=== PATIENT | female | born 1945 | race Caucasian/White ===

== ENCOUNTER 2018-03-15 07:34 | Inpatient (IN) | payer MEDICARE, MEDICAID ==
--- NOTE | 2018-03-15 08:16 | C.PDOC ---
History Of Present Illness HX LTD DUE TO CLIN CONDITION 72-YEAR-OLD FEMALE, PRESENTS TO THE EMERGENCY DEPARTMENT WITH COMPLAINTS OF NEW ONSET INTMT CP, SOB, NON-BLOODY DIARRHEA x4 DAYS. PATIENT HAS HAD MULTIPLE BM, DEC APPETITE, AND INC GEN WEAKNESS. NORMALLY PT ABLE TO WALK AROUND, FEED AND DRESS SELF. PT WITH HX OF CHRONIC PAIN DUE TO RA. PTS CP AND SOB ARE NEW. NO KNOWN CARDIAC HX. PER FAMILY, SHE HAD NORMAL ECHO AND STRESS TEST 1 YEAR AGO. PT ALSO WITH NEW ONSET L GREATER THAN RIGHT LEG SWELL, SINCE TUESDAY. FAMILY NOTIFIED OF NEW BLISTERS AND LESIONS ON L FOOT. BASELINE SUGARS ARE WELL CONTROLLED AVG AT 140, BUT FOR PAST 4 DAYS SUGAR AVERAGES AT 300 EXAM APPEARS WEAK, NON-TOX LUNGS POOR EFFORT, NORMAL EXTREMITY L GREATER THAN RIGHT NON PITTING EDEMA. NO DEFORM. SKIN EXAM, SHE HAS MULT CLR BLISTER LESIONS OVER AREAS W SOME BLISTER DEHISCENCE CLR FLUID SCATTERED NON BLANCHING FOCAL LESIONS ON TOP OF FOOT AND LOW BACK PRESSURE ULCER ON BUTTOCK AREA NEURO NO FOCAL DEF AOX2, ACTING APPROPRIATELY DISPOS[employer] Past Medical History Reviewed: Historical Data, Nursing Documentation, Vital Signs Vital Signs: Last Vital Signs Temp 98.6 F 03/15/18 11:00 Pulse 134 H 03/15/18 11:00 Resp 21 03/15/18 11:00 BP 125/63 03/15/18 11:00 Pulse Ox 100 03/15/18 11:00 - Medical History PMH: Arthritis ( PER DAUGHTER SINGH BARROSO), HTN, Rheumatoid Arthritis Family History: States: No Known Family Hx - Social History Hx Alcohol Use: No Hx Substance Use: No - Immunization History Hx Tetanus Toxoid Vaccination: No ( PER DAUGHTER SINGH BARROSO) Hx Influenza Vaccination: No ( PER DAUGHTER SINGH BARROSO) Hx Pneumococcal Vaccination: No ( PER DAUGHTER SINGH BARROSO) Review Of Systems Constitutional: Positive for: Weakness, Other (DECREASED APPETITE) Cardiovascular: Positive for: Chest Pain Respiratory: Positive for: Shortness of Breath Gastrointestinal: Positive for: Diarrhea Musculoskeletal: Positive for: Foot Pain (LESIONS), Other (LEG SWELLING.) Physical Exam - Physical Exam Appears: Non-toxic, No Acute Distress, Other (appears weak) Skin: Normal Color, Warm, Dry, No Rash, Other (MULT CLR BLISTER LESIONS OVER FOOT W SOME BLISTER DEHISCENCE, CLR FLUID SCATTERED NON BLANCHING FOCAL LESIONS ON TOP OF FOOT AND LOW BACK. +PRESSURE ULCER ON BUTTOCK AREA) Head: Normacephalic Eye(s): bilateral: PERRL Nose: Normal Oral Mucosa: Moist Lips: Normal Appearing Neck: Normal ROM Chest: Symmetrical Cardiovascular: Rhythm Regular Respiratory: No Accessory Muscle Use (poor effort) Extremity: No Deformity, Other ( L>R NON PITTING EDEMA. NO DEFORMITY) Neurological/Psych: Other (NO FOCAL DEFICIT. ACTING APPROPRIATELY) ED Course And Treatment - Laboratory Results Result Diagrams: 03/15/18 08:28 03/15/18 08:28 ECG: Interpreted By Me ECG Rhythm: Sinus Tachycardia, L BBB, PVC Rate From EC O2 Sat by Pulse Oximetry: 100 (RA) Pulse Ox Interpretation: Normal Progress - Re-Evaluation Re-evaluation Note: 03/15/18 08:[address] CLAYTON 03/15/18 08:43 CODE SEPSIS ACTIVATED WILL DEFER IVF SEPSIS BOLUS PROTOCOL DUE TO UNK CARDIAC EF. BNP PENDING 03/15/18 08:47 D/W DR CLAYTON STATES WILL CALLBACK W ADDL INFO 03/15/18 09:24 d/w dr CLAYTON: PT LAST EVAL 2015 echo 50; +lbbb. RECOMMENDS ESMOLOL. WILL CONSULT 03/15/18 10:31 D/W DR TAY C/F ICU, WILL EVAL 03/15/18 10:42 REPEAT EKG SINUS TACH @ 102 LBBB 03/15/18 11:05 D/W DR EPPERSON CF PMD WILL ADMIT 03/15/18 11:16 ACCEPTED FOR ICU - Data Reviewed Data Reviewed: Lab, Diagnostic imaging, EKG, Old records - Critical Care Citical Care: Excluding Proc Time Critical Care Time: 90 minutes - Continuity of Care Discussed patient case with:: Patient, Family-HIPPA compliant, Covering for PMD Discussed pt. case with web consultant/specialty: Cardiology, Pulmonary/Crit. Care Disposition Counseled Patient/Family Regarding: Studies Performed, Diagnosis - Disposition Disposition: HOSPITALIZED Disposition Time: 11:16 Condition: SERIOUS Forms: [facility] (Kinyarwanda) - POA Present On Arrival: None - Clinical Impression Clinical Impression: CHF, acute, Rapid atrial fibrillation, Sepsis syndrome - Scribe Statement The provider has reviewed the documentation as recorded by the Scribe (Karlos Torres) All medical record entries made by the Scribe were at my direction and personally dictated by me. I have reviewed the chart and agree that the record accurately reflects my personal performance of the history, physical exam, medical decision making, and the department course for this patient. I have also personally directed, reviewed, and agree with the discharge instructions and disposition. Decision To Admit - Pt Status Changed To: Hospital Disposition Of: Inpatient - Admit Certification Admit to Inpatient:: After my assessment, the patient will require hospitalization for at least two midnights. This is because of the severity of symptoms shown, intensity of services needed, and/or the medical risk in this patient being treated as an outpatient. - InPatient: Physician Admission Certification: I certify that this patient requires 2 or more midnights of care for the following reason:: SEE NOTE - . Bed Request Type: ICU Admitting Physician: Patrica Epperson Patient Diagnosis: CHF, acute, Rapid atrial fibrillation, Sepsis syndrome
[2018-03-15 08:32] LABS: HEMOGLOBIN 15.8 g/dL (11.0-16.0); LYMPH # 0.9 K/uL (1.0-4.3); MEAN CELL VOLUME 92.8 fL (81.0-99.0); MEAN CORPUSCULAR HEMOGLOBIN 30.6 pg (27.0-31.0); MEAN PLATELET VOLUME 8.5 fL (7.2-11.7); MONO # 1.3 K/uL (0.0-0.8); MONO % 8.6 % (0.0-10.0); NEUT # 12.7 K/uL (1.8-7.0); NEUT % 85.4 % (50.0-75.0); NRBC % 0.1 % (0.0-2.0); PLATELET COUNT 206 K/uL (130-400); RBC 5.16 Mil/uL (3.80-5.20); RED CELL DISTRIBUTION WIDTH 15.1 % (11.5-14.5); WHITE BLOOD COUNT 14.8 K/uL (4.8-10.8)
[2018-03-15 08:39] LABS: INR 2.3; PROTHROMBIN TIME 26.6 SECONDS (9.7-12.2)
[2018-03-15 08:41] LABS: VENOUS BLOOD GAS BASE EXCESS 3.7 mmol/L (0.0-2.0); VENOUS BLOOD GAS PCO2 43 mmHg (40-60); VENOUS BLOOD GAS PO2 17 mm/Hg (30-55); VENOUS BLOOD PH 7.43 (7.32-7.43)
[2018-03-15] MEDS ORDERED: Vancomycin 1 gm/NS 200 ml 1 GM/200 ML BAG IVPB STA (08:45)
[2018-03-15] MEDS ORDERED: Aztreonam 2 GM in Sodium Chloride 0.9% 100 ML IVPB STA (08:45)
[2018-03-15 08:57] LABS: ALB/GLOB RATIO 1.2 (1.0-2.1); ALBUMIN 3.9 g/dL (3.5-5.0); ALT/SGPT 184 U/L (9-52); AST/SGOT 286 U/L (14-36); BLOOD UREA NITROGEN 36 mg/dL (7-17); CALCIUM 9.1 mg/dl (8.6-10.4); GFR AFRICAN-AMERICAN > 60; GFR NON-AFRICAN AMERICAN > 60
[2018-03-15 09:08] LABS: B-TYPE NATRIURETIC PEPTIDE 11600 pg/mL (0-900)
[2018-03-15] MEDS ORDERED: Digoxin 500 mcg/2ml (0.5 mg/2ml) Inj IV STA (09:15)
[2018-03-15 09:17] LABS: ANISOCYTOSIS SLIGHT; LYMPHOCYTE 6 % (20-40); MONOCYTE 6 % (0-10); NEUTROPHIL 88 % (50-75); PLATELET ESTIMATE NORMAL (NORMAL); TOTAL CELLS COUNTED 100
[2018-03-15 09:22] LABS: SQUAMOUS EPITHIAL 8 /hpf (0-5); URINE BILIRUBIN NEGATIVE (NEGATIVE); URINE BLOOD NEGATIVE (NEGATIVE); URINE CLARITY Hazy (Clear); URINE COLOR Amber (YELLOW); URINE GLUCOSE (UA) NORMAL (Normal); URINE LEUKOCYTE ESTERASE NEG Leu/uL (Negative); URINE PROTEIN 2+ mg/dL (NEGATIVE)
--- NOTE | 2018-03-15 09:23 | RAD ---
PROCEDURE: CHEST RADIOGRAPH, 1 VIEW HISTORY: SOB COMPARISON: 12/22/2012 FINDINGS: LUNGS: Clear. PLEURA: No pneumothorax or pleural fluid seen. CARDIOVASCULAR: Normal. OSSEOUS STRUCTURES: No significant abnormalities. VISUALIZED UPPER ABDOMEN: Normal. OTHER FINDINGS: None. IMPRESSION: No active disease.
[2018-03-15] MEDS ORDERED: Esmolol 100 mg/10ml Inj IV ONE (09:27)
[2018-03-15] MEDS ORDERED: Esmolol 2,500 MG in Dextrose 5% In Water 240 ML IV SCH (09:30)
[2018-03-15] MEDS ORDERED: Iodixanol 320 MG/ML 100 ML BOTTLE IV ONE (09:57)
[2018-03-15] MEDS ORDERED: Esmolol 2,500 MG in Sodium Chloride 0.9% 240 ML IV SCH (10:00)
[2018-03-15] MEDS ORDERED: Esmolol Hcl 2500mg/250ml NAC 250 ML IV SCH (10:30)
--- NOTE | 2018-03-15 10:44 | CT ---
PROCEDURE: CT Chest with contrast (Pulmonary Angiogram) HISTORY: SOB COMPARISON: None available. TECHNIQUE: Axial computed tomography images were obtained of the chest in the pulmonary arterial phase of enhancement. Coronal and sagittal reformatted images were created and reviewed. Intravenous contrast dose: 100 mL Visipaque 320 Radiation dose: Total exam DLP = 556.25 mGy-cm. This CT exam was performed using one or more of the following dose reduction techniques: Automated exposure control, adjustment of the mA and/or kV according to patient size, and/or use of iterative reconstruction technique. FINDINGS: PULMONARY ARTERIES: No filling defect. No evidence of pulmonary arterial embolism. AORTA: No acute findings. No thoracic aortic aneurysm. LUNGS: Linear subsegmental atelectasis in the right middle lobe, lateral segment and in lingular segment left upper lobe. Minimal compressive atelectasis right lower lobe secondary to right pleural effusion. Minimal linear scar/atelectasis left lower lobe. No acute infiltrate. No pulmonary mass. PLEURAL SPACES: Small right pleural effusion and trace left pleural effusion. No pneumothorax. HEART: Cardiomegaly. No pericardial effusion. No aneurysmal dilatation of the ascending thoracic aorta. There is dilatation of the main pulmonary artery to a diameter of 3.5 cm. Please correlate with any history of pulmonary arterial hypertension. LYMPH NODES: No lymphadenopathy. BONES, CHEST WALL: Unremarkable. No fracture or destructive lesion OTHER FINDINGS: 4.7 cm upper pole cortical cyst left kidney incidentally noted. IMPRESSION: No evidence of pulmonary embolism. Small right pleural effusion and trace left pleural effusion. Multifocal linear subsegmental atelectasis. No acute infiltrate. Cardiomegaly. Dilated main pulmonary artery.
--- NOTE | 2018-03-15 10:56 | CT ---
PROCEDURE: CT Abdomen and Pelvis with contrast HISTORY: ABN LFT, abdominal pain COMPARISON: 07/05/2012. TECHNIQUE: CT scan of the abdomen and pelvis was performed after administration of intravenous contrast. Oral contrast was not administered. Coronal and sagittal reformatted images were obtained. Contrast dose: 100 mL Visipaque 320 Radiation dose: Total exam DLP = 1135.20 mGy-cm. This CT exam was performed using one or more of the following dose reduction techniques: Automated exposure control, adjustment of the mA and/or kV according to patient size, and/or use of iterative reconstruction technique. FINDINGS: LOWER THORAX: Moderate right and small left pleural effusions. LIVER: The liver is normal in size and there is diffuse fatty infiltration. No gross lesion or ductal dilatation. GALLBLADDER AND BILE DUCTS: There are gallstones, mild gallbladder wall enhancement and small amount of pericholecystic fluid. There is mild diffuse dilatation of the common bile duct which measures 8 mm in the region of the head of the pancreas. PANCREAS: Mild diffuse atrophy. No gross lesion or ductal dilatation. SPLEEN: Normal in size and appearance. ADRENALS: No discrete nodule. KIDNEYS AND URETERS: Normal in size with homogeneous enhancement. No hydronephrosis. No solid mass. There is a 11 mm simple cyst in the upper pole of the right kidney. There is a 5.2 x 4.5 cm simple cyst in the upper pole of the left kidney. VASCULATURE: There are advanced atherosclerotic aortoiliac calcifications. No aortic aneurysm. BOWEL: Evaluation of the bowel is limited in the absence of oral contrast. The small bowel loops are normal in caliber. There is extensive colonic diverticulosis. There is apparent mild mural thickening of the transverse colon, left hemicolon and sigmoid colon. No bowel dilatation or obstruction. APPENDIX: Normal appendix. PERITONEUM: No free fluid. No free air. LYMPH NODES: No enlarged lymph nodes. BLADDER: Indwelling Diop catheter with subsequent decompression. REPRODUCTIVE: The uterus is normal in size for the patient's age. There is apparent thickening of the central endometrial echo complex. BONES: No acute fracture. Advanced multilevel degenerative disc disease in the lumbar spine worse at L3-4. OTHER FINDINGS: None. IMPRESSION: 1. Evaluation of the bowel is limited in the absence of oral contrast. Allowing for this, apparent mild mural thickening in the transverse colon, left hemicolon and sigmoid colon is nonspecific and could be related to underdistention however early nonspecific infectious/inflammatory colitis cannot be entirely excluded. Clinical correlation and follow-up is advised. 2. Colonic diverticulosis without CT evidence for acute diverticulitis. 3. Fatty liver. 4. Cholelithiasis and mild pericholecystic fluid. If clinically indicated, correlation with right upper quadrant ultrasound may be performed for definitive evaluation of the gallbladder. 5. Apparent thickening of the central endometrial echo complex, concerning for postmenopausal status. A dedicated pelvic ultrasound is recommended for further evaluation.
--- NOTE | 2018-03-15 11:54 | VASCLAB ---
PROCEDURE: Lower Extremity Venous Duplex Exam. HISTORY: swelling PRIORS: None. TECHNIQUE: Bilateral common femoral, femoral, popliteal and posterior tibial, peroneal and great saphenous veins were evaluated. Flow was assessed with color Doppler, compressibility, assessment of phasic flow and augmentation response. Report prepared by MELITA Chung, RVT FINDINGS: RIGHT: 1. Common Femoral Vein: 1.1. Compressibility - Fully compressible: Thrombus - None : Flow - Phasic: Augmentation -Normal: Reflux - None. 2. Femoral Vein: 2.1. Compressibility - Fully compressible: Thrombus - None : Flow - Phasic: Augmentation -Normal: Reflux - None. 3. Popliteal Vein: 3.1. Compressibility - Fully compressible: Thrombus - None : Flow - Phasic: Augmentation -Normal: Reflux - None. 4. Posterior Tibial Vein: 4.1. Compressibility - Fully compressible: Thrombus - None: Flow - Phasic: Augmentation -Normal: Reflux - None. 5. Peroneal Vein: 5.1. Compressibility - Fully compressible: Thrombus - None: Flow - Phasic: Augmentation -Normal: Reflux - None. 6. Great Saphenous Vein: 6.1. Compressibility - Fully compressible: Thrombus - None: Flow - Phasic: Augmentation - Normal: Reflux - None. LEFT: 1. Common Femoral Vein: 1.1. Compressibility - Fully compressible: Thrombus - None: Flow - Phasic: Augmentation -Normal: Reflux - None. 2. Femoral Vein: 2.1. Compressibility - Fully compressible: Thrombus - None: Flow - Phasic: Augmentation -Normal: Reflux - None. 3. Popliteal Vein: 3.1. Compressibility - Fully compressible: Thrombus - None : Flow - Phasic: Augmentation -Normal: Reflux - None. 4. Posterior Tibial Vein: 4.1. Compressibility - Fully compressible: Thrombus - None: Flow - Phasic: Augmentation -Normal: Reflux - None. 5. Peroneal Vein: 5.1. Compressibility - Fully compressible: Thrombus - None: Flow - Phasic: Augmentation -Normal: Reflux - None. 6. Great Saphenous Vein: 6.1. Compressibility - Fully compressible: Thrombus - None: Flow - Phasic: Augmentation - Normal: Reflux - None. OTHER FINDINGS: Pulsatile flow noted in both lower extremity veins. IMPRESSION: Right: No evidence of deep or superficial vein thrombosis of the right lower extremity. Normal valve function noted of the right side. Left: No evidence of deep or superficial vein thrombosis of the left lower extremity. Normal valve function noted of the left side.
[2018-03-15 11:57] LABS: VENOUS BLOOD GAS BASE EXCESS -0.8 mmol/L (0.0-2.0); VENOUS BLOOD GAS PCO2 41 mmHg (40-60); VENOUS BLOOD GAS PO2 25 mm/Hg (30-55); VENOUS BLOOD PH 7.38 (7.32-7.43)
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
--- NOTE | 2018-03-15 12:53 | CP.PCM.CON ---
History of Present Illness - History of Present Illness History of Present Illness: The pt is a 72 year old woman, diabetic with HTN and a chronic LBBB. pt stopped coming to the office in 2016. In 2016, she had an outpatient echo showing Low normal LV EF, and a non ischemic nuclear stress test. She has been home bound for many years, not walking, going to the bed to the chair with family 's help. Pt has had poor appetite, increased leg swelling and dyspnea, fatigue. The pt was brought to the ER, and cxr revealed mild CHF and increased bnp ( radiology says clear, I disagree). CT was negative for PE. Pt while in the ER had atrial flutter with 2;1 block. IV esmolol was administered and pt converted to NSR. Also noted were mildly low magnesium and potassium. Pt has not taken meds for some time. She was on several outpatient anti-hypertensives. BP is nor normal in the ER, and LBBB is again seen. There is mild TNI elevation. Review of Systems - Review of Systems All systems: reviewed and no additional remarkable complaints except (as above, blisters on legs) Past Patient History - Past Social History Smoking Status: Former Smoker - CARDIAC Hx Hypertension: Yes - ENDOCRINE/METABOLIC Hx Diabetes Mellitus Type 2: Yes - MUSCULOSKELETAL/RHEUMATOLOGICAL Hx Arthritis: Yes ( PER DAUGHTER SINGH BARROSO) Hx Rheumatoid Arthritis: Yes - PSYCHIATRIC Hx Substance Use: No - SURGICAL HISTORY Hx Surgeries: No ( PER DAUGHTER SINGH BARROSO) - ANESTHESIA Hx Anesthesia: No Meds Allergies/Adverse Reactions: Allergies Allergy/AdvReac Type Severity Reaction Status Date / Time No Known Allergies Allergy Verified 03/15/18 07:43 - Medications Medications: Current Medications Esmolol HCl (Brevibloc) 250 mls @ 20.412 mls/hr IV .[id number] FRANCOIS; 50 MCG/KG/MIN PRN Reason: Protocol Last Admin: 03/15/18 11:17 Dose: 20.412 mls/hr Insulin Human Regular (Novolin R) 0 unit SC ACHS FRANCOIS PRN Reason: Protocol Physical Exam - Constitutional Appears: Cachectic, Chronically Ill - Head Exam Head Exam: ATRAUMATIC - Eye Exam Eye Exam: EOMI Pupil Exam: NORMAL ACCOMODATION - ENT Exam ENT Exam: Mucous Membranes Dry - Neck Exam Neck exam: Positive for: Full Rom - Respiratory Exam Respiratory Exam: Rales - Cardiovascular Exam Cardiovascular Exam: REGULAR RHYTHM - GI/Abdominal Exam GI & Abdominal Exam: Normal Bowel Sounds - Exam External exam: Swelling (bandaged blisters left leg, bilateral edema. ) - Extremities Exam Extremities exam: Positive for: pedal edema - Back Exam Back exam: CVA tenderness (L), CVA tenderness (R), FULL ROM, muscle spasm, paraspinal tenderness, rash noted, tenderness, vertebral tenderness Additional comments: buttock ulcer - Neurological Exam Neurological exam: Alert, Oriented x3 - Psychiatric Exam Psychiatric exam: Flat Affect Results - Vital Signs Recent Vital Signs: Last Vital Signs Temp 99.0 F 03/15/18 12:16 Pulse 88 03/15/18 12:16 Resp 17 03/15/18 12:16 BP 126/66 03/15/18 12:16 Pulse Ox 98 03/15/18 12:16 - Labs Result Diagrams: 03/15/18 08:28 03/15/18 08:28 Labs: Laboratory Results - last 24 hr 03/15/18 03/15/18 03/15/18 07:40 08:28 08:28 WBC 14.8 H RBC 5.16 Hgb 15.8 Hct 47.8 H MCV 92.8 MCH 30.6 MCHC 33.0 RDW 15.1 H Plt Count 206 MPV 8.5 Neut % (Auto) 85.4 H Lymph % (Auto) 6.0 L [place] % (Auto) 8.6 Eos % (Auto) 0.0 Baso % (Auto) 0.0 Neut # (Auto) 12.7 H Lymph # (Auto) 0.9 L [place] # (Auto) 1.3 H Eos # (Auto) 0.0 Baso # (Auto) 0.0 Neutrophils % (Manual) 88 H Lymphocytes % (Manual) 6 L Monocytes % (Manual) 6 Platelet Estimate Normal Anisocytosis (manual) Slight PT INR APTT pO2 VBG pH VBG pCO2 VBG HCO3 VBG Total CO2 VBG O2 Sat (Calc) VBG Base Excess VBG Potassium Glucose Lactate Crit Value Called To Crit Value Called By Crit Value Read Back Blood Gas Notified Time Sodium 132 Potassium 3.4 L Chloride 90 L Carbon Dioxide 24 Anion Gap 21 H BUN 36 H Creatinine 0.8 Est GFR ( Amer) > 60 Est GFR (Non-Af Amer) > 60 POC Glucose (mg/dL) 98 Random Glucose 99 Calcium 9.1 Phosphorus 3.5 Magnesium 1.6 Total Bilirubin 2.0 H AST 286 H ALT 184 H Alkaline Phosphatase 162 H Troponin I 0.3780 H* NT-Pro-B Natriuret Pep 91789 H Total Protein 7.2 Albumin 3.9 Globulin 3.2 Albumin/Globulin Ratio 1.2 Venous Blood Potassium Urine Color Urine Clarity Urine pH Ur Specific [place] Urine Protein Urine Glucose (UA) Urine Ketones Urine Blood Urine Nitrate Urine Bilirubin Urine Urobilinogen Ur Leukocyte Esterase Urine WBC (Auto) Urine RBC (Auto) Ur Squamous Epith Cells 03/15/18 03/15/18 03/15/18 08:28 08:32 09:13 WBC RBC Hgb Hct MCV MCH MCHC RDW Plt Count MPV Neut % (Auto) Lymph % (Auto) [place] % (Auto) Eos % (Auto) Baso % (Auto) Neut # (Auto) Lymph # (Auto) [place] # (Auto) Eos # (Auto) Baso # (Auto) Neutrophils % (Manual) Lymphocytes % (Manual) Monocytes % (Manual) Platelet Estimate Anisocytosis (manual) PT 26.6 H INR 2.3 APTT 30 pO2 17 L VBG pH 7.43 VBG pCO2 43 VBG HCO3 25.9 VBG Total CO2 29.8 H VBG O2 Sat (Calc) 16.9 L VBG Base Excess 3.7 H VBG Potassium 3.5 L Glucose 108 H Lactate 2.6 H Crit Value Called To Dr austin Crit Value Called By Mynor jung [facility] Crit Value Read Back Y Blood Gas Notified Time 840 Sodium 130.0 L Potassium Chloride 92.0 L Carbon Dioxide Anion Gap BUN Creatinine Est GFR ( Amer) Est GFR (Non-Af Amer) POC Glucose (mg/dL) Random Glucose Calcium Phosphorus Magnesium Total Bilirubin AST ALT Alkaline Phosphatase Troponin I NT-Pro-B Natriuret Pep Total Protein Albumin Globulin Albumin/Globulin Ratio Venous Blood Potassium 3.5 L Urine Color [place] Urine Clarity Hazy Urine pH 5.0 Ur Specific [place] 1.030 Urine Protein 2+ H Urine Glucose (UA) Normal Urine Ketones Trace Urine Blood Negative Urine Nitrate Negative Urine Bilirubin Negative Urine Urobilinogen 4.0 H Ur Leukocyte Esterase Neg Urine WBC (Auto) 1 Urine RBC (Auto) 1 Ur Squamous Epith Cells 8 H 03/15/18 03/15/18 11:50 11:53 WBC RBC Hgb Hct MCV MCH MCHC RDW Plt Count MPV Neut % (Auto) Lymph % (Auto) [place] % (Auto) Eos % (Auto) Baso % (Auto) Neut # (Auto) Lymph # (Auto) [place] # (Auto) Eos # (Auto) Baso # (Auto) Neutrophils % (Manual) Lymphocytes % (Manual) Monocytes % (Manual) Platelet Estimate Anisocytosis (manual) PT INR APTT pO2 25 L VBG pH 7.38 VBG pCO2 41 VBG HCO3 22.8 VBG Total CO2 25.6 VBG O2 Sat (Calc) 31.9 L VBG Base Excess -0.8 L VBG Potassium 3.1 L Glucose 94 Lactate 3.5 H Crit Value Called To Crit Value Called By Crit Value Read Back Blood Gas Notified Time Sodium 133.0 Potassium Chloride 93.0 L Carbon Dioxide Anion Gap BUN Creatinine Est GFR ( Amer) Est GFR (Non-Af Amer) POC Glucose (mg/dL) 111 H Random Glucose Calcium Phosphorus Magnesium Total Bilirubin AST ALT Alkaline Phosphatase Troponin I NT-Pro-B Natriuret Pep Total Protein Albumin Globulin Albumin/Globulin Ratio Venous Blood Potassium 3.1 L Urine Color Urine Clarity Urine pH Ur Specific [place] Urine Protein Urine Glucose (UA) Urine Ketones Urine Blood Urine Nitrate Urine Bilirubin Urine Urobilinogen Ur Leukocyte Esterase Urine WBC (Auto) Urine RBC (Auto) Ur Squamous Epith Cells Assessment & Plan - Assessment and Plan (Free Text) Assessment: 1. Pt has deteriorated greatly in two years, essentially bed bound. There is unexplained liver dysfunction with elevated PT/PTT. CT not specific for the cause of this. GI eval recommended. Pt has atrial flutter, resulting in chf. there is mild troponin elevation, which is likely reflective of demand ischemia, not plaque rupture. Pt is a diabetic, and likely has microvascular disease, at least. Nuclear stress was negative for ischemia in 2016. No anticoagulation as inr elevated. Asa po. Echo to asses LV EF. Gradually transition from IV esmolol to po metoprolol. Esmolol has a very short half life, minutes, and lopressor shoudl be given and allow to absorb po for 30 min or more before stopping or tapering esmolol. replace MAg and k. Continue IV lasx for now. ,
[2018-03-15] MEDS ORDERED: Magnesium Sulfate 1 gm in D5W 1 GM/100 ML BAG IVPB SCH (13:00)
[2018-03-15] MEDS ORDERED: Potassium Chloride 20 mEq/15 ml LIQ UD PO ONE (13:00)
[2018-03-15] MEDS ORDERED: Vancomycin 1 GM in Sodium Chloride 0.9% 200 ML IVPB SCH ×2 (13:30→20:21)
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
[2018-03-15] MEDS: Pantoprazole 40 mg EC Tab PO SCH (14:54)
[2018-03-15] MEDS: Piperacill/Tazo 3.375gm in Dex 3.375 GM/50 ML BAG IVPB SCH ×2 (15:59→21:09)
[2018-03-15] MEDS: (Novolin R) Insulin Human Regular 100 units/ml vial SC SCH ×2 (16:32→21:09)
[2018-03-15] MEDS ORDERED: Sodium Chloride 0.9% 1,000 ML IV ONE (16:47)
--- NOTE | 2018-03-15 17:28 | CP.PCM.CON ---
History of Present Illness - History of Present Illness History of Present Illness: dictated Past Patient History - Past Social History Smoking Status: Former Smoker - CARDIAC Hx Hypertension: Yes - ENDOCRINE/METABOLIC Hx Diabetes Mellitus Type 2: Yes - MUSCULOSKELETAL/RHEUMATOLOGICAL Hx Arthritis: Yes ( PER DAUGHTER SINGH BARROSO) Hx Rheumatoid Arthritis: Yes - PSYCHIATRIC Hx Substance Use: No - SURGICAL HISTORY Hx Surgeries: No ( PER DAUGHTER SINGH BARROSO) - ANESTHESIA Hx Anesthesia: No Meds Allergies/Adverse Reactions: Allergies Allergy/AdvReac Type Severity Reaction Status Date / Time No Known Allergies Allergy Verified 03/15/18 14:02 - Medications Medications: Current Medications Aspirin (Aspirin Chewable) 81 mg PO DAILY [facility] Esmolol HCl (Brevibloc) 250 mls @ 20.412 mls/hr IV .[id number] FRANCOIS; 50 MCG/KG/MIN PRN Reason: Protocol Last Admin: 03/15/18 11:17 Dose: 20.412 mls/hr Piperacillin Sod/Tazobactam Sod (Zosyn 3.375 Gm Iv Premix) 3.375 gm in 50 mls @ 100 mls/hr IVPB Q6H FRANCOIS PRN Reason: Protocol Last Admin: 03/15/18 15:59 Dose: 100 mls/hr Vancomycin HCl 1 gm/ Sodium (Chloride) 200 mls @ 166.7 mls/hr IVPB Q12H FRANCOIS PRN Reason: Protocol Insulin Human Regular (Novolin R) 0 unit SC ACHS [facility] PRN Reason: Protocol Last Admin: 03/15/18 16:32 Dose: Not Given Ketorolac Tromethamine (Toradol) 15 mg IVP Q6 PRN PRN Reason: Pain, moderate (4-7) Last Admin: 03/15/18 15:23 Dose: 15 mg Metoprolol Tartrate (Lopressor) 25 mg PO BID [facility] Ondansetron HCl (Zofran Inj) 4 mg IVP Q6H PRN PRN Reason: Nausea/Vomiting Last Admin: 03/15/18 15:57 Dose: 4 mg Pantoprazole Sodium (Protonix Ec Tab) 40 mg PO DAILY [facility] Last Admin: 03/15/18 14:54 Dose: 40 mg Pneumococcal Polyvalent Vaccine (Pneumovax 23 Vaccine) 0.5 ml IM .ONCE ONE Stop: 03/17/18 10:01 Results - Vital Signs Recent Vital Signs: Last Vital Signs Temp 99.0 F 03/15/18 12:16 Pulse 131 H 03/15/18 16:30 Resp 15 03/15/18 16:30 BP 95/66 L 03/15/18 16:21 Pulse Ox 98 03/15/18 16:30 - Labs Result Diagrams: 03/15/18 08:28 03/15/18 08:28 Labs: Laboratory Results - last 24 hr 03/15/18 03/15/18 03/15/18 07:40 08:28 08:28 WBC 14.8 H RBC 5.16 Hgb 15.8 Hct 47.8 H MCV 92.8 MCH 30.6 MCHC 33.0 RDW 15.1 H Plt Count 206 MPV 8.5 Neut % (Auto) 85.4 H Lymph % (Auto) 6.0 L [place] % (Auto) 8.6 Eos % (Auto) 0.0 Baso % (Auto) 0.0 Neut # (Auto) 12.7 H Lymph # (Auto) 0.9 L [place] # (Auto) 1.3 H Eos # (Auto) 0.0 Baso # (Auto) 0.0 Neutrophils % (Manual) 88 H Lymphocytes % (Manual) 6 L Monocytes % (Manual) 6 Platelet Estimate Normal Anisocytosis (manual) Slight PT INR APTT pO2 VBG pH VBG pCO2 VBG HCO3 VBG Total CO2 VBG O2 Sat (Calc) VBG Base Excess VBG Potassium Glucose Lactate Crit Value Called To Crit Value Called By Crit Value Read Back Blood Gas Notified Time Sodium 132 Potassium 3.4 L Chloride 90 L Carbon Dioxide 24 Anion Gap 21 H BUN 36 H Creatinine 0.8 Est GFR ( Amer) > 60 Est GFR (Non-Af Amer) > 60 POC Glucose (mg/dL) 98 Random Glucose 99 Calcium 9.1 Phosphorus 3.5 Magnesium 1.6 Total Bilirubin 2.0 H AST 286 H ALT 184 H Alkaline Phosphatase 162 H Troponin I 0.3780 H* NT-Pro-B Natriuret Pep 60265 H Total Protein 7.2 Albumin 3.9 Globulin 3.2 Albumin/Globulin Ratio 1.2 Venous Blood Potassium Urine Color Urine Clarity Urine pH Ur Specific [place] Urine Protein Urine Glucose (UA) Urine Ketones Urine Blood Urine Nitrate Urine Bilirubin Urine Urobilinogen Ur Leukocyte Esterase Urine WBC (Auto) Urine RBC (Auto) Ur Squamous Epith Cells 03/15/18 03/15/18 03/15/18 08:28 08:32 09:13 WBC RBC Hgb Hct MCV MCH MCHC RDW Plt Count MPV Neut % (Auto) Lymph % (Auto) [place] % (Auto) Eos % (Auto) Baso % (Auto) Neut # (Auto) Lymph # (Auto) [place] # (Auto) Eos # (Auto) Baso # (Auto) Neutrophils % (Manual) Lymphocytes % (Manual) Monocytes % (Manual) Platelet Estimate Anisocytosis (manual) PT 26.6 H INR 2.3 APTT 30 pO2 17 L VBG pH 7.43 VBG pCO2 43 VBG HCO3 25.9 VBG Total CO2 29.8 H VBG O2 Sat (Calc) 16.9 L VBG Base Excess 3.7 H VBG Potassium 3.5 L Glucose 108 H Lactate 2.6 H Crit Value Called To Dr austin Crit Value Called By Mynor jung [facility] Crit Value Read Back Y Blood Gas Notified Time 840 Sodium 130.0 L Potassium Chloride 92.0 L Carbon Dioxide Anion Gap BUN Creatinine Est GFR ( Amer) Est GFR (Non-Af Amer) POC Glucose (mg/dL) Random Glucose Calcium Phosphorus Magnesium Total Bilirubin AST ALT Alkaline Phosphatase Troponin I NT-Pro-B Natriuret Pep Total Protein Albumin Globulin Albumin/Globulin Ratio Venous Blood Potassium 3.5 L Urine Color [place] Urine Clarity Hazy Urine pH 5.0 Ur Specific [place] 1.030 Urine Protein 2+ H Urine Glucose (UA) Normal Urine Ketones Trace Urine Blood Negative Urine Nitrate Negative Urine Bilirubin Negative Urine Urobilinogen 4.0 H Ur Leukocyte Esterase Neg Urine WBC (Auto) 1 Urine RBC (Auto) 1 Ur Squamous Epith Cells 8 H 03/15/18 03/15/18 03/15/18 11:50 11:53 16:14 WBC RBC Hgb Hct MCV MCH MCHC RDW Plt Count MPV Neut % (Auto) Lymph % (Auto) [place] % (Auto) Eos % (Auto) Baso % (Auto) Neut # (Auto) Lymph # (Auto) [place] # (Auto) Eos # (Auto) Baso # (Auto) Neutrophils % (Manual) Lymphocytes % (Manual) Monocytes % (Manual) Platelet Estimate Anisocytosis (manual) PT INR APTT pO2 25 L VBG pH 7.38 VBG pCO2 41 VBG HCO3 22.8 VBG Total CO2 25.6 VBG O2 Sat (Calc) 31.9 L VBG Base Excess -0.8 L VBG Potassium 3.1 L Glucose 94 Lactate 3.5 H Crit Value Called To Crit Value Called By Crit Value Read Back Blood Gas Notified Time Sodium 133.0 Potassium Chloride 93.0 L Carbon Dioxide Anion Gap BUN Creatinine Est GFR ( Amer) Est GFR (Non-Af Amer) POC Glucose (mg/dL) 111 H 139 H Random Glucose Calcium Phosphorus Magnesium Total Bilirubin AST ALT Alkaline Phosphatase Troponin I NT-Pro-B Natriuret Pep Total Protein Albumin Globulin Albumin/Globulin Ratio Venous Blood Potassium 3.1 L Urine Color Urine Clarity Urine pH Ur Specific [place] Urine Protein Urine Glucose (UA) Urine Ketones Urine Blood Urine Nitrate Urine Bilirubin Urine Urobilinogen Ur Leukocyte Esterase Urine WBC (Auto) Urine RBC (Auto) Ur Squamous Epith Cells
--- NOTE | 2018-03-15 18:51 | PCM.PROC ---
Procedures Attestation:: I certify that I have explained the specified Operation(s) or Procedure(s), risks, benefits and reasonable alternatives to the Patient and/or other person responsible. The opportunity was given to ask questions and all questions answered - Central Line Placement Right Internal Jugular Triple Lumen Catheter Aseptic technique was employed throughout the procedure: Hand Hygiene done prior to procedure, Full sterile barriers (mask, hair cover, sterile gown, sterile gloves), Chloraprep Antiseptic: 30 second prep for IJ or SC sites Central Line Prep: Chlorhexidine-Alcohol Combination Local Anesthesia Used: Lidocaine 2% Ultrasound Used for Placement: Yes Central Line Lumen Inserted: triple Post Procedure: Sutured in Place, Good Blood Return, All Ports Aspirated, Flushed, Capped, Sterile Dressing Applied Secured by: Suture Post procedure dressing: Chlorhexidine disc (Biopatch) Post Procedure X-Ray: Yes Patient Tolerated Procedure: Well Immediate Complications: None
[2018-03-15] MEDS: Vancomycin 1 GM in Sodium Chloride 0.9% 200 ML IVPB SCH (19:51)
[2018-03-15 20:18] LABS: ARTERIAL BLOOD GAS HEMOGLOBIN 14.2 g/dL (11.7-17.4); ARTERIAL BLOOD GAS O2 SAT 99.7 % (95-98); ARTERIAL BLOOD GAS PCO2 26 mm/Hg (35-45); ARTERIAL BLOOD GAS PH 7.46 (7.35-7.45); ARTERIAL BLOOD GAS PO2 178 mm/Hg (80-100); ARTERIAL BLOOD GAS TCO2 19.3 mmol/L (22-28)
--- NOTE | 2018-03-15 22:59 | US ---
EXAM: US Abdomen Limited, Right Upper Quadrant CLINICAL HISTORY: 72 years old, female; Condition or disease; Other: Sepsis R/O cholecystitis; Additional info: Sepsis, R/O cholecystitis TECHNIQUE: Real-time ultrasound of the right upper quadrant with image documentation. COMPARISON: No relevant prior studies available. FINDINGS: Liver: Fatty infiltration. No mass. No intrahepatic ductal dilatation. Gallbladder: Gallstones. 0.33 cm wall thickness. No pericholecystic fluid. No sonographic Gonzalez's sign. Common bile duct: Up to 0.83 cm in diameter. No stones. Pancreas: Unremarkable as visualized. Right kidney: Normal echogenicity. 1.1 x 1.2 x 1.3 cm cyst. No hydronephrosis. Mild stranding/fluid about RIGHT kidney. Pleural space: Right pleural effusion. IMPRESSION: 1. Cholelithiasis with borderline gallbladder wall thickening. Clinical correlation is needed. 2. Mild biliary ductal dilatation. Correlate with laboratory values. Consider MRCP. 3. Right pleural effusion. 4. Right perinephric stranding/fluid, nonspecific. 5. Incidental/non-acute findings are described above.
--- NOTE | 2018-03-15 23:29 | CARD ---
APPROVED REPORT EXAM: Two-dimensional and M-mode echocardiogram with Doppler and color Doppler. Other Information Quality : [employer] : INDICATION Atrial Fibrillation Congestive Heart Failure 2D DIMENSIONS IVSd1.1 (0.7-1.1cm)LVDd4.4 (3.9-5.9cm) PWd1.3 (0.7-1.1cm)LVDs4.2 (2.5-4.0cm) FS (%) 4.2 %LVEF (%)15.0 (>50%) M-Mode DIMENSIONS Left Atrium (MM)4.20 (2.5-4.0cm)Aortic Root3.18 (2.2-3.7cm) Aortic Cusp Exc.1.66 (1.5-2.0cm) Aortic Valve AI P 1/2 [id number] Mitral Valve MV E [id number]/sE/A ratio0.0 TDI E/Lateral E'0.0E/Medial E'0.0 Tricuspid Valve TR Peak [id number]/sTR Peak Gr.46mmHg LEFT VENTRICLE There is borderline to mild asymmetric left ventricular hypertrophy. Left ventricle systolic function is severely impaired. The Ejection Fraction is 15-20%. There is moderate to severe dyskinesis in the mid-anteroseptal wall consistent with CAD. The left ventricular diastolic function is normal. No left ventricle thrombus noted on this study. RIGHT VENTRICLE The right ventricle is normal size. The right ventricular systolic function is normal. ATRIA The left atrium is mildly dilated. The right atrium is moderately dilated. AORTIC VALVE The aortic valve is moderately sclerotic. The aortic valve is trileaflet. There is mild to moderate aortic regurgitation. There is no aortic valvular stenosis. There is no aortic valvular vegetation. MITRAL VALVE Mitral annular calcification is mild to moderate. There is no evidence of mitral valve prolapse. There is no mitral valve stenosis. Mitral regurgitation is mild to moderate. TRICUSPID VALVE The tricuspid valve is normal in structure. There is moderate to severe tricuspid regurgitation. There is no tricuspid valve prolapse or vegetation. There is no tricuspid valve stenosis. PULMONIC VALVE The pulmonic valve is not well visualized. There is trace to mild pulmonic valvular regurgitation. GREAT VESSELS The aortic root is normal in size. The IVC is normal in size and collapses >50% with inspiration. PERICARDIAL EFFUSION There is no pericardial effusion. There is no pleural effusion. <Conclusion> There is borderline to mild asymmetric left ventricular hypertrophy. Left ventricle systolic function is severely impaired. The Ejection Fraction is 15-20%. There is moderate to severe dyskinesis in the mid-anteroseptal wall consistent with CAD. The left ventricular diastolic function is normal. The right atrium is moderately dilated. The left atrium is mildly dilated. The right ventricle is normal size. The right ventricular systolic function is normal. There is mild to moderate aortic regurgitation. Mitral regurgitation is mild to moderate. There is trace to mild pulmonic valvular regurgitation.
[2018-03-16] MEDS: Piperacill/Tazo 3.375gm in Dex 3.375 GM/50 ML BAG IVPB SCH ×4 (03:15→21:26)
[2018-03-16 06:36] LABS: BASO % 0.2 % (0.0-2.0); HEMOGLOBIN 13.8 g/dL (11.0-16.0); LYMPH # 0.6 K/uL (1.0-4.3); MEAN CELL VOLUME 92.5 fL (81.0-99.0); MEAN CORPUSCULAR HEMOGLOBIN 31.4 pg (27.0-31.0); MEAN PLATELET VOLUME 8.7 fL (7.2-11.7); MONO # 1.1 K/uL (0.0-0.8); MONO % 9.4 % (0.0-10.0); NEUT # 10.5 K/uL (1.8-7.0); NEUT % 85.4 % (50.0-75.0); NRBC % 0.2 % (0.0-2.0); PLATELET COUNT 162 K/uL (130-400); WHITE BLOOD COUNT 12.2 K/uL (4.8-10.8)
[2018-03-16 06:55] LABS: ALB/GLOB RATIO 1.1 (1.0-2.1); ALBUMIN 2.8 g/dL (3.5-5.0); CALCIUM 8.1 mg/dl (8.6-10.4)
[2018-03-16] MEDS: Vancomycin 1 GM in Sodium Chloride 0.9% 200 ML IVPB SCH ×2 (07:08→19:49)
--- NOTE | 2018-03-16 08:21 | RAD ---
HISTORY: central line placed COMPARISON: CTA chest from 03/15/2018. FINDINGS: LUNGS: There is a left retrocardiac opacity. The right lung is clear. . PLEURA: Small pleural effusions, larger on the left. No pneumothorax apparent. CARDIOVASCULAR: The heart is enlarged and there is dilatation of the right pulmonary artery. OSSEOUS STRUCTURES: No significant abnormalities. VISUALIZED UPPER ABDOMEN: Normal. OTHER FINDINGS: None. IMPRESSION: Left retrocardiac opacity may represent atelectasis or pneumonia. Small pleural effusions, larger on the left. Persistent cardiomegaly and dilated right pulmonary artery.
[2018-03-16] MEDS: (Novolin R) Insulin Human Regular 100 units/ml vial SC SCH ×4 (08:30→21:25)
[2018-03-16 08:33] LABS: ANISOCYTOSIS SLIGHT; BANDS 2 % (0-2); BURR CELLS MODERATE; LYMPHOCYTE 6 % (20-40); MONOCYTE 7 % (0-10); NEUTROPHIL 85 % (50-75); PLATELET ESTIMATE NORMAL (NORMAL); TOTAL CELLS COUNTED 100
[2018-03-16] MEDS: Pantoprazole 40 mg EC Tab PO SCH (09:30)
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
--- NOTE | 2018-03-16 11:08 | CP.CCUPN ---
<Lenard Aguirre - Last Filed: 03/16/18 11:05> CCU Subjective - Physician Review Subjective (Free Text): 03/16/18 11:05 Patient seen and examined. Patient reports some epigastric pain but states that she is otherwise fine. CCU Objective - Vital Signs / Intake & Output Vital Signs (Last 4 hours): Vital Signs Pulse 03/16/18 08:07 72 Intake and Output (Last 8hrs): Intake & Output 03/15/18 03/16/18 03/16/18 22:59 06:59 14:59 Intake Total 401.0 150 Output Total 185 200 Balance 216.0 -50 Weight 137 lb Intake: Intake, IV Amount 401.0 100 Left Wrist 150 Right Antecubital 51.0 Right Proximal Port 200 100 Internal Jugular Oral 0 50 Output: Urine 185 200 Urethral (Diop) 185 200 Other: # Bowel Movements 0 - Physical Exam Head: Positive for: Atraumatic, Normocephalic Pupils: Positive for: PERRL Extroacular Muscles: Positive for: EOMI Conjunctiva: Positive for: Normal Mouth: Positive for: Dry Neck: Positive for: Other (right IJ TLC) Respiratory/Chest: Positive for: Clear to Auscultation. Negative for: Wheezes, Rales, Rhonchi Abdomen: Positive for: Normal Bowel Sounds. Negative for: Tenderness, Distention Upper Extremity: Negative for: Edema Lower Extremity: Positive for: Edema, Other (rash on left leg) Skin: Positive for: Warm, Dry Psychiatric: Positive for: Alert - Medications Active Medications: Active Medications Generic Name Dose Route Start Last Admin Trade Name Freq PRN Reason Stop Dose Admin Aspirin 81 mg 03/16/18 10:00 03/16/18 09:30 Aspirin Chewable PO 81 mg DAILY FRANCOIS Administration Piperacillin Sod/Tazobactam Sod 3.375 gm in 50 mls @ 100 mls/hr 03/15/18 16: 00 03/16/18 09:31 Zosyn 3.375 Gm Iv Premix IVPB 100 mls/hr Q6H FRANCOIS Administration Protocol Vancomycin HCl 1 gm/ Sodium 200 mls @ 166.7 mls/hr 03/15/18 20:00 03/16/18 07 :08 Chloride IVPB 166.7 mls/hr Q12H FRANCOIS Administration Protocol Insulin Human Regular 0 unit 03/15/18 16:30 03/16/18 08:30 Novolin R SC 2 unit ACHS FRANCOIS Administration Protocol Metoprolol Tartrate 12.5 mg 03/16/18 10:45 Lopressor PO Q12H FRANCOIS Ondansetron HCl 4 mg 03/15/18 15:44 03/15/18 15:57 Zofran Inj IVP 4 mg Q6H PRN Administration Nausea/Vomiting Pantoprazole Sodium 40 mg 03/15/18 14:15 03/16/18 09:30 Protonix Ec Tab PO 40 mg DAILY FRANCOIS Administration Pneumococcal Polyvalent Vaccine 0.5 ml 03/17/18 10:00 Pneumovax 23 Vaccine IM 03/17/18 10:01 .ONCE ONE - Patient Studies Lab Studies: Microbiology Studies 03/15/18 08:18 Urine Culture - Final Urine,Diop No Growth (<1,000 CFU/ML) Lab Studies 03/16/18 03/16/18 03/16/18 Range/Units 07:56 06:30 06:28 WBC (4.8-10.8) K/uL RBC (3.80-5.20) Mil/uL Hgb (11.0-16.0) g/dL Hct (34.0-47.0) % MCV (81.0-99.0) fL MCH (27.0-31.0) pg MCHC (33.0-37.0) g/dL RDW (11.5-14.5) % Plt Count (130-400) K/uL MPV (7.2-11.7) fL Neut % (Auto) (50.0-75.0) % Lymph % (Auto) (20.0-40.0) % [place] % (Auto) (0.0-10.0) % Eos % (Auto) (0.0-4.0) % Baso % (Auto) (0.0-2.0) % Neut # (Auto) (1.8-7.0) K/uL Lymph # (Auto) (1.0-4.3) K/uL [place] # (Auto) (0.0-0.8) K/uL Eos # (Auto) (0.0-0.7) K/uL Baso # (Auto) (0.0-0.2) K/uL Neutrophils % (Manual) (50-75) % Band Neutrophils % (0-2) % Lymphocytes % (Manual) (20-40) % Monocytes % (Manual) (0-10) % Platelet Estimate (NORMAL) Anisocytosis (manual) Britt Cells ESR (0-20) mm/hr Puncture Site pCO2 (35-45) mm/Hg pO2 (30-55) mm/Hg HCO3 (21-28) mmol/L ABG pH (7.35-7.45) ABG Total CO2 (22-28) mmol/L ABG O2 Saturation (95-98) % ABG Base Excess (-2.0-3.0) mmol/L ABG Hemoglobin (11.7-17.4) g/dL ABG Carboxyhemoglobin (0.5-1.5) % POC ABG HHb (Measured) (0.0-5.0) % ABG Methemoglobin (0.0-3.0) % Miguel Angel Test VBG pH (7.32-7.43) VBG pCO2 (40-60) mmHg VBG HCO3 mmol/L VBG Total CO2 (22-28) mmol/L VBG O2 Sat (Calc) (40-65) % VBG Base Excess (0.0-2.0) mmol/L VBG Potassium (3.6-5.2) mmol/L A-a O2 Difference mm/Hg Respiratory Index Hgb O2 Saturation (95.0-98.0) % Sodium 133 (132-148) mmol/l Chloride 95 L (98-107) mmol/L Glucose (65-105) mg/dl Lactate (0.7-2.1) mmol/L Vent Mode FiO2 % Inspiratory BiPAP Expiratory BiPAP Potassium 3.6 (3.6-5.2) mmol/L Carbon Dioxide 24 (22-30) mmol/L Anion Gap 18 (10-20) BUN 46 H (7-17) mg/dL Creatinine 1.1 (0.7-1.2) mg/dL Est GFR ( Amer) 59 Est GFR (Non-Af Amer) 49 POC Glucose (mg/dL) 167 H (65-110) mg/dL Random Glucose 145 H (65-105) mg/dL Hemoglobin A1c 7.0 H (4.2-6.5) % Lactic Acid (0.7-2.1) mmol/L Calcium 8.1 L (8.6-10.4) mg/dl Phosphorus 4.3 (2.5-4.5) mg/dL Magnesium 1.8 (1.6-2.3) mg/dL Total Bilirubin 1.6 H (0.2-1.3) mg/dL AST 185 H D (14-36) U/L ALT 160 H (9-52) U/L Alkaline Phosphatase 159 H (38-126) U/L Troponin I (0.00-0.120) ng/mL Total Protein 5.4 L (6.3-8.3) g/dL Albumin 2.8 L D (3.5-5.0) g/dL Globulin 2.6 (2.2-3.9) gm/dL Albumin/Globulin Ratio 1.1 (1.0-2.1) Free T4 (0.78-2.19) ng/dL TSH 3rd Generation (0.46-4.68) mIU/L Venous Blood Potassium (3.6-5.2) mmol/L C. difficile Ag & Toxin (NEGATIVE) 03/16/18 03/15/18 03/15/18 Range/Units 06:28 22:38 22:38 WBC 12.2 H (4.8-10.8) K/uL RBC 4.40 (3.80-5.20) Mil/uL Hgb 13.8 D (11.0-16.0) g/dL Hct 40.7 (34.0-47.0) % MCV 92.5 (81.0-99.0) fL MCH 31.4 H (27.0-31.0) pg MCHC 34.0 (33.0-37.0) g/dL RDW 15.0 H (11.5-14.5) % Plt Count 162 (130-400) K/uL MPV 8.7 (7.2-11.7) fL Neut % (Auto) 85.4 H (50.0-75.0) % Lymph % (Auto) 5.0 L (20.0-40.0) % [place] % (Auto) 9.4 (0.0-10.0) % Eos % (Auto) 0.0 (0.0-4.0) % Baso % (Auto) 0.2 (0.0-2.0) % Neut # (Auto) 10.5 H (1.8-7.0) K/uL Lymph # (Auto) 0.6 L (1.0-4.3) K/uL [place] # (Auto) 1.1 H (0.0-0.8) K/uL Eos # (Auto) 0.0 (0.0-0.7) K/uL Baso # (Auto) 0.0 (0.0-0.2) K/uL Neutrophils % (Manual) 85 H (50-75) % Band Neutrophils % 2 (0-2) % Lymphocytes % (Manual) 6 L (20-40) % Monocytes % (Manual) 7 (0-10) % Platelet Estimate Normal (NORMAL) Anisocytosis (manual) Slight Britt Cells Moderate ESR 1 (0-20) mm/hr Puncture Site pCO2 (35-45) mm/Hg pO2 (30-55) mm/Hg HCO3 (21-28) mmol/L ABG pH (7.35-7.45) ABG Total CO2 (22-28) mmol/L ABG O2 Saturation (95-98) % ABG Base Excess (-2.0-3.0) mmol/L ABG Hemoglobin (11.7-17.4) g/dL ABG Carboxyhemoglobin (0.5-1.5) % POC ABG HHb (Measured) (0.0-5.0) % ABG Methemoglobin (0.0-3.0) % Miguel Angel Test VBG pH (7.32-7.43) VBG pCO2 (40-60) mmHg VBG HCO3 mmol/L VBG Total CO2 (22-28) mmol/L VBG O2 Sat (Calc) (40-65) % VBG Base Excess (0.0-2.0) mmol/L VBG Potassium (3.6-5.2) mmol/L A-a O2 Difference mm/Hg Respiratory Index Hgb O2 Saturation (95.0-98.0) % Sodium (132-148) mmol/l Chloride (98-107) mmol/L Glucose (65-105) mg/dl Lactate (0.7-2.1) mmol/L Vent Mode FiO2 % Inspiratory BiPAP Expiratory BiPAP Potassium (3.6-5.2) mmol/L Carbon Dioxide (22-30) mmol/L Anion Gap (10-20) BUN (7-17) mg/dL Creatinine (0.7-1.2) mg/dL Est GFR ( Amer) Est GFR (Non-Af Amer) POC Glucose (mg/dL) (65-110) mg/dL Random Glucose (65-105) mg/dL Hemoglobin A1c (4.2-6.5) % Lactic Acid 2.0 (0.7-2.1) mmol/L Calcium (8.6-10.4) mg/dl Phosphorus (2.5-4.5) mg/dL Magnesium (1.6-2.3) mg/dL Total Bilirubin (0.2-1.3) mg/dL AST (14-36) U/L ALT (9-52) U/L Alkaline Phosphatase (38-126) U/L Troponin I 0.3450 H* (0.00-0.120) ng/mL Total Protein (6.3-8.3) g/dL Albumin (3.5-5.0) g/dL Globulin (2.2-3.9) gm/dL Albumin/Globulin Ratio (1.0-2.1) Free T4 (0.78-2.19) ng/dL TSH 3rd Generation (0.46-4.68) mIU/L Venous Blood Potassium (3.6-5.2) mmol/L C. difficile Ag & Toxin (NEGATIVE) 03/15/18 03/15/18 03/15/18 Range/Units 21:06 20:14 17:13 WBC (4.8-10.8) K/uL RBC (3.80-5.20) Mil/uL Hgb (11.0-16.0) g/dL Hct (34.0-47.0) % MCV (81.0-99.0) fL MCH (27.0-31.0) pg MCHC (33.0-37.0) g/dL RDW (11.5-14.5) % Plt Count (130-400) K/uL MPV (7.2-11.7) fL Neut % (Auto) (50.0-75.0) % Lymph % (Auto) (20.0-40.0) % [place] % (Auto) (0.0-10.0) % Eos % (Auto) (0.0-4.0) % Baso % (Auto) (0.0-2.0) % Neut # (Auto) (1.8-7.0) K/uL Lymph # (Auto) (1.0-4.3) K/uL [place] # (Auto) (0.0-0.8) K/uL Eos # (Auto) (0.0-0.7) K/uL Baso # (Auto) (0.0-0.2) K/uL Neutrophils % (Manual) (50-75) % Band Neutrophils % (0-2) % Lymphocytes % (Manual) (20-40) % Monocytes % (Manual) (0-10) % Platelet Estimate (NORMAL) Anisocytosis (manual) Britt Cells ESR (0-20) mm/hr Puncture Site Rra pCO2 26 L (35-45) mm/Hg pO2 178 H (30-55) mm/Hg HCO3 22.0 (21-28) mmol/L ABG pH 7.46 H (7.35-7.45) ABG Total CO2 19.3 L (22-28) mmol/L ABG O2 Saturation 99.7 H (95-98) % ABG Base Excess -3.7 L (-2.0-3.0) mmol/L ABG Hemoglobin 14.2 (11.7-17.4) g/dL ABG Carboxyhemoglobin 1.4 (0.5-1.5) % POC ABG HHb (Measured) 0.3 (0.0-5.0) % ABG Methemoglobin 0.9 (0.0-3.0) % Miguel Angel Test Na VBG pH (7.32-7.43) VBG pCO2 (40-60) mmHg VBG HCO3 mmol/L VBG Total CO2 (22-28) mmol/L VBG O2 Sat (Calc) (40-65) % VBG Base Excess (0.0-2.0) mmol/L VBG Potassium (3.6-5.2) mmol/L A-a O2 Difference 146.0 mm/Hg Respiratory Index 0.8 Hgb O2 Saturation 97.4 (95.0-98.0) % Sodium (132-148) mmol/l Chloride (98-107) mmol/L Glucose (65-105) mg/dl Lactate (0.7-2.1) mmol/L Vent Mode Bipap FiO2 50.0 % Inspiratory BiPAP 10 Expiratory BiPAP 5 Potassium (3.6-5.2) mmol/L Carbon Dioxide (22-30) mmol/L Anion Gap (10-20) BUN (7-17) mg/dL Creatinine (0.7-1.2) mg/dL Est GFR ( Amer) Est GFR (Non-Af Amer) POC Glucose (mg/dL) 114 H (65-110) mg/dL Random Glucose (65-105) mg/dL Hemoglobin A1c (4.2-6.5) % Lactic Acid (0.7-2.1) mmol/L Calcium (8.6-10.4) mg/dl Phosphorus (2.5-4.5) mg/dL Magnesium (1.6-2.3) mg/dL Total Bilirubin (0.2-1.3) mg/dL AST (14-36) U/L ALT (9-52) U/L Alkaline Phosphatase (38-126) U/L Troponin I (0.00-0.120) ng/mL Total Protein (6.3-8.3) g/dL Albumin (3.5-5.0) g/dL Globulin (2.2-3.9) gm/dL Albumin/Globulin Ratio (1.0-2.1) Free T4 2.36 H (0.78-2.19) ng/dL TSH 3rd Generation (0.46-4.68) mIU/L Venous Blood Potassium (3.6-5.2) mmol/L C. difficile Ag & Toxin (NEGATIVE) 03/15/18 03/15/18 03/15/18 Range/Units 17:13 17:13 17:13 WBC (4.8-10.8) K/uL RBC (3.80-5.20) Mil/uL Hgb (11.0-16.0) g/dL Hct (34.0-47.0) % MCV (81.0-99.0) fL MCH (27.0-31.0) pg MCHC (33.0-37.0) g/dL RDW (11.5-14.5) % Plt Count (130-400) K/uL MPV (7.2-11.7) fL Neut % (Auto) (50.0-75.0) % Lymph % (Auto) (20.0-40.0) % [place] % (Auto) (0.0-10.0) % Eos % (Auto) (0.0-4.0) % Baso % (Auto) (0.0-2.0) % Neut # (Auto) (1.8-7.0) K/uL Lymph # (Auto) (1.0-4.3) K/uL [place] # (Auto) (0.0-0.8) K/uL Eos # (Auto) (0.0-0.7) K/uL Baso # (Auto) (0.0-0.2) K/uL Neutrophils % (Manual) (50-75) % Band Neutrophils % (0-2) % Lymphocytes % (Manual) (20-40) % Monocytes % (Manual) (0-10) % Platelet Estimate (NORMAL) Anisocytosis (manual) Fela Cells ESR (0-20) mm/hr Puncture Site pCO2 (35-45) mm/Hg pO2 (30-55) mm/Hg HCO3 (21-28) mmol/L ABG pH (7.35-7.45) ABG Total CO2 (22-28) mmol/L ABG O2 Saturation (95-98) % ABG Base Excess (-2.0-3.0) mmol/L ABG Hemoglobin (11.7-17.4) g/dL ABG Carboxyhemoglobin (0.5-1.5) % POC ABG HHb (Measured) (0.0-5.0) % ABG Methemoglobin (0.0-3.0) % Miguel Angel Test VBG pH (7.32-7.43) VBG pCO2 (40-60) mmHg VBG HCO3 mmol/L VBG Total CO2 (22-28) mmol/L VBG O2 Sat (Calc) (40-65) % VBG Base Excess (0.0-2.0) mmol/L VBG Potassium (3.6-5.2) mmol/L A-a O2 Difference mm/Hg Respiratory Index Hgb O2 Saturation (95.0-98.0) % Sodium (132-148) mmol/l Chloride (98-107) mmol/L Glucose (65-105) mg/dl Lactate (0.7-2.1) mmol/L Vent Mode FiO2 % Inspiratory BiPAP Expiratory BiPAP Potassium (3.6-5.2) mmol/L Carbon Dioxide (22-30) mmol/L Anion Gap (10-20) BUN (7-17) mg/dL Creatinine (0.7-1.2) mg/dL Est GFR ( Amer) Est GFR (Non-Af Amer) POC Glucose (mg/dL) (65-110) mg/dL Random Glucose (65-105) mg/dL Hemoglobin A1c (4.2-6.5) % Lactic Acid 6.1 H* (0.7-2.1) mmol/L Calcium (8.6-10.4) mg/dl Phosphorus (2.5-4.5) mg/dL Magnesium (1.6-2.3) mg/dL Total Bilirubin (0.2-1.3) mg/dL AST (14-36) U/L ALT (9-52) U/L Alkaline Phosphatase (38-126) U/L Troponin I 0.3540 H* (0.00-0.120) ng/mL Total Protein (6.3-8.3) g/dL Albumin (3.5-5.0) g/dL Globulin (2.2-3.9) gm/dL Albumin/Globulin Ratio (1.0-2.1) Free T4 (0.78-2.19) ng/dL TSH 3rd Generation 3.05 (0.46-4.68) mIU/L Venous Blood Potassium (3.6-5.2) mmol/L C. difficile Ag & Toxin (NEGATIVE) 03/15/18 03/15/18 03/15/18 Range/Units 16:14 15:30 11:53 WBC (4.8-10.8) K/uL RBC (3.80-5.20) Mil/uL Hgb (11.0-16.0) g/dL Hct (34.0-47.0) % MCV (81.0-99.0) fL MCH (27.0-31.0) pg MCHC (33.0-37.0) g/dL RDW (11.5-14.5) % Plt Count (130-400) K/uL MPV (7.2-11.7) fL Neut % (Auto) (50.0-75.0) % Lymph % (Auto) (20.0-40.0) % [place] % (Auto) (0.0-10.0) % Eos % (Auto) (0.0-4.0) % Baso % (Auto) (0.0-2.0) % Neut # (Auto) (1.8-7.0) K/uL Lymph # (Auto) (1.0-4.3) K/uL [place] # (Auto) (0.0-0.8) K/uL Eos # (Auto) (0.0-0.7) K/uL Baso # (Auto) (0.0-0.2) K/uL Neutrophils % (Manual) (50-75) % Band Neutrophils % (0-2) % Lymphocytes % (Manual) (20-40) % Monocytes % (Manual) (0-10) % Platelet Estimate (NORMAL) Anisocytosis (manual) Britt Cells ESR (0-20) mm/hr Puncture Site pCO2 (35-45) mm/Hg pO2 (30-55) mm/Hg HCO3 (21-28) mmol/L ABG pH (7.35-7.45) ABG Total CO2 (22-28) mmol/L ABG O2 Saturation (95-98) % ABG Base Excess (-2.0-3.0) mmol/L ABG Hemoglobin (11.7-17.4) g/dL ABG Carboxyhemoglobin (0.5-1.5) % POC ABG HHb (Measured) (0.0-5.0) % ABG Methemoglobin (0.0-3.0) % Miguel Angel Test VBG pH (7.32-7.43) VBG pCO2 (40-60) mmHg VBG HCO3 mmol/L VBG Total CO2 (22-28) mmol/L VBG O2 Sat (Calc) (40-65) % VBG Base Excess (0.0-2.0) mmol/L VBG Potassium (3.6-5.2) mmol/L A-a O2 Difference mm/Hg Respiratory Index Hgb O2 Saturation (95.0-98.0) % Sodium (132-148) mmol/l Chloride (98-107) mmol/L Glucose (65-105) mg/dl Lactate (0.7-2.1) mmol/L Vent Mode FiO2 % Inspiratory BiPAP Expiratory BiPAP Potassium (3.6-5.2) mmol/L Carbon Dioxide (22-30) mmol/L Anion Gap (10-20) BUN (7-17) mg/dL Creatinine (0.7-1.2) mg/dL Est GFR ( Amer) Est GFR (Non-Af Amer) POC Glucose (mg/dL) 139 H 111 H (65-110) mg/dL Random Glucose (65-105) mg/dL Hemoglobin A1c (4.2-6.5) % Lactic Acid (0.7-2.1) mmol/L Calcium (8.6-10.4) mg/dl Phosphorus (2.5-4.5) mg/dL Magnesium (1.6-2.3) mg/dL Total Bilirubin (0.2-1.3) mg/dL AST (14-36) U/L ALT (9-52) U/L Alkaline Phosphatase (38-126) U/L Troponin I (0.00-0.120) ng/mL Total Protein (6.3-8.3) g/dL Albumin (3.5-5.0) g/dL Globulin (2.2-3.9) gm/dL Albumin/Globulin Ratio (1.0-2.1) Free T4 (0.78-2.19) ng/dL TSH 3rd Generation (0.46-4.68) mIU/L Venous Blood Potassium (3.6-5.2) mmol/L C. difficile Ag & Toxin Negative (NEGATIVE) 03/15/18 Range/Units 11:50 WBC (4.8-10.8) K/uL RBC (3.80-5.20) Mil/uL Hgb (11.0-16.0) g/dL Hct (34.0-47.0) % MCV (81.0-99.0) fL MCH (27.0-31.0) pg MCHC (33.0-37.0) g/dL RDW (11.5-14.5) % Plt Count (130-400) K/uL MPV (7.2-11.7) fL Neut % (Auto) (50.0-75.0) % Lymph % (Auto) (20.0-40.0) % [place] % (Auto) (0.0-10.0) % Eos % (Auto) (0.0-4.0) % Baso % (Auto) (0.0-2.0) % Neut # (Auto) (1.8-7.0) K/uL Lymph # (Auto) (1.0-4.3) K/uL [place] # (Auto) (0.0-0.8) K/uL Eos # (Auto) (0.0-0.7) K/uL Baso # (Auto) (0.0-0.2) K/uL Neutrophils % (Manual) (50-75) % Band Neutrophils % (0-2) % Lymphocytes % (Manual) (20-40) % Monocytes % (Manual) (0-10) % Platelet Estimate (NORMAL) Anisocytosis (manual) Britt Cells ESR (0-20) mm/hr Puncture Site pCO2 (35-45) mm/Hg pO2 25 L (30-55) mm/Hg HCO3 (21-28) mmol/L ABG pH (7.35-7.45) ABG Total CO2 (22-28) mmol/L ABG O2 Saturation (95-98) % ABG Base Excess (-2.0-3.0) mmol/L ABG Hemoglobin (11.7-17.4) g/dL ABG Carboxyhemoglobin (0.5-1.5) % POC ABG HHb (Measured) (0.0-5.0) % ABG Methemoglobin (0.0-3.0) % Miguel Angel Test VBG pH 7.38 (7.32-7.43) VBG pCO2 41 (40-60) mmHg VBG HCO3 22.8 mmol/L VBG Total CO2 25.6 (22-28) mmol/L VBG O2 Sat (Calc) 31.9 L (40-65) % VBG Base Excess -0.8 L (0.0-2.0) mmol/L VBG Potassium 3.1 L (3.6-5.2) mmol/L A-a O2 Difference mm/Hg Respiratory Index Hgb O2 Saturation (95.0-98.0) % Sodium 133.0 (132-148) mmol/l Chloride 93.0 L (98-107) mmol/L Glucose 94 (65-105) mg/dl Lactate 3.5 H (0.7-2.1) mmol/L Vent Mode FiO2 % Inspiratory BiPAP Expiratory BiPAP Potassium (3.6-5.2) mmol/L Carbon Dioxide (22-30) mmol/L Anion Gap (10-20) BUN (7-17) mg/dL Creatinine (0.7-1.2) mg/dL Est GFR ( Amer) Est GFR (Non-Af Amer) POC Glucose (mg/dL) (65-110) mg/dL Random Glucose (65-105) mg/dL Hemoglobin A1c (4.2-6.5) % Lactic Acid (0.7-2.1) mmol/L Calcium (8.6-10.4) mg/dl Phosphorus (2.5-4.5) mg/dL Magnesium (1.6-2.3) mg/dL Total Bilirubin (0.2-1.3) mg/dL AST (14-36) U/L ALT (9-52) U/L Alkaline Phosphatase (38-126) U/L Troponin I (0.00-0.120) ng/mL Total Protein (6.3-8.3) g/dL Albumin (3.5-5.0) g/dL Globulin (2.2-3.9) gm/dL Albumin/Globulin Ratio (1.0-2.1) Free T4 (0.78-2.19) ng/dL TSH 3rd Generation (0.46-4.68) mIU/L Venous Blood Potassium 3.1 L (3.6-5.2) mmol/L C. difficile Ag & Toxin (NEGATIVE) Laboratory Results - last 24 hr 03/15/18 03/15/18 03/15/18 11:50 11:53 15:30 WBC RBC Hgb Hct MCV MCH MCHC RDW Plt Count MPV Neut % (Auto) Lymph % (Auto) [place] % (Auto) Eos % (Auto) Baso % (Auto) Neut # (Auto) Lymph # (Auto) [place] # (Auto) Eos # (Auto) Baso # (Auto) Neutrophils % (Manual) Band Neutrophils % Lymphocytes % (Manual) Monocytes % (Manual) Platelet Estimate Anisocytosis (manual) Fela Cells ESR Puncture Site pCO2 pO2 25 L HCO3 ABG pH ABG Total CO2 ABG O2 Saturation ABG Base Excess ABG Hemoglobin ABG Carboxyhemoglobin POC ABG HHb (Measured) ABG Methemoglobin Miguel Angel Test VBG pH 7.38 VBG pCO2 41 VBG HCO3 22.8 VBG Total CO2 25.6 VBG O2 Sat (Calc) 31.9 L VBG Base Excess -0.8 L VBG Potassium 3.1 L A-a O2 Difference Respiratory Index Hgb O2 Saturation Sodium 133.0 Chloride 93.0 L Glucose 94 Lactate 3.5 H Vent Mode FiO2 Inspiratory BiPAP Expiratory BiPAP Potassium Carbon Dioxide Anion Gap BUN Creatinine Est GFR ( Amer) Est GFR (Non-Af Amer) POC Glucose (mg/dL) 111 H Random Glucose Hemoglobin A1c Lactic Acid Calcium Phosphorus Magnesium Total Bilirubin AST ALT Alkaline Phosphatase Troponin I Total Protein Albumin Globulin Albumin/Globulin Ratio Free T4 TSH 3rd Generation Venous Blood Potassium 3.1 L C. difficile Ag & Toxin Negative 03/15/18 03/15/18 03/15/18 16:14 17:13 17:13 WBC RBC Hgb Hct MCV MCH MCHC RDW Plt Count MPV Neut % (Auto) Lymph % (Auto) [place] % (Auto) Eos % (Auto) Baso % (Auto) Neut # (Auto) Lymph # (Auto) [place] # (Auto) Eos # (Auto) Baso # (Auto) Neutrophils % (Manual) Band Neutrophils % Lymphocytes % (Manual) Monocytes % (Manual) Platelet Estimate Anisocytosis (manual) Fela Cells ESR Puncture Site pCO2 pO2 HCO3 ABG pH ABG Total CO2 ABG O2 Saturation ABG Base Excess ABG Hemoglobin ABG Carboxyhemoglobin POC ABG HHb (Measured) ABG Methemoglobin Miguel Angel Test VBG pH VBG pCO2 VBG HCO3 VBG Total CO2 VBG O2 Sat (Calc) VBG Base Excess VBG Potassium A-a O2 Difference Respiratory Index Hgb O2 Saturation Sodium Chloride Glucose Lactate Vent Mode FiO2 Inspiratory BiPAP Expiratory BiPAP Potassium Carbon Dioxide Anion Gap BUN Creatinine Est GFR ( Amer) Est GFR (Non-Af Amer) POC Glucose (mg/dL) 139 H Random Glucose Hemoglobin A1c Lactic Acid 6.1 H* Calcium Phosphorus Magnesium Total Bilirubin AST ALT Alkaline Phosphatase Troponin I 0.3540 H* Total Protein Albumin Globulin Albumin/Globulin Ratio Free T4 TSH 3rd Generation Venous Blood Potassium C. difficile Ag & Toxin 03/15/18 03/15/18 03/15/18 17:13 17:13 20:14 WBC RBC Hgb Hct MCV MCH MCHC RDW Plt Count MPV Neut % (Auto) Lymph % (Auto) [place] % (Auto) Eos % (Auto) Baso % (Auto) Neut # (Auto) Lymph # (Auto) [place] # (Auto) Eos # (Auto) Baso # (Auto) Neutrophils % (Manual) Band Neutrophils % Lymphocytes % (Manual) Monocytes % (Manual) Platelet Estimate Anisocytosis (manual) Fela Cells ESR Puncture Site Rra pCO2 26 L pO2 178 H HCO3 22.0 ABG pH 7.46 H ABG Total CO2 19.3 L ABG O2 Saturation 99.7 H ABG Base Excess -3.7 L ABG Hemoglobin 14.2 ABG Carboxyhemoglobin 1.4 POC ABG HHb (Measured) 0.3 ABG Methemoglobin 0.9 Miguel Angel Test Na VBG pH VBG pCO2 VBG HCO3 VBG Total CO2 VBG O2 Sat (Calc) VBG Base Excess VBG Potassium A-a O2 Difference 146.0 Respiratory Index 0.8 Hgb O2 Saturation 97.4 Sodium Chloride Glucose Lactate Vent Mode Bipap FiO2 50.0 Inspiratory BiPAP 10 Expiratory BiPAP 5 Potassium Carbon Dioxide Anion Gap BUN Creatinine Est GFR ( Amer) Est GFR (Non-Af Amer) POC Glucose (mg/dL) Random Glucose Hemoglobin A1c Lactic Acid Calcium Phosphorus Magnesium Total Bilirubin AST ALT Alkaline Phosphatase Troponin I Total Protein Albumin Globulin Albumin/Globulin Ratio Free T4 2.36 H TSH 3rd Generation 3.05 Venous Blood Potassium C. difficile Ag & Toxin 03/15/18 03/15/18 03/15/18 21:06 22:38 22:38 WBC RBC Hgb Hct MCV MCH MCHC RDW Plt Count MPV Neut % (Auto) Lymph % (Auto) [place] % (Auto) Eos % (Auto) Baso % (Auto) Neut # (Auto) Lymph # (Auto) [place] # (Auto) Eos # (Auto) Baso # (Auto) Neutrophils % (Manual) Band Neutrophils % Lymphocytes % (Manual) Monocytes % (Manual) Platelet Estimate Anisocytosis (manual) Fela Cells ESR Puncture Site pCO2 pO2 HCO3 ABG pH ABG Total CO2 ABG O2 Saturation ABG Base Excess ABG Hemoglobin ABG Carboxyhemoglobin POC ABG HHb (Measured) ABG Methemoglobin Miguel Angel Test VBG pH VBG pCO2 VBG HCO3 VBG Total CO2 VBG O2 Sat (Calc) VBG Base Excess VBG Potassium A-a O2 Difference Respiratory Index Hgb O2 Saturation Sodium Chloride Glucose Lactate Vent Mode FiO2 Inspiratory BiPAP Expiratory BiPAP Potassium Carbon Dioxide Anion Gap BUN Creatinine Est GFR ( Amer) Est GFR (Non-Af Amer) POC Glucose (mg/dL) 114 H Random Glucose Hemoglobin A1c Lactic Acid 2.0 Calcium Phosphorus Magnesium Total Bilirubin AST ALT Alkaline Phosphatase Troponin I 0.3450 H* Total Protein Albumin Globulin Albumin/Globulin Ratio Free T4 TSH 3rd Generation Venous Blood Potassium C. difficile Ag & Toxin 03/16/18 03/16/18 03/16/18 06:28 06:28 06:30 WBC 12.2 H RBC 4.40 Hgb 13.8 D Hct 40.7 MCV 92.5 MCH 31.4 H MCHC 34.0 RDW 15.0 H Plt Count 162 MPV 8.7 Neut % (Auto) 85.4 H Lymph % (Auto) 5.0 L [place] % (Auto) 9.4 Eos % (Auto) 0.0 Baso % (Auto) 0.2 Neut # (Auto) 10.5 H Lymph # (Auto) 0.6 L [place] # (Auto) 1.1 H Eos # (Auto) 0.0 Baso # (Auto) 0.0 Neutrophils % (Manual) 85 H Band Neutrophils % 2 Lymphocytes % (Manual) 6 L Monocytes % (Manual) 7 Platelet Estimate Normal Anisocytosis (manual) Slight Fela Cells Moderate ESR 1 Puncture Site pCO2 pO2 HCO3 ABG pH ABG Total CO2 ABG O2 Saturation ABG Base Excess ABG Hemoglobin ABG Carboxyhemoglobin POC ABG HHb (Measured) ABG Methemoglobin Miguel Angel Test VBG pH VBG pCO2 VBG HCO3 VBG Total CO2 VBG O2 Sat (Calc) VBG Base Excess VBG Potassium A-a O2 Difference Respiratory Index Hgb O2 Saturation Sodium 133 Chloride 95 L Glucose Lactate Vent Mode FiO2 Inspiratory BiPAP Expiratory BiPAP Potassium 3.6 Carbon Dioxide 24 Anion Gap 18 BUN 46 H Creatinine 1.1 Est GFR ( Amer) 59 Est GFR (Non-Af Amer) 49 POC Glucose (mg/dL) Random Glucose 145 H Hemoglobin A1c 7.0 H Lactic Acid Calcium 8.1 L Phosphorus 4.3 Magnesium 1.8 Total Bilirubin 1.6 H AST 185 H D ALT 160 H Alkaline Phosphatase 159 H Troponin I Total Protein 5.4 L Albumin 2.8 L D Globulin 2.6 Albumin/Globulin Ratio 1.1 Free T4 TSH 3rd Generation Venous Blood Potassium C. difficile Ag & Toxin 03/16/18 07:56 WBC RBC Hgb Hct MCV MCH MCHC RDW Plt Count MPV Neut % (Auto) Lymph % (Auto) [place] % (Auto) Eos % (Auto) Baso % (Auto) Neut # (Auto) Lymph # (Auto) [place] # (Auto) Eos # (Auto) Baso # (Auto) Neutrophils % (Manual) Band Neutrophils % Lymphocytes % (Manual) Monocytes % (Manual) Platelet Estimate Anisocytosis (manual) Britt Cells ESR Puncture Site pCO2 pO2 HCO3 ABG pH ABG Total CO2 ABG O2 Saturation ABG Base Excess ABG Hemoglobin ABG Carboxyhemoglobin POC ABG HHb (Measured) ABG Methemoglobin Miguel Angel Test VBG pH VBG pCO2 VBG HCO3 VBG Total CO2 VBG O2 Sat (Calc) VBG Base Excess VBG Potassium A-a O2 Difference Respiratory Index Hgb O2 Saturation Sodium Chloride Glucose Lactate Vent Mode FiO2 Inspiratory BiPAP Expiratory BiPAP Potassium Carbon Dioxide Anion Gap BUN Creatinine Est GFR ( Amer) Est GFR (Non-Af Amer) POC Glucose (mg/dL) 167 H Random Glucose Hemoglobin A1c Lactic Acid Calcium Phosphorus Magnesium Total Bilirubin AST ALT Alkaline Phosphatase Troponin I Total Protein Albumin Globulin Albumin/Globulin Ratio Free T4 TSH 3rd Generation Venous Blood Potassium C. difficile Ag & Toxin EKG/Cardiology Studies: Cardiology / EKG Studies 03/15/18 10:35 ELECTROCARDIOGRAM Stat Comment: Mode Of Transportation: BED Reason For Exam: REPEAT 03/15/18 17:16 EKG [ELECTROCARDIOGRAM] Stat Comment: Mode Of Transportation: Reason For Exam: sinus dre Isolation: Contact 03/16/18 09:00 ELECTROCARDIOGRAM Routine Comment: Mode Of Transportation: BED Reason For Exam: a flutter Fingerstick Blood Sugar Results: 139 Critical Care Progress Note - Nutrition Nutrition: Nutrition Category Date Time Status Heart Healthy Diet [DIET] Diets 03/15/18 Lunch Active Assessment/Plan - Assessment and Plan (Free Text) Assessment: This is a 72 year old female with PMHx HTN, DM, RA who presented complaining of chest pain, general malaise, and diarrhea. 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 Troponins elevated but downtrending. Per cardiology, likely demand ischemia as opposed to NSTEMI. Esmolol drip with bridge to Lopressor was discontinued on date of admission because the patient went into bradycardia. Right IJ TLC placed on 03/15/18. Neuro Awake, alert Cardio Assessment: Rapid a-fib, CHF, demand ischemia Cardiology on consult Troponin downtrending Lopressor 12.5 mg PO Q12H Aspirin 81 mg PO daily Pulm Saturating well GI Assessment: Cholelithiasis, elevated LFTs GI consulted NPO Protonix 40 mg PO daily Endocrine Assessment: DM 2 Regular ISS Infectious Disease Assessment: Sepsis, unknown source; possibly gastroenteritis vs soft tissue infection on the leg Vancomycin 1 gm IV Q12H Zosyn 3.375 gm IV Q6H f/u cultures ID on consult Prophylaxis Will reassess coagulation numbers before starting DVT ppx Protonix 40 mg PO daily Discussed with Dr. Nathalie Appiah <Miquel Appiah - Last Filed: 03/17/18 12:24> CCU Objective - Vital Signs / Intake & Output Vital Signs (Last 4 hours): Vital Signs Pulse Resp BP Pulse Ox 03/17/18 11:00 88 13 100 03/17/18 10:53 87 19 122/65 100 03/17/18 10:34 125/69 03/17/18 10:17 67 14 125/69 03/17/18 10:15 90 12 03/17/18 09:30 84 16 118/56 L 100 03/17/18 09:10 76 20 117/58 L 100 03/17/18 08:50 78 18 122/72 100 Intake and Output (Last 8hrs): Intake & Output 03/16/18 03/17/18 03/17/18 22:59 06:59 14:59 Intake Total 200 300 350 Output Total 280 390 150 Balance -80 -90 200 Weight 136 lb 8 oz Intake: Intake, IV Amount 200 300 50 Left Wrist 50 Right Antecubital 200 100 0 Right Proximal Port 200 Internal Jugular Oral 0 300 Output: Urine 280 390 150 Urethral (Diop) 280 390 150 Other: # Bowel Movements 1 0 - Medications Active Medications: Active Medications Generic Name Dose Route Start Last Admin Trade Name Freq PRN Reason Stop Dose Admin Aspirin 81 mg 03/16/18 10:00 03/17/18 10:33 Aspirin Chewable PO 81 mg DAILY [facility] Administration Carvedilol 6.25 mg 03/17/18 10:00 03/17/18 10:34 Coreg PO 6.25 mg BID [facility] Administration Piperacillin Sod/Tazobactam Sod 3.375 gm in 50 mls @ 100 mls/hr 03/15/18 16: 00 03/17/18 10:38 Zosyn 3.375 Gm Iv Premix IVPB 100 mls/hr Q6H [facility] Administration Protocol Insulin Aspart 0 unit 03/17/18 16:30 Novolog SC ACHS [facility] Protocol Lisinopril 2.5 mg 03/17/18 10:00 03/17/18 10:34 Zestril PO 2.5 mg BID [facility] Administration Ondansetron HCl 4 mg 03/15/18 15:44 03/15/18 15:57 Zofran Inj IVP 4 mg Q6H PRN Administration Nausea/Vomiting Pantoprazole Sodium 40 mg 03/15/18 14:15 03/17/18 10:33 Protonix Ec Tab PO 40 mg DAILY [facility] Administration Spironolactone 25 mg 03/17/18 10:00 03/17/18 10:34 Aldactone PO 25 mg DAILY [facility] Administration - Patient Studies Lab Studies: Microbiology Studies 03/15/18 15:55 Stool Culture - Final Stool NO SALMONELLA, SHIGELLA OR CAMPYLOBACTER ISOLATED. 03/15/18 11:41 MRSA Culture (Admit) - Final Nose MRSA NOT DETECTED 03/15/18 08:48 Blood Culture - Preliminary Blood NO GROWTH AFTER 24 HOURS 03/15/18 08:20 Blood Culture - Preliminary Blood NO GROWTH AFTER 24 HOURS 03/15/18 08:18 Urine Culture - Final Urine,Diop No Growth (<1,000 CFU/ML) Lab Studies 03/17/18 03/17/18 03/17/18 Range/Units 11:45 10:29 07:15 WBC (4.8-10.8) K/uL RBC (3.80-5.20) Mil/uL Hgb (11.0-16.0) g/dL Hct (34.0-47.0) % MCV (81.0-99.0) fL MCH (27.0-31.0) pg MCHC (33.0-37.0) g/dL RDW (11.5-14.5) % Plt Count (130-400) K/uL MPV (7.2-11.7) fL Neut % (Auto) (50.0-75.0) % Lymph % (Auto) (20.0-40.0) % [place] % (Auto) (0.0-10.0) % Eos % (Auto) (0.0-4.0) % Baso % (Auto) (0.0-2.0) % Neut # (Auto) (1.8-7.0) K/uL Lymph # (Auto) (1.0-4.3) K/uL [place] # (Auto) (0.0-0.8) K/uL Eos # (Auto) (0.0-0.7) K/uL Baso # (Auto) (0.0-0.2) K/uL Neutrophils % (Manual) (50-75) % Band Neutrophils % (0-2) % Lymphocytes % (Manual) (20-40) % Reactive Lymphs % (0-0) % Monocytes % (Manual) (0-10) % Platelet Estimate (NORMAL) Anisocytosis (manual) Fela Cells PT 17.0 H D (9.7-12.2) SECONDS INR 1.5 D APTT (21-34) SECONDS Sodium (132-148) mmol/L Potassium (3.6-5.2) mmol/L Chloride (98-107) mmol/L Carbon Dioxide (22-30) mmol/L Anion Gap (10-20) BUN (7-17) mg/dL Creatinine (0.7-1.2) mg/dL Est GFR ( Amer) Est GFR (Non-Af Amer) POC Glucose (mg/dL) 277 H 257 H (65-110) mg/dL Random Glucose (65-105) mg/dL Calcium (8.6-10.4) mg/dl Magnesium (1.6-2.3) mg/dL Total Bilirubin (0.2-1.3) mg/dL Direct Bilirubin (0.0-0.4) mg/dL AST (14-36) U/L ALT (9-52) U/L Alkaline Phosphatase (38-126) U/L Troponin I (0.00-0.120) ng/mL Total Protein (6.3-8.3) g/dL Albumin (3.5-5.0) g/dL Globulin (2.2-3.9) gm/dL Albumin/Globulin Ratio (1.0-2.1) Vancomycin Trough (5.0-10.0) ug/mL Hepatitis A IgM Ab (NEGATIVE) Hep Bs Antigen (NEGATIVE) Hep B Core IgM Ab (NEGATIVE) Hepatitis C Antibody (NEGATIVE) 03/17/18 03/17/18 03/17/18 Range/Units 05:49 05:49 05:49 WBC (4.8-10.8) K/uL RBC (3.80-5.20) Mil/uL Hgb (11.0-16.0) g/dL Hct (34.0-47.0) % MCV (81.0-99.0) fL MCH (27.0-31.0) pg MCHC (33.0-37.0) g/dL RDW (11.5-14.5) % Plt Count (130-400) K/uL MPV (7.2-11.7) fL Neut % (Auto) (50.0-75.0) % Lymph % (Auto) (20.0-40.0) % [place] % (Auto) (0.0-10.0) % Eos % (Auto) (0.0-4.0) % Baso % (Auto) (0.0-2.0) % Neut # (Auto) (1.8-7.0) K/uL Lymph # (Auto) (1.0-4.3) K/uL [place] # (Auto) (0.0-0.8) K/uL Eos # (Auto) (0.0-0.7) K/uL Baso # (Auto) (0.0-0.2) K/uL Neutrophils % (Manual) (50-75) % Band Neutrophils % (0-2) % Lymphocytes % (Manual) (20-40) % Reactive Lymphs % (0-0) % Monocytes % (Manual) (0-10) % Platelet Estimate (NORMAL) Anisocytosis (manual) Fela Cells PT (9.7-12.2) SECONDS INR APTT (21-34) SECONDS Sodium 131 L (132-148) mmol/L Potassium 3.4 L (3.6-5.2) mmol/L Chloride 94 L (98-107) mmol/L Carbon Dioxide 24 (22-30) mmol/L Anion Gap 16 (10-20) BUN 36 H (7-17) mg/dL Creatinine 0.7 (0.7-1.2) mg/dL Est GFR ( Amer) > 60 Est GFR (Non-Af Amer) > 60 POC Glucose (mg/dL) (65-110) mg/dL Random Glucose 269 H (65-105) mg/dL Calcium 7.8 L (8.6-10.4) mg/dl Magnesium 1.8 (1.6-2.3) mg/dL Total Bilirubin 1.3 (0.2-1.3) mg/dL Direct Bilirubin 0.9 H (0.0-0.4) mg/dL AST 92 H D (14-36) U/L ALT 124 H D (9-52) U/L Alkaline Phosphatase 157 H (38-126) U/L Troponin I (0.00-0.120) ng/mL Total Protein 5.3 L (6.3-8.3) g/dL Albumin 2.8 L (3.5-5.0) g/dL Globulin 2.5 (2.2-3.9) gm/dL Albumin/Globulin Ratio 1.1 (1.0-2.1) Vancomycin Trough 18.0 H (5.0-10.0) ug/mL Hepatitis A IgM Ab (NEGATIVE) Hep Bs Antigen (NEGATIVE) Hep B Core IgM Ab (NEGATIVE) Hepatitis C Antibody (NEGATIVE) 03/17/18 03/17/18 03/16/18 Range/Units 05:49 05:48 21:13 WBC 10.6 (4.8-10.8) K/uL RBC 4.25 (3.80-5.20) Mil/uL Hgb 13.4 (11.0-16.0) g/dL Hct 39.2 (34.0-47.0) % MCV 92.2 (81.0-99.0) fL MCH 31.6 H (27.0-31.0) pg MCHC 34.3 (33.0-37.0) g/dL RDW 15.1 H (11.5-14.5) % Plt Count 144 (130-400) K/uL MPV 8.0 (7.2-11.7) fL Neut % (Auto) 82.3 H (50.0-75.0) % Lymph % (Auto) 4.2 L (20.0-40.0) % [place] % (Auto) 13.2 H (0.0-10.0) % Eos % (Auto) 0.1 (0.0-4.0) % Baso % (Auto) 0.2 (0.0-2.0) % Neut # (Auto) 8.7 H (1.8-7.0) K/uL Lymph # (Auto) 0.4 L (1.0-4.3) K/uL [place] # (Auto) 1.4 H (0.0-0.8) K/uL Eos # (Auto) 0.0 (0.0-0.7) K/uL Baso # (Auto) 0.0 (0.0-0.2) K/uL Neutrophils % (Manual) 83 H (50-75) % Band Neutrophils % 2 (0-2) % Lymphocytes % (Manual) 4 L (20-40) % Reactive Lymphs % 1 H (0-0) % Monocytes % (Manual) 10 (0-10) % Platelet Estimate Normal (NORMAL) Anisocytosis (manual) Slight Fela Cells Moderate PT (9.7-12.2) SECONDS INR APTT (21-34) SECONDS Sodium (132-148) mmol/L Potassium (3.6-5.2) mmol/L Chloride (98-107) mmol/L Carbon Dioxide (22-30) mmol/L Anion Gap (10-20) BUN (7-17) mg/dL Creatinine (0.7-1.2) mg/dL Est GFR ( Amer) Est GFR (Non-Af Amer) POC Glucose (mg/dL) 274 H (65-110) mg/dL Random Glucose (65-105) mg/dL Calcium (8.6-10.4) mg/dl Magnesium (1.6-2.3) mg/dL Total Bilirubin (0.2-1.3) mg/dL Direct Bilirubin (0.0-0.4) mg/dL AST (14-36) U/L ALT (9-52) U/L Alkaline Phosphatase (38-126) U/L Troponin I (0.00-0.120) ng/mL Total Protein (6.3-8.3) g/dL Albumin (3.5-5.0) g/dL Globulin (2.2-3.9) gm/dL Albumin/Globulin Ratio (1.0-2.1) Vancomycin Trough (5.0-10.0) ug/mL Hepatitis A IgM Ab Negative (NEGATIVE) Hep Bs Antigen Negative (NEGATIVE) Hep B Core IgM Ab Negative (NEGATIVE) Hepatitis C Antibody Negative (NEGATIVE) 03/16/18 03/16/18 03/16/18 Range/Units 16:06 14:15 14:15 WBC (4.8-10.8) K/uL RBC (3.80-5.20) Mil/uL Hgb (11.0-16.0) g/dL Hct (34.0-47.0) % MCV (81.0-99.0) fL MCH (27.0-31.0) pg MCHC (33.0-37.0) g/dL RDW (11.5-14.5) % Plt Count (130-400) K/uL MPV (7.2-11.7) fL Neut % (Auto) (50.0-75.0) % Lymph % (Auto) (20.0-40.0) % [place] % (Auto) (0.0-10.0) % Eos % (Auto) (0.0-4.0) % Baso % (Auto) (0.0-2.0) % Neut # (Auto) (1.8-7.0) K/uL Lymph # (Auto) (1.0-4.3) K/uL [place] # (Auto) (0.0-0.8) K/uL Eos # (Auto) (0.0-0.7) K/uL Baso # (Auto) (0.0-0.2) K/uL Neutrophils % (Manual) (50-75) % Band Neutrophils % (0-2) % Lymphocytes % (Manual) (20-40) % Reactive Lymphs % (0-0) % Monocytes % (Manual) (0-10) % Platelet Estimate (NORMAL) Anisocytosis (manual) Fela Cells PT 26.6 H (9.7-12.2) SECONDS INR 2.3 APTT 31 (21-34) SECONDS Sodium (132-148) mmol/L Potassium (3.6-5.2) mmol/L Chloride (98-107) mmol/L Carbon Dioxide (22-30) mmol/L Anion Gap (10-20) BUN (7-17) mg/dL Creatinine (0.7-1.2) mg/dL Est GFR ( Amer) Est GFR (Non-Af Amer) POC Glucose (mg/dL) 279 H (65-110) mg/dL Random Glucose (65-105) mg/dL Calcium (8.6-10.4) mg/dl Magnesium (1.6-2.3) mg/dL Total Bilirubin (0.2-1.3) mg/dL Direct Bilirubin (0.0-0.4) mg/dL AST (14-36) U/L ALT (9-52) U/L Alkaline Phosphatase (38-126) U/L Troponin I 0.1080 (0.00-0.120) ng/mL Total Protein (6.3-8.3) g/dL Albumin (3.5-5.0) g/dL Globulin (2.2-3.9) gm/dL Albumin/Globulin Ratio (1.0-2.1) Vancomycin Trough (5.0-10.0) ug/mL Hepatitis A IgM Ab (NEGATIVE) Hep Bs Antigen (NEGATIVE) Hep B Core IgM Ab (NEGATIVE) Hepatitis C Antibody (NEGATIVE) Laboratory Results - last 24 hr 03/16/18 03/16/18 03/16/18 14:15 14:15 16:06 WBC RBC Hgb Hct MCV MCH MCHC RDW Plt Count MPV Neut % (Auto) Lymph % (Auto) [place] % (Auto) Eos % (Auto) Baso % (Auto) Neut # (Auto) Lymph # (Auto) [place] # (Auto) Eos # (Auto) Baso # (Auto) Neutrophils % (Manual) Band Neutrophils % Lymphocytes % (Manual) Reactive Lymphs % Monocytes % (Manual) Platelet Estimate Anisocytosis (manual) Fela Cells PT 26.6 H INR 2.3 APTT 31 Sodium Potassium Chloride Carbon Dioxide Anion Gap BUN Creatinine Est GFR ( Amer) Est GFR (Non-Af Amer) POC Glucose (mg/dL) 279 H Random Glucose Calcium Magnesium Total Bilirubin Direct Bilirubin AST ALT Alkaline Phosphatase Troponin I 0.1080 Total Protein Albumin Globulin Albumin/Globulin Ratio Vancomycin Trough Hepatitis A IgM Ab Hep Bs Antigen Hep B Core IgM Ab Hepatitis C Antibody 03/16/18 03/17/18 03/17/18 21:13 05:48 05:49 WBC 10.6 RBC 4.25 Hgb 13.4 Hct 39.2 MCV 92.2 MCH 31.6 H MCHC 34.3 RDW 15.1 H Plt Count 144 MPV 8.0 Neut % (Auto) 82.3 H Lymph % (Auto) 4.2 L [place] % (Auto) 13.2 H Eos % (Auto) 0.1 Baso % (Auto) 0.2 Neut # (Auto) 8.7 H Lymph # (Auto) 0.4 L [place] # (Auto) 1.4 H Eos # (Auto) 0.0 Baso # (Auto) 0.0 Neutrophils % (Manual) 83 H Band Neutrophils % 2 Lymphocytes % (Manual) 4 L Reactive Lymphs % 1 H Monocytes % (Manual) 10 Platelet Estimate Normal Anisocytosis (manual) Slight Britt Cells Moderate PT INR APTT Sodium Potassium Chloride Carbon Dioxide Anion Gap BUN Creatinine Est GFR ( Amer) Est GFR (Non-Af Amer) POC Glucose (mg/dL) 274 H Random Glucose Calcium Magnesium Total Bilirubin Direct Bilirubin AST ALT Alkaline Phosphatase Troponin I Total Protein Albumin Globulin Albumin/Globulin Ratio Vancomycin Trough Hepatitis A IgM Ab Negative Hep Bs Antigen Negative Hep B Core IgM Ab Negative Hepatitis C Antibody Negative 03/17/18 03/17/18 03/17/18 05:49 05:49 05:49 WBC RBC Hgb Hct MCV MCH MCHC RDW Plt Count MPV Neut % (Auto) Lymph % (Auto) [place] % (Auto) Eos % (Auto) Baso % (Auto) Neut # (Auto) Lymph # (Auto) [place] # (Auto) Eos # (Auto) Baso # (Auto) Neutrophils % (Manual) Band Neutrophils % Lymphocytes % (Manual) Reactive Lymphs % Monocytes % (Manual) Platelet Estimate Anisocytosis (manual) Britt Cells PT INR APTT Sodium 131 L Potassium 3.4 L Chloride 94 L Carbon Dioxide 24 Anion Gap 16 BUN 36 H Creatinine 0.7 Est GFR ( Amer) > 60 Est GFR (Non-Af Amer) > 60 POC Glucose (mg/dL) Random Glucose 269 H Calcium 7.8 L Magnesium 1.8 Total Bilirubin 1.3 Direct Bilirubin 0.9 H AST 92 H D ALT 124 H D Alkaline Phosphatase 157 H Troponin I Total Protein 5.3 L Albumin 2.8 L Globulin 2.5 Albumin/Globulin Ratio 1.1 Vancomycin Trough 18.0 H Hepatitis A IgM Ab Hep Bs Antigen Hep B Core IgM Ab Hepatitis C Antibody 03/17/18 03/17/18 03/17/18 07:15 10:29 11:45 WBC RBC Hgb Hct MCV MCH MCHC RDW Plt Count MPV Neut % (Auto) Lymph % (Auto) [place] % (Auto) Eos % (Auto) Baso % (Auto) Neut # (Auto) Lymph # (Auto) [place] # (Auto) Eos # (Auto) Baso # (Auto) Neutrophils % (Manual) Band Neutrophils % Lymphocytes % (Manual) Reactive Lymphs % Monocytes % (Manual) Platelet Estimate Anisocytosis (manual) Britt Cells PT 17.0 H D INR 1.5 D APTT Sodium Potassium Chloride Carbon Dioxide Anion Gap BUN Creatinine Est GFR ( Amer) Est GFR (Non-Af Amer) POC Glucose (mg/dL) 257 H 277 H Random Glucose Calcium Magnesium Total Bilirubin Direct Bilirubin AST ALT Alkaline Phosphatase Troponin I Total Protein Albumin Globulin Albumin/Globulin Ratio Vancomycin Trough Hepatitis A IgM Ab Hep Bs Antigen Hep B Core IgM Ab Hepatitis C Antibody Critical Care Progress Note - Nutrition Nutrition: Nutrition Category Date Time Status Liquid Diet [DIET] Diets 03/16/18 Dinner Active Assessment/Plan - Assessment and Plan (Free Text) Plan: Above resident has documented my findings and management of patient. Above resident note reviewed and verified. -Sepsis: off pressors, continue abx, source suspect billiary origin/soft tissue infection, lactic resolved -A-fib/ severe systolic heart failure: continue betablocker, acei and spironolactone -r/o cholelithiasiss, T. juan francisco high, HIDA/MRCP, Gi follow up -continue DVT/PUD ppx -wound care as per protocol Patient remains hemodynamically stable. - Date & Time Date: 03/16/18 Time: 09:00
--- NOTE | 2018-03-16 12:58 | CP.PCM.PN ---
Subjective - Date & Time of Evaluation Date of Evaluation: 03/16/18 Time of Evaluation: 12:52 - Subjective Subjective: The patient feels better in NSR, very tired. Echo performed while still in atrial flutter showed makeedly reduced LV EF, mild , mild MR, and dilated RV/RA, with at least moderate pulmonary HTN. Pt off IV drips, now on po lopressor. No tni repeated. mg 1.8, k 3.4. Objective - Vital Signs/Intake and Output Vital Signs (last 24 hours): Temp Pulse Resp BP Pulse Ox 97.4 F L 79 16 135/63 100 03/16/18 08:00 03/16/18 11:00 03/16/18 11:00 03/16/18 11:00 03/16/18 11:00 Intake and Output: 03/16/18 03/16/18 06:59 18:59 Intake Total 350 400 Output Total 245 145 Balance 105 255 - Medications Medications: Current Medications Aspirin (Aspirin Chewable) 81 mg PO DAILY ON LICENSE OF [facility] Last Admin: 03/16/18 09:30 Dose: 81 mg Piperacillin Sod/Tazobactam Sod (Zosyn 3.375 Gm Iv Premix) 3.375 gm in 50 mls @ 100 mls/hr IVPB Q6H [facility] PRN Reason: Protocol Last Admin: 03/16/18 09:31 Dose: 100 mls/hr Vancomycin HCl 1 gm/ Sodium (Chloride) 200 mls @ 166.7 mls/hr IVPB Q12H [facility] PRN Reason: Protocol Last Admin: 03/16/18 07:08 Dose: 166.7 mls/hr Insulin Human Regular (Novolin R) 0 unit SC ACHS [facility] PRN Reason: Protocol Last Admin: 03/16/18 08:30 Dose: 2 unit Metoprolol Tartrate (Lopressor) 12.5 mg PO Q12H ON LICENSE OF [facility] Ondansetron HCl (Zofran Inj) 4 mg IVP Q6H PRN PRN Reason: Nausea/Vomiting Last Admin: 03/15/18 15:57 Dose: 4 mg Pantoprazole Sodium (Protonix Ec Tab) 40 mg PO DAILY [facility] OF [facility] Last Admin: 03/16/18 09:30 Dose: 40 mg Pneumococcal Polyvalent Vaccine (Pneumovax 23 Vaccine) 0.5 ml IM .ONCE ONE Stop: 03/17/18 10:01 - Labs Labs: 03/16/18 06:28 03/16/18 06:30 PT 26.6 SECONDS (9.7-12.2) H 03/15/18 08:28 INR 2.3 03/15/18 08:28 APTT 30 SECONDS (21-34) 03/15/18 08:28 - Constitutional Appears: Cachectic, Chronically Ill - Head Exam Head Exam: ATRAUMATIC - Eye Exam Eye Exam: EOMI - ENT Exam ENT Exam: Mucous Membranes Moist - Respiratory Exam Additional comments: scant crackles at the bases - GI/Abdominal Exam GI & Abdominal Exam: Normal Bowel Sounds - Exam External exam: Swelling - Extremities Exam Extremities Exam: Pedal Edema - Neurological Exam Neurological Exam: Alert, Awake, Oriented x3 - Psychiatric Exam Psychiatric exam: Flat Affect - Skin Skin Exam: Pallor Assessment and Plan - Assessment and Plan (Free Text) Assessment: 1. LV systolic function has deteriorated since 2016, last echo. Pt has been non copliant h meds and visits. Will reepat limited echo in nsr for LV Ef assessment. Add rosendo inhibitor, aldactone 2. Moderate pulmonary HTN and RV/RA dilation: pt;s with rheumatoid artrisits often have lung involvment and this is the cause. Elevated right sided pressures could have also caused increased hepatic venous pressure and liver congestion, elevated LFT rise and coagulopathy. A right heart cath would confirm this, but pt too ill for this at this time. 3. Atrial flutter: now nsr: replace k. Increase beta mralena as bp allows. 4. No known CAD: trivial TNI elevation, likely demand ischemia (pt is diabetic , may have underlying CAD or microvasculature disease). repeat TNI ordered. ASA. No anticoagulation in the setting of INR 2.3 is advised.
[2018-03-16] MEDS ORDERED: Potassium Chloride 20 mEq ER Tab PO ONE (13:15)
--- NOTE | 2018-03-16 14:05 | CP.PCM.PN ---
Subjective - Date & Time of Evaluation Date of Evaluation: 03/16/18 Time of Evaluation: 14:05 - Subjective Subjective: Patient feels better today,more awake and looking better than yesterday No fever,no sob,denies pain Objective - Vital Signs/Intake and Output Vital Signs (last 24 hours): Temp Pulse Resp BP Pulse Ox 98.2 F 76 19 122/58 L 100 03/16/18 12:00 03/16/18 13:00 03/16/18 13:00 03/16/18 13:38 03/16/18 13:00 Intake and Output: 03/16/18 03/16/18 06:59 18:59 Intake Total 350 400 Output Total 245 145 Balance 105 255 - Medications Medications: Current Medications Aspirin (Aspirin Chewable) 81 mg PO DAILY [facility] Last Admin: 03/16/18 09:30 Dose: 81 mg Piperacillin Sod/Tazobactam Sod (Zosyn 3.375 Gm Iv Premix) 3.375 gm in 50 mls @ 100 mls/hr IVPB Q6H [facility] PRN Reason: Protocol Last Admin: 03/16/18 09:31 Dose: 100 mls/hr Vancomycin HCl 1 gm/ Sodium (Chloride) 200 mls @ 166.7 mls/hr IVPB Q12H [facility] PRN Reason: Protocol Last Admin: 03/16/18 07:08 Dose: 166.7 mls/hr Insulin Human Regular (Novolin R) 0 unit SC ACHS [facility] PRN Reason: Protocol Last Admin: 03/16/18 08:30 Dose: 2 unit Lisinopril (Zestril) 2.5 mg PO DAILY [facility] Metoprolol Tartrate (Lopressor) 12.5 mg PO Q12H [facility] Ondansetron HCl (Zofran Inj) 4 mg IVP Q6H PRN PRN Reason: Nausea/Vomiting Last Admin: 03/15/18 15:57 Dose: 4 mg Pantoprazole Sodium (Protonix Ec Tab) 40 mg PO DAILY [facility] Last Admin: 03/16/18 09:30 Dose: 40 mg Pneumococcal Polyvalent Vaccine (Pneumovax 23 Vaccine) 0.5 ml IM .ONCE ONE Stop: 03/17/18 10:01 Spironolactone (Aldactone) 25 mg PO DAILY [facility] - Labs Labs: 03/16/18 06:28 03/16/18 06:30 PT 26.6 SECONDS (9.7-12.2) H 03/15/18 08:28 INR 2.3 03/15/18 08:28 APTT 30 SECONDS (21-34) 03/15/18 08:28 - Constitutional Appears: No Acute Distress - Head Exam Head Exam: ATRAUMATIC - Eye Exam Eye Exam: Normal appearance - ENT Exam ENT Exam: Mucous Membranes Moist - Neck Exam Neck Exam: Full ROM - Respiratory Exam Respiratory Exam: Rales, NORMAL BREATHING PATTERN. absent: Clear to Ausculation Bilateral - Cardiovascular Exam Cardiovascular Exam: REGULAR RHYTHM - GI/Abdominal Exam GI & Abdominal Exam: Soft, Normal Bowel Sounds. absent: Tenderness - Extremities Exam Extremities Exam: Normal Capillary Refill, Pedal Edema (left foot blisters), Tenderness - Back Exam Back Exam: NORMAL INSPECTION - Neurological Exam Neurological Exam: Alert - Psychiatric Exam Psychiatric exam: Normal Mood - Skin Skin Exam: Dry Assessment and Plan - Assessment and Plan (Free Text) Assessment: This is a 72 year old female with PMHx HTN, DM, RA who presented complaining of chest pain, general malaise, and diarrhea. 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 Troponins elevated but downtrending. On admission Esmolol drip with bridge to Lopressor was discontinued on date of admission because the patient went into bradycardia. Right IJ TLC placed on 03/15. Patient was started on antibiotics as per ID for possible sepsis Plan: 1. Severe acute systolic heart failure Elevated troponin r/o cad LBBB (H/o LBBB) Echo EF 15 to 20% severe LV systolic dysfunction. s/p afib converted to sinus ,Repeat echo requested by cashier and waiter/waitress . She is hypercoag INR 2.3.no need for anticoagulation 2.Atrial fibrillation with rapid HR-converted to sinus Has high INR/Hypercoagulable state 2.Fever/leukocytosis/elevated lactate/Patient was on immune suppression meds for RA d/w DR Galeano. on zosyn and vanco Improving,follow cultures 3. NSTEMI aspirin,follow tropoinin Has high INR/Hypercoagulable state 4. Transaminitis -lilkely due to CHF Cholelithiasis and GB wall thickening No abdominal pain,US noted,GI on board we will follow GI continue antibiotics 5.DM Insulin coverage 6.RA No complain,Meds on hold 7.Pulmonary hypertension Dr Moon for consult 6.Bilateral leg edema-Likely due to chf-follow echo foot blister-wound care 6.On GI prophylaxis,DVT prophy-Hypercoagulable state
[2018-03-16 14:32] LABS: INR 2.3; PROTHROMBIN TIME 26.6 SECONDS (9.7-12.2)
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
--- NOTE | 2018-03-16 17:24 | CP.PCM.CON ---
History of Present Illness - History of Present Illness History of Present Illness: Reason for consultation: pulmonary hypertension 72-year-old female with history of hypertension, diabetes, rheumatoid arthritis was admitted to ICU with the elevated troponin and A. fib/flutter with rapid ventricle respons Patient was also complaining of shortness of breath and chest discomfort. Initially patient was started on esmolol drip which was later stopped for bradycardia. Echocardiogram consistent with pulmonary hypertension. Denies cough, denies fever chills. CAT scan of t chest showed no infiltrate/effusion. there are no signs/symptoms off obstructive sleep apnea. Review of Systems - Review of Systems All systems: reviewed and no additional remarkable complaints except (shortness of breath/chest discomfort) Past Patient History - Past Medical History & Family History Past Medical History?: Yes - Past Social History Smoking Status: Former Smoker - CARDIAC Hx Hypertension: Yes - PULMONARY Hx Pneumonia: Yes - ENDOCRINE/METABOLIC Hx Diabetes Mellitus Type 2: Yes - MUSCULOSKELETAL/RHEUMATOLOGICAL Hx Arthritis: Yes ( PER DAUGHTER SINGH BARROSO) Hx Rheumatoid Arthritis: Yes - PSYCHIATRIC Hx Substance Use: No - SURGICAL HISTORY Hx Surgeries: No ( PER JOSEPH BARROSO) - ANESTHESIA Hx Anesthesia: No Meds Allergies/Adverse Reactions: Allergies Allergy/AdvReac Type Severity Reaction Status Date / Time No Known Allergies Allergy Verified 03/15/18 14:02 - Medications Medications: Current Medications Aspirin (Aspirin Chewable) 81 mg PO DAILY [facility] Last Admin: 03/16/18 09:30 Dose: 81 mg Piperacillin Sod/Tazobactam Sod (Zosyn 3.375 Gm Iv Premix) 3.375 gm in 50 mls @ 100 mls/hr IVPB Q6H [facility] PRN Reason: Protocol Last Admin: 03/16/18 16:28 Dose: 100 mls/hr Vancomycin HCl 1 gm/ Sodium (Chloride) 200 mls @ 166.7 mls/hr IVPB Q12H [facility] PRN Reason: Protocol Last Admin: 03/16/18 07:08 Dose: 166.7 mls/hr Insulin Human Regular (Novolin R) 0 unit SC ACHS [facility] PRN Reason: Protocol Last Admin: 03/16/18 16:31 Dose: Not Given Lisinopril (Zestril) 2.5 mg PO DAILY [facility] Last Admin: 03/16/18 14:00 Dose: Not Given Metoprolol Tartrate (Lopressor) 12.5 mg PO Q12H [facility] Last Admin: 03/16/18 11:00 Dose: Not Given Ondansetron HCl (Zofran Inj) 4 mg IVP Q6H PRN PRN Reason: Nausea/Vomiting Last Admin: 03/15/18 15:57 Dose: 4 mg Pantoprazole Sodium (Protonix Ec Tab) 40 mg PO DAILY [facility] Last Admin: 03/16/18 09:30 Dose: 40 mg Pneumococcal Polyvalent Vaccine (Pneumovax 23 Vaccine) 0.5 ml IM .ONCE ONE Stop: 03/17/18 10:01 Spironolactone (Aldactone) 25 mg PO DAILY [facility] Physical Exam - Head Exam Head Exam: ATRAUMATIC, NORMOCEPHALIC - ENT Exam ENT Exam: Mucous Membranes Moist - Respiratory Exam Respiratory Exam: Clear to Auscultation Bilateral - Cardiovascular Exam Cardiovascular Exam: REGULAR RHYTHM - GI/Abdominal Exam GI & Abdominal Exam: Normal Bowel Sounds, Soft Results - Vital Signs Recent Vital Signs: Last Vital Signs Temp 97.6 F 03/16/18 16:00 Pulse 79 03/16/18 16:00 Resp 13 03/16/18 16:00 BP 121/60 03/16/18 16:00 Pulse Ox 99 03/16/18 16:00 - Labs Result Diagrams: 03/16/18 06:28 03/16/18 06:30 Labs: Laboratory Results - last 24 hr 03/15/18 03/15/18 03/15/18 15:30 17:13 17:13 WBC RBC Hgb Hct MCV MCH MCHC RDW Plt Count MPV Neut % (Auto) Lymph % (Auto) Barber % (Auto) Eos % (Auto) Baso % (Auto) Neut # (Auto) Lymph # (Auto) Barber # (Auto) Eos # (Auto) Baso # (Auto) Neutrophils % (Manual) Band Neutrophils % Lymphocytes % (Manual) Monocytes % (Manual) Platelet Estimate Anisocytosis (manual) Sumrall Cells ESR PT INR APTT Puncture Site pCO2 pO2 HCO3 ABG pH ABG Total CO2 ABG O2 Saturation ABG Base Excess ABG Hemoglobin ABG Carboxyhemoglobin POC ABG HHb (Measured) ABG Methemoglobin Miguel Angel Test A-a O2 Difference Respiratory Index Hgb O2 Saturation Vent Mode FiO2 Inspiratory BiPAP Expiratory BiPAP Sodium Potassium Chloride Carbon Dioxide Anion Gap BUN Creatinine Est GFR ( Amer) Est GFR (Non-Af Amer) POC Glucose (mg/dL) Random Glucose Hemoglobin A1c Lactic Acid 6.1 H* Calcium Phosphorus Magnesium Total Bilirubin AST ALT Alkaline Phosphatase Troponin I 0.3540 H* Total Protein Albumin Globulin Albumin/Globulin Ratio Free T4 TSH 3rd Generation C. difficile Ag & Toxin Negative 03/15/18 03/15/18 03/15/18 17:13 17:13 20:14 WBC RBC Hgb Hct MCV MCH MCHC RDW Plt Count MPV Neut % (Auto) Lymph % (Auto) Barber % (Auto) Eos % (Auto) Baso % (Auto) Neut # (Auto) Lymph # (Auto) Barber # (Auto) Eos # (Auto) Baso # (Auto) Neutrophils % (Manual) Band Neutrophils % Lymphocytes % (Manual) Monocytes % (Manual) Platelet Estimate Anisocytosis (manual) Sumrall Cells ESR PT INR APTT Puncture Site Rra pCO2 26 L pO2 178 H HCO3 22.0 ABG pH 7.46 H ABG Total CO2 19.3 L ABG O2 Saturation 99.7 H ABG Base Excess -3.7 L ABG Hemoglobin 14.2 ABG Carboxyhemoglobin 1.4 POC ABG HHb (Measured) 0.3 ABG Methemoglobin 0.9 Miguel Angel Test Na A-a O2 Difference 146.0 Respiratory Index 0.8 Hgb O2 Saturation 97.4 Vent Mode Bipap FiO2 50.0 Inspiratory BiPAP 10 Expiratory BiPAP 5 Sodium Potassium Chloride Carbon Dioxide Anion Gap BUN Creatinine Est GFR ( Amer) Est GFR (Non-Af Amer) POC Glucose (mg/dL) Random Glucose Hemoglobin A1c Lactic Acid Calcium Phosphorus Magnesium Total Bilirubin AST ALT Alkaline Phosphatase Troponin I Total Protein Albumin Globulin Albumin/Globulin Ratio Free T4 2.36 H TSH 3rd Generation 3.05 C. difficile Ag & Toxin 03/15/18 03/15/18 03/15/18 21:06 22:38 22:38 WBC RBC Hgb Hct MCV MCH MCHC RDW Plt Count MPV Neut % (Auto) Lymph % (Auto) Barber % (Auto) Eos % (Auto) Baso % (Auto) Neut # (Auto) Lymph # (Auto) Barber # (Auto) Eos # (Auto) Baso # (Auto) Neutrophils % (Manual) Band Neutrophils % Lymphocytes % (Manual) Monocytes % (Manual) Platelet Estimate Anisocytosis (manual) Fela Cells ESR PT INR APTT Puncture Site pCO2 pO2 HCO3 ABG pH ABG Total CO2 ABG O2 Saturation ABG Base Excess ABG Hemoglobin ABG Carboxyhemoglobin POC ABG HHb (Measured) ABG Methemoglobin Miguel Angel Test A-a O2 Difference Respiratory Index Hgb O2 Saturation Vent Mode FiO2 Inspiratory BiPAP Expiratory BiPAP Sodium Potassium Chloride Carbon Dioxide Anion Gap BUN Creatinine Est GFR ( Amer) Est GFR (Non-Af Amer) POC Glucose (mg/dL) 114 H Random Glucose Hemoglobin A1c Lactic Acid 2.0 Calcium Phosphorus Magnesium Total Bilirubin AST ALT Alkaline Phosphatase Troponin I 0.3450 H* Total Protein Albumin Globulin Albumin/Globulin Ratio Free T4 TSH 3rd Generation C. difficile Ag & Toxin 03/16/18 03/16/18 03/16/18 06:28 06:28 06:30 WBC 12.2 H RBC 4.40 Hgb 13.8 D Hct 40.7 MCV 92.5 MCH 31.4 H MCHC 34.0 RDW 15.0 H Plt Count 162 MPV 8.7 Neut % (Auto) 85.4 H Lymph % (Auto) 5.0 L Barber % (Auto) 9.4 Eos % (Auto) 0.0 Baso % (Auto) 0.2 Neut # (Auto) 10.5 H Lymph # (Auto) 0.6 L Barber # (Auto) 1.1 H Eos # (Auto) 0.0 Baso # (Auto) 0.0 Neutrophils % (Manual) 85 H Band Neutrophils % 2 Lymphocytes % (Manual) 6 L Monocytes % (Manual) 7 Platelet Estimate Normal Anisocytosis (manual) Slight Sumrall Cells Moderate ESR 1 PT INR APTT Puncture Site pCO2 pO2 HCO3 ABG pH ABG Total CO2 ABG O2 Saturation ABG Base Excess ABG Hemoglobin ABG Carboxyhemoglobin POC ABG HHb (Measured) ABG Methemoglobin Miguel Angel Test A-a O2 Difference Respiratory Index Hgb O2 Saturation Vent Mode FiO2 Inspiratory BiPAP Expiratory BiPAP Sodium 133 Potassium 3.6 Chloride 95 L Carbon Dioxide 24 Anion Gap 18 BUN 46 H Creatinine 1.1 Est GFR ( Amer) 59 Est GFR (Non-Af Amer) 49 POC Glucose (mg/dL) Random Glucose 145 H Hemoglobin A1c 7.0 H Lactic Acid Calcium 8.1 L Phosphorus 4.3 Magnesium 1.8 Total Bilirubin 1.6 H AST 185 H D ALT 160 H Alkaline Phosphatase 159 H Troponin I Total Protein 5.4 L Albumin 2.8 L D Globulin 2.6 Albumin/Globulin Ratio 1.1 Free T4 TSH 3rd Generation C. difficile Ag & Toxin 03/16/18 03/16/18 03/16/18 07:56 11:22 14:15 WBC RBC Hgb Hct MCV MCH MCHC RDW Plt Count MPV Neut % (Auto) Lymph % (Auto) Barber % (Auto) Eos % (Auto) Baso % (Auto) Neut # (Auto) Lymph # (Auto) Barber # (Auto) Eos # (Auto) Baso # (Auto) Neutrophils % (Manual) Band Neutrophils % Lymphocytes % (Manual) Monocytes % (Manual) Platelet Estimate Anisocytosis (manual) Fela Cells ESR PT 26.6 H INR 2.3 APTT 31 Puncture Site pCO2 pO2 HCO3 ABG pH ABG Total CO2 ABG O2 Saturation ABG Base Excess ABG Hemoglobin ABG Carboxyhemoglobin POC ABG HHb (Measured) ABG Methemoglobin Miguel Angel Test A-a O2 Difference Respiratory Index Hgb O2 Saturation Vent Mode FiO2 Inspiratory BiPAP Expiratory BiPAP Sodium Potassium Chloride Carbon Dioxide Anion Gap BUN Creatinine Est GFR ( Amer) Est GFR (Non-Af Amer) POC Glucose (mg/dL) 167 H 222 H Random Glucose Hemoglobin A1c Lactic Acid Calcium Phosphorus Magnesium Total Bilirubin AST ALT Alkaline Phosphatase Troponin I Total Protein Albumin Globulin Albumin/Globulin Ratio Free T4 TSH 3rd Generation C. difficile Ag & Toxin 03/16/18 03/16/18 14:15 16:06 WBC RBC Hgb Hct MCV MCH MCHC RDW Plt Count MPV Neut % (Auto) Lymph % (Auto) Barber % (Auto) Eos % (Auto) Baso % (Auto) Neut # (Auto) Lymph # (Auto) Barber # (Auto) Eos # (Auto) Baso # (Auto) Neutrophils % (Manual) Band Neutrophils % Lymphocytes % (Manual) Monocytes % (Manual) Platelet Estimate Anisocytosis (manual) Fela Cells ESR PT INR APTT Puncture Site pCO2 pO2 HCO3 ABG pH ABG Total CO2 ABG O2 Saturation ABG Base Excess ABG Hemoglobin ABG Carboxyhemoglobin POC ABG HHb (Measured) ABG Methemoglobin Miguel Angel Test A-a O2 Difference Respiratory Index Hgb O2 Saturation Vent Mode FiO2 Inspiratory BiPAP Expiratory BiPAP Sodium Potassium Chloride Carbon Dioxide Anion Gap BUN Creatinine Est GFR ( Amer) Est GFR (Non-Af Amer) POC Glucose (mg/dL) 279 H Random Glucose Hemoglobin A1c Lactic Acid Calcium Phosphorus Magnesium Total Bilirubin AST ALT Alkaline Phosphatase Troponin I 0.1080 Total Protein Albumin Globulin Albumin/Globulin Ratio Free T4 TSH 3rd Generation C. difficile Ag & Toxin Assessment & Plan (1) Pulmonary hypertension Status: Acute Comment: pulm hypertension most likely of cardiac etiology, underlying COPD or sleep apnea cannot be ruled out. No pulmonary fibrosis on CAT scan. repeat echocardiogram in normal sinus rhythm. unable to perform sleep study and Pft AT THIS POINT
--- NOTE | 2018-03-16 19:34 | CP.PCM.PN ---
Subjective - Date & Time of Evaluation Date of Evaluation: 03/16/18 Time of Evaluation: 03:00 - Subjective Subjective: dictated Objective - Vital Signs/Intake and Output Vital Signs (last 24 hours): Temp Pulse Resp BP Pulse Ox 97.6 F 78 18 123/80 98 03/16/18 16:00 03/16/18 19:00 03/16/18 19:00 03/16/18 19:00 03/16/18 19:00 Intake and Output: 03/16/18 03/17/18 18:59 06:59 Intake Total 400 0 Output Total 375 30 Balance 25 -30 - Medications Medications: Current Medications Aspirin (Aspirin Chewable) 81 mg PO DAILY [facility] Last Admin: 03/16/18 09:30 Dose: 81 mg Piperacillin Sod/Tazobactam Sod (Zosyn 3.375 Gm Iv Premix) 3.375 gm in 50 mls @ 100 mls/hr IVPB Q6H [facility] PRN Reason: Protocol Last Admin: 03/16/18 16:28 Dose: 100 mls/hr Vancomycin HCl 1 gm/ Sodium (Chloride) 200 mls @ 166.7 mls/hr IVPB Q12H [facility] PRN Reason: Protocol Last Admin: 03/16/18 07:08 Dose: 166.7 mls/hr Insulin Human Regular (Novolin R) 0 unit SC ACHS [facility] PRN Reason: Protocol Last Admin: 03/16/18 16:31 Dose: Not Given Lisinopril (Zestril) 2.5 mg PO DAILY [facility] Last Admin: 03/16/18 14:00 Dose: Not Given Metoprolol Tartrate (Lopressor) 12.5 mg PO Q12H [facility] Last Admin: 03/16/18 11:00 Dose: Not Given Ondansetron HCl (Zofran Inj) 4 mg IVP Q6H PRN PRN Reason: Nausea/Vomiting Last Admin: 03/15/18 15:57 Dose: 4 mg Pantoprazole Sodium (Protonix Ec Tab) 40 mg PO DAILY [facility] Last Admin: 03/16/18 09:30 Dose: 40 mg Phytonadione (Vitamin K Inj) 10 mg IV STAT [facility] Stop: 03/16/18 19:07 Pneumococcal Polyvalent Vaccine (Pneumovax 23 Vaccine) 0.5 ml IM .ONCE ONE Stop: 03/17/18 10:01 Spironolactone (Aldactone) 25 mg PO DAILY [facility] - Labs Labs: 03/16/18 06:28 03/16/18 06:30 PT 26.6 SECONDS (9.7-12.2) H 03/16/18 14:15 INR 2.3 03/16/18 14:15 APTT 31 SECONDS (21-34) 03/16/18 14:15
[2018-03-16] MEDS ORDERED: Phytonadione 10 mg/ml Inj (Adult) SC ONE (19:45)
[2018-03-17] MEDS: Piperacill/Tazo 3.375gm in Dex 3.375 GM/50 ML BAG IVPB SCH ×4 (03:12→21:32)
[2018-03-17 06:01] LABS: BASO % 0.2 % (0.0-2.0); EOS % 0.1 % (0.0-4.0); HEMOGLOBIN 13.4 g/dL (11.0-16.0); LYMPH # 0.4 K/uL (1.0-4.3); LYMPH % 4.2 % (20.0-40.0); MEAN CELL VOLUME 92.2 fL (81.0-99.0); MEAN CORPUSCULAR HEMOGLOBIN 31.6 pg (27.0-31.0); MEAN CORPUSCULAR HGB CONC 34.3 g/dL (33.0-37.0); MONO # 1.4 K/uL (0.0-0.8); MONO % 13.2 % (0.0-10.0); NEUT # 8.7 K/uL (1.8-7.0); NEUT % 82.3 % (50.0-75.0); PLATELET COUNT 144 K/uL (130-400); RBC 4.25 Mil/uL (3.80-5.20); RED CELL DISTRIBUTION WIDTH 15.1 % (11.5-14.5); WHITE BLOOD COUNT 10.6 K/uL (4.8-10.8)
[2018-03-17 06:24] LABS: ALB/GLOB RATIO 1.1 (1.0-2.1); ALBUMIN 2.8 g/dL (3.5-5.0); ALT/SGPT 124 U/L (9-52); AST/SGOT 92 U/L (14-36); BLOOD UREA NITROGEN 36 mg/dL (7-17); CALCIUM 7.8 mg/dl (8.6-10.4); GFR AFRICAN-AMERICAN > 60; GFR NON-AFRICAN AMERICAN > 60
--- NOTE | 2018-03-17 06:34 | PN ---
DATE: 03/16/2018 SUBJECTIVE: The patient was seen today. She was more alert. She was smiling. She was being seen by the GI, and they were going to order an MRCP, and she was also seen by Dr. Moon for pulmonary hypertension. She remains on IV antibiotics. PHYSICAL EXAMINATION: HEENT: Her head was atraumatic. NECK: Supple. LUNGS: Clear. HEART: S1, S2 was regular today. ABDOMEN: Soft, nontender. No guarding. No rigidity present. EXTREMITIES: No edema. LABORATORY DATA: We had done CAT scans yesterday which showed gallbladder with gallstones and also colitis, so we have ordered stool studies, and I left her on vancomycin and Zosyn until the cultures and septic workup comes back. Her labs today was noted, white count 12.2, hemoglobin 13.8, hematocrit 40.7, platelet count is 162 and neutrophils were 85, and bands were 2. She is on heparin for her heart and INR is 2.3. Chemistry showed her BUN was 46, creatinine is 1.1, liver enzymes were elevated yesterday also. Total bili is 1.8, AST is 185, ALT is 160, and alk phos is 159. Abdomen was soft and nontender, extremities remained with edema. There was left leg which had dressing on the area where she had some rash which was probably scratch castillo as it looked to me. Stool cultures came out negative. Blood cultures are negative. Urine culture is negative. CAT scan had shown colitis. We are going to look for stool studies further, and we will leave her on antibiotics for now until we figure out if there is any infection as she did come with lactate level high. Troponins were positive. I am not able to find the lactate level right now, but we are looking for an MRCP to rule out acute cholecystitis, and as her LFTs are elevated. Clinically, she looked in failure yesterday with atrial fib and is sinus now. Yoly Galeano MD
[2018-03-17 06:49] LABS: HEPATITIS B SURFACE AG Negative (NEGATIVE)
[2018-03-17 06:54] LABS: HEPATITIS A IGM NEGATIVE (NEGATIVE); HEPATITIS B CORE AB NEGATIVE (NEGATIVE)
[2018-03-17 07:06] LABS: HEPATITIS C ANTIBODY NEGATIVE (NEGATIVE)
[2018-03-17] MEDS: Vancomycin 1 GM in Sodium Chloride 0.9% 200 ML IVPB SCH (07:19)
[2018-03-17] MEDS: (Novolin R) Insulin Human Regular 100 units/ml vial SC SCH (07:47)
--- NOTE | 2018-03-17 07:50 | CP.PCM.PN ---
<Torey Jaramillo - Last Filed: 03/17/18 10:25> Subjective - Date & Time of Evaluation Date of Evaluation: 03/17/18 Time of Evaluation: 06:45 - Subjective Subjective: PGY5 GI Fellow Progress Note Patient seen and examined bedside this morning. The patient states that she is feeling well and has no complaints. Denies any abdominal pain. No nausea, vomiting, fever, chills. Pulled out triple lumen catheter overnight. 12 system ROS performed and negative except where stated. Objective - Vital Signs/Intake and Output Vital Signs (last 24 hours): Temp Pulse Resp BP Pulse Ox 98.5 F 83 17 125/64 100 03/17/18 04:00 03/17/18 06:00 03/17/18 06:00 03/17/18 05:53 03/17/18 06:00 Intake and Output: 03/17/18 03/17/18 06:59 18:59 Intake Total 500 Output Total 540 Balance -40 - Medications Medications: Current Medications Aspirin (Aspirin Chewable) 81 mg PO DAILY [facility] Last Admin: 03/16/18 09:30 Dose: 81 mg Piperacillin Sod/Tazobactam Sod (Zosyn 3.375 Gm Iv Premix) 3.375 gm in 50 mls @ 100 mls/hr IVPB Q6H [facility] PRN Reason: Protocol Last Admin: 03/17/18 03:12 Dose: 100 mls/hr Vancomycin HCl 1 gm/ Sodium (Chloride) 200 mls @ 166.7 mls/hr IVPB Q12H [facility] PRN Reason: Protocol Last Admin: 03/17/18 07:19 Dose: 166.7 mls/hr Insulin Human Regular (Novolin R) 0 unit SC ACHS [facility] PRN Reason: Protocol Last Admin: 03/16/18 21:25 Dose: Not Given Lisinopril (Zestril) 2.5 mg PO DAILY [facility] Last Admin: 03/16/18 14:00 Dose: Not Given Metoprolol Tartrate (Lopressor) 12.5 mg PO Q12H [facility] Last Admin: 03/16/18 22:59 Dose: 12.5 mg Ondansetron HCl (Zofran Inj) 4 mg IVP Q6H PRN PRN Reason: Nausea/Vomiting Last Admin: 03/15/18 15:57 Dose: 4 mg Pantoprazole Sodium (Protonix Ec Tab) 40 mg PO DAILY [facility] Last Admin: 03/16/18 09:30 Dose: 40 mg Pneumococcal Polyvalent Vaccine (Pneumovax 23 Vaccine) 0.5 ml IM .ONCE ONE Stop: 03/17/18 10:01 Potassium Chloride (Potassium Chloride Oral Soln) 20 meq PO ONCE ONE Stop: 03/17/18 08:01 Spironolactone (Aldactone) 25 mg PO DAILY [facility] - Labs Labs: 03/17/18 05:48 03/17/18 05:49 PT 26.6 SECONDS (9.7-12.2) H 03/16/18 14:15 INR 2.3 03/16/18 14:15 APTT 31 SECONDS (21-34) 03/16/18 14:15 - Constitutional Appears: Non-toxic, No Acute Distress - Eye Exam Eye Exam: EOMI, PERRL - ENT Exam ENT Exam: Mucous Membranes Moist - Respiratory Exam Respiratory Exam: Clear to Ausculation Bilateral. absent: Rales, Rhonchi, Wheezes - Cardiovascular Exam Cardiovascular Exam: RRR, +S1, +S2 - GI/Abdominal Exam GI & Abdominal Exam: Soft, Normal Bowel Sounds. absent: Distended, Firm, Guarding, Rigid, Tenderness, Organomegaly - Extremities Exam Extremities Exam: Normal Inspection. absent: Pedal Edema - Neurological Exam Neurological Exam: Alert, Awake, Oriented x3 - Psychiatric Exam Psychiatric exam: Normal Affect, Normal Mood - Skin Skin Exam: Dry, Warm Assessment and Plan - Assessment and Plan (Free Text) Assessment: Patient is a 72yo female with PMHx significant for DM, HTN, rheumatoid arthritis and known left bundle branch block who presented to the ED with chest pain. -Abnormal LFTs -Rapid atrial flutter with history 2:1 block, resolved Plan: -Asymptomatic presently -MRCP reviewed - pending final read - no obvious obstruction -HIDA ordered by intensive care unit - negative -No plan for endoscopic intervention at this time -Suspect LFT rise as a result of congestive hepatopathy in the setting of rapid AFlutter - resolving with resolution of arrhythmia -Will benefit from surgical evaluation for cholecystectomy if she again develops biliary colic <Ha Young - Last Filed: 03/17/18 19:41> Objective - Vital Signs/Intake and Output Vital Signs (last 24 hours): Temp Pulse Resp BP Pulse Ox 97.8 F 118 H 17 94/53 L 99 03/17/18 16:00 03/17/18 19:17 03/17/18 19:17 03/17/18 19:17 03/17/18 19:17 Intake and Output: 03/17/18 03/18/18 18:59 06:59 Intake Total 1070 Output Total 650 Balance 420 - Medications Medications: Current Medications Aspirin (Aspirin Chewable) 81 mg PO DAILY [facility] Last Admin: 03/17/18 10:33 Dose: 81 mg Carvedilol (Coreg) 6.25 mg PO BID [facility] Last Admin: 03/17/18 17:02 Dose: 6.25 mg Piperacillin Sod/Tazobactam Sod (Zosyn 3.375 Gm Iv Premix) 3.375 gm in 50 mls @ 100 mls/hr IVPB Q6H [facility] PRN Reason: Protocol Last Admin: 03/17/18 16:12 Dose: 100 mls/hr Insulin Aspart (Novolog) 0 unit SC ACHS [facility] PRN Reason: Protocol Last Admin: 03/17/18 16:10 Dose: 6 unit Lisinopril (Zestril) 2.5 mg PO BID [facility] Last Admin: 03/17/18 17:02 Dose: 2.5 mg Ondansetron HCl (Zofran Inj) 4 mg IVP Q6H PRN PRN Reason: Nausea/Vomiting Last Admin: 03/15/18 15:57 Dose: 4 mg Pantoprazole Sodium (Protonix Ec Tab) 40 mg PO DAILY [facility] Last Admin: 03/17/18 10:33 Dose: 40 mg Spironolactone (Aldactone) 25 mg PO DAILY [facility] Last Admin: 03/17/18 10:34 Dose: 25 mg - Labs Labs: 03/17/18 05:48 03/17/18 05:49 PT 17.0 SECONDS (9.7-12.2) H D 03/17/18 10:29 INR 1.5 D 03/17/18 10:29 APTT 31 SECONDS (21-34) 03/16/18 14:15 Attending/Attestation - Attestation I have personally seen and examined this patient.: Yes I have fully participated in the care of the patient.: Yes I have reviewed all pertinent clinical information, including history, physical exam and plan: Yes Notes (Text): 03/17/18 19:40 72 year old female with h/o afib, a/w chest pain, also with elevated lfts. MRCP negative. HIDA negative. Choelithiasis noted, but no cholecystitis. LFTs are likely 2/2 congestive hepatopathy. No further eval/rx at this time, would only monitor. Will sign off.
[2018-03-17 07:55] LABS: ANISOCYTOSIS SLIGHT; BANDS 2 % (0-2); BURR CELLS MODERATE; LYMPHOCYTE 4 % (20-40); MONOCYTE 10 % (0-10); NEUTROPHIL 83 % (50-75); PLATELET ESTIMATE NORMAL (NORMAL); REACTIVE LYMPHOCYTES 1 % (0-0); TOTAL CELLS COUNTED 100
[2018-03-17] MEDS ORDERED: Potassium Chloride 20 mEq/15 ml LIQ UD PO ONE ×2 (08:00→10:45)
--- NOTE | 2018-03-17 09:29 | CP.PCM.PN ---
Subjective - Date & Time of Evaluation Date of Evaluation: 03/17/18 Time of Evaluation: 09:25 - Subjective Subjective: Pt feels better, lying flat, here for hid sdac Pt has been in [facility] Pulmonary and GI notes appreciated. TNi decreased to .1 range. Repeat echo in [facility], also reveals reduced LV EF, calculated to be about 35% Objective - Vital Signs/Intake and Output Vital Signs (last 24 hours): Temp Pulse Resp BP Pulse Ox 97.5 F L 78 18 122/72 100 03/17/18 08:00 03/17/18 08:50 03/17/18 08:50 03/17/18 08:50 03/17/18 08:50 Intake and Output: 03/17/18 03/17/18 06:59 18:59 Intake Total 500 0 Output Total 540 70 Balance -40 -70 - Medications Medications: Current Medications Aspirin (Aspirin Chewable) 81 mg PO DAILY [facility] Last Admin: 03/16/18 09:30 Dose: 81 mg Furosemide (Lasix) 20 mg IVP ONCE ONE Stop: 03/17/18 10:01 Piperacillin Sod/Tazobactam Sod (Zosyn 3.375 Gm Iv Premix) 3.375 gm in 50 mls @ 100 mls/hr IVPB Q6H [facility] PRN Reason: Protocol Last Admin: 03/17/18 03:12 Dose: 100 mls/hr Potassium Chloride (Potassium Chloride 10 Meq/100 Ml) 10 meq in 100 mls @ 100 mls/hr IVPB Q2H [facility] Stop: 03/17/18 12:59 Insulin Aspart (Novolog) 0 unit SC Q6H [facility] PRN Reason: Protocol Lisinopril (Zestril) 2.5 mg PO DAILY [facility] Last Admin: 03/16/18 14:00 Dose: Not Given Metoprolol Tartrate (Lopressor) 12.5 mg PO Q12H [facility] Last Admin: 03/16/18 22:59 Dose: 12.5 mg Ondansetron HCl (Zofran Inj) 4 mg IVP Q6H PRN PRN Reason: Nausea/Vomiting Last Admin: 03/15/18 15:57 Dose: 4 mg Pantoprazole Sodium (Protonix Ec Tab) 40 mg PO DAILY [facility] Last Admin: 03/16/18 09:30 Dose: 40 mg Pneumococcal Polyvalent Vaccine (Pneumovax 23 Vaccine) 0.5 ml IM .ONCE ONE Stop: 03/17/18 10:01 Spironolactone (Aldactone) 25 mg PO DAILY [facility] - Labs Labs: 03/17/18 05:48 03/17/18 05:49 PT 26.6 SECONDS (9.7-12.2) H 03/16/18 14:15 INR 2.3 03/16/18 14:15 APTT 31 SECONDS (21-34) 03/16/18 14:15 - Constitutional Appears: Chronically Ill - Head Exam Head Exam: ATRAUMATIC - Eye Exam Eye Exam: EOMI - ENT Exam ENT Exam: Mucous Membranes Moist - Respiratory Exam Respiratory Exam: Clear to Ausculation Bilateral - Cardiovascular Exam Cardiovascular Exam: REGULAR RHYTHM - GI/Abdominal Exam GI & Abdominal Exam: Normal Bowel Sounds - Exam External exam: NORMAL EXTERNAL EXAM - Extremities Exam Extremities Exam: Normal Inspection - Neurological Exam Neurological Exam: Alert, Awake, Oriented x3 - Psychiatric Exam Psychiatric exam: Normal Affect - Skin Skin Exam: Normal Color Assessment and Plan - Assessment and Plan (Free Text) Assessment: 1 Will increase beta marlena and rosendo inhibitor doses 2. For TNI elevation, work should be conservative in this elderly frail patient. when more stable, a lexiscan nuclear stress is advised. 3. Repeat coag ordered. LFTs have improved. 3. Pt would be higher risk for sedation and egd, as recent atrial flutter, pulm htn and reduced LV ef. Also slightly pos tni. Would advised conservative GI management if possible.
[2018-03-17] MEDS ORDERED: Pneumococcal 23-Valent Vaccine IM ONE (10:00)
--- NOTE | 2018-03-17 10:12 | NM ---
PROCEDURE: Nuclear Medicine Hepatobiliary Scan HISTORY: cholelithiasis COMPARISON: 03/15/2018 CT abdomen and pelvis documenting cholelithiasis and pericholecystic fluid. TECHNIQUE: 5.5 mCi of technetium 99m Mebrofenin was administered intravenously. Planar images of the abdomen were obtained at 5 min intervals to 60 mins. Delayed images were also obtained. FINDINGS: LIVER: Timely and homogenous uptake. COMMON BILE DUCT: identified at 20 mins. GALLBLADDER: identified at 45 mins. SMALL BOWEL: Identified at 45 mins. IMPRESSION: Normal Hepatobiliary Scan. The cystic duct is patent.
--- NOTE | 2018-03-17 10:20 | CP.CCUPN ---
<Lenard Aguirre - Last Filed: 03/17/18 10:05> CCU Subjective - Physician Review Subjective (Free Text): 03/16/18 11:05 Patient seen and examined. Patient reports some epigastric pain but states that she is otherwise fine. 03/17/18 10:05 Patient seen and examined. Patient is feeling well today and is much more energetic. Per staff, patient pulled out her TLC overnight. CCU Objective - Vital Signs / Intake & Output Vital Signs (Last 4 hours): Vital Signs Temp Pulse Resp BP Pulse Ox 03/17/18 09:30 84 16 118/56 L 100 03/17/18 09:10 76 20 117/58 L 100 03/17/18 08:50 78 18 122/72 100 03/17/18 08:00 97.5 F L 81 17 100 03/17/18 07:53 77 13 122/60 100 03/17/18 07:00 85 16 97 03/17/18 06:53 83 17 124/67 98 Intake and Output (Last 8hrs): Intake & Output 03/16/18 03/17/18 03/17/18 22:59 06:59 14:59 Intake Total 200 300 0 Output Total 280 390 70 Balance -80 -90 -70 Weight 136 lb 8 oz Intake: Intake, IV Amount 200 300 0 Left Wrist 0 Right Antecubital 200 100 0 Right Proximal Port 200 Internal Jugular Oral 0 0 Output: Urine 280 390 70 Urethral (Diop) 280 390 70 Other: # Bowel Movements 1 0 - Physical Exam Head: Positive for: Atraumatic, Normocephalic Pupils: Positive for: PERRL Extroacular Muscles: Positive for: EOMI Conjunctiva: Positive for: Normal Mouth: Positive for: Dry Respiratory/Chest: Positive for: Clear to Auscultation. Negative for: Wheezes, Rales, Rhonchi Abdomen: Positive for: Normal Bowel Sounds. Negative for: Tenderness, Distention Upper Extremity: Negative for: Edema Lower Extremity: Positive for: Edema, Other (rash on left leg) Skin: Positive for: Warm, Dry Psychiatric: Positive for: Alert - Medications Active Medications: Active Medications Generic Name Dose Route Start Last Admin Trade Name Freq PRN Reason Stop Dose Admin Aspirin 81 mg 03/16/18 10:00 03/16/18 09:30 Aspirin Chewable PO 81 mg DAILY [facility]COIS Administration Carvedilol 6.25 mg 03/17/18 10:00 Coreg PO BID [facility] Piperacillin Sod/Tazobactam Sod 3.375 gm in 50 mls @ 100 mls/hr 03/15/18 16: 00 03/17/18 03:12 Zosyn 3.375 Gm Iv Premix IVPB 100 mls/hr Q6H [facility] Administration Protocol Potassium Chloride 10 meq in 100 mls @ 100 mls/hr 03/17/18 10:00 Potassium Chloride 10 Meq/100 Ml IVPB 03/17/18 12:59 Q2H [facility] Insulin Aspart 0 unit 03/17/18 12:00 Novolog SC Q6H [facility] Protocol Lisinopril 2.5 mg 03/17/18 10:00 Zestril PO BID [facility] Ondansetron HCl 4 mg 03/15/18 15:44 03/15/18 15:57 Zofran Inj IVP 4 mg Q6H PRN Administration Nausea/Vomiting Pantoprazole Sodium 40 mg 03/15/18 14:15 03/16/18 09:30 Protonix Ec Tab PO 40 mg DAILY [facility] Administration Spironolactone 25 mg 03/17/18 10:00 Aldactone PO DAILY [facility] - Patient Studies Lab Studies: Microbiology Studies 03/15/18 15:55 Stool Culture - Final Stool NO SALMONELLA, SHIGELLA OR CAMPYLOBACTER ISOLATED. 03/15/18 11:41 MRSA Culture (Admit) - Final Nose MRSA NOT DETECTED 03/15/18 08:48 Blood Culture - Preliminary Blood NO GROWTH AFTER 24 HOURS 03/15/18 08:20 Blood Culture - Preliminary Blood NO GROWTH AFTER 24 HOURS 03/15/18 08:18 Urine Culture - Final Urine,Diop No Growth (<1,000 CFU/ML) Lab Studies 03/17/18 03/17/18 03/17/18 Range/Units 07:15 05:49 05:49 WBC (4.8-10.8) K/uL RBC (3.80-5.20) Mil/uL Hgb (11.0-16.0) g/dL Hct (34.0-47.0) % MCV (81.0-99.0) fL MCH (27.0-31.0) pg MCHC (33.0-37.0) g/dL RDW (11.5-14.5) % Plt Count (130-400) K/uL MPV (7.2-11.7) fL Neut % (Auto) (50.0-75.0) % Lymph % (Auto) (20.0-40.0) % Ritchie % (Auto) (0.0-10.0) % Eos % (Auto) (0.0-4.0) % Baso % (Auto) (0.0-2.0) % Neut # (Auto) (1.8-7.0) K/uL Lymph # (Auto) (1.0-4.3) K/uL Ritchie # (Auto) (0.0-0.8) K/uL Eos # (Auto) (0.0-0.7) K/uL Baso # (Auto) (0.0-0.2) K/uL Neutrophils % (Manual) (50-75) % Band Neutrophils % (0-2) % Lymphocytes % (Manual) (20-40) % Reactive Lymphs % (0-0) % Monocytes % (Manual) (0-10) % Platelet Estimate (NORMAL) Anisocytosis (manual) Fela Cells ESR (0-20) mm/hr PT (9.7-12.2) SECONDS INR APTT (21-34) SECONDS Sodium 131 L (132-148) mmol/L Potassium 3.4 L (3.6-5.2) mmol/L Chloride 94 L (98-107) mmol/L Carbon Dioxide 24 (22-30) mmol/L Anion Gap 16 (10-20) BUN 36 H (7-17) mg/dL Creatinine 0.7 (0.7-1.2) mg/dL Est GFR ( Amer) > 60 Est GFR (Non-Af Amer) > 60 POC Glucose (mg/dL) 257 H (65-110) mg/dL Random Glucose 269 H (65-105) mg/dL Calcium 7.8 L (8.6-10.4) mg/dl Magnesium 1.8 (1.6-2.3) mg/dL Total Bilirubin 1.3 (0.2-1.3) mg/dL Direct Bilirubin (0.0-0.4) mg/dL AST 92 H D (14-36) U/L ALT 124 H D (9-52) U/L Alkaline Phosphatase 157 H (38-126) U/L Troponin I (0.00-0.120) ng/mL Total Protein 5.3 L (6.3-8.3) g/dL Albumin 2.8 L (3.5-5.0) g/dL Globulin 2.5 (2.2-3.9) gm/dL Albumin/Globulin Ratio 1.1 (1.0-2.1) Vancomycin Trough 18.0 H (5.0-10.0) ug/mL Hepatitis A IgM Ab (NEGATIVE) Hep Bs Antigen (NEGATIVE) Hep B Core IgM Ab (NEGATIVE) Hepatitis C Antibody (NEGATIVE) 03/17/18 03/17/18 03/17/18 Range/Units 05:49 05:49 05:48 WBC 10.6 (4.8-10.8) K/uL RBC 4.25 (3.80-5.20) Mil/uL Hgb 13.4 (11.0-16.0) g/dL Hct 39.2 (34.0-47.0) % MCV 92.2 (81.0-99.0) fL MCH 31.6 H (27.0-31.0) pg MCHC 34.3 (33.0-37.0) g/dL RDW 15.1 H (11.5-14.5) % Plt Count 144 (130-400) K/uL MPV 8.0 (7.2-11.7) fL Neut % (Auto) 82.3 H (50.0-75.0) % Lymph % (Auto) 4.2 L (20.0-40.0) % Ritchie % (Auto) 13.2 H (0.0-10.0) % Eos % (Auto) 0.1 (0.0-4.0) % Baso % (Auto) 0.2 (0.0-2.0) % Neut # (Auto) 8.7 H (1.8-7.0) K/uL Lymph # (Auto) 0.4 L (1.0-4.3) K/uL Ritchie # (Auto) 1.4 H (0.0-0.8) K/uL Eos # (Auto) 0.0 (0.0-0.7) K/uL Baso # (Auto) 0.0 (0.0-0.2) K/uL Neutrophils % (Manual) 83 H (50-75) % Band Neutrophils % 2 (0-2) % Lymphocytes % (Manual) 4 L (20-40) % Reactive Lymphs % 1 H (0-0) % Monocytes % (Manual) 10 (0-10) % Platelet Estimate Normal (NORMAL) Anisocytosis (manual) Slight Proctor Cells Moderate ESR (0-20) mm/hr PT (9.7-12.2) SECONDS INR APTT (21-34) SECONDS Sodium (132-148) mmol/L Potassium (3.6-5.2) mmol/L Chloride (98-107) mmol/L Carbon Dioxide (22-30) mmol/L Anion Gap (10-20) BUN (7-17) mg/dL Creatinine (0.7-1.2) mg/dL Est GFR ( Amer) Est GFR (Non-Af Amer) POC Glucose (mg/dL) (65-110) mg/dL Random Glucose (65-105) mg/dL Calcium (8.6-10.4) mg/dl Magnesium (1.6-2.3) mg/dL Total Bilirubin (0.2-1.3) mg/dL Direct Bilirubin 0.9 H (0.0-0.4) mg/dL AST (14-36) U/L ALT (9-52) U/L Alkaline Phosphatase (38-126) U/L Troponin I (0.00-0.120) ng/mL Total Protein (6.3-8.3) g/dL Albumin (3.5-5.0) g/dL Globulin (2.2-3.9) gm/dL Albumin/Globulin Ratio (1.0-2.1) Vancomycin Trough (5.0-10.0) ug/mL Hepatitis A IgM Ab Negative (NEGATIVE) Hep Bs Antigen Negative (NEGATIVE) Hep B Core IgM Ab Negative (NEGATIVE) Hepatitis C Antibody Negative (NEGATIVE) 03/16/18 03/16/18 03/16/18 Range/Units 21:13 16:06 14:15 WBC (4.8-10.8) K/uL RBC (3.80-5.20) Mil/uL Hgb (11.0-16.0) g/dL Hct (34.0-47.0) % MCV (81.0-99.0) fL MCH (27.0-31.0) pg MCHC (33.0-37.0) g/dL RDW (11.5-14.5) % Plt Count (130-400) K/uL MPV (7.2-11.7) fL Neut % (Auto) (50.0-75.0) % Lymph % (Auto) (20.0-40.0) % Ritchie % (Auto) (0.0-10.0) % Eos % (Auto) (0.0-4.0) % Baso % (Auto) (0.0-2.0) % Neut # (Auto) (1.8-7.0) K/uL Lymph # (Auto) (1.0-4.3) K/uL Ritchie # (Auto) (0.0-0.8) K/uL Eos # (Auto) (0.0-0.7) K/uL Baso # (Auto) (0.0-0.2) K/uL Neutrophils % (Manual) (50-75) % Band Neutrophils % (0-2) % Lymphocytes % (Manual) (20-40) % Reactive Lymphs % (0-0) % Monocytes % (Manual) (0-10) % Platelet Estimate (NORMAL) Anisocytosis (manual) Fela Cells ESR (0-20) mm/hr PT (9.7-12.2) SECONDS INR APTT (21-34) SECONDS Sodium (132-148) mmol/L Potassium (3.6-5.2) mmol/L Chloride (98-107) mmol/L Carbon Dioxide (22-30) mmol/L Anion Gap (10-20) BUN (7-17) mg/dL Creatinine (0.7-1.2) mg/dL Est GFR ( Amer) Est GFR (Non-Af Amer) POC Glucose (mg/dL) 274 H 279 H (65-110) mg/dL Random Glucose (65-105) mg/dL Calcium (8.6-10.4) mg/dl Magnesium (1.6-2.3) mg/dL Total Bilirubin (0.2-1.3) mg/dL Direct Bilirubin (0.0-0.4) mg/dL AST (14-36) U/L ALT (9-52) U/L Alkaline Phosphatase (38-126) U/L Troponin I 0.1080 (0.00-0.120) ng/mL Total Protein (6.3-8.3) g/dL Albumin (3.5-5.0) g/dL Globulin (2.2-3.9) gm/dL Albumin/Globulin Ratio (1.0-2.1) Vancomycin Trough (5.0-10.0) ug/mL Hepatitis A IgM Ab (NEGATIVE) Hep Bs Antigen (NEGATIVE) Hep B Core IgM Ab (NEGATIVE) Hepatitis C Antibody (NEGATIVE) 03/16/18 03/16/18 03/16/18 Range/Units 14:15 11:22 06:28 WBC (4.8-10.8) K/uL RBC (3.80-5.20) Mil/uL Hgb (11.0-16.0) g/dL Hct (34.0-47.0) % MCV (81.0-99.0) fL MCH (27.0-31.0) pg MCHC (33.0-37.0) g/dL RDW (11.5-14.5) % Plt Count (130-400) K/uL MPV (7.2-11.7) fL Neut % (Auto) (50.0-75.0) % Lymph % (Auto) (20.0-40.0) % Ritchie % (Auto) (0.0-10.0) % Eos % (Auto) (0.0-4.0) % Baso % (Auto) (0.0-2.0) % Neut # (Auto) (1.8-7.0) K/uL Lymph # (Auto) (1.0-4.3) K/uL Ritchie # (Auto) (0.0-0.8) K/uL Eos # (Auto) (0.0-0.7) K/uL Baso # (Auto) (0.0-0.2) K/uL Neutrophils % (Manual) (50-75) % Band Neutrophils % (0-2) % Lymphocytes % (Manual) (20-40) % Reactive Lymphs % (0-0) % Monocytes % (Manual) (0-10) % Platelet Estimate (NORMAL) Anisocytosis (manual) Fela Cells ESR 1 (0-20) mm/hr PT 26.6 H (9.7-12.2) SECONDS INR 2.3 APTT 31 (21-34) SECONDS Sodium (132-148) mmol/L Potassium (3.6-5.2) mmol/L Chloride (98-107) mmol/L Carbon Dioxide (22-30) mmol/L Anion Gap (10-20) BUN (7-17) mg/dL Creatinine (0.7-1.2) mg/dL Est GFR ( Amer) Est GFR (Non-Af Amer) POC Glucose (mg/dL) 222 H (65-110) mg/dL Random Glucose (65-105) mg/dL Calcium (8.6-10.4) mg/dl Magnesium (1.6-2.3) mg/dL Total Bilirubin (0.2-1.3) mg/dL Direct Bilirubin (0.0-0.4) mg/dL AST (14-36) U/L ALT (9-52) U/L Alkaline Phosphatase (38-126) U/L Troponin I (0.00-0.120) ng/mL Total Protein (6.3-8.3) g/dL Albumin (3.5-5.0) g/dL Globulin (2.2-3.9) gm/dL Albumin/Globulin Ratio (1.0-2.1) Vancomycin Trough (5.0-10.0) ug/mL Hepatitis A IgM Ab (NEGATIVE) Hep Bs Antigen (NEGATIVE) Hep B Core IgM Ab (NEGATIVE) Hepatitis C Antibody (NEGATIVE) Laboratory Results - last 24 hr 03/16/18 03/16/18 03/16/18 06:28 11:22 14:15 WBC RBC Hgb Hct MCV MCH MCHC RDW Plt Count MPV Neut % (Auto) Lymph % (Auto) Ritchie % (Auto) Eos % (Auto) Baso % (Auto) Neut # (Auto) Lymph # (Auto) Ritchie # (Auto) Eos # (Auto) Baso # (Auto) Neutrophils % (Manual) Band Neutrophils % Lymphocytes % (Manual) Reactive Lymphs % Monocytes % (Manual) Platelet Estimate Anisocytosis (manual) Proctor Cells ESR 1 PT 26.6 H INR 2.3 APTT 31 Sodium Potassium Chloride Carbon Dioxide Anion Gap BUN Creatinine Est GFR ( Amer) Est GFR (Non-Af Amer) POC Glucose (mg/dL) 222 H Random Glucose Calcium Magnesium Total Bilirubin Direct Bilirubin AST ALT Alkaline Phosphatase Troponin I Total Protein Albumin Globulin Albumin/Globulin Ratio Vancomycin Trough Hepatitis A IgM Ab Hep Bs Antigen Hep B Core IgM Ab Hepatitis C Antibody 03/16/18 03/16/18 03/16/18 14:15 16:06 21:13 WBC RBC Hgb Hct MCV MCH MCHC RDW Plt Count MPV Neut % (Auto) Lymph % (Auto) Ritchie % (Auto) Eos % (Auto) Baso % (Auto) Neut # (Auto) Lymph # (Auto) Ritchie # (Auto) Eos # (Auto) Baso # (Auto) Neutrophils % (Manual) Band Neutrophils % Lymphocytes % (Manual) Reactive Lymphs % Monocytes % (Manual) Platelet Estimate Anisocytosis (manual) Proctor Cells ESR PT INR APTT Sodium Potassium Chloride Carbon Dioxide Anion Gap BUN Creatinine Est GFR ( Amer) Est GFR (Non-Af Amer) POC Glucose (mg/dL) 279 H 274 H Random Glucose Calcium Magnesium Total Bilirubin Direct Bilirubin AST ALT Alkaline Phosphatase Troponin I 0.1080 Total Protein Albumin Globulin Albumin/Globulin Ratio Vancomycin Trough Hepatitis A IgM Ab Hep Bs Antigen Hep B Core IgM Ab Hepatitis C Antibody 03/17/18 03/17/18 03/17/18 05:48 05:49 05:49 WBC 10.6 RBC 4.25 Hgb 13.4 Hct 39.2 MCV 92.2 MCH 31.6 H MCHC 34.3 RDW 15.1 H Plt Count 144 MPV 8.0 Neut % (Auto) 82.3 H Lymph % (Auto) 4.2 L Ritchie % (Auto) 13.2 H Eos % (Auto) 0.1 Baso % (Auto) 0.2 Neut # (Auto) 8.7 H Lymph # (Auto) 0.4 L Ritchie # (Auto) 1.4 H Eos # (Auto) 0.0 Baso # (Auto) 0.0 Neutrophils % (Manual) 83 H Band Neutrophils % 2 Lymphocytes % (Manual) 4 L Reactive Lymphs % 1 H Monocytes % (Manual) 10 Platelet Estimate Normal Anisocytosis (manual) Slight Proctor Cells Moderate ESR PT INR APTT Sodium Potassium Chloride Carbon Dioxide Anion Gap BUN Creatinine Est GFR ( Amer) Est GFR (Non-Af Amer) POC Glucose (mg/dL) Random Glucose Calcium Magnesium Total Bilirubin Direct Bilirubin 0.9 H AST ALT Alkaline Phosphatase Troponin I Total Protein Albumin Globulin Albumin/Globulin Ratio Vancomycin Trough Hepatitis A IgM Ab Negative Hep Bs Antigen Negative Hep B Core IgM Ab Negative Hepatitis C Antibody Negative 03/17/18 03/17/18 03/17/18 05:49 05:49 07:15 WBC RBC Hgb Hct MCV MCH MCHC RDW Plt Count MPV Neut % (Auto) Lymph % (Auto) Ritchie % (Auto) Eos % (Auto) Baso % (Auto) Neut # (Auto) Lymph # (Auto) Ritchie # (Auto) Eos # (Auto) Baso # (Auto) Neutrophils % (Manual) Band Neutrophils % Lymphocytes % (Manual) Reactive Lymphs % Monocytes % (Manual) Platelet Estimate Anisocytosis (manual) Proctor Cells ESR PT INR APTT Sodium 131 L Potassium 3.4 L Chloride 94 L Carbon Dioxide 24 Anion Gap 16 BUN 36 H Creatinine 0.7 Est GFR ( Amer) > 60 Est GFR (Non-Af Amer) > 60 POC Glucose (mg/dL) 257 H Random Glucose 269 H Calcium 7.8 L Magnesium 1.8 Total Bilirubin 1.3 Direct Bilirubin AST 92 H D ALT 124 H D Alkaline Phosphatase 157 H Troponin I Total Protein 5.3 L Albumin 2.8 L Globulin 2.5 Albumin/Globulin Ratio 1.1 Vancomycin Trough 18.0 H Hepatitis A IgM Ab Hep Bs Antigen Hep B Core IgM Ab Hepatitis C Antibody Fingerstick Blood Sugar Results: 257 Critical Care Progress Note - Nutrition Nutrition: Nutrition Category Date Time Status Liquid Diet [DIET] Diets 03/16/18 Dinner Active Assessment/Plan - Assessment and Plan (Free Text) Assessment: This is a 72 year old female with PMHx HTN, DM, RA who presented complaining of chest pain, general malaise, and diarrhea. Patient found to be in A-fib with RVR and has chronic LBBB per her professional employer consultant Dr. Navarro. Troponins elevated but downtrending. Per cardiology, likely demand ischemia as opposed to NSTEMI. Esmolol drip with bridge to Lopressor was discontinued on date of admission because the patient went into bradycardia. Right IJ TLC placed on 03/15/18 but has been pulled out by the patient overnight. Neuro Awake, alert Cardio Assessment: Rapid a-fib, CHF, demand ischemia Cardiology on consult Troponin downtrending Lopressor changed by cardiology to Coreg 6.125 mg PO BID Lisinopril 2.5 mg PO BID Aldactone 25 mg PO daily Aspirin 81 mg PO daily Pulm Saturating well One dose of Lasix 20 mg IV given GI Assessment: Cholelithiasis, elevated LFTs Liquid diet GI on consult Protonix 40 mg PO daily MRCP negative. HIDA is prelim negative. Endocrine Assessment: DM 2 Regular ISS Infectious Disease Assessment: Sepsis, unknown source; possibly gastroenteritis vs soft tissue infection on the leg Vancomycin discontinued Zosyn 3.375 gm IV Q6H f/u cultures ID on consult Prophylaxis Will reassess coagulation numbers before starting DVT ppx. INR was elevated yesterday and vitamin K was given yesterday as well. Protonix 40 mg PO daily <Miquel Appiah M - Last Filed: 03/17/18 12:27> CCU Objective - Vital Signs / Intake & Output Vital Signs (Last 4 hours): Vital Signs Pulse Resp BP Pulse Ox 03/17/18 11:00 88 13 100 03/17/18 10:53 87 19 122/65 100 03/17/18 10:34 125/69 03/17/18 10:17 67 14 125/69 03/17/18 10:15 90 12 03/17/18 09:30 84 16 118/56 L 100 03/17/18 09:10 76 20 117/58 L 100 03/17/18 08:50 78 18 122/72 100 Intake and Output (Last 8hrs): Intake & Output 03/16/18 03/17/18 03/17/18 22:59 06:59 14:59 Intake Total 200 300 350 Output Total 280 390 150 Balance -80 -90 200 Weight 136 lb 8 oz Intake: Intake, IV Amount 200 300 50 Left Wrist 50 Right Antecubital 200 100 0 Right Proximal Port 200 Internal Jugular Oral 0 300 Output: Urine 280 390 150 Urethral (Diop) 280 390 150 Other: # Bowel Movements 1 0 - Medications Active Medications: Active Medications Generic Name Dose Route Start Last Admin Trade Name Freq PRN Reason Stop Dose Admin Aspirin 81 mg 03/16/18 10:00 03/17/18 10:33 Aspirin Chewable PO 81 mg DAILY [facility]COIS Administration Carvedilol 6.25 mg 03/17/18 10:00 03/17/18 10:34 Coreg PO 6.25 mg BID [facility] Administration Piperacillin Sod/Tazobactam Sod 3.375 gm in 50 mls @ 100 mls/hr 03/15/18 16: 00 03/17/18 10:38 Zosyn 3.375 Gm Iv Premix IVPB 100 mls/hr Q6H [facility]CO[facility] Administration Protocol Insulin Aspart 0 unit 03/17/18 16:30 Novolog SC ACHS [facility] Protocol Lisinopril 2.5 mg 03/17/18 10:00 03/17/18 10:34 Zestril PO 2.5 mg BID [facility] Administration Ondansetron HCl 4 mg 03/15/18 15:44 03/15/18 15:57 Zofran Inj IVP 4 mg Q6H PRN Administration Nausea/Vomiting Pantoprazole Sodium 40 mg 03/15/18 14:15 03/17/18 10:33 Protonix Ec Tab PO 40 mg DAILY [facility] Administration Spironolactone 25 mg 03/17/18 10:00 03/17/18 10:34 Aldactone PO 25 mg DAILY [facility]COIS Administration - Patient Studies Lab Studies: Microbiology Studies 03/15/18 15:55 Stool Culture - Final Stool NO SALMONELLA, SHIGELLA OR CAMPYLOBACTER ISOLATED. 03/15/18 11:41 MRSA Culture (Admit) - Final Nose MRSA NOT DETECTED 03/15/18 08:48 Blood Culture - Preliminary Blood NO GROWTH AFTER 24 HOURS 03/15/18 08:20 Blood Culture - Preliminary Blood NO GROWTH AFTER 24 HOURS 03/15/18 08:18 Urine Culture - Final Urine,Diop No Growth (<1,000 CFU/ML) Lab Studies 03/17/18 03/17/18 03/17/18 Range/Units 11:45 10:29 07:15 WBC (4.8-10.8) K/uL RBC (3.80-5.20) Mil/uL Hgb (11.0-16.0) g/dL Hct (34.0-47.0) % MCV (81.0-99.0) fL MCH (27.0-31.0) pg MCHC (33.0-37.0) g/dL RDW (11.5-14.5) % Plt Count (130-400) K/uL MPV (7.2-11.7) fL Neut % (Auto) (50.0-75.0) % Lymph % (Auto) (20.0-40.0) % Ritchie % (Auto) (0.0-10.0) % Eos % (Auto) (0.0-4.0) % Baso % (Auto) (0.0-2.0) % Neut # (Auto) (1.8-7.0) K/uL Lymph # (Auto) (1.0-4.3) K/uL Ritchie # (Auto) (0.0-0.8) K/uL Eos # (Auto) (0.0-0.7) K/uL Baso # (Auto) (0.0-0.2) K/uL Neutrophils % (Manual) (50-75) % Band Neutrophils % (0-2) % Lymphocytes % (Manual) (20-40) % Reactive Lymphs % (0-0) % Monocytes % (Manual) (0-10) % Platelet Estimate (NORMAL) Anisocytosis (manual) Fela Cells PT 17.0 H D (9.7-12.2) SECONDS INR 1.5 D APTT (21-34) SECONDS Sodium (132-148) mmol/L Potassium (3.6-5.2) mmol/L Chloride (98-107) mmol/L Carbon Dioxide (22-30) mmol/L Anion Gap (10-20) BUN (7-17) mg/dL Creatinine (0.7-1.2) mg/dL Est GFR ( Amer) Est GFR (Non-Af Amer) POC Glucose (mg/dL) 277 H 257 H (65-110) mg/dL Random Glucose (65-105) mg/dL Calcium (8.6-10.4) mg/dl Magnesium (1.6-2.3) mg/dL Total Bilirubin (0.2-1.3) mg/dL Direct Bilirubin (0.0-0.4) mg/dL AST (14-36) U/L ALT (9-52) U/L Alkaline Phosphatase (38-126) U/L Troponin I (0.00-0.120) ng/mL Total Protein (6.3-8.3) g/dL Albumin (3.5-5.0) g/dL Globulin (2.2-3.9) gm/dL Albumin/Globulin Ratio (1.0-2.1) Vancomycin Trough (5.0-10.0) ug/mL Hepatitis A IgM Ab (NEGATIVE) Hep Bs Antigen (NEGATIVE) Hep B Core IgM Ab (NEGATIVE) Hepatitis C Antibody (NEGATIVE) 03/17/18 03/17/18 03/17/18 Range/Units 05:49 05:49 05:49 WBC (4.8-10.8) K/uL RBC (3.80-5.20) Mil/uL Hgb (11.0-16.0) g/dL Hct (34.0-47.0) % MCV (81.0-99.0) fL MCH (27.0-31.0) pg MCHC (33.0-37.0) g/dL RDW (11.5-14.5) % Plt Count (130-400) K/uL MPV (7.2-11.7) fL Neut % (Auto) (50.0-75.0) % Lymph % (Auto) (20.0-40.0) % Ritchie % (Auto) (0.0-10.0) % Eos % (Auto) (0.0-4.0) % Baso % (Auto) (0.0-2.0) % Neut # (Auto) (1.8-7.0) K/uL Lymph # (Auto) (1.0-4.3) K/uL Ritchie # (Auto) (0.0-0.8) K/uL Eos # (Auto) (0.0-0.7) K/uL Baso # (Auto) (0.0-0.2) K/uL Neutrophils % (Manual) (50-75) % Band Neutrophils % (0-2) % Lymphocytes % (Manual) (20-40) % Reactive Lymphs % (0-0) % Monocytes % (Manual) (0-10) % Platelet Estimate (NORMAL) Anisocytosis (manual) Fela Cells PT (9.7-12.2) SECONDS INR APTT (21-34) SECONDS Sodium 131 L (132-148) mmol/L Potassium 3.4 L (3.6-5.2) mmol/L Chloride 94 L (98-107) mmol/L Carbon Dioxide 24 (22-30) mmol/L Anion Gap 16 (10-20) BUN 36 H (7-17) mg/dL Creatinine 0.7 (0.7-1.2) mg/dL Est GFR ( Amer) > 60 Est GFR (Non-Af Amer) > 60 POC Glucose (mg/dL) (65-110) mg/dL Random Glucose 269 H (65-105) mg/dL Calcium 7.8 L (8.6-10.4) mg/dl Magnesium 1.8 (1.6-2.3) mg/dL Total Bilirubin 1.3 (0.2-1.3) mg/dL Direct Bilirubin 0.9 H (0.0-0.4) mg/dL AST 92 H D (14-36) U/L ALT 124 H D (9-52) U/L Alkaline Phosphatase 157 H (38-126) U/L Troponin I (0.00-0.120) ng/mL Total Protein 5.3 L (6.3-8.3) g/dL Albumin 2.8 L (3.5-5.0) g/dL Globulin 2.5 (2.2-3.9) gm/dL Albumin/Globulin Ratio 1.1 (1.0-2.1) Vancomycin Trough 18.0 H (5.0-10.0) ug/mL Hepatitis A IgM Ab (NEGATIVE) Hep Bs Antigen (NEGATIVE) Hep B Core IgM Ab (NEGATIVE) Hepatitis C Antibody (NEGATIVE) 03/17/18 03/17/18 03/16/18 Range/Units 05:49 05:48 21:13 WBC 10.6 (4.8-10.8) K/uL RBC 4.25 (3.80-5.20) Mil/uL Hgb 13.4 (11.0-16.0) g/dL Hct 39.2 (34.0-47.0) % MCV 92.2 (81.0-99.0) fL MCH 31.6 H (27.0-31.0) pg MCHC 34.3 (33.0-37.0) g/dL RDW 15.1 H (11.5-14.5) % Plt Count 144 (130-400) K/uL MPV 8.0 (7.2-11.7) fL Neut % (Auto) 82.3 H (50.0-75.0) % Lymph % (Auto) 4.2 L (20.0-40.0) % Ritchie % (Auto) 13.2 H (0.0-10.0) % Eos % (Auto) 0.1 (0.0-4.0) % Baso % (Auto) 0.2 (0.0-2.0) % Neut # (Auto) 8.7 H (1.8-7.0) K/uL Lymph # (Auto) 0.4 L (1.0-4.3) K/uL Ritchie # (Auto) 1.4 H (0.0-0.8) K/uL Eos # (Auto) 0.0 (0.0-0.7) K/uL Baso # (Auto) 0.0 (0.0-0.2) K/uL Neutrophils % (Manual) 83 H (50-75) % Band Neutrophils % 2 (0-2) % Lymphocytes % (Manual) 4 L (20-40) % Reactive Lymphs % 1 H (0-0) % Monocytes % (Manual) 10 (0-10) % Platelet Estimate Normal (NORMAL) Anisocytosis (manual) Slight Fela Cells Moderate PT (9.7-12.2) SECONDS INR APTT (21-34) SECONDS Sodium (132-148) mmol/L Potassium (3.6-5.2) mmol/L Chloride (98-107) mmol/L Carbon Dioxide (22-30) mmol/L Anion Gap (10-20) BUN (7-17) mg/dL Creatinine (0.7-1.2) mg/dL Est GFR ( Amer) Est GFR (Non-Af Amer) POC Glucose (mg/dL) 274 H (65-110) mg/dL Random Glucose (65-105) mg/dL Calcium (8.6-10.4) mg/dl Magnesium (1.6-2.3) mg/dL Total Bilirubin (0.2-1.3) mg/dL Direct Bilirubin (0.0-0.4) mg/dL AST (14-36) U/L ALT (9-52) U/L Alkaline Phosphatase (38-126) U/L Troponin I (0.00-0.120) ng/mL Total Protein (6.3-8.3) g/dL Albumin (3.5-5.0) g/dL Globulin (2.2-3.9) gm/dL Albumin/Globulin Ratio (1.0-2.1) Vancomycin Trough (5.0-10.0) ug/mL Hepatitis A IgM Ab Negative (NEGATIVE) Hep Bs Antigen Negative (NEGATIVE) Hep B Core IgM Ab Negative (NEGATIVE) Hepatitis C Antibody Negative (NEGATIVE) 03/16/18 03/16/18 03/16/18 Range/Units 16:06 14:15 14:15 WBC (4.8-10.8) K/uL RBC (3.80-5.20) Mil/uL Hgb (11.0-16.0) g/dL Hct (34.0-47.0) % MCV (81.0-99.0) fL MCH (27.0-31.0) pg MCHC (33.0-37.0) g/dL RDW (11.5-14.5) % Plt Count (130-400) K/uL MPV (7.2-11.7) fL Neut % (Auto) (50.0-75.0) % Lymph % (Auto) (20.0-40.0) % Ritchie % (Auto) (0.0-10.0) % Eos % (Auto) (0.0-4.0) % Baso % (Auto) (0.0-2.0) % Neut # (Auto) (1.8-7.0) K/uL Lymph # (Auto) (1.0-4.3) K/uL Ritchie # (Auto) (0.0-0.8) K/uL Eos # (Auto) (0.0-0.7) K/uL Baso # (Auto) (0.0-0.2) K/uL Neutrophils % (Manual) (50-75) % Band Neutrophils % (0-2) % Lymphocytes % (Manual) (20-40) % Reactive Lymphs % (0-0) % Monocytes % (Manual) (0-10) % Platelet Estimate (NORMAL) Anisocytosis (manual) Fela Cells PT 26.6 H (9.7-12.2) SECONDS INR 2.3 APTT 31 (21-34) SECONDS Sodium (132-148) mmol/L Potassium (3.6-5.2) mmol/L Chloride (98-107) mmol/L Carbon Dioxide (22-30) mmol/L Anion Gap (10-20) BUN (7-17) mg/dL Creatinine (0.7-1.2) mg/dL Est GFR ( Amer) Est GFR (Non-Af Amer) POC Glucose (mg/dL) 279 H (65-110) mg/dL Random Glucose (65-105) mg/dL Calcium (8.6-10.4) mg/dl Magnesium (1.6-2.3) mg/dL Total Bilirubin (0.2-1.3) mg/dL Direct Bilirubin (0.0-0.4) mg/dL AST (14-36) U/L ALT (9-52) U/L Alkaline Phosphatase (38-126) U/L Troponin I 0.1080 (0.00-0.120) ng/mL Total Protein (6.3-8.3) g/dL Albumin (3.5-5.0) g/dL Globulin (2.2-3.9) gm/dL Albumin/Globulin Ratio (1.0-2.1) Vancomycin Trough (5.0-10.0) ug/mL Hepatitis A IgM Ab (NEGATIVE) Hep Bs Antigen (NEGATIVE) Hep B Core IgM Ab (NEGATIVE) Hepatitis C Antibody (NEGATIVE) Laboratory Results - last 24 hr 03/16/18 03/16/18 03/16/18 14:15 14:15 16:06 WBC RBC Hgb Hct MCV MCH MCHC RDW Plt Count MPV Neut % (Auto) Lymph % (Auto) Ritchie % (Auto) Eos % (Auto) Baso % (Auto) Neut # (Auto) Lymph # (Auto) Ritchie # (Auto) Eos # (Auto) Baso # (Auto) Neutrophils % (Manual) Band Neutrophils % Lymphocytes % (Manual) Reactive Lymphs % Monocytes % (Manual) Platelet Estimate Anisocytosis (manual) Fela Cells PT 26.6 H INR 2.3 APTT 31 Sodium Potassium Chloride Carbon Dioxide Anion Gap BUN Creatinine Est GFR ( Amer) Est GFR (Non-Af Amer) POC Glucose (mg/dL) 279 H Random Glucose Calcium Magnesium Total Bilirubin Direct Bilirubin AST ALT Alkaline Phosphatase Troponin I 0.1080 Total Protein Albumin Globulin Albumin/Globulin Ratio Vancomycin Trough Hepatitis A IgM Ab Hep Bs Antigen Hep B Core IgM Ab Hepatitis C Antibody 03/16/18 03/17/18 03/17/18 21:13 05:48 05:49 WBC 10.6 RBC 4.25 Hgb 13.4 Hct 39.2 MCV 92.2 MCH 31.6 H MCHC 34.3 RDW 15.1 H Plt Count 144 MPV 8.0 Neut % (Auto) 82.3 H Lymph % (Auto) 4.2 L Ritchie % (Auto) 13.2 H Eos % (Auto) 0.1 Baso % (Auto) 0.2 Neut # (Auto) 8.7 H Lymph # (Auto) 0.4 L Ritchie # (Auto) 1.4 H Eos # (Auto) 0.0 Baso # (Auto) 0.0 Neutrophils % (Manual) 83 H Band Neutrophils % 2 Lymphocytes % (Manual) 4 L Reactive Lymphs % 1 H Monocytes % (Manual) 10 Platelet Estimate Normal Anisocytosis (manual) Slight Proctor Cells Moderate PT INR APTT Sodium Potassium Chloride Carbon Dioxide Anion Gap BUN Creatinine Est GFR ( Amer) Est GFR (Non-Af Amer) POC Glucose (mg/dL) 274 H Random Glucose Calcium Magnesium Total Bilirubin Direct Bilirubin AST ALT Alkaline Phosphatase Troponin I Total Protein Albumin Globulin Albumin/Globulin Ratio Vancomycin Trough Hepatitis A IgM Ab Negative Hep Bs Antigen Negative Hep B Core IgM Ab Negative Hepatitis C Antibody Negative 03/17/18 03/17/18 03/17/18 05:49 05:49 05:49 WBC RBC Hgb Hct MCV MCH MCHC RDW Plt Count MPV Neut % (Auto) Lymph % (Auto) Ritchie % (Auto) Eos % (Auto) Baso % (Auto) Neut # (Auto) Lymph # (Auto) Ritchie # (Auto) Eos # (Auto) Baso # (Auto) Neutrophils % (Manual) Band Neutrophils % Lymphocytes % (Manual) Reactive Lymphs % Monocytes % (Manual) Platelet Estimate Anisocytosis (manual) Fela Cells PT INR APTT Sodium 131 L Potassium 3.4 L Chloride 94 L Carbon Dioxide 24 Anion Gap 16 BUN 36 H Creatinine 0.7 Est GFR ( Amer) > 60 Est GFR (Non-Af Amer) > 60 POC Glucose (mg/dL) Random Glucose 269 H Calcium 7.8 L Magnesium 1.8 Total Bilirubin 1.3 Direct Bilirubin 0.9 H AST 92 H D ALT 124 H D Alkaline Phosphatase 157 H Troponin I Total Protein 5.3 L Albumin 2.8 L Globulin 2.5 Albumin/Globulin Ratio 1.1 Vancomycin Trough 18.0 H Hepatitis A IgM Ab Hep Bs Antigen Hep B Core IgM Ab Hepatitis C Antibody 03/17/18 03/17/18 03/17/18 07:15 10:29 11:45 WBC RBC Hgb Hct MCV MCH MCHC RDW Plt Count MPV Neut % (Auto) Lymph % (Auto) Ritchie % (Auto) Eos % (Auto) Baso % (Auto) Neut # (Auto) Lymph # (Auto) Ritchie # (Auto) Eos # (Auto) Baso # (Auto) Neutrophils % (Manual) Band Neutrophils % Lymphocytes % (Manual) Reactive Lymphs % Monocytes % (Manual) Platelet Estimate Anisocytosis (manual) Fela Cells PT 17.0 H D INR 1.5 D APTT Sodium Potassium Chloride Carbon Dioxide Anion Gap BUN Creatinine Est GFR ( Amer) Est GFR (Non-Af Amer) POC Glucose (mg/dL) 257 H 277 H Random Glucose Calcium Magnesium Total Bilirubin Direct Bilirubin AST ALT Alkaline Phosphatase Troponin I Total Protein Albumin Globulin Albumin/Globulin Ratio Vancomycin Trough Hepatitis A IgM Ab Hep Bs Antigen Hep B Core IgM Ab Hepatitis C Antibody Critical Care Progress Note - Nutrition Nutrition: Nutrition Category Date Time Status Liquid Diet [DIET] Diets 03/16/18 Dinner Active Assessment/Plan - Assessment and Plan (Free Text) Plan: Above resident has documented my findings and management of patient. Above resident note reviewed and verified. -Sepsis: off pressors, continue abx, source suspect billiary origin/soft tissue infection, lactic resolved -A-fib/ severe systolic heart failure: continue betablocker, acei and spironolactone, AC if cardiology agrees,diurese as tolerated -r/o cholelithiasiss, T. juan francisco normalized, GI OK to start oral diet -continue DVT/PUD ppx -wound care as per protocol Patient can be manged in telemetry -cardiology/Gi and ID follow up - Date & Time Date: 03/17/18 Time: 12:27
[2018-03-17] MEDS: Pantoprazole 40 mg EC Tab PO SCH (10:33)
[2018-03-17 10:46] LABS: INR 1.5
[2018-03-17] MEDS ORDERED: (Novolog) Insulin Aspart, Recombinant 100 u/ml 10 ml vial SC SCH (12:00)
--- NOTE | 2018-03-17 12:36 | MRI ---
PROCEDURE: Magnetic Resonance Cholangiopancreatography HISTORY: COMPARISON: None available. TECHNIQUE: Multiplanar, multisequence MR images of the abdomen were obtained, including heavily T2 weighted MRCP images of the biliary system. Rotating maximum intensity projection images of the biliary system were generated. FINDINGS: MRCP: Evaluation limited due to respiratory motion artifact. No intrahepatic biliary dilatation. Normal caliber common bile duct. Common bile duct measures 7 mm in diameter. No filling defect appreciated. LIVER: Normal size, contour and signal intensity. No mass. Smooth contour. No intrahepatic biliary dilatation. GALLBLADDER: Cholelithiasis. No mural thickening. No pericholecystic fluid or edema. SPLEEN: Unremarkable. PANCREAS: Unremarkable. ADRENALS: Unremarkable. KIDNEYS: Left upper pole renal cyst, 5.1 cm diameter. 11 mm right upper pole renal cortical cyst. No hydronephrosis. AORTA: No aneurysm. ASCITES: None. OTHER FINDINGS: None. IMPRESSION: Cholelithiasis without evidence of cholecystitis. No evidence of choledocholithiasis or biliary obstruction. Bilateral renal cysts. Otherwise unremarkable. Limited examination due to patient respiratory motion artifact.
--- NOTE | 2018-03-17 13:25 | CARD ---
APPROVED REPORT EKG Measurement Heart [id number] <Conclusion> Sinus tachycardia with occasional premature ventricular complexes Left axis deviation Left bundle branch block Abnormal ECG
--- NOTE | 2018-03-17 14:38 | CP.PCM.PN ---
Subjective - Date & Time of Evaluation Date of Evaluation: 03/17/18 Time of Evaluation: 14:38 - Subjective Subjective: Seen and examined.She is feeling good,complaining of dry mouth,lying comfortable without discomfort Objective - Vital Signs/Intake and Output Vital Signs (last 24 hours): Temp Pulse Resp BP Pulse Ox 97.2 F L 117 H 21 109/64 96 03/17/18 12:00 03/17/18 14:00 03/17/18 14:00 03/17/18 13:53 03/17/18 14:00 Intake and Output: 03/17/18 03/17/18 06:59 18:59 Intake Total 500 650 Output Total 540 650 Balance -40 0 - Medications Medications: Current Medications Aspirin (Aspirin Chewable) 81 mg PO DAILY [facility] Last Admin: 03/17/18 10:33 Dose: 81 mg Carvedilol (Coreg) 6.25 mg PO BID [facility] Last Admin: 03/17/18 10:34 Dose: 6.25 mg Piperacillin Sod/Tazobactam Sod (Zosyn 3.375 Gm Iv Premix) 3.375 gm in 50 mls @ 100 mls/hr IVPB Q6H [facility] PRN Reason: Protocol Last Admin: 03/17/18 10:38 Dose: 100 mls/hr Insulin Aspart (Novolog) 0 unit SC ACHS [facility] PRN Reason: Protocol Lisinopril (Zestril) 2.5 mg PO BID [facility] Last Admin: 03/17/18 10:34 Dose: 2.5 mg Ondansetron HCl (Zofran Inj) 4 mg IVP Q6H PRN PRN Reason: Nausea/Vomiting Last Admin: 03/15/18 15:57 Dose: 4 mg Pantoprazole Sodium (Protonix Ec Tab) 40 mg PO DAILY [facility] Last Admin: 03/17/18 10:33 Dose: 40 mg Spironolactone (Aldactone) 25 mg PO DAILY [facility] Last Admin: 03/17/18 10:34 Dose: 25 mg - Labs Labs: 03/17/18 05:48 03/17/18 05:49 PT 17.0 SECONDS (9.7-12.2) H D 03/17/18 10:29 INR 1.5 D 03/17/18 10:29 APTT 31 SECONDS (21-34) 03/16/18 14:15 - Constitutional Appears: Non-toxic - Head Exam Head Exam: NORMAL INSPECTION - Eye Exam Eye Exam: Normal appearance - ENT Exam ENT Exam: Mucous Membranes Dry - Neck Exam Neck Exam: Full ROM - Respiratory Exam Respiratory Exam: Rales, NORMAL BREATHING PATTERN - Cardiovascular Exam Cardiovascular Exam: REGULAR RHYTHM - GI/Abdominal Exam GI & Abdominal Exam: Soft, Normal Bowel Sounds - Extremities Exam Extremities Exam: Pedal Edema (Edematous foot,left foot blister). absent: Full ROM (weak) - Neurological Exam Neurological Exam: Awake, Oriented x3 - Psychiatric Exam Psychiatric exam: Normal Mood - Skin Skin Exam: Dry Assessment and Plan - Assessment and Plan (Free Text) Plan: This is a 72 year old female with PMHx HTN, DM, RA who presented complaining of chest pain, general malaise, and diarrhea. Patient found to be in A-fib with RVR and has chronic LBBB per her wort extractor Dr. Navarro. Troponins elevated but downtrending. On admission Esmolol drip with bridge to Lopressor was discontinued on date of admission because the patient went into bradycardia. Right IJ TLC placed on 03/15. Patient was started on antibiotics as per ID for possible sepsis Plan: 1. Severe acute systolic heart failure Elevated troponin r/o cad LBBB (H/o LBBB) Echo EF 15 to 20% severe LV systolic dysfunction. s/p afib converted to sinus ,Repeat echo when sinus rhythm EF She is hypercoag INR 2.3.no need for anticoagulation Coreg 6.125 mg PO BID Lisinopril 2.5 mg PO BID Aldactone 25 mg PO daily Aspirin 81 mg PO daily 2.Atrial fibrillation with rapid HR-converted to sinus Has high INR/Hypercoagulable state 2.Fever/leukocytosis/elevated lactate/Patient was on immune suppression meds for RA d/w DR Galeano. on zosyn and vanco HIDA scan negative,MRCP negative 3. NSTEMI aspirin,follow tropoinin Has high INR/Hypercoagulable state 4. Transaminitis -lilkely due to CHF Cholelithiasis and GB wall thickening No abdominal pain,US noted MRCP and HIDA scan negative continue antibiotics 5.DM Insulin coverage 6.RA No complain,Meds on hold 7.Pulmonary hypertension Dr Moon for consult 6.Bilateral leg edema-Likely due to chf-follow echo foot blister-wound care 6.On GI prophylaxis,DVT prophy-Hypercoagulable state
--- NOTE | 2018-03-17 15:36 | CP.PCM.PN ---
Subjective - Date & Time of Evaluation Date of Evaluation: 03/17/18 Time of Evaluation: 03:20 - Subjective Subjective: dictated Objective - Vital Signs/Intake and Output Vital Signs (last 24 hours): Temp Pulse Resp BP Pulse Ox 97.2 F L 117 H 21 109/64 96 03/17/18 12:00 03/17/18 14:00 03/17/18 14:00 03/17/18 13:53 03/17/18 14:00 Intake and Output: 03/17/18 03/17/18 06:59 18:59 Intake Total 500 650 Output Total 540 650 Balance -40 0 - Medications Medications: Current Medications Aspirin (Aspirin Chewable) 81 mg PO DAILY [facility] Last Admin: 03/17/18 10:33 Dose: 81 mg Carvedilol (Coreg) 6.25 mg PO BID [facility] Last Admin: 03/17/18 10:34 Dose: 6.25 mg Piperacillin Sod/Tazobactam Sod (Zosyn 3.375 Gm Iv Premix) 3.375 gm in 50 mls @ 100 mls/hr IVPB Q6H [facility] PRN Reason: Protocol Last Admin: 03/17/18 10:38 Dose: 100 mls/hr Insulin Aspart (Novolog) 0 unit SC ACHS [facility] PRN Reason: Protocol Lisinopril (Zestril) 2.5 mg PO BID [facility] Last Admin: 03/17/18 10:34 Dose: 2.5 mg Ondansetron HCl (Zofran Inj) 4 mg IVP Q6H PRN PRN Reason: Nausea/Vomiting Last Admin: 03/15/18 15:57 Dose: 4 mg Pantoprazole Sodium (Protonix Ec Tab) 40 mg PO DAILY [facility] Last Admin: 03/17/18 10:33 Dose: 40 mg Spironolactone (Aldactone) 25 mg PO DAILY [facility] Last Admin: 03/17/18 10:34 Dose: 25 mg - Labs Labs: 03/17/18 05:48 03/17/18 05:49 PT 17.0 SECONDS (9.7-12.2) H D 03/17/18 10:29 INR 1.5 D 03/17/18 10:29 APTT 31 SECONDS (21-34) 03/16/18 14:15
[2018-03-17] MEDS: (Novolog) Insulin Aspart, Recombinant 100 u/ml 10 ml vial SC SCH ×2 (16:10→21:33)
--- NOTE | 2018-03-17 22:12 | CARD ---
APPROVED REPORT EKG Measurement Heart [id number] <Conclusion> Sinus bradycardia with premature atrial complexes Nonspecific intraventricular block consider lateral ischemia Abnormal ECG
--- NOTE | 2018-03-17 22:13 | CARD ---
APPROVED REPORT EKG Measurement Heart [id number] <Conclusion> Atrial fibrillation with rapid ventricular response Left axis deviation LBBB Abnormal ECG
--- NOTE | 2018-03-17 22:14 | CARD ---
APPROVED REPORT EKG Measurement Heart [id number] <Conclusion> Sinus tachycardia with APCs and PVCs Left axis deviation Left bundle branch block Abnormal ECG
--- NOTE | 2018-03-18 01:08 | PN ---
DATE: SUBJECTIVE: Patient was awake, alert. She, however, was again tachycardic. Her blood pressure remains on the low side and she had a HIDA scan which was negative. She remains awake and alert. She was hungry. She was asking for food and the nurse was informed that she has been on a CCU diet. OBJECTIVE: VITAL SIGNS: T-max was 97.8, heart rate of 121, respirations 16, saturation was 97%. HEENT: Head is atraumatic, normocephalic. NECK: Supple. LUNGS: Clear. HEART: S1, S2 is tachycardic. ABDOMEN: Soft, nontender. No guarding, no rigidity present. EXTREMITIES: Left foot skin lesion is improving and extremities still remain with edema but it is less. She does have history of rheumatoid arthritis. LABORATORY DATA: Labs were noted. Labs show white count is 10.6 now, hemoglobin 13.4, hematocrit 39.2, platelet count is 144. Her INR was low today. She did had atrial fib before and potassium is 3.4. Liver enzymes remain elevated and vanco trough was 18, so it was discontinued as they just left Zosyn on. Blood cultures, urine cultures, and stool culture are all negative. ASSESSMENT AND PLAN: The patient remains on Zosyn at this time and admits she had a chest x-ray. Chest x-ray was done on 03/15/2018. It showed she had a source of sepsis that remains unclear. She did had left retrocardiac opacity may represent atelectasis or pneumonia, small pleural effusion. So, we will continue with Zosyn at this time. Yoly Galeano MD
[2018-03-18] MEDS: Piperacill/Tazo 3.375gm in Dex 3.375 GM/50 ML BAG IVPB SCH ×4 (03:27→22:39)
[2018-03-18 06:28] LABS: INR 1.3; PROTHROMBIN TIME 14.9 SECONDS (9.7-12.2)
[2018-03-18 06:29] LABS: BASO % 0.2 % (0.0-2.0); EOS % 0.2 % (0.0-4.0); HEMOGLOBIN 13.8 g/dL (11.0-16.0); LYMPH # 0.5 K/uL (1.0-4.3); LYMPH % 5.8 % (20.0-40.0); MEAN CELL VOLUME 93.2 fL (81.0-99.0); MEAN CORPUSCULAR HEMOGLOBIN 31.6 pg (27.0-31.0); MEAN CORPUSCULAR HGB CONC 33.9 g/dL (33.0-37.0); MEAN PLATELET VOLUME 8.3 fL (7.2-11.7); MONO # 1.1 K/uL (0.0-0.8); MONO % 11.7 % (0.0-10.0); NEUT # 7.7 K/uL (1.8-7.0); NEUT % 82.1 % (50.0-75.0); NRBC % 0.3 % (0.0-2.0); PLATELET COUNT 146 K/uL (130-400); RBC 4.38 Mil/uL (3.80-5.20); RED CELL DISTRIBUTION WIDTH 15.4 % (11.5-14.5); WHITE BLOOD COUNT 9.4 K/uL (4.8-10.8)
[2018-03-18 06:47] LABS: ALBUMIN 2.6 g/dL (3.5-5.0); ALT/SGPT 101 U/L (9-52); AST/SGOT 54 U/L (14-36); BLOOD UREA NITROGEN 35 mg/dL (7-17); CALCIUM 7.8 mg/dl (8.6-10.4); GFR AFRICAN-AMERICAN > 60; GFR NON-AFRICAN AMERICAN > 60
[2018-03-18] MEDS: (Novolog) Insulin Aspart, Recombinant 100 u/ml 10 ml vial SC SCH ×4 (07:59→21:40)
[2018-03-18 08:58] LABS: BANDS 4 % (0-2); LYMPHOCYTE 6 % (20-40); MONOCYTE 10 % (0-10); NEUTROPHIL 80 % (50-75); TOTAL CELLS COUNTED 100
[2018-03-18 08:59] LABS: ANISOCYTOSIS SLIGHT; PLATELET ESTIMATE NORMAL (NORMAL)
[2018-03-18 09:00] LABS: BURR CELLS SLIGHT; POLYCHROMIC SLIGHT
[2018-03-18 09:01] LABS: LARGE PLATELETS PRESENT
[2018-03-18] MEDS: Pantoprazole 40 mg EC Tab PO SCH (10:14)
--- NOTE | 2018-03-18 10:58 | CP.PCM.PN ---
Subjective - Date & Time of Evaluation Date of Evaluation: 03/18/18 Time of Evaluation: 10:58 - Subjective Subjective: Seen and examined,no complain,lying comfortable,No SOB,denies pain Spoke to her son at bedside Objective - Vital Signs/Intake and Output Vital Signs (last 24 hours): Temp Pulse Resp BP Pulse Ox 98.5 F 116 H 14 83/50 L 100 03/18/18 04:00 03/18/18 04:02 03/18/18 04:02 03/18/18 04:02 03/18/18 04:02 Intake and Output: 03/18/18 03/18/18 06:59 18:59 Intake Total 340 Output Total 1 Balance 339 - Medications Medications: Current Medications Aspirin (Aspirin Chewable) 81 mg PO DAILY [facility] Last Admin: 03/18/18 10:14 Dose: 81 mg Carvedilol (Coreg) 6.25 mg PO BID [facility] Last Admin: 03/18/18 10:14 Dose: 6.25 mg Piperacillin Sod/Tazobactam Sod (Zosyn 3.375 Gm Iv Premix) 3.375 gm in 50 mls @ 100 mls/hr IVPB Q6H [facility] PRN Reason: Protocol Last Admin: 03/18/18 10:14 Dose: 100 mls/hr Insulin Aspart (Novolog) 0 unit SC ACHS [facility] PRN Reason: Protocol Last Admin: 03/18/18 07:59 Dose: 4 unit Lisinopril (Zestril) 2.5 mg PO BID [facility] Last Admin: 03/18/18 10:14 Dose: 2.5 mg Ondansetron HCl (Zofran Inj) 4 mg IVP Q6H PRN PRN Reason: Nausea/Vomiting Last Admin: 03/15/18 15:57 Dose: 4 mg Pantoprazole Sodium (Protonix Ec Tab) 40 mg PO DAILY [facility] Last Admin: 03/18/18 10:14 Dose: 40 mg Spironolactone (Aldactone) 25 mg PO DAILY [facility] Last Admin: 03/18/18 10:14 Dose: 25 mg - Labs Labs: 03/18/18 06:21 03/18/18 06:21 PT 14.9 SECONDS (9.7-12.2) H 03/18/18 06:20 INR 1.3 03/18/18 06:20 APTT 31 SECONDS (21-34) 03/16/18 14:15 - Constitutional Appears: Non-toxic, No Acute Distress - Head Exam Head Exam: NORMAL INSPECTION - Eye Exam Eye Exam: Normal appearance - ENT Exam ENT Exam: Mucous Membranes Moist - Neck Exam Neck Exam: Full ROM - Respiratory Exam Respiratory Exam: Rales, NORMAL BREATHING PATTERN - Cardiovascular Exam Cardiovascular Exam: REGULAR RHYTHM - GI/Abdominal Exam GI & Abdominal Exam: Soft, Normal Bowel Sounds - Extremities Exam Extremities Exam: Pedal Edema (left foot blister) - Back Exam Back Exam: NORMAL INSPECTION - Neurological Exam Neurological Exam: Awake - Psychiatric Exam Psychiatric exam: Normal Mood - Skin Skin Exam: Dry Assessment and Plan - Assessment and Plan (Free Text) Plan: This is a 72 year old female with PMHx HTN, DM, RA who presented complaining of chest pain, general malaise, and diarrhea. Patient found to be in A-fib with RVR and has chronic LBBB per her bleach maker Dr. Navarro. Troponins elevated but downtrending. On admission Esmolol drip with bridge to Lopressor was discontinued on date of admission because the patient went into bradycardia. Right IJ TLC placed on 03/15. Patient was started on antibiotics as per ID for possible sepsis Plan: 1. Severe acute systolic heart failure Elevated troponin r/o cad LBBB (H/o LBBB) Echo EF 15 to 20% severe LV systolic dysfunction. s/p afib converted to sinus ,Repeat echo when sinus rhythm EF pending She is hypercoag INR 2.3.no need for anticoagulation Coreg 6.125 mg PO BID Lisinopril 2.5 mg PO BID Aldactone 25 mg PO daily Aspirin 81 mg PO daily 2.Atrial fibrillation with rapid HR-converted to sinus Has high INR/Hypercoagulable state LFT inproving and INR down to we will ask bleach maker about anticoag 2.Fever/leukocytosis/elevated lactate/Patient was on immune suppression meds for RA d/w DR Galeano. on zosyn ,off vaco d/w Dr Galeano ,continue zosyn/possible pneumonia HIDA scan negative,MRCP negative 3. NSTEMI aspirin,follow tropoinin Has high INR/Hypercoagulable state 4. Transaminitis -lilkely due to CHF Cholelithiasis and GB wall thickening No abdominal pain,US noted MRCP and HIDA scan negative continue antibiotics 5.DM Insulin coverage 6.RA No complain,Meds on hold 7.Pulmonary hypertension Dr Moon for consult 6.Bilateral leg edema-Likely due to chf-follow echo foot blister-wound care 6.On GI prophylaxis,DVT prophy-Hypercoagulable state
[2018-03-18 14:39] LABS: SQUAMOUS EPITHIAL 7 /hpf (0-5); URINE BILIRUBIN NEGATIVE (NEGATIVE); URINE BLOOD NEGATIVE (NEGATIVE); URINE CLARITY Hazy (Clear); URINE COLOR Amber (YELLOW); URINE GLUCOSE (UA) 1+ mg/dL (Normal); URINE HYALINE CAST 0-2 /lpf (0-2); URINE LEUKOCYTE ESTERASE NEG Leu/uL (Negative); URINE PROTEIN 1+ mg/dL (NEGATIVE); URINE UROBILINOGEN NORMAL mg/dL (0.2-1.0)
--- NOTE | 2018-03-18 16:24 | CP.PCM.PN ---
Subjective - Date & Time of Evaluation Date of Evaluation: 03/18/18 Time of Evaluation: 04:00 - Subjective Subjective: dictated Objective - Vital Signs/Intake and Output Vital Signs (last 24 hours): Temp Pulse Resp BP Pulse Ox 98.4 F 83 14 106/48 L 100 03/18/18 12:00 03/18/18 14:00 03/18/18 14:00 03/18/18 12:01 03/18/18 12:01 Intake and Output: 03/18/18 03/18/18 06:59 18:59 Intake Total 340 180 Output Total 1 1 Balance 339 179 - Medications Medications: Current Medications Aspirin (Aspirin Chewable) 81 mg PO DAILY [facility] Last Admin: 03/18/18 10:14 Dose: 81 mg Carvedilol (Coreg) 6.25 mg PO BID [facility] Last Admin: 03/18/18 10:14 Dose: 6.25 mg Piperacillin Sod/Tazobactam Sod (Zosyn 3.375 Gm Iv Premix) 3.375 gm in 50 mls @ 100 mls/hr IVPB Q6H [facility] PRN Reason: Protocol Last Admin: 03/18/18 10:14 Dose: 100 mls/hr Insulin Aspart (Novolog) 0 unit SC ACHS [facility] PRN Reason: Protocol Last Admin: 03/18/18 11:29 Dose: 8 unit Lisinopril (Zestril) 2.5 mg PO BID [facility] Last Admin: 03/18/18 10:14 Dose: 2.5 mg Ondansetron HCl (Zofran Inj) 4 mg IVP Q6H PRN PRN Reason: Nausea/Vomiting Last Admin: 03/15/18 15:57 Dose: 4 mg Pantoprazole Sodium (Protonix Ec Tab) 40 mg PO DAILY [facility] Last Admin: 03/18/18 10:14 Dose: 40 mg Spironolactone (Aldactone) 25 mg PO DAILY [facility] Last Admin: 03/18/18 10:14 Dose: 25 mg - Labs Labs: 03/18/18 06:21 03/18/18 06:21 PT 14.9 SECONDS (9.7-12.2) H 03/18/18 06:20 INR 1.3 03/18/18 06:20 APTT 31 SECONDS (21-34) 03/16/18 14:15
--- NOTE | 2018-03-18 20:10 | CARD ---
APPROVED REPORT EXAM: LIMITED Two-dimensional and M-mode echocardiogram. Other Information Quality : GoodRhythm : INDICATION LV Function:Systolic 2D DIMENSIONS IVSd1.2 (0.7-1.1cm)LVDd5.2 (3.9-5.9cm) PWd1.0 (0.7-1.1cm)LVDs4.3 (2.5-4.0cm) FS (%) 17.6 %LVEF (%)36.4 (>50%) M-Mode DIMENSIONS IVSd1.16 (0.7-1.1cm)LVDd6.10 (4.0-5.6cm) PWd1.06 (0.7-1.1cm)FS (%) 18 % LVDs4.99 (2.0-3.8cm)LVEF (%)37 (>50%) Mitral Valve E/A ratio0.0 TDI E/Lateral E'0.0E/Medial E'0.0 LEFT VENTRICLE The left ventricle is normal size. There is normal left ventricular wall thickness. Left ventricle systolic function is moderately impaired. The Ejection Fraction is 30-35%. There is global hypokinesis of the left ventricle. Paradoxic septum consistent right ventricle volume overload. RIGHT VENTRICLE The right ventricle is mildly dilated. There is normal right ventricular wall thickness. Systolic function is moderately reduced. ATRIA The left atrium is mildly dilated. The right atrium is mildly dilated. The atrial septum is aneurysmal. AORTIC VALVE The aortic valve is calcified but opens well. No doppler analysis done for interpretation. There is no aortic valvular stenosis. There is no aortic valvular vegetation. MITRAL VALVE The mitral valve is mildly thickened but opens well. There is no evidence of mitral valve prolapse. There is no mitral valve stenosis. No doppler analysis available for interpretation. TRICUSPID VALVE The tricuspid valve is normal in structure. No doppler analysis done for interpretation. There is no tricuspid valve prolapse or vegetation. There is no tricuspid valve stenosis. PULMONIC VALVE The pulmonic valve is not well visualized. No doppler analysis done for interpretation. GREAT VESSELS The aortic root is normal in size. PERICARDIAL EFFUSION There is no significant pericardial effusion. <Conclusion> Left ventricle systolic function is moderately impaired. The Ejection Fraction is 30-35%. The aortic valve is calcified but opens well. The mitral valve is mildly thickened but opens well. The tricuspid valve is normal in structure. No transvalvular doppler analysis available for interpretation.
--- NOTE | 2018-03-18 22:51 | PN ---
DATE: 03/18/2018 SUBJECTIVE: The patient was awake and doing well. Her family was sitting with her. She says she wanted to go home. PHYSICAL EXAMINATION: VITAL SIGNS: Her heart rate was 62, T max is 97.8, pulse 67, blood pressure 106/48, respirations are 15. HEENT: Head is atraumatic and normocephalic. NECK: Supple. LUNGS: Mostly clear and no wheezing. No rhonchi heard. HEART: S1, S2 is regular. ABDOMEN: Soft, nontender. No guarding, no rigidity present. EXTREMITIES: The edema on the lower extremities is getting better and her left leg skin lesion was also better, even though she had a big time dressing placed on her foot. LABORATORY DATA: Her white count was 9.4, hemoglobin 13.8, hematocrit 40.8, platelet count is 146, so white count has also come down. Sodium is 130, potassium 3.6, chlorides are 94, CO2 is 24. Her liver enzymes are now a lot better, AST 54, ALT is 101 and alk phos is 150, still though and her cultures were all negative, ova and parasite is negative and I think they did a C. diff was also negative. ASSESSMENT AND PLAN: So, she has been on Zosyn from the 03/15/2018, today is the fourth day, we will continue over the weekend and obviously she came with failure and pneumonia cannot be excluded on the CAT scan, so we are continuing this and we have ruled out cholecystitis. We will follow with the other consultants. She is on Zosyn only at this time. The family said she was complaining of some dysuria, so UA and urine C and S have been ordered, we will follow that. Yoly Galeano MD
[2018-03-19] MEDS: Piperacill/Tazo 3.375gm in Dex 3.375 GM/50 ML BAG IVPB SCH ×4 (03:04→21:30)
[2018-03-19 06:46] LABS: BASO % 0.2 % (0.0-2.0); EOS # 0.1 K/uL (0.0-0.7); EOS % 0.8 % (0.0-4.0); HEMOGLOBIN 14.5 g/dL (11.0-16.0); LYMPH # 0.8 K/uL (1.0-4.3); LYMPH % 9.4 % (20.0-40.0); MEAN CORPUSCULAR HEMOGLOBIN 31.2 pg (27.0-31.0); MEAN CORPUSCULAR HGB CONC 33.6 g/dL (33.0-37.0); MONO # 1.3 K/uL (0.0-0.8); MONO % 14.9 % (0.0-10.0); NEUT # 6.4 K/uL (1.8-7.0); NEUT % 74.7 % (50.0-75.0); NRBC % 0.4 % (0.0-2.0); PLATELET COUNT 167 K/uL (130-400); RBC 4.66 Mil/uL (3.80-5.20); RED CELL DISTRIBUTION WIDTH 15.4 % (11.5-14.5); WHITE BLOOD COUNT 8.6 K/uL (4.8-10.8)
[2018-03-19 06:51] LABS: ALBUMIN 2.7 g/dL (3.5-5.0); CALCIUM 8.2 mg/dl (8.6-10.4)
[2018-03-19 07:47] LABS: ANISOCYTOSIS SLIGHT; BURR CELLS SLIGHT; EOSINOPHIL 1 % (0-4); LYMPHOCYTE 10 % (20-40); MONOCYTE 12 % (0-10); NEUTROPHIL 77 % (50-75); PLATELET ESTIMATE NORMAL (NORMAL); TOTAL CELLS COUNTED 100
[2018-03-19] MEDS: (Novolog) Insulin Aspart, Recombinant 100 u/ml 10 ml vial SC SCH ×4 (07:55→21:22)
[2018-03-19] MEDS: Pantoprazole 40 mg EC Tab PO SCH (09:10)
--- NOTE | 2018-03-19 15:41 | CP.PCM.PN ---
Subjective - Date & Time of Evaluation Date of Evaluation: 03/19/18 Time of Evaluation: 09:00 - Subjective Subjective: seen and examined by me ,Patient is lying on bed comfortable,no complain Objective - Vital Signs/Intake and Output Vital Signs (last 24 hours): Temp Pulse Resp BP Pulse Ox 98.2 F 66 13 114/59 L 92 L 03/19/18 12:00 03/19/18 12:01 03/19/18 12:01 03/19/18 12:01 03/19/18 12:01 Intake and Output: 03/19/18 03/19/18 06:59 18:59 Intake Total 290 300 Output Total 2 Balance 288 300 - Medications Medications: Current Medications Aspirin (Aspirin Chewable) 81 mg PO DAILY [facility] Last Admin: 03/19/18 09:10 Dose: 81 mg Carvedilol (Coreg) 6.25 mg PO BID [facility] Last Admin: 03/19/18 09:10 Dose: 6.25 mg Heparin Sodium (Porcine) (Heparin) 5,000 units SC Q8 [facility] Last Admin: 03/19/18 09:52 Dose: 5,000 units Piperacillin Sod/Tazobactam Sod (Zosyn 3.375 Gm Iv Premix) 3.375 gm in 50 mls @ 100 mls/hr IVPB Q6H [facility] PRN Reason: Protocol Last Admin: 03/19/18 09:52 Dose: 100 mls/hr Insulin Aspart (Novolog) 0 unit SC ACHS [facility] PRN Reason: Protocol Last Admin: 03/19/18 12:11 Dose: 3 unit Lisinopril (Zestril) 2.5 mg PO BID [facility] Last Admin: 03/19/18 09:10 Dose: 2.5 mg Ondansetron HCl (Zofran Inj) 4 mg IVP Q6H [facility] PRN Reason: Nausea/Vomiting Last Admin: 03/15/18 15:57 Dose: 4 mg Pantoprazole Sodium (Protonix Ec Tab) 40 mg PO DAILY [facility] Last Admin: 03/19/18 09:10 Dose: 40 mg Spironolactone (Aldactone) 25 mg PO DAILY [facility] Last Admin: 03/19/18 09:10 Dose: 25 mg - Labs Labs: 03/19/18 06:20 03/19/18 06:20 PT 14.9 SECONDS (9.7-12.2) H 03/18/18 06:20 INR 1.3 03/18/18 06:20 APTT 31 SECONDS (21-34) 03/16/18 14:15 - Constitutional Appears: Non-toxic - Head Exam Head Exam: NORMAL INSPECTION - Eye Exam Eye Exam: Normal appearance - ENT Exam ENT Exam: Mucous Membranes Moist - Neck Exam Neck Exam: Full ROM - Respiratory Exam Respiratory Exam: Rales (lower lobes), NORMAL BREATHING PATTERN - Cardiovascular Exam Cardiovascular Exam: REGULAR RHYTHM - GI/Abdominal Exam GI & Abdominal Exam: Soft, Normal Bowel Sounds - Extremities Exam Extremities Exam: absent: Full ROM (leg edema and weakness) - Neurological Exam Neurological Exam: Alert - Psychiatric Exam Psychiatric exam: Normal Mood - Skin Skin Exam: Normal Color Assessment and Plan - Assessment and Plan (Free Text) Plan: This is a 72 year old female with PMHx HTN, DM, RA who presented complaining of chest pain, general malaise, and diarrhea. Patient found to be in A-fib with RVR and has chronic LBBB per her knowledge analyst Dr. Navarro. Troponins elevated but downtrending. On admission Esmolol drip with bridge to Lopressor was discontinued on date of admission because the patient went into bradycardia. Right IJ TLC placed on 03/15. Plan: 1. Severe acute systolic heart failure Elevated troponin r/o cad LBBB (H/o LBBB) Echo EF 15 to 20% severe LV systolic dysfunction. s/p afib converted to sinus ,Repeat echo when sinus rhythm EF 35% Seen by Incising Machine Operator Dr Chin Coreg 12.5 mg PO BID Lisinopril 2.5 mg PO BID Aldactone 25 mg PO daily Aspirin 81 mg PO daily 2.Atrial fibrillation with rapid HR-converted to sinus s/p INR/Hypercoagulable state improved LFT inproving ,started on Lovenox d/w daughter Frannie about risk of fall and bleeding 2.Fever/leukocytosis/elevated lactate/Patient was on immune suppression meds for RA d/w DR Galeano. on zosyn ,off vaco d/w Dr Galeano ,continue zosyn/possible pneumonia until Tuesday HIDA scan negative,MRCP negative 3. NSTEMI follow cardio 4. Transaminitis -lilkely due to CHF Cholelithiasis and GB wall thickening No abdominal pain,US noted MRCP and HIDA scan negative 5.DM Insulin coverage 6.RA No complain,Meds on hold ,spoke to daughter about start back on meds at rehab 7.Pulmonary hypertension Dr Moon for consult 6.Bilateral leg edema-Likely due to chf 7.DVT prophylaxis on Lovenox and GI 8.Debility-PT evaluation /Rehab
--- NOTE | 2018-03-19 15:56 | CP.PCM.PN ---
Subjective - Date & Time of Evaluation Date of Evaluation: 03/19/18 Time of Evaluation: 15:30 - Subjective Subjective: Seen and examined No chest pain or dyspnea Objective - Vital Signs/Intake and Output Vital Signs (last 24 hours): Temp Pulse Resp BP Pulse Ox 98.2 F 66 13 114/59 L 92 L 03/19/18 12:00 03/19/18 12:01 03/19/18 12:01 03/19/18 12:01 03/19/18 12:01 Intake and Output: 03/19/18 03/19/18 06:59 18:59 Intake Total 290 300 Output Total 2 Balance 288 300 - Medications Medications: Current Medications Aspirin (Aspirin Chewable) 81 mg PO DAILY [facility] Last Admin: 03/19/18 09:10 Dose: 81 mg Carvedilol (Coreg) 12.5 mg PO BID [facility] Piperacillin Sod/Tazobactam Sod (Zosyn 3.375 Gm Iv Premix) 3.375 gm in 50 mls @ 100 mls/hr IVPB Q6H [facility] PRN Reason: Protocol Last Admin: 03/19/18 09:52 Dose: 100 mls/hr Insulin Aspart (Novolog) 0 unit SC ACHS [facility] PRN Reason: Protocol Last Admin: 03/19/18 12:11 Dose: 3 unit Lisinopril (Zestril) 2.5 mg PO BID [facility] Last Admin: 03/19/18 09:10 Dose: 2.5 mg Ondansetron HCl (Zofran Inj) 4 mg IVP Q6H [facility] PRN Reason: Nausea/Vomiting Last Admin: 03/15/18 15:57 Dose: 4 mg Pantoprazole Sodium (Protonix Ec Tab) 40 mg PO DAILY [facility] Last Admin: 03/19/18 09:10 Dose: 40 mg Spironolactone (Aldactone) 25 mg PO DAILY [facility] Last Admin: 03/19/18 09:10 Dose: 25 mg - Labs Labs: 03/19/18 06:20 03/19/18 06:20 PT 14.9 SECONDS (9.7-12.2) H 03/18/18 06:20 INR 1.3 03/18/18 06:20 APTT 31 SECONDS (21-34) 03/16/18 14:15 - Constitutional Appears: Well, Non-toxic - Head Exam Head Exam: ATRAUMATIC, NORMAL INSPECTION - Eye Exam Pupil Exam: NORMAL ACCOMODATION, PERRL - ENT Exam ENT Exam: Mucous Membranes Moist - Respiratory Exam Respiratory Exam: Clear to Ausculation Bilateral - Cardiovascular Exam Cardiovascular Exam: REGULAR RHYTHM, RRR, +S1, +S2 - GI/Abdominal Exam GI & Abdominal Exam: Soft. absent: Tenderness - Extremities Exam Extremities Exam: absent: Calf Tenderness - Back Exam Back Exam: absent: CVA tenderness (R) - Neurological Exam Neurological Exam: CN II-XII Intact, Oriented x3 - Psychiatric Exam Psychiatric exam: Normal Affect, Normal Mood - Skin Skin Exam: Dry, Warm Assessment and Plan (1) Rapid atrial fibrillation Assessment & Plan: Currently in NSR Will increase carvedilol to 12.5 mg twice daily Transaminitis resolved, INR normalized Patient with CHADS vasc score of at least 3 Will start enoxaparin at 1 mg/kg for stroke prevention Status: Acute (2) Dilated cardiomyopathy Assessment & Plan: Currently euvolemic Will advance carvedilol Cont with other meds Status: Acute
[2018-03-19] MEDS: Enoxaparin 80 mg Syringe SC SCH (21:40)
[2018-03-20] MEDS: Piperacill/Tazo 3.375gm in Dex 3.375 GM/50 ML BAG IVPB SCH ×2 (04:53→09:21)
[2018-03-20 06:38] LABS: BASO % 0.3 % (0.0-2.0); EOS # 0.1 K/uL (0.0-0.7); EOS % 1.3 % (0.0-4.0); HEMOGLOBIN 14.6 g/dL (11.0-16.0); LYMPH # 0.8 K/uL (1.0-4.3); LYMPH % 10.7 % (20.0-40.0); MEAN CELL VOLUME 92.4 fL (81.0-99.0); MEAN CORPUSCULAR HEMOGLOBIN 31.3 pg (27.0-31.0); MEAN CORPUSCULAR HGB CONC 33.9 g/dL (33.0-37.0); MEAN PLATELET VOLUME 7.9 fL (7.2-11.7); MONO # 0.9 K/uL (0.0-0.8); MONO % 11.4 % (0.0-10.0); NEUT # 5.9 K/uL (1.8-7.0); NEUT % 76.3 % (50.0-75.0); NRBC % 0.2 % (0.0-2.0); RBC 4.65 Mil/uL (3.80-5.20); RED CELL DISTRIBUTION WIDTH 14.7 % (11.5-14.5); WHITE BLOOD COUNT 7.7 K/uL (4.8-10.8)
[2018-03-20 06:41] LABS: INR 1.4; PROTHROMBIN TIME 15.9 SECONDS (9.7-12.2)
[2018-03-20 06:47] LABS: ALBUMIN 2.7 g/dL (3.5-5.0); CALCIUM 8.2 mg/dl (8.6-10.4)
[2018-03-20] MEDS: (Novolog) Insulin Aspart, Recombinant 100 u/ml 10 ml vial SC SCH ×4 (08:03→21:47)
[2018-03-20] MEDS: Pantoprazole 40 mg EC Tab PO SCH (09:20)
[2018-03-20] MEDS: Enoxaparin 80 mg Syringe SC SCH ×2 (09:21→21:35)
[2018-03-20] MEDS ORDERED: Acetylcysteine 20% Inhal Soln (4ml) INH SCH (15:00)
--- NOTE | 2018-03-20 15:28 | CP.PCM.PN ---
Subjective - Date & Time of Evaluation Date of Evaluation: 03/20/18 Time of Evaluation: 02:30 - Subjective Subjective: dictated Objective - Vital Signs/Intake and Output Vital Signs (last 24 hours): Temp Pulse Resp BP Pulse Ox 97.9 F 55 L 16 108/54 L 98 03/20/18 12:00 03/20/18 12:00 03/20/18 12:00 03/20/18 12:00 03/20/18 12:00 Intake and Output: 03/20/18 03/20/18 06:59 18:59 Intake Total 0 700 Balance 0 700 - Medications Medications: Current Medications Acetylcysteine (Acetylcysteine 20%) 4 ml INH Q6H [facility] Albuterol/Ipratropium (Duoneb 3 Mg/0.5 Mg (3 Ml) Ud) 3 ml INH RQ6 [facility] Aspirin (Aspirin Chewable) 81 mg PO DAILY [facility] Last Admin: 03/20/18 09:20 Dose: 81 mg Carvedilol (Coreg) 12.5 mg PO BID [facility] Last Admin: 03/20/18 09:20 Dose: 12.5 mg Cefpodoxime Proxetil (Vantin) 200 mg PO Q12H [facility] PRN Reason: Protocol Enoxaparin Sodium (Lovenox) 70 mg SC Q12H [facility] Last Admin: 03/20/18 09:21 Dose: 70 mg Insulin Aspart (Novolog) 0 unit SC ACHS [facility] PRN Reason: Protocol Last Admin: 03/20/18 12:38 Dose: 4 unit Lisinopril (Zestril) 2.5 mg PO BID [facility] Last Admin: 03/20/18 09:20 Dose: 2.5 mg Ondansetron HCl (Zofran Inj) 4 mg IVP Q6H [facility] PRN Reason: Nausea/Vomiting Last Admin: 03/15/18 15:57 Dose: 4 mg Pantoprazole Sodium (Protonix Ec Tab) 40 mg PO DAILY [facility] Last Admin: 03/20/18 09:20 Dose: 40 mg Spironolactone (Aldactone) 25 mg PO DAILY [facility] Last Admin: 03/20/18 09:21 Dose: 25 mg - Labs Labs: 03/20/18 06:20 03/20/18 06:20 PT 15.9 SECONDS (9.7-12.2) H 03/20/18 06:20 INR 1.4 03/20/18 06:20 APTT 31 SECONDS (21-34) 03/16/18 14:15
[2018-03-20] MEDS: Cefpodoxime (Vantin) 200 mg Tab PO SCH (17:12)
--- NOTE | 2018-03-20 17:13 | CP.PCM.PN ---
Subjective - Date & Time of Evaluation Date of Evaluation: 03/20/18 - Subjective Subjective: Patient seen and examined at bedside. No acute events overnight per nursing. Patient's shortness of breath and chest discomfort are improved and overall she reports feeling better. Clear from a pulmonary standpoint. Assessment and Plan: 1. Pulmonary hypertension 2/2 sleep apnea vs. COPD vs. crdiac - Repeat echo 03/16, - No pulmonary fibrosis on CT - sleep study and PFTs when able 2. CHF - Echo 03/16: LVEF 30-35%, moderate LV systolic impairment - aldactone - lisinopril - coreg Objective - Vital Signs/Intake and Output Vital Signs (last 24 hours): Temp Pulse Resp BP Pulse Ox 97.3 F L 53 L 16 103/51 L 95 03/20/18 16:00 03/20/18 16:00 03/20/18 16:00 03/20/18 16:00 03/20/18 16:00 Intake and Output: 03/20/18 03/20/18 06:59 18:59 Intake Total 0 700 Balance 0 700 - Medications Medications: Current Medications Acetylcysteine (Acetylcysteine 20%) 4 ml INH Q6H [facility] Albuterol/Ipratropium (Duoneb 3 Mg/0.5 Mg (3 Ml) Ud) 3 ml INH RQ6 [facility] Aspirin (Aspirin Chewable) 81 mg PO DAILY [facility] Last Admin: 03/20/18 09:20 Dose: 81 mg Carvedilol (Coreg) 12.5 mg PO BID [facility] Last Admin: 03/20/18 09:20 Dose: 12.5 mg Cefpodoxime Proxetil (Vantin) 200 mg PO Q12H [facility] PRN Reason: Protocol Last Admin: 03/20/18 17:12 Dose: 200 mg Enoxaparin Sodium (Lovenox) 70 mg SC Q12H [facility] Last Admin: 03/20/18 09:21 Dose: 70 mg Insulin Aspart (Novolog) 0 unit SC ACHS [facility] PRN Reason: Protocol Last Admin: 03/20/18 16:34 Dose: 4 unit Lisinopril (Zestril) 2.5 mg PO BID [facility] Last Admin: 03/20/18 09:20 Dose: 2.5 mg Ondansetron HCl (Zofran Inj) 4 mg IVP Q6H [facility] PRN Reason: Nausea/Vomiting Last Admin: 03/15/18 15:57 Dose: 4 mg Pantoprazole Sodium (Protonix Ec Tab) 40 mg PO DAILY [facility] Last Admin: 03/20/18 09:20 Dose: 40 mg Spironolactone (Aldactone) 25 mg PO DAILY [facility] Last Admin: 03/20/18 09:21 Dose: 25 mg - Labs Labs: 03/20/18 06:20 03/20/18 06:20 PT 15.9 SECONDS (9.7-12.2) H 03/20/18 06:20 INR 1.4 03/20/18 06:20 APTT 31 SECONDS (21-34) 03/16/18 14:15 Assessment and Plan (1) Pulmonary hypertension Status: Acute
--- NOTE | 2018-03-20 17:56 | CP.PCM.PN ---
Subjective - Date & Time of Evaluation Date of Evaluation: 03/20/18 Time of Evaluation: 07:15 - Subjective Subjective: Medicine progress note ( Dr. Vega's service) Patient was seen and examined at bedside. Patient reports that she is doing well with no complaints. Patient denies any acute complaints. As per nursing, patient had no acute issues overnight. Objective - Vital Signs/Intake and Output Vital Signs (last 24 hours): Temp Pulse Resp BP Pulse Ox 97.3 F L 53 L 16 99/54 L 95 03/20/18 16:00 03/20/18 16:00 03/20/18 16:00 03/20/18 17:17 03/20/18 16:00 Intake and Output: 03/20/18 03/20/18 06:59 18:59 Intake Total 0 700 Balance 0 700 - Medications Medications: Current Medications Acetylcysteine (Acetylcysteine 20%) 4 ml INH Q6H [facility] Albuterol/Ipratropium (Duoneb 3 Mg/0.5 Mg (3 Ml) Ud) 3 ml INH RQ6 [facility] Aspirin (Aspirin Chewable) 81 mg PO DAILY [facility] Last Admin: 03/20/18 09:20 Dose: 81 mg Carvedilol (Coreg) 12.5 mg PO BID [facility] Last Admin: 03/20/18 17:17 Dose: 12.5 mg Cefpodoxime Proxetil (Vantin) 200 mg PO Q12H [facility] PRN Reason: Protocol Last Admin: 03/20/18 17:12 Dose: 200 mg Enoxaparin Sodium (Lovenox) 70 mg SC Q12H [facility] Last Admin: 03/20/18 09:21 Dose: 70 mg Insulin Aspart (Novolog) 0 unit SC ACHS [facility] PRN Reason: Protocol Last Admin: 03/20/18 16:34 Dose: 4 unit Lisinopril (Zestril) 2.5 mg PO BID [facility] Last Admin: 03/20/18 09:20 Dose: 2.5 mg Ondansetron HCl (Zofran Inj) 4 mg IVP Q6H [facility] PRN Reason: Nausea/Vomiting Last Admin: 03/15/18 15:57 Dose: 4 mg Pantoprazole Sodium (Protonix Ec Tab) 40 mg PO DAILY [facility] Last Admin: 03/20/18 09:20 Dose: 40 mg Spironolactone (Aldactone) 25 mg PO DAILY [facility] Last Admin: 03/20/18 09:21 Dose: 25 mg - Labs Labs: 03/20/18 06:20 03/20/18 06:20 PT 15.9 SECONDS (9.7-12.2) H 03/20/18 06:20 INR 1.4 03/20/18 06:20 APTT 31 SECONDS (21-34) 03/16/18 14:15 - Constitutional Appears: Well, No Acute Distress - Eye Exam Eye Exam: EOMI, Normal appearance - ENT Exam ENT Exam: Mucous Membranes Moist - Respiratory Exam Respiratory Exam: Rhonchi, NORMAL BREATHING PATTERN - Cardiovascular Exam Cardiovascular Exam: REGULAR RHYTHM, +S1, +S2. absent: Murmur - GI/Abdominal Exam GI & Abdominal Exam: Soft, Normal Bowel Sounds. absent: Distended, Firm, Guarding, Rigid, Tenderness - Extremities Exam Extremities Exam: Normal Inspection Additional comments: Left leg rash/wound: Dressing is clean, dry and intact by wound care nurse - Neurological Exam Neurological Exam: Alert, Awake - Psychiatric Exam Psychiatric exam: Normal Affect - Skin Skin Exam: Normal Color Assessment and Plan (1) CHF, acute Assessment & Plan: Battery Tester Field, Dr. Navarro ( Covering partner: Dr. Chin) On admission: BNP; 11,6000 Elevated troponin on admission, now normal Echo (03/16/18): Left ventricle systolic function is moderately impaired. EF (20 -30%). The aortic valve is calcified but opens well. Mitral valve is mildly thickened but open well. The triscuspid valve is normal in structure Medications: * Aldactone 25mg PO daily * Lisinopril 2.5mg PO BID * Coreg 12.5mg PO daily * ASA 81mg PO daily Status: Acute (2) New onset atrial fibrillation Assessment & Plan: with RVR on admission Battery Tester [employer], Dr. Navarro ( Covering partner: Dr. Chin) Medications: * Coreg 12.5mg PO daily * ASA 81mg PO daily * Lovenox 70mg SC Q12H Status: Acute (3) Rhonchi Assessment & Plan: Duonebs RQ6H with Acetylcysteine 4ml INH Q6H Status: Acute (4) Sepsis Assessment & Plan: On admission, resolved Elevated on admission: * Lactate normalized * WBC: Normalized * Afebrile * Blood/urine and stool culture: Negative * Possible aspiration pneumonia Zosyn 3.375gm IV q6h ( D/C 03/20/18) Vantin 200mg PO Q12H ( Started 03/20/18) Status: Acute (5) Transaminitis Assessment & Plan: Downtrending US: Cholelithiasis and GB wall thickening No abdominal pain,US noted MRCP and HIDA scan negative Status: Acute (6) Prophylactic measure Assessment & Plan: GI: Protonix 40mg PO daily DVT: Lovenox 70mg SC Q12H PT and OT All plans and management discussed with Dr. Vega Status: Acute
[2018-03-21] MEDS: Albuterol-Ipratrop 3 mg / 0.5 (3 ml) UD INH SCH ×4 (01:21→19:38)
[2018-03-21] MEDS: Cefpodoxime (Vantin) 200 mg Tab PO SCH ×2 (06:05→17:52)
[2018-03-21 06:53] LABS: INR 1.4; PROTHROMBIN TIME 15.5 SECONDS (9.7-12.2)
[2018-03-21 06:56] LABS: BASO % 0.1 % (0.0-2.0); EOS # 0.1 K/uL (0.0-0.7); EOS % 1.5 % (0.0-4.0); HEMOGLOBIN 14.1 g/dL (11.0-16.0); LYMPH # 0.7 K/uL (1.0-4.3); LYMPH % 8.2 % (20.0-40.0); MEAN CELL VOLUME 91.7 fL (81.0-99.0); MEAN CORPUSCULAR HEMOGLOBIN 31.5 pg (27.0-31.0); MEAN CORPUSCULAR HGB CONC 34.4 g/dL (33.0-37.0); MEAN PLATELET VOLUME 8.1 fL (7.2-11.7); MONO # 0.8 K/uL (0.0-0.8); MONO % 9.7 % (0.0-10.0); NEUT # 6.5 K/uL (1.8-7.0); NEUT % 80.5 % (50.0-75.0); NRBC % 0.1 % (0.0-2.0); PLATELET COUNT 183 K/uL (130-400); RBC 4.47 Mil/uL (3.80-5.20); RED CELL DISTRIBUTION WIDTH 14.8 % (11.5-14.5); WHITE BLOOD COUNT 8.1 K/uL (4.8-10.8)
[2018-03-21 06:57] LABS: ALBUMIN 2.6 g/dL (3.5-5.0); ALT/SGPT 65 U/L (9-52); AST/SGOT 31 U/L (14-36); BLOOD UREA NITROGEN 41 mg/dL (7-17); CALCIUM 8.3 mg/dl (8.6-10.4); GFR AFRICAN-AMERICAN > 60; GFR NON-AFRICAN AMERICAN > 60
[2018-03-21] MEDS: Acetylcysteine 20% Inhal Soln (4ml) INH SCH ×3 (08:02→19:38)
[2018-03-21] MEDS: (Novolog) Insulin Aspart, Recombinant 100 u/ml 10 ml vial SC SCH ×4 (08:19→21:21)
[2018-03-21 08:47] LABS: EOSINOPHIL 5 % (0-4); LYMPHOCYTE 13 % (20-40); MONOCYTE 5 % (0-10); NEUTROPHIL 77 % (50-75); PLATELET ESTIMATE NORMAL (NORMAL); TOTAL CELLS COUNTED 100
[2018-03-21] MEDS: Pantoprazole 40 mg EC Tab PO SCH (09:16)
[2018-03-21] MEDS: Enoxaparin 80 mg Syringe SC SCH ×2 (09:17→21:12)
--- NOTE | 2018-03-21 13:30 | RAD ---
HISTORY: shortness of breath COMPARISON: 03/15/2018 FINDINGS: LUNGS: Bilateral basilar pulmonary opacities. PLEURA: Small bilateral pleural effusion. CARDIOVASCULAR: Cardiomegaly with vascular congestive change. Findings suggestive of pulmonary edema. OSSEOUS STRUCTURES: No significant abnormalities. VISUALIZED UPPER ABDOMEN: Normal. OTHER FINDINGS: None. IMPRESSION: Probable acute pulmonary edema.
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
--- NOTE | 2018-03-21 17:38 | CP.PCM.PN ---
Subjective - Date & Time of Evaluation Date of Evaluation: 03/21/18 Time of Evaluation: 07:40 - Subjective Subjective: Medicine progress note ( Dr. Vega's service) Patient was seen and examined at bedside. Patient reports that she is doing well with no complaints. Patient denies any acute complaints. As per nursing, patient had no acute issues overnight. Objective - Vital Signs/Intake and Output Vital Signs (last 24 hours): Temp Pulse Resp BP Pulse Ox 97.3 F L 62 16 121/53 L 100 03/21/18 16:00 03/21/18 16:00 03/21/18 16:00 03/21/18 16:00 03/21/18 16:00 Intake and Output: 03/21/18 03/21/18 06:59 18:59 Intake Total 240 600 Output Total 400 Balance -160 600 - Medications Medications: Current Medications Acetylcysteine (Acetylcysteine 20%) 4 ml INH RQ6 [facility] Last Admin: 03/21/18 13:33 Dose: 4 ml Albuterol/Ipratropium (Duoneb 3 Mg/0.5 Mg (3 Ml) Ud) 3 ml INH RQ6 [facility] Last Admin: 03/21/18 13:33 Dose: 3 ml Aspirin (Aspirin Chewable) 81 mg PO DAILY [facility] Last Admin: 03/21/18 09:17 Dose: 81 mg Carvedilol (Coreg) 12.5 mg PO BID [facility] Last Admin: 03/21/18 09:16 Dose: 12.5 mg Cefpodoxime Proxetil (Vantin) 200 mg PO Q12H [facility] PR[facility] Reason: Protocol Last Admin: 03/21/18 06:05 Dose: 200 mg Enoxaparin Sodium (Lovenox) 70 mg SC Q12H [facility] Last Admin: 03/21/18 09:17 Dose: 70 mg Insulin Aspart (Novolog) 0 unit SC ACHS [facility] PRN Reason: Protocol Last Admin: 03/21/18 16:43 Dose: 4 unit Lisinopril (Zestril) 2.5 mg PO BID [facility] Last Admin: 03/21/18 09:16 Dose: 2.5 mg Ondansetron HCl (Zofran Inj) 4 mg IVP Q6H PRN PRN Reason: Nausea/Vomiting Last Admin: 03/15/18 15:57 Dose: 4 mg Pantoprazole Sodium (Protonix Ec Tab) 40 mg PO DAILY [facility] Last Admin: 03/21/18 09:16 Dose: 40 mg Spironolactone (Aldactone) 25 mg PO DAILY [facility] Last Admin: 03/21/18 09:17 Dose: 25 mg - Labs Labs: 03/21/18 06:44 03/21/18 06:41 PT 15.5 SECONDS (9.7-12.2) H 03/21/18 06:44 INR 1.4 03/21/18 06:44 APTT 31 SECONDS (21-34) 03/16/18 14:15 - Constitutional Appears: Well, No Acute Distress - Head Exam Head Exam: ATRAUMATIC - Eye Exam Eye Exam: EOMI - ENT Exam ENT Exam: Mucous Membranes Moist - Respiratory Exam Respiratory Exam: Rhonchi, NORMAL BREATHING PATTERN. absent: Wheezes - Cardiovascular Exam Cardiovascular Exam: REGULAR RHYTHM, +S1, +S2. absent: Murmur - GI/Abdominal Exam GI & Abdominal Exam: Soft, Normal Bowel Sounds. absent: Distended, Firm, Guarding, Rigid, Tenderness - Extremities Exam Extremities Exam: Normal Inspection. 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 Navarro ( Covering partner: Dr. Chin) On admission: BNP; 11,6000 Elevated troponin on admission, now normal Echo (03/16/18): Left ventricle systolic function is moderately impaired. EF (20 -30%). The aortic valve is calcified but opens well. Mitral valve is mildly thickened but open well. The triscuspid valve is normal in structure Medications: * Aldactone 25mg PO daily * Lisinopril 2.5mg PO BID * Coreg 12.5mg PO daily ----> 6.25mg PO BID * ASA 81mg PO daily Status: Acute (2) New onset atrial fibrillation Assessment & Plan: with RVR on admission Knife Operator, Dr. Navarro ( Covering partner: Dr. Chin) Medications: * Coreg 12.5mg PO daily * ASA 81mg PO daily * Lovenox 70mg SC Q12H ----> Will switch to eliquis 5mg PO BID Status: Acute (3) Rhonchi Assessment & Plan: Duonebs RQ6H with Acetylcysteine 4ml INH Q6H Status: Acute (4) Sepsis Assessment & Plan: On admission, resolved Elevated on admission: * Lactate normalized * WBC: Normalized * Afebrile * Blood/urine and stool culture: Negative * Possible aspiration pneumonia Zosyn 3.375gm IV q6h ( D/C 03/20/18) Vantin 200mg PO Q12H ( Started 03/20/18) Status: Acute (5) Transaminitis Assessment & Plan: Downtrending US: Cholelithiasis and GB wall thickening No abdominal pain,US noted MRCP and HIDA scan negative Hepatitis negative Status: Acute (6) Toe necrosis Assessment & Plan: Consultations: General Surgery, Dr. Lynn----> Help appreciated Podiatry, Dr. Maravilla----> Help appreciated * As per recommendation Status: Acute (7) Prophylactic measure Assessment & Plan: GI: Protonix 40mg PO daily DVT: Lovenox 70mg SC Q12H ---> Will be switched Eliquis 5mg PO BID PT and OT All plans and management discussed with Dr. Vega Status: Acute
--- NOTE | 2018-03-21 18:13 | CP.PCM.PN ---
Subjective - Date & Time of Evaluation Date of Evaluation: 03/21/18 Time of Evaluation: 13:00 - Subjective Subjective: patient seen and examined. Comfortably in no acute distress Afebrile Chest x-ray noted Podiatry evaluation Being treated for CHF Objective - Vital Signs/Intake and Output Vital Signs (last 24 hours): Temp Pulse Resp BP Pulse Ox 97.3 F L 62 16 121/53 L 100 03/21/18 16:00 03/21/18 16:00 03/21/18 16:00 03/21/18 16:00 03/21/18 16:00 Intake and Output: 03/21/18 03/21/18 06:59 18:59 Intake Total 240 600 Output Total 400 Balance -160 600 - Medications Medications: Current Medications Acetylcysteine (Acetylcysteine 20%) 4 ml INH RQ6 [facility] Last Admin: 03/21/18 13:33 Dose: 4 ml Albuterol/Ipratropium (Duoneb 3 Mg/0.5 Mg (3 Ml) Ud) 3 ml INH RQ6 [facility] Last Admin: 03/21/18 13:33 Dose: 3 ml Apixaban (Eliquis) 5 mg PO BID [facility] Aspirin (Aspirin Chewable) 81 mg PO DAILY [facility] Last Admin: 03/21/18 09:17 Dose: 81 mg Carvedilol (Coreg) 6.25 mg PO BID [facility] Last Admin: 03/21/18 17:51 Dose: 6.25 mg Cefpodoxime Proxetil (Vantin) 200 mg PO Q12H [facility] PRN Reason: Protocol Last Admin: 03/21/18 17:52 Dose: 200 mg Enoxaparin Sodium (Lovenox) 70 mg SC Q12H [facility] Stop: 03/21/18 22:00 Last Admin: 03/21/18 09:17 Dose: 70 mg Insulin Aspart (Novolog) 0 unit SC ACHS [facility] PRN Reason: Protocol Last Admin: 03/21/18 16:43 Dose: 4 unit Lisinopril (Zestril) 2.5 mg PO BID [facility] Last Admin: 03/21/18 17:51 Dose: 2.5 mg Ondansetron HCl (Zofran Inj) 4 mg IVP Q6H PRN PRN Reason: Nausea/Vomiting Last Admin: 03/15/18 15:57 Dose: 4 mg Pantoprazole Sodium (Protonix Ec Tab) 40 mg PO DAILY [facility] Last Admin: 03/21/18 09:16 Dose: 40 mg Spironolactone (Aldactone) 25 mg PO DAILY [facility] Last Admin: 03/21/18 09:17 Dose: 25 mg - Labs Labs: 03/21/18 06:44 03/21/18 06:41 PT 15.5 SECONDS (9.7-12.2) H 03/21/18 06:44 INR 1.4 03/21/18 06:44 APTT 31 SECONDS (21-34) 03/16/18 14:15 - Head Exam Head Exam: ATRAUMATIC, NORMOCEPHALIC - Eye Exam Eye Exam: Normal appearance - ENT Exam ENT Exam: Mucous Membranes Moist - Neck Exam Neck Exam: Normal Inspection - Respiratory Exam Respiratory Exam: Rales - Cardiovascular Exam Cardiovascular Exam: Irregular Rhythm - GI/Abdominal Exam GI & Abdominal Exam: Soft, Normal Bowel Sounds Assessment and Plan (1) Pulmonary hypertension Status: Acute - Assessment and Plan (Free Text) Assessment: (1) CHF, acute Echo (03/16/18): Left ventricle systolic function is moderately impaired. EF (20 -30%). The aortic valve is calcified but opens well. Mitral valve is mildly thickened but open well. The triscuspid valve is normal in structure Medications: * Aldactone 25mg PO daily * Lisinopril 2.5mg PO BID * Coreg 12.5mg PO daily ----> 6.25mg PO BID * ASA 81mg PO daily Status: Acute (2) New onset atrial fibrillation with RVR on admission Medications: * Coreg 12.5mg PO daily * ASA 81mg PO daily * Lovenox 70mg SC Q12H ----> Will switch to eliquis 5mg PO BID
[2018-03-22] MEDS: Acetylcysteine 20% Inhal Soln (4ml) INH SCH ×5 (02:17→19:40)
[2018-03-22] MEDS: Albuterol-Ipratrop 3 mg / 0.5 (3 ml) UD INH SCH ×5 (02:17→19:40)
[2018-03-22] MEDS: Cefpodoxime (Vantin) 200 mg Tab PO SCH ×2 (06:01→18:24)
[2018-03-22 06:33] LABS: BASO # 0.1 K/uL (0.0-0.2); BASO % 0.7 % (0.0-2.0); EOS # 0.2 K/uL (0.0-0.7); EOS % 1.7 % (0.0-4.0); HEMOGLOBIN 14.2 g/dL (11.0-16.0); LYMPH # 1.1 K/uL (1.0-4.3); LYMPH % 12.1 % (20.0-40.0); MEAN CORPUSCULAR HEMOGLOBIN 31.3 pg (27.0-31.0); MEAN CORPUSCULAR HGB CONC 33.6 g/dL (33.0-37.0); MEAN PLATELET VOLUME 7.5 fL (7.2-11.7); MONO % 11.3 % (0.0-10.0); NEUT # 6.7 K/uL (1.8-7.0); NEUT % 74.2 % (50.0-75.0); RBC 4.53 Mil/uL (3.80-5.20); RED CELL DISTRIBUTION WIDTH 15.1 % (11.5-14.5)
[2018-03-22 06:42] LABS: INR 1.3; PROTHROMBIN TIME 14.8 SECONDS (9.7-12.2)
[2018-03-22 07:08] LABS: ALBUMIN 2.6 g/dL (3.5-5.0); ALT/SGPT 53 U/L (9-52); AST/SGOT 30 U/L (14-36); BLOOD UREA NITROGEN 36 mg/dL (7-17); CALCIUM 8.3 mg/dl (8.6-10.4); GFR AFRICAN-AMERICAN > 60; GFR NON-AFRICAN AMERICAN > 60
[2018-03-22] MEDS: (Novolog) Insulin Aspart, Recombinant 100 u/ml 10 ml vial SC SCH ×4 (08:28→21:28)
[2018-03-22] MEDS: Pantoprazole 40 mg EC Tab PO SCH (10:04)
[2018-03-22] MEDS ORDERED: Metoprolol 1 mg/ml Inj IVP ONE (11:06)
[2018-03-22] MEDS ORDERED: Magnesium Sulfate 1 gm in D5W 1 GM/100 ML BAG IVPB ONE (11:17)
--- NOTE | 2018-03-22 11:19 | CP.PCM.PN ---
Subjective - Date & Time of Evaluation Date of Evaluation: 03/22/18 Time of Evaluation: 11:16 - Subjective Subjective: PGY-1 surgery progress note for Dr Lynn. No acute events noted overnight. Patient was tachycardic. She did not offer any complaints. She denied LE pain. Stated her breathing had improved. Denied chest pain. Objective - Vital Signs/Intake and Output Vital Signs (last 24 hours): Temp Pulse Resp BP Pulse Ox 97.4 F L 98 H 18 126/72 96 03/22/18 04:00 03/22/18 04:00 03/22/18 04:00 03/22/18 10:16 03/22/18 04:00 Intake and Output: 03/22/18 03/22/18 06:59 18:59 Intake Total 100 Output Total 350 Balance -250 - Medications Medications: Current Medications Acetylcysteine (Acetylcysteine 20%) 4 ml INH RQ6 [facility] Last Admin: 03/22/18 07:40 Dose: Not Given Albuterol/Ipratropium (Duoneb 3 Mg/0.5 Mg (3 Ml) Ud) 3 ml INH RQ6 [facility] Last Admin: 03/22/18 07:41 Dose: Not Given Apixaban (Eliquis) 5 mg PO BID [facility] Last Admin: 03/22/18 10:15 Dose: 5 mg Aspirin (Aspirin Chewable) 81 mg PO DAILY [facility] Last Admin: 03/22/18 10:04 Dose: 81 mg Carvedilol (Coreg) 6.25 mg PO BID [facility] Last Admin: 03/22/18 10:04 Dose: 6.25 mg Cefpodoxime Proxetil (Vantin) 200 mg PO Q12H [facility] PRN Reason: Protocol Last Admin: 03/22/18 06:01 Dose: 200 mg Insulin Aspart (Novolog) 0 unit SC ACHS [facility] PRN Reason: Protocol Last Admin: 03/22/18 08:28 Dose: 6 unit Lisinopril (Zestril) 2.5 mg PO BID [facility] Last Admin: 03/22/18 10:05 Dose: 2.5 mg Ondansetron HCl (Zofran Inj) 4 mg IVP Q6H PRN PRN Reason: Nausea/Vomiting Last Admin: 03/15/18 15:57 Dose: 4 mg Pantoprazole Sodium (Protonix Ec Tab) 40 mg PO DAILY [facility] Last Admin: 03/22/18 10:04 Dose: 40 mg Spironolactone (Aldactone) 25 mg PO DAILY [facility] Last Admin: 03/22/18 10:04 Dose: 25 mg - Labs Labs: 03/22/18 06:25 03/22/18 06:26 PT 14.8 SECONDS (9.7-12.2) H 03/22/18 06:26 INR 1.3 03/22/18 06:26 APTT 31 SECONDS (21-34) 03/16/18 14:15 - Additional Findings Additional findings: - Constitutional Appears: Chronically Ill - Head Exam Head Exam: ATRAUMATIC, NORMOCEPHALIC - Eye Exam Eye Exam: EOMI, Normal appearance - ENT Exam ENT Exam: Mucous Membranes Dry - Respiratory Exam Respiratory Exam: NORMAL BREATHING PATTERN. absent: Respiratory Distress - Cardiovascular Exam Cardiovascular Exam: REGULAR RHYTHM. absent: Tachycardia - GI/Abdominal Exam GI & Abdominal Exam: Soft. absent: Distended, Tenderness - Extremities Exam Extremities exam: Positive for: pedal edema Additional comments: LLE with blisters, ruptured 2+ edema, pulse signal appreciated on Left PT, DP not appreciated LE warm to touch bilaterally - Neurological Exam Additional comments: Awake and alert, will no appropriately answer questions - Skin Additional comments: as described in extremities Assessment and Plan - Assessment and Plan (Free Text) Assessment: 72 y/o female w/ LE edema, blistering, and 2nd toe wound Plan: -r/o PVD disease -CTA ordered of LE, will follow-up results -cont local wound care -pending CTA results to determine further surgical intervention -d/w Dr. Lynn
--- NOTE | 2018-03-22 11:37 | CP.PCM.CON ---
History of Present Illness - History of Present Illness History of Present Illness: Podiatry Consult note for Dr. Maravilla 72 year old female with PMHx including HTN, DM, RA was seen at bedside in chair for left 2nd digit discoloration. Patient does not know when this discoloration occurred of when she started to get a blister on her foot. She denies any n/v/f/c/sob/cp. Past Patient History - Past Medical History & Family History Past Medical History?: Yes - Past Social History Smoking Status: Former Smoker - CARDIAC Hx Hypertension: Yes - PULMONARY Hx Pneumonia: Yes - ENDOCRINE/METABOLIC Hx Diabetes Mellitus Type 2: Yes - MUSCULOSKELETAL/RHEUMATOLOGICAL Hx Arthritis: Yes ( PER DAUGHTER SINGH BARROSO) Hx Rheumatoid Arthritis: Yes - PSYCHIATRIC Hx Substance Use: No - SURGICAL HISTORY Hx Surgeries: No ( PER DAUGHTER SINGH BARROSO) - ANESTHESIA Hx Anesthesia: No Meds Allergies/Adverse Reactions: Allergies Allergy/AdvReac Type Severity Reaction Status Date / Time No Known Allergies Allergy Verified 03/15/18 14:02 - Medications Medications: Current Medications Acetylcysteine (Acetylcysteine 20%) 4 ml INH RQ6 [facility] Last Admin: 03/22/18 07:40 Dose: Not Given Albuterol/Ipratropium (Duoneb 3 Mg/0.5 Mg (3 Ml) Ud) 3 ml INH RQ6 [facility] Last Admin: 03/22/18 07:41 Dose: Not Given Apixaban (Eliquis) 5 mg PO BID [facility] Last Admin: 03/22/18 10:15 Dose: 5 mg Aspirin (Aspirin Chewable) 81 mg PO DAILY [facility] Last Admin: 03/22/18 10:04 Dose: 81 mg Carvedilol (Coreg) 6.25 mg PO BID [facility] Last Admin: 03/22/18 10:04 Dose: 6.25 mg Cefpodoxime Proxetil (Vantin) 200 mg PO Q12H [facility] PRN Reason: Protocol Last Admin: 03/22/18 06:01 Dose: 200 mg Magnesium Sulfate/Dextrose (Magnesium Sulfate 1 Gm/100 Ml D5w) 1 gm in 100 mls @ 200 mls/hr IVPB ONCE ONE Stop: 03/22/18 11:46 Insulin Aspart (Novolog) 0 unit SC ACHS [facility] PRN Reason: Protocol Last Admin: 03/22/18 08:28 Dose: 6 unit Lisinopril (Zestril) 2.5 mg PO BID [facility] Last Admin: 03/22/18 10:05 Dose: 2.5 mg Ondansetron HCl (Zofran Inj) 4 mg IVP Q6H [facility] PRN Reason: Nausea/Vomiting Last Admin: 03/15/18 15:57 Dose: 4 mg Pantoprazole Sodium (Protonix Ec Tab) 40 mg PO DAILY [facility] Last Admin: 03/22/18 10:04 Dose: 40 mg Spironolactone (Aldactone) 25 mg PO DAILY [facility] Last Admin: 03/22/18 10:04 Dose: 25 mg Physical Exam - Constitutional Appears: Non-toxic, No Acute Distress - Extremities Exam Additional comments: Lower extremity focused exam: Vasc: DP and PT pulses palpable 1/4 b/l. Skin temperature warm to cool from proximal to distal b/l. CFT > 3 seconds to all digits. Neuro: Gross sensation diminished b/l. Ortho: Contracted digits 2-5 b/l. No tenderness palpation on the left 2nd digit or dorsum of the foot. Derm: Area of dark discoloration noted to the distal lateral aspect of the 2nd digit. Open blisters noted to the dorsum of the left foot, erytheamtous plaque noted to the medial aspect of the left ankle. - Neurological Exam Neurological exam: Alert - Psychiatric Exam Psychiatric exam: Normal Affect, Normal Mood Results - Vital Signs Recent Vital Signs: Last Vital Signs Temp 97.4 F L 03/22/18 04:00 Pulse 98 H 03/22/18 04:00 Resp 18 03/22/18 04:00 BP 126/72 03/22/18 10:16 Pulse Ox 96 03/22/18 04:00 - Labs Result Diagrams: 03/22/18 06:25 03/22/18 06:26 Labs: Laboratory Results - last 24 hr 03/21/18 03/21/18 03/22/18 16:19 21:08 06:25 WBC 9.0 RBC 4.53 Hgb 14.2 Hct 42.1 MCV 93.0 MCH 31.3 H MCHC 33.6 RDW 15.1 H Plt Count 197 MPV 7.5 Neut % (Auto) 74.2 Lymph % (Auto) 12.1 L Maury % (Auto) 11.3 H Eos % (Auto) 1.7 Baso % (Auto) 0.7 Neut # (Auto) 6.7 Lymph # (Auto) 1.1 Maury # (Auto) 1.0 H Eos # (Auto) 0.2 Baso # (Auto) 0.1 PT INR Sodium Potassium Chloride Carbon Dioxide Anion Gap BUN Creatinine Est GFR ( Amer) Est GFR (Non-Af Amer) POC Glucose (mg/dL) 223 H 276 H Random Glucose Calcium Phosphorus Magnesium Total Bilirubin AST ALT Alkaline Phosphatase Total Protein Albumin Globulin Albumin/Globulin Ratio 03/22/18 03/22/18 03/22/18 06:26 06:26 07:11 WBC RBC Hgb Hct MCV MCH MCHC RDW Plt Count MPV Neut % (Auto) Lymph % (Auto) Maury % (Auto) Eos % (Auto) Baso % (Auto) Neut # (Auto) Lymph # (Auto) Maury # (Auto) Eos # (Auto) Baso # (Auto) PT 14.8 H INR 1.3 Sodium 131 L Potassium 4.1 Chloride 96 L Carbon Dioxide 25 Anion Gap 14 BUN 36 H Creatinine 0.8 Est GFR ( Amer) > 60 Est GFR (Non-Af Amer) > 60 POC Glucose (mg/dL) 252 H Random Glucose 231 H Calcium 8.3 L Phosphorus 3.1 Magnesium 1.5 L Total Bilirubin 0.9 AST 30 ALT 53 H Alkaline Phosphatase 168 H Total Protein 5.2 L Albumin 2.6 L Globulin 2.6 Albumin/Globulin Ratio 1.0 03/22/18 11:20 WBC RBC Hgb Hct MCV MCH MCHC RDW Plt Count MPV Neut % (Auto) Lymph % (Auto) Maury % (Auto) Eos % (Auto) Baso % (Auto) Neut # (Auto) Lymph # (Auto) Maury # (Auto) Eos # (Auto) Baso # (Auto) PT INR Sodium Potassium Chloride Carbon Dioxide Anion Gap BUN Creatinine Est GFR ( Amer) Est GFR (Non-Af Amer) POC Glucose (mg/dL) 263 H Random Glucose Calcium Phosphorus Magnesium Total Bilirubin AST ALT Alkaline Phosphatase Total Protein Albumin Globulin Albumin/Globulin Ratio Assessment & Plan - Assessment and Plan (Free Text) Assessment: 72 year old female with open blisters noted to the left foot Plan: patient examined and evaluated discussed in detail with attending, Dr. Maravilla labs, chart, vitals reviewed;afebrile, WBC 9 left foot dressed with xeroform, DSD patient to keep offloading boots on at all times while in bed patient to elevate her LE as much as possible podiatry will cont to follow patient while in house
--- NOTE | 2018-03-22 11:39 | CP.PCM.PN ---
<Traci Osullivan E - Last Filed: 03/22/18 11:48> Subjective - Date & Time of Evaluation Date of Evaluation: 03/22/18 Time of Evaluation: 09:15 - Subjective Subjective: Medicine progress note ( Dr. Spence's service) Patient was seen and examined at bedside. Patient reports that she is doing well with no complaints. Patient denies any acute complaints and reports improved symptoms. As per nursing, patient had no acute issues overnight. Objective - Vital Signs/Intake and Output Vital Signs (last 24 hours): Temp Pulse Resp BP Pulse Ox 97.4 F L 98 H 18 126/72 96 03/22/18 04:00 03/22/18 04:00 03/22/18 04:00 03/22/18 10:16 03/22/18 04:00 Intake and Output: 03/22/18 03/22/18 06:59 18:59 Intake Total 100 Output Total 350 Balance -250 - Medications Medications: Current Medications Acetylcysteine (Acetylcysteine 20%) 4 ml INH RQ6 [facility] Last Admin: 03/22/18 07:40 Dose: Not Given Albuterol/Ipratropium (Duoneb 3 Mg/0.5 Mg (3 Ml) Ud) 3 ml INH RQ6 [facility] Last Admin: 03/22/18 07:41 Dose: Not Given Apixaban (Eliquis) 5 mg PO BID [facility] Last Admin: 03/22/18 10:15 Dose: 5 mg Aspirin (Aspirin Chewable) 81 mg PO DAILY [facility] Last Admin: 03/22/18 10:04 Dose: 81 mg Carvedilol (Coreg) 6.25 mg PO BID [facility] Last Admin: 03/22/18 10:04 Dose: 6.25 mg Cefpodoxime Proxetil (Vantin) 200 mg PO Q12H [facility] PRN Reason: Protocol Last Admin: 03/22/18 06:01 Dose: 200 mg Magnesium Sulfate/Dextrose (Magnesium Sulfate 1 Gm/100 Ml D5w) 1 gm in 100 mls @ 200 mls/hr IVPB ONCE ONE Stop: 03/22/18 11:46 Insulin Aspart (Novolog) 0 unit SC ACHS [facility] PRN Reason: Protocol Last Admin: 03/22/18 08:28 Dose: 6 unit Lisinopril (Zestril) 2.5 mg PO BID [facility] Last Admin: 03/22/18 10:05 Dose: 2.5 mg Ondansetron HCl (Zofran Inj) 4 mg IVP Q6H PRN PRN Reason: Nausea/Vomiting Last Admin: 03/15/18 15:57 Dose: 4 mg Pantoprazole Sodium (Protonix Ec Tab) 40 mg PO DAILY [facility] Last Admin: 03/22/18 10:04 Dose: 40 mg Spironolactone (Aldactone) 25 mg PO DAILY [facility] Last Admin: 03/22/18 10:04 Dose: 25 mg - Labs Labs: 03/22/18 06:25 03/22/18 06:26 PT 14.8 SECONDS (9.7-12.2) H 03/22/18 06:26 INR 1.3 03/22/18 06:26 APTT 31 SECONDS (21-34) 03/16/18 14:15 - Constitutional Appears: Well, No Acute Distress - Head Exam Head Exam: ATRAUMATIC, NORMAL INSPECTION - Eye Exam Eye Exam: EOMI, Normal appearance - ENT Exam ENT Exam: Mucous Membranes Moist - Respiratory Exam Respiratory Exam: Rhonchi, NORMAL BREATHING PATTERN. absent: Wheezes, Respiratory Distress - Cardiovascular Exam Cardiovascular Exam: REGULAR RHYTHM, +S1, +S2 - GI/Abdominal Exam GI & Abdominal Exam: Soft, Normal Bowel Sounds. absent: Distended, Firm, Guarding, Rigid, Tenderness - Extremities Exam Extremities Exam: absent: Calf Tenderness, Pedal Edema Additional comments: Left leg rash/wound: Dressing is clean, dry and intact by wound care nurse Left foot 2nd toe blackened plantar surface - Neurological Exam Neurological Exam: Alert, Awake, Oriented x3 - Psychiatric Exam Psychiatric exam: Depressed - Skin Skin Exam: Normal Color Assessment and Plan (1) CHF, acute Assessment & Plan: Telegraphic Instrument Supervisor, Dr. Navarro ( Covering partner: Dr. Chin) On admission: BNP; 11,6000 Elevated troponin on admission, now normal Echo (03/16/18): Left ventricle systolic function is moderately impaired. EF (20 -30%). The aortic valve is calcified but opens well. Mitral valve is mildly thickened but open well. The triscuspid valve is normal in structure Medications: * Aldactone 25mg PO daily * Lisinopril 2.5mg PO BID * Coreg 12.5mg PO daily ----> 6.25mg PO BID * ASA 81mg PO daily * Lasix 20mg IV daily (X 4 doses) (03/23-03/27/18) Status: Acute (2) New onset atrial fibrillation Assessment & Plan: with RVR on admission Telegraphic Instrument Supervisor, Dr. Navarro ( Covering partner: Dr. Chin) Medications: * Coreg 12.5mg PO daily -----> Coreg 6.25mg PO BID ( Started 03/22/18) due to noted bradycardia on 12,5mg PO BID DOSE * Lopressor 2.5mg IV once (03/22/18) * ASA 81mg PO daily * Lovenox 70mg SC Q12H ----> Will switch to eliquis 5mg PO BID Status: Acute (3) Rhonchi Assessment & Plan: Duonebs RQ6H with Acetylcysteine 4ml INH Q6H Lasix 20mg IV daily ( X4 Doses) (03/23-03/27/18) Status: Acute (4) Sepsis Assessment & Plan: On admission, resolved Elevated on admission: * Lactate normalized * WBC: Normalized * Afebrile * Blood/urine and stool culture: Negative * Possible aspiration pneumonia Zosyn 3.375gm IV q6h ( D/C 03/20/18) Vantin 200mg PO Q12H ( Started 03/20/18) Status: Acute (5) Transaminitis Assessment & Plan: Downtrending US: Cholelithiasis and GB wall thickening No abdominal pain,US noted MRCP and HIDA scan negative Hepatitis negative Status: Acute (6) Toe necrosis Assessment & Plan: Left 2nd toe General Surgery, Dr. Lynn----> Help appreciated * LE CTA ordered, further management based on CTA results Podiatry, Dr. Maravilla----> Help appreciated * Management as per recommendation Status: Acute (7) Prophylactic measure Assessment & Plan: GI: Protonix 40mg PO daily DVT: Lovenox 70mg SC Q12H ---> Will be switched Eliquis 5mg PO BID PT and OT Disposition: Upon clearance, patient will be discharged to [facility] All plans and management discussed with Dr. Spence Status: Acute <Aubrey Spence - Last Filed: 03/22/18 14:28> Objective - Vital Signs/Intake and Output Vital Signs (last 24 hours): Temp Pulse Resp BP Pulse Ox 97.7 F 115 H 18 126/72 97 03/22/18 08:00 03/22/18 08:00 03/22/18 08:00 03/22/18 10:16 03/22/18 08:00 Intake and Output: 03/22/18 03/22/18 06:59 18:59 Intake Total 100 Output Total 350 Balance -250 - Medications Medications: Current Medications Acetylcysteine (Acetylcysteine 20%) 4 ml INH RQ6 [facility] Last Admin: 03/22/18 13:59 Dose: 4 ml Albuterol/Ipratropium (Duoneb 3 Mg/0.5 Mg (3 Ml) Ud) 3 ml INH RQ6 [facility] Last Admin: 03/22/18 14:00 Dose: 3 ml Apixaban (Eliquis) 5 mg PO BID [facility] Last Admin: 03/22/18 10:15 Dose: 5 mg Aspirin (Aspirin Chewable) 81 mg PO DAILY [facility] Last Admin: 03/22/18 10:04 Dose: 81 mg Carvedilol (Coreg) 6.25 mg PO BID [facility] Last Admin: 03/22/18 10:04 Dose: 6.25 mg Cefpodoxime Proxetil (Vantin) 200 mg PO Q12H [facility] PRN Reason: Protocol Last Admin: 03/22/18 06:01 Dose: 200 mg Insulin Aspart (Novolog) 0 unit SC ACHS [facility] PRN Reason: Protocol Last Admin: 03/22/18 12:25 Dose: 6 unit Lisinopril (Zestril) 2.5 mg PO BID [facility] Last Admin: 03/22/18 10:05 Dose: 2.5 mg Ondansetron HCl (Zofran Inj) 4 mg IVP Q6H PRN PRN Reason: Nausea/Vomiting Last Admin: 03/15/18 15:57 Dose: 4 mg Pantoprazole Sodium (Protonix Ec Tab) 40 mg PO DAILY [facility] Last Admin: 03/22/18 10:04 Dose: 40 mg Spironolactone (Aldactone) 25 mg PO DAILY [facility] Last Admin: 03/22/18 10:04 Dose: 25 mg - Labs Labs: 03/22/18 06:25 03/22/18 06:26 PT 14.8 SECONDS (9.7-12.2) H 03/22/18 06:26 INR 1.3 03/22/18 06:26 APTT 31 SECONDS (21-34) 03/16/18 14:15 Attending/Attestation - Attestation I have personally seen and examined this patient.: Yes I have fully participated in the care of the patient.: Yes I have reviewed all pertinent clinical information, including history, physical exam and plan: Yes Notes (Text): 03/22/18 14:23 Medical attending: Patient was seen and examined by me with the medical screener. Agree with the above note by the resident She was not in any acute distress when we saw her. The patient on telemetry overnight was mostly in the mid 50s. This morning when we saw the HR was rapid in the 120s. The chest CXRAY is suggesting of some pulmonary fluid build up since the previous time. So IV lasix was given. We will get another chest XRAY tommorow. The BP has been in the 120s systolic Also x 1 of lopressor 2.5 IV She is already on oral anticoagulation at this time. thank you Aubrey Spence 03/22/18 14:27
--- NOTE | 2018-03-22 14:44 | CP.PCM.PN ---
Subjective - Date & Time of Evaluation Date of Evaluation: 03/22/18 Time of Evaluation: 07:45 Objective - Vital Signs/Intake and Output Vital Signs (last 24 hours): Temp Pulse Resp BP Pulse Ox 97.7 F 117 H 18 126/72 97 03/22/18 08:00 03/22/18 08:00 03/22/18 08:00 03/22/18 10:16 03/22/18 08:00 Intake and Output: 03/22/18 03/22/18 06:59 18:59 Intake Total 100 Output Total 350 Balance -250 - Medications Medications: Current Medications Acetylcysteine (Acetylcysteine 20%) 4 ml INH RQ6 [facility] Last Admin: 03/22/18 13:59 Dose: 4 ml Albuterol/Ipratropium (Duoneb 3 Mg/0.5 Mg (3 Ml) Ud) 3 ml INH RQ6 [facility] Last Admin: 03/22/18 14:00 Dose: 3 ml Apixaban (Eliquis) 5 mg PO BID [facility] Last Admin: 03/22/18 10:15 Dose: 5 mg Aspirin (Aspirin Chewable) 81 mg PO DAILY [facility] Last Admin: 03/22/18 10:04 Dose: 81 mg Carvedilol (Coreg) 6.25 mg PO BID [facility] Last Admin: 03/22/18 10:04 Dose: 6.25 mg Cefpodoxime Proxetil (Vantin) 200 mg PO Q12H [facility] PRN Reason: Protocol Last Admin: 03/22/18 06:01 Dose: 200 mg Insulin Aspart (Novolog) 0 unit SC ACHS [facility] PRN Reason: Protocol Last Admin: 03/22/18 12:25 Dose: 6 unit Lisinopril (Zestril) 2.5 mg PO BID [facility] Last Admin: 03/22/18 10:05 Dose: 2.5 mg Ondansetron HCl (Zofran Inj) 4 mg IVP Q6H PRN PRN Reason: Nausea/Vomiting Last Admin: 03/15/18 15:57 Dose: 4 mg Pantoprazole Sodium (Protonix Ec Tab) 40 mg PO DAILY [facility] Last Admin: 03/22/18 10:04 Dose: 40 mg Spironolactone (Aldactone) 25 mg PO DAILY [facility] Last Admin: 03/22/18 10:04 Dose: 25 mg - Labs Labs: 03/22/18 06:25 03/22/18 06:26 PT 14.8 SECONDS (9.7-12.2) H 03/22/18 06:26 INR 1.3 03/22/18 06:26 APTT 31 SECONDS (21-34) 03/16/18 14:15 Assessment and Plan (1) CHF, acute Status: Acute (2) New onset atrial fibrillation Status: Acute (3) Rhonchi Status: Acute (4) Sepsis Status: Acute (5) Transaminitis Status: Acute (6) Toe necrosis Status: Acute (7) Prophylactic measure Status: Acute
[2018-03-22] MEDS ORDERED: Iodixanol 320 mg/ml 150 ml Bottle IV ONE (15:00)
[2018-03-23] MEDS: Albuterol-Ipratrop 3 mg / 0.5 (3 ml) UD INH SCH ×3 (01:47→13:00)
[2018-03-23] MEDS: Cefpodoxime (Vantin) 200 mg Tab PO SCH ×2 (06:09→18:30)
[2018-03-23 06:22] LABS: BASO % 0.5 % (0.0-2.0); EOS # 0.1 K/uL (0.0-0.7); EOS % 0.7 % (0.0-4.0); HEMOGLOBIN 13.7 g/dL (11.0-16.0); LYMPH # 0.9 K/uL (1.0-4.3); LYMPH % 11.6 % (20.0-40.0); MEAN CORPUSCULAR HEMOGLOBIN 31.1 pg (27.0-31.0); MEAN CORPUSCULAR HGB CONC 33.8 g/dL (33.0-37.0); MEAN PLATELET VOLUME 7.4 fL (7.2-11.7); MONO # 0.8 K/uL (0.0-0.8); MONO % 10.4 % (0.0-10.0); NEUT # 5.7 K/uL (1.8-7.0); NEUT % 76.8 % (50.0-75.0); NRBC % 0.1 % (0.0-2.0); RBC 4.4 Mil/uL (3.80-5.20); RED CELL DISTRIBUTION WIDTH 15.2 % (11.5-14.5); WHITE BLOOD COUNT 7.4 K/uL (4.8-10.8)
[2018-03-23 06:42] LABS: ALBUMIN 2.6 g/dL (3.5-5.0); ALT/SGPT 43 U/L (9-52); AST/SGOT 34 U/L (14-36); BLOOD UREA NITROGEN 29 mg/dL (7-17); CALCIUM 8.5 mg/dl (8.6-10.4); GFR AFRICAN-AMERICAN > 60; GFR NON-AFRICAN AMERICAN > 60
--- NOTE | 2018-03-23 07:43 | CP.PCM.PN ---
Subjective - Date & Time of Evaluation Date of Evaluation: 03/23/18 Time of Evaluation: 07:40 - Subjective Subjective: PGY-1 surgery progress note for Dr Lynn. No acute events noted overnight. Patient in rapid AFib. She did not offer any complaints. She denied LE pain. Stated her breathing had improved. Denied chest pain. Objective - Vital Signs/Intake and Output Vital Signs (last 24 hours): Temp Pulse Resp BP Pulse Ox 98 F 106 H 18 106/85 96 03/23/18 04:00 03/23/18 04:00 03/23/18 04:00 03/23/18 04:00 03/23/18 04:00 Intake and Output: 03/23/18 03/23/18 06:59 18:59 Intake Total 100 Output Total 1 Balance 99 - Medications Medications: Current Medications Albuterol/Ipratropium (Duoneb 3 Mg/0.5 Mg (3 Ml) Ud) 3 ml INH RQ6 [facility] Last Admin: 03/23/18 01:47 Dose: 3 ml Apixaban (Eliquis) 5 mg PO BID [facility] Last Admin: 03/22/18 18:24 Dose: 5 mg Aspirin (Aspirin Chewable) 81 mg PO DAILY [facility] Last Admin: 03/22/18 10:04 Dose: 81 mg Carvedilol (Coreg) 6.25 mg PO BID [facility] Last Admin: 03/22/18 18:24 Dose: 6.25 mg Cefpodoxime Proxetil (Vantin) 200 mg PO Q12H [facility] PRN Reason: Protocol Last Admin: 03/23/18 06:09 Dose: 200 mg Insulin Aspart (Novolog) 0 unit SC ACHS [facility] PRN Reason: Protocol Last Admin: 03/22/18 21:28 Dose: Not Given Lisinopril (Zestril) 2.5 mg PO BID [facility] Last Admin: 03/22/18 18:24 Dose: 2.5 mg Ondansetron HCl (Zofran Inj) 4 mg IVP Q6H PRN PRN Reason: Nausea/Vomiting Last Admin: 03/15/18 15:57 Dose: 4 mg Pantoprazole Sodium (Protonix Ec Tab) 40 mg PO DAILY [facility] Last Admin: 03/22/18 10:04 Dose: 40 mg Spironolactone (Aldactone) 25 mg PO DAILY [facility] Last Admin: 03/22/18 10:04 Dose: 25 mg - Labs Labs: 03/23/18 06:16 03/23/18 06:17 PT 14.8 SECONDS (9.7-12.2) H 03/22/18 06:26 INR 1.3 03/22/18 06:26 APTT 31 SECONDS (21-34) 03/16/18 14:15 - Additional Findings Additional findings: - Constitutional Appears: Chronically Ill - Head Exam Head Exam: ATRAUMATIC, NORMOCEPHALIC - Eye Exam Eye Exam: EOMI, Normal appearance - ENT Exam ENT Exam: Mucous Membranes Dry - Respiratory Exam Respiratory Exam: NORMAL BREATHING PATTERN. absent: Respiratory Distress - Cardiovascular Exam Cardiovascular Exam: REGULAR RHYTHM. absent: Tachycardia - GI/Abdominal Exam GI & Abdominal Exam: Soft. absent: Distended, Tenderness - Extremities Exam Extremities exam: Positive for: pedal edema Additional comments: LLE with blisters, ruptured 2+ edema, pulse signal appreciated on Left PT LE warm to touch bilaterally - Neurological Exam Additional comments: Awake and alert, will not appropriately answer questions Assessment and Plan - Assessment and Plan (Free Text) Assessment: 72 y/o female w/ LE edema, blistering, and 2nd toe wound Plan: -r/o PVD disease -CTA ordered of LE, official results still pending -cont local wound care with xeroform and kerlix -Leg elevation -pending CTA results to determine further surgical intervention however based on CTA unofficial read by surgical physician assistant team - no surgical intervention is most likely the plan. -d/w Dr. Lynn
--- NOTE | 2018-03-23 08:13 | RAD ---
HISTORY: eval CHF COMPARISON: 03/21/2018 FINDINGS: LUNGS: Right perihilar opacity, unchanged. Linear scar/atelectasis mid left lung, unchanged. PLEURA: Small moderate right pleural effusion, unchanged. CARDIOVASCULAR: Congestive change. Cardiomegaly. Prominence of the main pulmonary artery. Possible pulmonary arterial hypertension. OSSEOUS STRUCTURES: No significant abnormalities. VISUALIZED UPPER ABDOMEN: Normal. OTHER FINDINGS: None. IMPRESSION: Increasing congestive change. Slight increased right pleural effusion. Right perihilar opacity, unchanged. Possible pulmonary edema.
[2018-03-23] MEDS: (Novolin R) Insulin Human Regular 100 units/ml vial SC SCH ×3 (08:20→17:20)
[2018-03-23] MEDS: Magnesium Sulfate 1 gm in D5W 1 GM/100 ML BAG IVPB SCH ×2 (08:21→09:23)
[2018-03-23] MEDS: Pantoprazole 40 mg EC Tab PO SCH (11:05)
--- NOTE | 2018-03-23 11:40 | CT ---
PROCEDURE: CT Angiography Abdomen, Pelvis and Lower Extremity with Contrast HISTORY: left toe wound COMPARISON: None. TECHNIQUE: Technique: CT angiography of the abdomen, pelvis and bilateral lower extremities performed in the arterial phase of enhancement. Coronal and sagittal reformats, and well as rotating MIP images of the vessels generated at the workstation. Intravenous contrast dose: 150 MILLILITERS VISIPAQUE 320 Radiation dose: Total exam DLP = 2776.74 MGy-cm. This CT exam was performed using one or more of the following dose reduction techniques: Automated exposure control, adjustment of the mA and/or kV according to patient size, and/or use of iterative reconstruction technique. FINDINGS: CT ANGIOGRAPHY: ABDOMINAL AORTA:: Slightly ectatic but otherwise unremarkable MAJOR AORTIC BRANCHES: Celiac [place]: Unremarkable. Superior mesenteric artery: Unremarkable. Inferior mesenteric artery: Unremarkable. Renal arteries: Unremarkable. PELVIC ARTERIES: Right Common Iliac: Unremarkable. Right External Iliac: Unremarkable. Right Internal Iliac: Unremarkable. Left Common Iliac: Unremarkable. Left External Iliac: Unremarkable. Left Internal Iliac: Unremarkable. RIGHT LOWER EXTREMITY ARTERIES: Right Common Femoral: Unremarkable. Right Superficial Femoral: Unremarkable. Right Profunda Femoris: Unremarkable. Right Popliteal:Unremarkable. Right Anterior Tibial: Unremarkable. Right Tibioperoneal Trunk: Unremarkable. Right Posterior Tibial: Unremarkable. Right Peroneal: Unremarkable. Right dorsalis pedis : Unremarkable. LEFT LOWER EXTREMITY ARTERIES: Left Common Femoral: Unremarkable. Left Superficial Femoral: Unremarkable. Left Profunda Femoris: Unremarkable. Left Popliteal: Unremarkable. Left Anterior Tibial: Unremarkable. Left Tibioperoneal Trunk: Unremarkable. Left Posterior Tibial: Unremarkable. Left Peronea: Unremarkable. Left Dorsalis pedis: Unremarkable. NON-ANGIOGRAPHIC ASPECT OF THE EXAM: LOWER THORAX: Atelectasis right and left lower lungs. Otherwise the visualized lungs are normal. LIVER: Hypodense otherwise unremarkable. GALLBLADDER AND BILE DUCTS: Unremarkable. PANCREAS: Unremarkable. No gross lesion or ductal dilatation. SPLEEN: Unremarkable. ADRENALS: Unremarkable. No mass. KIDNEYS AND URETERS: Bilateral renal cysts. The largest renal cyst and left measures 6 centimeters. STOMACH AND BOWEL: Very limited evaluation without PO contrast. No obvious mass. APPENDIX: PERITONEUM: Unremarkable. No free fluid. No free air. LYMPH NODES: Unremarkable. No enlarged lymph nodes. BLADDER: Unremarkable. REPRODUCTIVE: Unremarkable. BONES: Severe degenerative changes in the spine. OTHER FINDINGS: None. IMPRESSION: Essentially unremarkable CT angiogram of the abdomen pelvis and right and left lower extremities. There is no significant peripheral disease. There is three-vessel runoff in both right and left lower extremities. Lateral plantar and dorsalis pedis artery patent.
[2018-03-23 16:19] VITALS: PULSE 92; RESP 22; TEMP 97.4; O2SAT 97
[2018-03-23 18:32] VITALS: BP 141/75
--- NOTE | 2018-03-23 18:36 | PCM.HF ---
Heart Failure Core Measure - Heart Failure Ejection Fraction: Less Than 40 % Left Ventricular Function to be assessed after discharge: Yes MOISE Inhibitor Prescribed: Yes Beta-Sobia Prescribed: Metoprolol Succinate AnticoagulationTherapy for Atrial Fibrillation/Atrialflutter: Yes Aldosterone Antagonist Prescribed: Yes - Follow up Will be discharged to: Longterm Facility
--- NOTE | 2018-03-23 18:56 | CP.PCM.DIS ---
<AbranCarisaamber Cardenas - Last Filed: 03/23/18 18:58> Provider - Provider Date of Admission: 03/15/18 11:18 Attending physician: Patrica Epperson MD Time Spent in preparation of Discharge (in minutes): 35 Diagnosis - Discharge Diagnosis (1) CHF, acute Status: Acute (2) New onset atrial fibrillation Status: Acute (3) Rhonchi Status: Acute (4) Sepsis Status: Acute (5) Transaminitis Status: Acute (6) Toe necrosis Status: Acute (7) Prophylactic measure Status: Acute Hospital Course - Lab Results Lab Results: Micro Results 03/15/18 08:48 Blood Blood Culture - Final NO GROWTH AFTER 5 DAYS 03/15/18 08:48 Blood Gram Stain - Final TEST NOT PERFORMED 03/15/18 08:20 Blood Blood Culture - Final NO GROWTH AFTER 5 DAYS 03/15/18 08:20 Blood Gram Stain - Final TEST NOT PERFORMED 03/18/18 11:37 Urine,Catheterized Urine Culture - Final No Growth (<1,000 CFU/ML) 03/15/18 17:29 Stool Ova and Parasite Concentrate Exam - Final 03/15/18 15:55 Stool Stool Culture - Final NO SALMONELLA, SHIGELLA OR CAMPYLOBACTER ISOLATED. 03/15/18 11:41 Nose MRSA Culture (Admit) - Final MRSA NOT DETECTED 03/15/18 08:18 Urine,Diop Urine Culture - Final No Growth (<1,000 CFU/ML) Most Recent Lab Values WBC 7.4 K/uL (4.8-10.8) 03/23/18 06:16 RBC 4.40 Mil/uL (3.80-5.20) 03/23/18 06:16 Hgb 13.7 g/dL (11.0-16.0) 03/23/18 06:16 Hct 40.5 % (34.0-47.0) 03/23/18 06:16 MCV 92.0 fL (81.0-99.0) 03/23/18 06:16 MCH 31.1 pg (27.0-31.0) H 03/23/18 06:16 MCHC 33.8 g/dL (33.0-37.0) 03/23/18 06:16 RDW 15.2 % (11.5-14.5) H 03/23/18 06:16 Plt Count 175 K/uL (130-400) 03/23/18 06:16 MPV 7.4 fL (7.2-11.7) 03/23/18 06:16 Neut % (Auto) 76.8 % (50.0-75.0) H 03/23/18 06:16 Lymph % (Auto) 11.6 % (20.0-40.0) L 03/23/18 06:16 Mitchell % (Auto) 10.4 % (0.0-10.0) H 03/23/18 06:16 Eos % (Auto) 0.7 % (0.0-4.0) 03/23/18 06:16 Baso % (Auto) 0.5 % (0.0-2.0) 03/23/18 06:16 Neut # (Auto) 5.7 K/uL (1.8-7.0) 03/23/18 06:16 Lymph # (Auto) 0.9 K/uL (1.0-4.3) L 03/23/18 06:16 Mitchell # (Auto) 0.8 K/uL (0.0-0.8) 03/23/18 06:16 Eos # (Auto) 0.1 K/uL (0.0-0.7) 03/23/18 06:16 Baso # (Auto) 0.0 K/uL (0.0-0.2) 03/23/18 06:16 Neutrophils % (Manual) 77 % (50-75) H 03/21/18 06:44 Band Neutrophils % 4 % (0-2) H 03/18/18 06:21 Lymphocytes % (Manual) 13 % (20-40) L 03/21/18 06:44 Reactive Lymphs % 1 % (0-0) H 03/17/18 05:48 Monocytes % (Manual) 5 % (0-10) 03/21/18 06:44 Eosinophils % (Manual) 5 % (0-4) H 03/21/18 06:44 Platelet Estimate Normal (NORMAL) 03/21/18 06:44 Large Platelets Present 03/18/18 06:21 RBC Morphology Normal 03/21/18 06:44 Polychromasia Slight 03/18/18 06:21 Anisocytosis (manual) Slight 03/19/18 06:20 Macrocytosis (manual) Slight 03/18/18 06:21 [place] Cells Slight 03/19/18 06:20 ESR 1 mm/hr (0-20) 03/16/18 06:28 PT 14.8 SECONDS (9.7-12.2) H 03/22/18 06:26 INR 1.3 03/22/18 06:26 APTT 31 SECONDS (21-34) 03/16/18 14:15 Puncture Site Rra 03/15/18 20:14 pCO2 26 mm/Hg (35-45) L 03/15/18 20:14 pO2 178 mm/Hg (80-100) H 03/15/18 20:14 HCO3 22.0 mmol/L (21-28) 03/15/18 20:14 ABG pH 7.46 (7.35-7.45) H 03/15/18 20:14 ABG Total CO2 19.3 mmol/L (22-28) L 03/15/18 20:14 ABG O2 Saturation 99.7 % (95-98) H 03/15/18 20:14 ABG Base Excess -3.7 mmol/L (-2.0-3.0) L 03/15/18 20:14 ABG Hemoglobin 14.2 g/dL (11.7-17.4) 03/15/18 20:14 ABG Carboxyhemoglobin 1.4 % (0.5-1.5) 03/15/18 20:14 POC ABG HHb (Measured) 0.3 % (0.0-5.0) 03/15/18 20:14 ABG Methemoglobin 0.9 % (0.0-3.0) 03/15/18 20:14 Miguel Angel Test Na 03/15/18 20:14 VBG pH 7.38 (7.32-7.43) 03/15/18 11:50 VBG pCO2 41 mmHg (40-60) 03/15/18 11:50 VBG HCO3 22.8 mmol/L 03/15/18 11:50 VBG Total CO2 25.6 mmol/L (22-28) 03/15/18 11:50 VBG O2 Sat (Calc) 31.9 % (40-65) L 03/15/18 11:50 VBG Base Excess -0.8 mmol/L (0.0-2.0) L 03/15/18 11:50 VBG Potassium 3.1 mmol/L (3.6-5.2) L 03/15/18 11:50 A-a O2 Difference 146.0 mm/Hg 03/15/18 20:14 Respiratory Index 0.8 03/15/18 20:14 Hgb O2 Saturation 97.4 % (95.0-98.0) 03/15/18 20:14 Sodium 133.0 mmol/l (132-148) 03/15/18 11:50 Chloride 93.0 mmol/L (98-107) L 03/15/18 11:50 Glucose 94 mg/dl (65-105) 03/15/18 11:50 Lactate 3.5 mmol/L (0.7-2.1) H 03/15/18 11:50 Vent Mode Bipap 03/15/18 20:14 FiO2 50.0 % 03/15/18 20:14 Inspiratory BiPAP 10 03/15/18 20:14 Expiratory BiPAP 5 03/15/18 20:14 Crit Value Called To Dr austin 03/15/18 08:32 Crit Value Called By Mynor jung rcp 03/15/18 08:32 Crit Value Read Back Y 03/15/18 08:32 Blood Gas Notified Time 840 03/15/18 08:32 Sodium 130 mmol/L (132-148) L 03/23/18 06:17 Potassium 4.1 mmol/L (3.6-5.2) 03/23/18 06:17 Chloride 96 mmol/L (98-107) L 03/23/18 06:17 Carbon Dioxide 26 mmol/L (22-30) 03/23/18 06:17 Anion Gap 12 (10-20) 03/23/18 06:17 BUN 29 mg/dL (7-17) H 03/23/18 06:17 Creatinine 0.7 mg/dL (0.7-1.2) 03/23/18 06:17 Est GFR ( Amer) > 60 03/23/18 06:17 Est GFR (Non-Af Amer) > 60 03/23/18 06:17 POC Glucose (mg/dL) 325 mg/dL (65-110) H 03/23/18 16:01 Random Glucose 207 mg/dL (65-105) H 03/23/18 06:17 Hemoglobin A1c 7.0 % (4.2-6.5) H 03/16/18 06:28 Lactic Acid 2.0 mmol/L (0.7-2.1) 03/15/18 22:38 Calcium 8.5 mg/dl (8.6-10.4) L 03/23/18 06:17 Phosphorus 2.9 mg/dL (2.5-4.5) 03/23/18 06:17 Magnesium 1.5 mg/dL (1.6-2.3) L 03/23/18 06:17 Total Bilirubin 0.9 mg/dL (0.2-1.3) 03/23/18 06:17 Direct Bilirubin 0.9 mg/dL (0.0-0.4) H 03/17/18 05:49 AST 34 U/L (14-36) 03/23/18 06:17 ALT 43 U/L (9-52) 03/23/18 06:17 Alkaline Phosphatase 150 U/L (38-126) H 03/23/18 06:17 Troponin I 0.1080 ng/mL (0.00-0.120) 03/16/18 14:15 NT-Pro-B Natriuret Pep 34220 pg/mL (0-900) H 03/15/18 08:28 Total Protein 5.1 g/dL (6.3-8.3) L 03/23/18 06:17 Albumin 2.6 g/dL (3.5-5.0) L 03/23/18 06:17 Globulin 2.6 gm/dL (2.2-3.9) 03/23/18 06:17 Albumin/Globulin Ratio 1.0 (1.0-2.1) 03/23/18 06:17 Free T4 2.36 ng/dL (0.78-2.19) H 03/15/18 17:13 TSH 3rd Generation 3.05 mIU/L (0.46-4.68) 03/15/18 17:13 Venous Blood Potassium 3.1 mmol/L (3.6-5.2) L 03/15/18 11:50 Urine Color Amparo (YELLOW) 03/18/18 14:28 Urine Clarity Hazy (Clear) 03/18/18 14:28 Urine pH 5.0 (5.0-8.0) 03/18/18 14:28 Ur Specific Weiser 1.035 (1.003-1.030) H 03/18/18 14:28 Urine Protein 1+ mg/dL (NEGATIVE) H 03/18/18 14:28 Urine Glucose (UA) 1+ mg/dL (Normal) 03/18/18 14:28 Urine Ketones Negative mg/dL (NEGATIVE) 03/18/18 14:28 Urine Blood Negative (NEGATIVE) 03/18/18 14:28 Urine Nitrate Negative (NEGATIVE) 03/18/18 14:28 Urine Bilirubin Negative (NEGATIVE) 03/18/18 14:28 Urine Urobilinogen Normal mg/dL (0.2-1.0) 03/18/18 14:28 Ur Leukocyte Esterase Neg Jaylene/uL (Negative) 03/18/18 14:28 Urine WBC (Auto) 4 /hpf (0-5) 03/18/18 14:28 Urine RBC (Auto) 5 /hpf (0-3) H 03/18/18 14:28 Ur Squamous Epith Cells 7 /hpf (0-5) H 03/18/18 14:28 Hyaline Casts 0-2 /lpf (0-2) 03/18/18 14:28 Vancomycin Trough 18.0 ug/mL (5.0-10.0) H 03/17/18 05:49 C. difficile Ag & Toxin Negative (NEGATIVE) 03/15/18 15:30 Hepatitis A IgM Ab Negative (NEGATIVE) 03/17/18 05:49 Hep Bs Antigen Negative (NEGATIVE) 03/17/18 05:49 Hep B Core IgM Ab Negative (NEGATIVE) 03/17/18 05:49 Hepatitis C Antibody Negative (NEGATIVE) 03/17/18 05:49 - Hospital Course Hospital Course: HPI (As per admission): This is a 72 year old female with PMHx HTN, DM, RA who presented complaining of chest pain. This began this morning and has been intermittent since then. Patient did not have any pain by the time of encounter. Patient also complaining of multiple days of diarrhea, generalized weakness, and decreased appetite. When questioned, the patient stated that at the moment she felt fine and had no complaints aside from leg pain. Per family, patient's legs have been swollen but they did not notice the rash on the left leg until this morning. Hospital Course: Patient was admitted with the diagnosis of sepsis secondary to possible aspiration pneumonia and new onset of Atrial Fibrillation. Infectious disease, Dr. Galeano was consulted, who recommended appropriate antibiotics. In addition , patient was noted to have acute CHF, therefore, she was diuresed appropriately. [facility] Cutter, Dr. Navarro was consulted, who was then covered by his partner, Dr. Chin, who recommended appropriate medication for patient's new onset of atrial fibrillation. Podiatry, Dr. Maravilla and Vascular surgery, Dr. Lynn was consulted for noted left 2nd toe discoloration, no surgical intervention was recommended and podiatry team made appropriate conservative management. GI, Dr. Leo was consulted for noted transaminits, who recommended no intervention at the time due to No abdominal pain, MRCP and HIDA scan negative. Over the course of admission, patient remained quite stable and had medication reconciliation for Atrial fibrillation due to noted intermittent bradycardia and tachycardia. Patient was discharged to [facility] with appropriate medications and instructions. Pertinent imaging/ Labs Elevated troponin on admission, now normal and On admission: BNP; 11,6000 Echo (03/16/18): Left ventricle systolic function is moderately impaired. EF (20 -30%). The aortic valve is calcified but opens well. Mitral valve is mildly thickened but open well. The triscuspid valve is normal in structure Abdominal US: Cholelithiasis with borderline gallbladder wall thickening. Clinical correlation is needed. Mild biliary ductal dilatation. Chest CT: No evidence of pulmonary embolism. Small right pleural effusion and trace left pleural effusion. Multifocal linear subsegmental atelectasis. No acute infiltrate. Cardiomegaly. Dilated main pulmonary artery Chest X-ray: Left retrocardiac opacity may represent atelectasis or pneumonia.Small pleural effusions, larger on the left. Persistent cardiomegaly and dilated right pulmonary artery. Blood/urine and stool culture: Negative This is a brief summary of events. For a complete course, please refer to the medical records. Discharge Exam - Head Exam Head Exam: ATRAUMATIC, NORMAL INSPECTION - Eye Exam Eye Exam: EOMI - ENT Exam ENT Exam: Mucous Membranes Moist - Respiratory Exam Respiratory Exam: NORMAL BREATHING PATTERN Additional comments: Mild rales - GI/Abdominal Exam GI & Abdominal Exam: Normal Bowel Sounds, Soft. absent: Tenderness - Extremities Exam Additional comments: Left leg blisters and left 2nd toe discoloration, dressing is clean, dry and intact - Neurological Exam Neurological exam: Alert - Psychiatric Exam Psychiatric exam: Normal Affect - Skin Skin Exam: Normal Color Discharge Plan - Discharge Medications Prescriptions: Furosemide [Lasix] 40 mg PO DAILY 5 Days udc - Follow Up Plan Condition: SERIOUS Disposition: Trans to Other Acute Care Hosp Instructions: Atrial Fibrillation (DC), Heart Failure, Adult (DC) Additional Instructions: Please discharge patient to [facility] Please give lasix IV 20mg for 5 days Please resume all home medications Please follow up with Dr. Navarro, [facility] for medical reconciliation for atrial fibrillation Please follow up with your primary care physician upon discharge Please follow up with podiatry outpatient for left foot blister and left 2nd toe discoloration. As per podiatry, patient to keep offloading boots on at all times while in bed and patient to elevate her LE as much as possible Please follow up with Rheumatology for medication reconciliation for RA Please continue aggressive physical therapy and occupational therapy Please return to the hospital if symptoms resumes Please take care <Aubrey Spence H - Last Filed: 03/24/18 07:44> Provider - Provider Date of Admission: 03/15/18 11:18 Attending physician: Patrica Epperson MD Hospital Course - Lab Results Lab Results: Micro Results 03/15/18 08:48 Blood Blood Culture - Final NO GROWTH AFTER 5 DAYS 03/15/18 08:48 Blood Gram Stain - Final TEST NOT PERFORMED 03/15/18 08:20 Blood Blood Culture - Final NO GROWTH AFTER 5 DAYS 03/15/18 08:20 Blood Gram Stain - Final TEST NOT PERFORMED 03/18/18 11:37 Urine,Catheterized Urine Culture - Final No Growth (<1,000 CFU/ML) 03/15/18 17:29 Stool Ova and Parasite Concentrate Exam - Final 03/15/18 15:55 Stool Stool Culture - Final NO SALMONELLA, SHIGELLA OR CAMPYLOBACTER ISOLATED. 03/15/18 11:41 Nose MRSA Culture (Admit) - Final MRSA NOT DETECTED 03/15/18 08:18 Urine,Diop Urine Culture - Final No Growth (<1,000 CFU/ML) Most Recent Lab Values WBC 7.4 K/uL (4.8-10.8) 05/03/18 06:16 RBC 4.40 Mil/uL (3.80-5.20) 03/23/18 06:16 Hgb 13.7 g/dL (11.0-16.0) 03/23/18 06:16 Hct 40.5 % (34.0-47.0) 03/23/18 06:16 MCV 92.0 fL (81.0-99.0) 03/23/18 06:16 MCH 31.1 pg (27.0-31.0) H 03/23/18 06:16 MCHC 33.8 g/dL (33.0-37.0) 03/23/18 06:16 RDW 15.2 % (11.5-14.5) H 03/23/18 06:16 Plt Count 175 K/uL (130-400) 03/23/18 06:16 MPV 7.4 fL (7.2-11.7) 03/23/18 06:16 Neut % (Auto) 76.8 % (50.0-75.0) H 03/23/18 06:16 Lymph % (Auto) 11.6 % (20.0-40.0) L 03/23/18 06:16 Mitchell % (Auto) 10.4 % (0.0-10.0) H 03/23/18 06:16 Eos % (Auto) 0.7 % (0.0-4.0) 03/23/18 06:16 Baso % (Auto) 0.5 % (0.0-2.0) 03/23/18 06:16 Neut # (Auto) 5.7 K/uL (1.8-7.0) 03/23/18 06:16 Lymph # (Auto) 0.9 K/uL (1.0-4.3) L 03/23/18 06:16 Mitchell # (Auto) 0.8 K/uL (0.0-0.8) 03/23/18 06:16 Eos # (Auto) 0.1 K/uL (0.0-0.7) 03/23/18 06:16 Baso # (Auto) 0.0 K/uL (0.0-0.2) 03/23/18 06:16 Neutrophils % (Manual) 77 % (50-75) H 03/21/18 06:44 Band Neutrophils % 4 % (0-2) H 03/18/18 06:21 Lymphocytes % (Manual) 13 % (20-40) L 03/21/18 06:44 Reactive Lymphs % 1 % (0-0) H 03/17/18 05:48 Monocytes % (Manual) 5 % (0-10) 03/21/18 06:44 Eosinophils % (Manual) 5 % (0-4) H 03/21/18 06:44 Platelet Estimate Normal (NORMAL) 03/21/18 06:44 Large Platelets Present 03/18/18 06:21 RBC Morphology Normal 03/21/18 06:44 Polychromasia Slight 03/18/18 06:21 Anisocytosis (manual) Slight 03/19/18 06:20 Macrocytosis (manual) Slight 03/18/18 06:21 [place] Cells Slight 03/19/18 06:20 ESR 1 mm/hr (0-20) 03/16/18 06:28 PT 14.8 SECONDS (9.7-12.2) H 03/22/18 06:26 INR 1.3 03/22/18 06:26 APTT 31 SECONDS (21-34) 03/16/18 14:15 Puncture Site Rra 03/15/18 20:14 pCO2 26 mm/Hg (35-45) L 03/15/18 20:14 pO2 178 mm/Hg (80-100) H 03/15/18 20:14 HCO3 22.0 mmol/L (21-28) 03/15/18 20:14 ABG pH 7.46 (7.35-7.45) H 03/15/18 20:14 ABG Total CO2 19.3 mmol/L (22-28) L 03/15/18 20:14 ABG O2 Saturation 99.7 % (95-98) H 03/15/18 20:14 ABG Base Excess -3.7 mmol/L (-2.0-3.0) L 03/15/18 20:14 ABG Hemoglobin 14.2 g/dL (11.7-17.4) 03/15/18 20:14 ABG Carboxyhemoglobin 1.4 % (0.5-1.5) 03/15/18 20:14 POC ABG HHb (Measured) 0.3 % (0.0-5.0) 03/15/18 20:14 ABG Methemoglobin 0.9 % (0.0-3.0) 03/15/18 20:14 Miguel Angel Test Na 03/15/18 20:14 VBG pH 7.38 (7.32-7.43) 03/15/18 11:50 VBG pCO2 41 mmHg (40-60) 03/15/18 11:50 VBG HCO3 22.8 mmol/L 03/15/18 11:50 VBG Total CO2 25.6 mmol/L (22-28) 03/15/18 11:50 VBG O2 Sat (Calc) 31.9 % (40-65) L 03/15/18 11:50 VBG Base Excess -0.8 mmol/L (0.0-2.0) L 03/15/18 11:50 VBG Potassium 3.1 mmol/L (3.6-5.2) L 03/15/18 11:50 A-a O2 Difference 146.0 mm/Hg 03/15/18 20:14 Respiratory Index 0.8 03/15/18 20:14 Hgb O2 Saturation 97.4 % (95.0-98.0) 03/15/18 20:14 Sodium 133.0 mmol/l (132-148) 03/15/18 11:50 Chloride 93.0 mmol/L (98-107) L 03/15/18 11:50 Glucose 94 mg/dl (65-105) 03/15/18 11:50 Lactate 3.5 mmol/L (0.7-2.1) H 03/15/18 11:50 Vent Mode Bipap 03/15/18 20:14 FiO2 50.0 % 03/15/18 20:14 Inspiratory BiPAP 10 03/15/18 20:14 Expiratory BiPAP 5 03/15/18 20:14 Crit Value Called To Dr austin 03/15/18 08:32 Crit Value Called By Mynor jung [facility] 03/15/18 08:32 Crit Value Read Back Y 03/15/18 08:32 Blood Gas Notified Time 840 03/15/18 08:32 Sodium 130 mmol/L (132-148) L 03/23/18 06:17 Potassium 4.1 mmol/L (3.6-5.2) 03/23/18 06:17 Chloride 96 mmol/L (98-107) L 03/23/18 06:17 Carbon Dioxide 26 mmol/L (22-30) 03/23/18 06:17 Anion Gap 12 (10-20) 03/23/18 06:17 BUN 29 mg/dL (7-17) H 03/23/18 06:17 Creatinine 0.7 mg/dL (0.7-1.2) 03/23/18 06:17 Est GFR ( Amer) > 60 03/23/18 06:17 Est GFR (Non-Af Amer) > 60 03/23/18 06:17 POC Glucose (mg/dL) 325 mg/dL (65-110) H 03/23/18 16:01 Random Glucose 207 mg/dL (65-105) H 03/23/18 06:17 Hemoglobin A1c 7.0 % (4.2-6.5) H 03/16/18 06:28 Lactic Acid 2.0 mmol/L (0.7-2.1) 03/15/18 22:38 Calcium 8.5 mg/dl (8.6-10.4) L 03/23/18 06:17 Phosphorus 2.9 mg/dL (2.5-4.5) 03/23/18 06:17 Magnesium 1.5 mg/dL (1.6-2.3) L 03/23/18 06:17 Total Bilirubin 0.9 mg/dL (0.2-1.3) 03/23/18 06:17 Direct Bilirubin 0.9 mg/dL (0.0-0.4) H 03/17/18 05:49 AST 34 U/L (14-36) 03/23/18 06:17 ALT 43 U/L (9-52) 03/23/18 06:17 Alkaline Phosphatase 150 U/L (38-126) H 03/23/18 06:17 Troponin I 0.1080 ng/mL (0.00-0.120) 03/16/18 14:15 NT-Pro-B Natriuret Pep 89285 pg/mL (0-900) H 03/15/18 08:28 Total Protein 5.1 g/dL (6.3-8.3) L 03/23/18 06:17 Albumin 2.6 g/dL (3.5-5.0) L 03/23/18 06:17 Globulin 2.6 gm/dL (2.2-3.9) 03/23/18 06:17 Albumin/Globulin Ratio 1.0 (1.0-2.1) 03/23/18 06:17 Free T4 2.36 ng/dL (0.78-2.19) H 03/15/18 17:13 TSH 3rd Generation 3.05 mIU/L (0.46-4.68) 03/15/18 17:13 Venous Blood Potassium 3.1 mmol/L (3.6-5.2) L 03/15/18 11:50 Urine Color Amparo (YELLOW) 03/18/18 14:28 Urine Clarity Hazy (Clear) 03/18/18 14:28 Urine pH 5.0 (5.0-8.0) 03/18/18 14:28 Ur Specific Weiser 1.035 (1.003-1.030) H 03/18/18 14:28 Urine Protein 1+ mg/dL (NEGATIVE) H 03/18/18 14:28 Urine Glucose (UA) 1+ mg/dL (Normal) 03/18/18 14:28 Urine Ketones Negative mg/dL (NEGATIVE) 03/18/18 14:28 Urine Blood Negative (NEGATIVE) 03/18/18 14:28 Urine Nitrate Negative (NEGATIVE) 03/18/18 14:28 Urine Bilirubin Negative (NEGATIVE) 03/18/18 14:28 Urine Urobilinogen Normal mg/dL (0.2-1.0) 03/18/18 14:28 Ur Leukocyte Esterase Neg Jaylene/uL (Negative) 03/18/18 14:28 Urine WBC (Auto) 4 /hpf (0-5) 03/18/18 14:28 Urine RBC (Auto) 5 /hpf (0-3) H 03/18/18 14:28 Ur Squamous Epith Cells 7 /hpf (0-5) H 03/18/18 14:28 Hyaline Casts 0-2 /lpf (0-2) 03/18/18 14:28 Vancomycin Trough 18.0 ug/mL (5.0-10.0) H 03/17/18 05:49 C. difficile Ag & Toxin Negative (NEGATIVE) 03/15/18 15:30 Hepatitis A IgM Ab Negative (NEGATIVE) 03/17/18 05:49 Hep Bs Antigen Negative (NEGATIVE) 03/17/18 05:49 Hep B Core IgM Ab Negative (NEGATIVE) 03/17/18 05:49 Hepatitis C Antibody Negative (NEGATIVE) 03/17/18 05:49 Attending/Attestation - Attestation I have personally seen and examined this patient.: Yes I have fully participated in the care of the patient.: Yes I have reviewed all pertinent clinical information, including history, physical exam and plan: Yes Notes (Text): 03/24/18 07:38 Medical attending: Patient was seen and examined by me. Agree with the above note by the resident she is not in any acute distress, she follows all commands, however remains tired. The patient reports that breathing is better with the lasix Per review of telemetry her HR has been atril fibrillation in the 60s at night and during the day can be from 90 to 110s. We increased the dose of BB She will also need to continue taking the oral anticoagulation as well Hopefully she will really participate with physical therapy while at [facility] as she would benefit from it greatly thank you Aubrey Spence
[2018-03-23] MEDS ORDERED: (Lantus) Insulin Glargine, Recombinant SC SCH (22:00)
== END 2018-03-23 19:48 | DRG 871 ==
LOC: C.ER 07:34 → C.9I 11:18
PROVIDERS: ADMIT Internal Medicine; ATTEND Internal Medicine
DX: A41.9 Sepsis, unspecified organism (principal); J69.0 Pneumonitis due to inhalation of food and vomit; I50.23 Acute on chronic systolic (congestive) heart failure; E87.2 Acidosis; I24.8 Other forms of acute ischemic heart disease; I48.92 Unspecified atrial flutter; J98.11 Atelectasis; E11.52 Type 2 diabetes mellitus with diabetic peripheral angiopathy with gangrene; I96 Gangrene, not elsewhere classified; T81.30XA Disruption of wound, unspecified, initial encounter; R65.20 Severe sepsis without septic shock; I11.0 Hypertensive heart disease with heart failure; I48.91 Unspecified atrial fibrillation; I27.20 Pulmonary hypertension, unspecified; I44.7 Left bundle-branch block, unspecified; K76.1 Chronic passive congestion of liver; Z87.891 Personal history of nicotine dependence; Z74.01 Bed confinement status; S90.822A Blister (nonthermal), left foot, initial encounter; M06.9 Rheumatoid arthritis, unspecified; B02.9 Zoster without complications; Z79.4 Long term (current) use of insulin; L89.309 Pressure ulcer of unspecified buttock, unspecified stage

== ENCOUNTER 2018-03-29 11:24 | Inpatient (IN) | payer MEDICARE, MEDICAID ==
[2018-03-29 11:27] VITALS: BMI 26.3
--- NOTE | 2018-03-29 12:01 | C.PDOC ---
History Of Present Illness LIMITED DUE TO CLIN COND HX PER FAMILY 73-YEAR-OLD FEMALE, PRESENTS TO THE EMERGENCY DEPARTMENT WITH COMPLAINTS OF NEW ONSET CONFUSION THIS MORNING. FAMILY VISITED PT IN [place], NOTED TO BE EXCESSIVELY SLEEPY. LAST NOTED @ [facility]ELINE LAST NIGHT PER FAMILY. PT DENIES SX @ THIS TIME. RECENT DC S/P NEW ONSET AFIB, ASP PNEUMONIA, DIARRHEA. BED BOUND ROS UTO EXAM NAD NONTOXIC HEENT PERRLA NEURO NO GROSS FOCAL DEF, POOR EFFORT LUNGS POOR EFFORT NO RETRACTIONS CV IRREG REG ABD NEG REMAINDER NE Time Seen by Provider: 03/29/18 11:39 Chief Complaint (Nursing): Altered Mental Status History Per: Family History/Exam Limitations: Clinical Condition Current Symptoms Are (Timing): Still Present Past Medical History Reviewed: Historical Data, Nursing Documentation, Vital Signs Vital Signs: Last Vital Signs Temp 98.2 F 03/29/18 16:30 Pulse 127 H 03/29/18 17:20 Resp 23 03/29/18 17:20 BP 101/70 03/29/18 17:20 Pulse Ox 98 03/29/18 17:20 - Medical History PMH: Arthritis ( PER DAUGHTER SINGH BARROSO), HTN, Pneumonia, Rheumatoid Arthritis Family History: States: No Known Family Hx - Social History Hx Alcohol Use: No Hx Substance Use: No - Immunization History Hx Tetanus Toxoid Vaccination: No ( PER DAUGHTER SINGH BARROSO) Hx Influenza Vaccination: No ( PER DAUGHTER SINGH BARROSO) Hx Pneumococcal Vaccination: No ( PER DAUGHTER SINGH BARROSO) Review Of Systems Review Of Systems: ROS cannot be obtained secondary to pt's inabilty to answer questions. Physical Exam - Physical Exam Appears: Non-toxic, No Acute Distress Skin: Normal Color, Warm, Dry, No Rash Head: Atraumatic, Normacephalic Eye(s): bilateral: Normal Inspection, PERRL, EOMI Nose: Normal Oral Mucosa: Moist Lips: Normal Appearing Neck: Normal ROM Chest: Symmetrical Cardiovascular: Rhythm Irregular, No Murmur Respiratory: No Decreased Breath Sounds, No Accessory Muscle Use, Other (POOR EFFORT NO RETRACTIONS) Gastrointestinal/Abdominal: Soft, No Tenderness, No Guarding, No Rebound Extremity: Normal ROM, No Deformity, No Swelling Neurological/Psych: Oriented x3, Normal Speech, Other (NO GROSS FOCAL DEF, POOR EFFORT) ED Course And Treatment - Laboratory Results Result Diagrams: 03/29/18 12:49 03/29/18 12:49 ECG: Interpreted By Me ECG Rhythm: Atrial Fibrillation, L BBB Rate From EC O2 Sat by Pulse Oximetry: 97 Progress - Re-Evaluation Re-evaluation Note: 03/29/18 14:10 IMPROVED ALERTNESS COMPARED TO INITIAL BUT PERSIST AMS PER FAMILY. PENDING UA. D/W DR HERNANDEZ C/F PMD WILL ADMIT 03/29/18 14:15 REPEAT EKG RAPID ATRIAL FIB @112 03/29/18 18:[address] CADENA FOR EJ PLACEMENT FOR ESMOLOL DRIP. INTERMIT RAPID AFIB 80-120 SBP 120 APPEARS COMFORTABLE NARD. - Data Reviewed Data Reviewed: Lab, Diagnostic imaging, EKG, Old records - Continuity of Care Discussed patient case with:: Patient, Family-HIPPA compliant, Covering for PMD Disposition Counseled Patient/Family Regarding: Studies Performed, Diagnosis - Disposition Disposition: HOSPITALIZED Disposition Time: 14:10 Condition: STABLE - POA Present On Arrival: Poor Glycemic Control - Clinical Impression Clinical Impression: Altered mental status - Scribe Statement The provider has reviewed the documentation as recorded by the Scribe (Karlos Torres) All medical record entries made by the Scribe were at my direction and personally dictated by me. I have reviewed the chart and agree that the record accurately reflects my personal performance of the history, physical exam, medical decision making, and the department course for this patient. I have also personally directed, reviewed, and agree with the discharge instructions and disposition. Decision To Admit - Pt Status Changed To: Hospital Disposition Of: Observation - . Bed Request Type: Telemetry Admitting Physician: Vanessa Hernandez Patient Diagnosis: Altered mental status PROCEDURES - EJ/Peripheral Line Consent Obtained: verbal consent Time Out Performed: Yes Skin Cleansed in Sterile Fashion: Yes Size: 18 IV Secured and Dressing Applied: Yes Patient Tolerated Procedure: Well
--- NOTE | 2018-03-29 12:52 | CT ---
PROCEDURE: CT HEAD WITHOUT CONTRAST. HISTORY: AMS COMPARISON: CT head dated 05/28/2010. TECHNIQUE: Axial computed tomography images were obtained through the head/brain without intravenous contrast. Radiation dose: Total exam DLP = 2035 mGy-cm. This CT exam was performed using one or more of the following dose reduction techniques: Automated exposure control, adjustment of the mA and/or kV according to patient size, and/or use of iterative reconstruction technique. FINDINGS: HEMORRHAGE: No intracranial hemorrhage. BRAIN: No mass effect or edema. Atrophy. Chronic microvascular ischemic changes. Left thalamic lacunar infarction. VENTRICLES: Mildly prominent. No hydrocephalus. CALVARIUM: Unremarkable. PARANASAL SINUSES: Left maxillary and sphenoid sinus mucosal thickening. MASTOID AIR CELLS: Unremarkable as visualized. No inflammatory changes. OTHER FINDINGS: None. IMPRESSION: No acute intracranial pathology.
[2018-03-29 12:54] LABS: BASO % 0.5 % (0.0-2.0); EOS # 0.1 K/uL (0.0-0.7); EOS % 0.6 % (0.0-4.0); LYMPH # 0.9 K/uL (1.0-4.3); LYMPH % 9.1 % (20.0-40.0); MEAN CELL VOLUME 93.5 fL (81.0-99.0); MEAN CORPUSCULAR HEMOGLOBIN 31.6 pg (27.0-31.0); MEAN CORPUSCULAR HGB CONC 33.8 g/dL (33.0-37.0); MEAN PLATELET VOLUME 7.8 fL (7.2-11.7); MONO # 1.3 K/uL (0.0-0.8); MONO % 13.3 % (0.0-10.0); NEUT # 7.5 K/uL (1.8-7.0); NEUT % 76.5 % (50.0-75.0); PLATELET COUNT 154 K/uL (130-400); RBC 4.75 Mil/uL (3.80-5.20); RED CELL DISTRIBUTION WIDTH 15.7 % (11.5-14.5); WHITE BLOOD COUNT 9.8 K/uL (4.8-10.8)
--- NOTE | 2018-03-29 12:58 | RAD ---
PROCEDURE: CHEST RADIOGRAPH, 1 VIEW HISTORY: AMS COMPARISON: Chest radiograph dated 03/23/2018. FINDINGS: LUNGS: Pulmonary vascular congestion/edema. Bibasilar atelectasis. PLEURA: Probable small bilateral pleural effusions. No appreciable pneumothorax Seen. CARDIOVASCULAR: Atherosclerotic aortic calcifications. Cardiomediastinal silhouette stably enlarged. OSSEOUS STRUCTURES: Changed. VISUALIZED UPPER ABDOMEN: Normal. OTHER FINDINGS: None. IMPRESSION: Pulmonary vascular congestion/ edema and probable small bilateral pleural effusions.
[2018-03-29 13:04] LABS: VENOUS BLOOD GAS BASE EXCESS 3.1 mmol/L (0.0-2.0); VENOUS BLOOD GAS PCO2 51 mmHg (40-60); VENOUS BLOOD GAS PO2 33 mm/Hg (30-55); VENOUS BLOOD PH 7.37 (7.32-7.43)
[2018-03-29 13:09] LABS: INR 2.3; PROTHROMBIN TIME 25.3 SECONDS (9.7-12.2)
[2018-03-29 13:16] LABS: ALT/SGPT 28 U/L (9-52); AST/SGOT 51 U/L (14-36); BLOOD UREA NITROGEN 30 mg/dL (7-17); CALCIUM 8.5 mg/dl (8.6-10.4); GFR AFRICAN-AMERICAN > 60; GFR NON-AFRICAN AMERICAN > 60
[2018-03-29 13:21] LABS: LYMPHOCYTE 8 % (20-40); MONOCYTE 12 % (0-10); TOTAL CELLS COUNTED 100
[2018-03-29 13:22] LABS: NEUTROPHIL 80 % (50-75); PLATELET ESTIMATE NORMAL (NORMAL)
[2018-03-29 14:00] LABS: SQUAMOUS EPITHIAL < 1 /hpf (0-5); URINE BILIRUBIN NEGATIVE (NEGATIVE); URINE BLOOD NEGATIVE (NEGATIVE); URINE CLARITY Clear (Clear); URINE COLOR Yellow (YELLOW); URINE GLUCOSE (UA) NORMAL (Normal); URINE LEUKOCYTE ESTERASE NEG Leu/uL (Negative); URINE PROTEIN NEGATIVE (NEGATIVE); URINE UROBILINOGEN NORMAL mg/dL (0.2-1.0)
--- NOTE | 2018-03-29 14:37 | CP.PCM.HP ---
<Vale Garcia - Last Filed: 03/29/18 18:26> History of Present Illness - History of Present Illness History of Present Illness: PGY-1 H&P for Dr. Epperson CC: My mother is not her usual self and confused. HPI: Pts daughter is present and aids with history gathering. 73 year old female with a history of DM, RA, AFib, Hypercholesterolenemia who presents with Altered Mental Status. Patient is a poor historian and pts daughter is present and aids with history gathering. Patients daughter states that the pt was at her normal baseline level at 8PM yesterday at her rehab facility. The daughter states that she did not have any symptoms at that time. However this morning the pt daughter stated that she found the pt to not be her usual self. The pt was brought to the ED at 10AM where she was slightly responsive and has been improving since then. The pt was previously admitted from March 19 to March 23 for Chest Pain and SOB. The daughter states that the pt has had multiple episodes of diarrhea since her discharge March 23. On review systems, Pt admits to chills, fatigue, and SOB. Pt denies fever, HARRISON, Chest Pain, Palpitations, N, V, C. Currently patient is very lethargic but is able to answer questions and follow commands. PMHX: DM, RA, AFib, Hypercholesterolenemia, Pneumonia PSH: Bilateral Humerus Internal Fixation, Rib Internal Fixation FAMILY HX: Mother Stroke (40s) , Sister Stroke (60s), Brother Stroke (63) ALLERGIES: NKDA MEDICATIONS: Tramadol HCl 50 mg PO Daily, Acetaminophen 650mg PO Q4, Pantoprazole Sodium 40mg PO Daily,Collagenase, Insulin Human Regular 3 units SC TID, Metoprolol Tartrate 25mg PO BID, Magnesium Hydroxide 30 ml PO Daily, Pregabalin 100mg PO Q12, Lisinopril 5 mg PO Daily,Insulin Glargine 9 unit SC HS, Menthol/Zinc Oxide 71 gm Ointment, Azithromycin 500 mg PO Daily, Apixiban 5 mg PO Daily, Albuterol / Ipratropium 3ml IH Q6, Spironolactone 25 mg PO Daily,Aspirin 81 mg PO Daily, Tramadol 50mg PO Daily,Odansetron 4 mg PO Q6 Social : Denies tobacco, EtOH, Illicit Drug use Present on Admission - Present on Admission Any Indicators Present on Admission: No History of DVT/PE: No History of Uncontrolled Diabetes: No Urinary Catheter: No Decubitus Ulcer Present: No Review of Systems - Constitutional Constitutional: Chills, Fatigue. absent: Fever - Cardiovascular Cardiovascular: Dyspnea. absent: Chest Pain, Leg Edema, Palpitations - Respiratory Respiratory: Dyspnea - Gastrointestinal Gastrointestinal: absent: Abdominal Pain, Constipation, Diarrhea, Nausea, Vomiting - Integumentary Additional comments: left foot excoriations - Neurological Neurological: Confusion Past Patient History - Past Medical History & Family History Past Medical History?: Yes - Past Social History Smoking Status: Former Smoker - CARDIAC Hx Hypertension: Yes - PULMONARY Hx Pneumonia: Yes - ENDOCRINE/METABOLIC Hx Diabetes Mellitus Type 2: Yes - MUSCULOSKELETAL/RHEUMATOLOGICAL Hx Arthritis: Yes ( PER DAUGHTER SINGH BARROSO) Hx Rheumatoid Arthritis: Yes - PSYCHIATRIC Hx Substance Use: No - SURGICAL HISTORY Hx Surgeries: No ( PER JOSEPH BARROSO) - ANESTHESIA Hx Anesthesia: No Meds Allergies/Adverse Reactions: Allergies Allergy/AdvReac Type Severity Reaction Status Date / Time No Known Allergies Allergy Verified 03/29/18 11:29 Physical Exam - Constitutional Appears: Non-toxic, No Acute Distress, Older Than Stated Age, Confused - Head Exam Head Exam: ATRAUMATIC, NORMAL INSPECTION, NORMOCEPHALIC - Eye Exam Eye Exam: EOMI, Normal appearance, PERRL Pupil Exam: NORMAL ACCOMODATION - ENT Exam ENT Exam: Mucous Membranes Moist - Respiratory Exam Respiratory Exam: Rales. absent: Wheezes - Cardiovascular Exam Cardiovascular Exam: Tachycardia, Irregular Rhythm, +S1, +S2 - GI/Abdominal Exam GI & Abdominal Exam: Normal Bowel Sounds, Soft. absent: Tenderness - Extremities Exam Extremities exam: Negative for: pedal edema Additional comments: feet cold and cyanotic left foot has skin excoriations from blisters - Back Exam Back exam: NORMAL INSPECTION - Neurological Exam Neurological exam: Alert - Psychiatric Exam Psychiatric exam: Normal Affect, Normal Mood - Skin Skin Exam: Cyanosis, Pallor Additional comments: feet cold and cyanotic left foot has skin excoriations from blisters Results - Vital Signs Recent Vital Signs: Last Vital Signs Temp 97.9 F 03/29/18 11:28 Pulse 102 H 03/29/18 13:25 Resp 18 03/29/18 13:25 BP 100/73 03/29/18 13:25 Pulse Ox 97 03/29/18 14:15 - Labs Result Diagrams: 03/29/18 12:49 03/29/18 12:49 Labs: Laboratory Results - last 24 hr 03/29/18 03/29/18 03/29/18 11:32 12:49 12:49 WBC 9.8 RBC 4.75 Hgb 15.0 Hct 44.4 MCV 93.5 MCH 31.6 H MCHC 33.8 RDW 15.7 H Plt Count 154 MPV 7.8 Neut % (Auto) 76.5 H Lymph % (Auto) 9.1 L [place] % (Auto) 13.3 H Eos % (Auto) 0.6 Baso % (Auto) 0.5 Neut # (Auto) 7.5 H Lymph # (Auto) 0.9 L [place] # (Auto) 1.3 H Eos # (Auto) 0.1 Baso # (Auto) 0.0 Neutrophils % (Manual) 80 H Lymphocytes % (Manual) 8 L Monocytes % (Manual) 12 H Platelet Estimate Normal PT 25.3 H INR 2.3 APTT 34 pO2 VBG pH VBG pCO2 VBG HCO3 VBG Total CO2 VBG O2 Sat (Calc) VBG Base Excess VBG Potassium Glucose Lactate Sodium Potassium Chloride Carbon Dioxide Anion Gap BUN Creatinine Est GFR ( Amer) Est GFR (Non-Af Amer) POC Glucose (mg/dL) 125 H Random Glucose Calcium Total Bilirubin AST ALT Alkaline Phosphatase Troponin I Total Protein Albumin Globulin Albumin/Globulin Ratio Venous Blood Potassium Urine Color Urine Clarity Urine pH Ur Specific [place] Urine Protein Urine Glucose (UA) Urine Ketones Urine Blood Urine Nitrate Urine Bilirubin Urine Urobilinogen Ur Leukocyte Esterase Urine WBC (Auto) Urine RBC (Auto) Ur Squamous Epith Cells 03/29/18 03/29/18 03/29/18 12:49 12:59 13:29 WBC RBC Hgb Hct MCV MCH MCHC RDW Plt Count MPV Neut % (Auto) Lymph % (Auto) [place] % (Auto) Eos % (Auto) Baso % (Auto) Neut # (Auto) Lymph # (Auto) [place] # (Auto) Eos # (Auto) Baso # (Auto) Neutrophils % (Manual) Lymphocytes % (Manual) Monocytes % (Manual) Platelet Estimate PT INR APTT pO2 33 VBG pH 7.37 VBG pCO2 51 VBG HCO3 26.4 VBG Total CO2 31.1 H VBG O2 Sat (Calc) 58.4 VBG Base Excess 3.1 H VBG Potassium 4.3 Glucose 120 H Lactate 1.9 Sodium 132 133.0 Potassium 4.4 Chloride 99 98.0 Carbon Dioxide 21 L Anion Gap 17 BUN 30 H Creatinine 0.7 Est GFR ( Amer) > 60 Est GFR (Non-Af Amer) > 60 POC Glucose (mg/dL) Random Glucose 104 Calcium 8.5 L Total Bilirubin 1.4 H AST 51 H D ALT 28 Alkaline Phosphatase 167 H Troponin I 0.0410 Total Protein 5.8 L Albumin 3.0 L Globulin 2.8 Albumin/Globulin Ratio 1.0 Venous Blood Potassium 4.3 Urine Color Yellow Urine Clarity Clear Urine pH 5.0 Ur Specific [place] 1.015 Urine Protein Negative Urine Glucose (UA) Normal Urine Ketones Negative Urine Blood Negative Urine Nitrate Negative Urine Bilirubin Negative Urine Urobilinogen Normal Ur Leukocyte Esterase Neg Urine WBC (Auto) 2 Urine RBC (Auto) 1 Ur Squamous Epith Cells < 1 Assessment & Plan - Assessment and Plan (Free Text) Assessment: AMS resolving Head CT: no acute findings no white count UA negative f/u blood cultures and urine culture Acute on Chronic Systolic CHF admit to tele cxray: pulm vascular congestion/ edema and probable small bilateral pleural effusions cardiology consulted, Dr. Navarro, help appreciated BNP: [id number] Echo(03/16): LVEF 30-35% Lasix 20mg iv BID Aldactone 25mg po TID Lisinopril 5mg po daily Metoprolol Tartrate 25mg po BID ASA 81mg po daily Afib with RVR troponin I .0410 f/u Troponins and ekg x2 Cardiology consulted, Dr. Navarro, help appreciated As per Dr. Navarro, would like Esmolol drip and transfer to ICU ICU consult ordered, help appreciated Eliquis 5mg po BID ASA 81mg po daily Cardizem 5mg given in ED Lisinopril 5mg po daily Metoprolol Tartrate 25mg po BID Cyanotic Feet f/u venous and arterial dopplers Surgery consulted, Dr. Lynn help appreciated pulses dopplerable patient had abdominal angiogram on 03/21/18: no significant peripheral disease. three vessel runoff in both right and left lower extremities elevate legs and keep warm Diarrhea f/u c dif daughter unsure if it has resolved DM continue home insulin: Lantus 9 units SC HS Novolin R 3 units sc ACTID ISS-low accuchecks hypoglycemia protocol HgA1C Prophylaxis DVT: no scds until results of dopplers negative Eliquis 5mg po BID No GI prophylaxis indicated <Patrica Epperson - Last Filed: 03/30/18 15:04> Results - Vital Signs Recent Vital Signs: Last Vital Signs Temp 98 F 03/29/18 20:25 Pulse 83 03/30/18 08:00 Resp 8 L 03/30/18 08:00 BP 99/60 L 03/30/18 09:25 Pulse Ox 98 03/30/18 08:00 - Labs Result Diagrams: 03/30/18 06:10 03/30/18 06:11 Labs: Laboratory Results - last 24 hr 03/29/18 03/29/18 03/29/18 11:32 12:49 12:49 WBC 9.8 RBC 4.75 Hgb 15.0 Hct 44.4 MCV 93.5 MCH 31.6 H MCHC 33.8 RDW 15.7 H Plt Count 154 MPV 7.8 Neut % (Auto) 76.5 H Lymph % (Auto) 9.1 L [place] % (Auto) 13.3 H Eos % (Auto) 0.6 Baso % (Auto) 0.5 Neut # (Auto) 7.5 H Lymph # (Auto) 0.9 L [place] # (Auto) 1.3 H Eos # (Auto) 0.1 Baso # (Auto) 0.0 Neutrophils % (Manual) 80 H Band Neutrophils % Lymphocytes % (Manual) 8 L Monocytes % (Manual) 12 H Eosinophils % (Manual) Platelet Estimate Normal Anisocytosis (manual) PT 25.3 H INR 2.3 APTT 34 pO2 VBG pH VBG pCO2 VBG HCO3 VBG Total CO2 VBG O2 Sat (Calc) VBG Base Excess VBG Potassium Glucose Lactate Sodium Potassium Chloride Carbon Dioxide Anion Gap BUN Creatinine Est GFR ( Amer) Est GFR (Non-Af Amer) POC Glucose (mg/dL) 125 H Random Glucose Calcium Phosphorus Magnesium Total Bilirubin AST ALT Alkaline Phosphatase Total Creatine Kinase CK-MB (Mass) Troponin I NT-Pro-B Natriuret Pep Total Protein Albumin Globulin Albumin/Globulin Ratio Procalcitonin Venous Blood Potassium Urine Color Urine Clarity Urine pH Ur Specific [place] Urine Protein Urine Glucose (UA) Urine Ketones Urine Blood Urine Nitrate Urine Bilirubin Urine Urobilinogen Ur Leukocyte Esterase Urine WBC (Auto) Urine RBC (Auto) Ur Squamous Epith Cells 03/29/18 03/29/18 03/29/18 12:49 12:59 13:29 WBC RBC Hgb Hct MCV MCH MCHC RDW Plt Count MPV Neut % (Auto) Lymph % (Auto) [place] % (Auto) Eos % (Auto) Baso % (Auto) Neut # (Auto) Lymph # (Auto) [place] # (Auto) Eos # (Auto) Baso # (Auto) Neutrophils % (Manual) Band Neutrophils % Lymphocytes % (Manual) Monocytes % (Manual) Eosinophils % (Manual) Platelet Estimate Anisocytosis (manual) PT INR APTT pO2 33 VBG pH 7.37 VBG pCO2 51 VBG HCO3 26.4 VBG Total CO2 31.1 H VBG O2 Sat (Calc) 58.4 VBG Base Excess 3.1 H VBG Potassium 4.3 Glucose 120 H Lactate 1.9 Sodium 132 133.0 Potassium 4.4 Chloride 99 98.0 Carbon Dioxide 21 L Anion Gap 17 BUN 30 H Creatinine 0.7 Est GFR ( Amer) > 60 Est GFR (Non-Af Amer) > 60 POC Glucose (mg/dL) Random Glucose 104 Calcium 8.5 L Phosphorus Magnesium Total Bilirubin 1.4 H AST 51 H D ALT 28 Alkaline Phosphatase 167 H Total Creatine Kinase CK-MB (Mass) Troponin I 0.0410 NT-Pro-B Natriuret Pep Total Protein 5.8 L Albumin 3.0 L Globulin 2.8 Albumin/Globulin Ratio 1.0 Procalcitonin Venous Blood Potassium 4.3 Urine Color Yellow Urine Clarity Clear Urine pH 5.0 Ur Specific [place] 1.015 Urine Protein Negative Urine Glucose (UA) Normal Urine Ketones Negative Urine Blood Negative Urine Nitrate Negative Urine Bilirubin Negative Urine Urobilinogen Normal Ur Leukocyte Esterase Neg Urine WBC (Auto) 2 Urine RBC (Auto) 1 Ur Squamous Epith Cells < 1 03/29/18 03/29/18 03/29/18 17:03 17:16 17:57 WBC RBC Hgb Hct MCV MCH MCHC RDW Plt Count MPV Neut % (Auto) Lymph % (Auto) [place] % (Auto) Eos % (Auto) Baso % (Auto) Neut # (Auto) Lymph # (Auto) [place] # (Auto) Eos # (Auto) Baso # (Auto) Neutrophils % (Manual) Band Neutrophils % Lymphocytes % (Manual) Monocytes % (Manual) Eosinophils % (Manual) Platelet Estimate Anisocytosis (manual) PT INR APTT pO2 VBG pH VBG pCO2 VBG HCO3 VBG Total CO2 VBG O2 Sat (Calc) VBG Base Excess VBG Potassium Glucose Lactate Sodium Potassium Chloride Carbon Dioxide Anion Gap BUN Creatinine Est GFR ( Amer) Est GFR (Non-Af Amer) POC Glucose (mg/dL) 105 Random Glucose Calcium Phosphorus Magnesium Total Bilirubin AST ALT Alkaline Phosphatase Total Creatine Kinase CK-MB (Mass) Troponin I NT-Pro-B Natriuret Pep 76038 H Total Protein Albumin Globulin Albumin/Globulin Ratio Procalcitonin 0.19 Venous Blood Potassium Urine Color Urine Clarity Urine pH Ur Specific [place] Urine Protein Urine Glucose (UA) Urine Ketones Urine Blood Urine Nitrate Urine Bilirubin Urine Urobilinogen Ur Leukocyte Esterase Urine WBC (Auto) Urine RBC (Auto) Ur Squamous Epith Cells 03/29/18 03/29/18 03/30/18 21:51 22:48 01:30 WBC RBC Hgb Hct MCV MCH MCHC RDW Plt Count MPV Neut % (Auto) Lymph % (Auto) [place] % (Auto) Eos % (Auto) Baso % (Auto) Neut # (Auto) Lymph # (Auto) [place] # (Auto) Eos # (Auto) Baso # (Auto) Neutrophils % (Manual) Band Neutrophils % Lymphocytes % (Manual) Monocytes % (Manual) Eosinophils % (Manual) Platelet Estimate Anisocytosis (manual) PT INR APTT pO2 VBG pH VBG pCO2 VBG HCO3 VBG Total CO2 VBG O2 Sat (Calc) VBG Base Excess VBG Potassium Glucose Lactate Sodium Potassium Chloride Carbon Dioxide Anion Gap BUN Creatinine Est GFR ( Amer) Est GFR (Non-Af Amer) POC Glucose (mg/dL) 150 H Random Glucose Calcium Phosphorus Magnesium Total Bilirubin AST ALT Alkaline Phosphatase Total Creatine Kinase 49 < 20 L CK-MB (Mass) 1.19 1.30 Troponin I 0.0510 0.0370 NT-Pro-B Natriuret Pep Total Protein Albumin Globulin Albumin/Globulin Ratio Procalcitonin Venous Blood Potassium Urine Color Urine Clarity Urine pH Ur Specific [place] Urine Protein Urine Glucose (UA) Urine Ketones Urine Blood Urine Nitrate Urine Bilirubin Urine Urobilinogen Ur Leukocyte Esterase Urine WBC (Auto) Urine RBC (Auto) Ur Squamous Epith Cells 03/30/18 03/30/18 03/30/18 06:10 06:11 07:34 WBC 11.2 H RBC 4.33 Hgb 13.4 Hct 40.5 MCV 93.3 MCH 30.9 MCHC 33.1 RDW 15.6 H Plt Count 123 L D MPV 8.2 Neut % (Auto) 86.9 H Lymph % (Auto) 5.0 L [place] % (Auto) 7.1 Eos % (Auto) 0.5 Baso % (Auto) 0.5 Neut # (Auto) 9.7 H Lymph # (Auto) 0.6 L [place] # (Auto) 0.8 Eos # (Auto) 0.1 Baso # (Auto) 0.1 Neutrophils % (Manual) 88 H Band Neutrophils % 1 Lymphocytes % (Manual) 6 L Monocytes % (Manual) 4 Eosinophils % (Manual) 1 Platelet Estimate Slightly decreased L Anisocytosis (manual) Slight PT INR APTT pO2 VBG pH VBG pCO2 VBG HCO3 VBG Total CO2 VBG O2 Sat (Calc) VBG Base Excess VBG Potassium Glucose Lactate Sodium 133 Potassium 3.8 Chloride 98 Carbon Dioxide 26 Anion Gap 13 BUN 30 H Creatinine 0.7 Est GFR ( Amer) > 60 Est GFR (Non-Af Amer) > 60 POC Glucose (mg/dL) 179 H Random Glucose 180 H Calcium 8.0 L Phosphorus 3.6 Magnesium 1.3 L Total Bilirubin 1.3 AST 37 H D ALT 34 Alkaline Phosphatase 159 H Total Creatine Kinase CK-MB (Mass) Troponin I NT-Pro-B Natriuret Pep Total Protein 5.3 L Albumin 2.7 L Globulin 2.6 Albumin/Globulin Ratio 1.1 Procalcitonin Venous Blood Potassium Urine Color Urine Clarity Urine pH Ur Specific [place] Urine Protein Urine Glucose (UA) Urine Ketones Urine Blood Urine Nitrate Urine Bilirubin Urine Urobilinogen Ur Leukocyte Esterase Urine WBC (Auto) Urine RBC (Auto) Ur Squamous Epith Cells 03/30/18 08:27 WBC RBC Hgb Hct MCV MCH MCHC RDW Plt Count MPV Neut % (Auto) Lymph % (Auto) [place] % (Auto) Eos % (Auto) Baso % (Auto) Neut # (Auto) Lymph # (Auto) [place] # (Auto) Eos # (Auto) Baso # (Auto) Neutrophils % (Manual) Band Neutrophils % Lymphocytes % (Manual) Monocytes % (Manual) Eosinophils % (Manual) Platelet Estimate Anisocytosis (manual) PT INR APTT pO2 VBG pH VBG pCO2 VBG HCO3 VBG Total CO2 VBG O2 Sat (Calc) VBG Base Excess VBG Potassium Glucose Lactate Sodium Potassium Chloride Carbon Dioxide Anion Gap BUN Creatinine Est GFR ( Amer) Est GFR (Non-Af Amer) POC Glucose (mg/dL) Random Glucose Calcium Phosphorus Magnesium Total Bilirubin AST ALT Alkaline Phosphatase Total Creatine Kinase 22 L CK-MB (Mass) 1.20 Troponin I 0.0340 NT-Pro-B Natriuret Pep Total Protein Albumin Globulin Albumin/Globulin Ratio Procalcitonin Venous Blood Potassium Urine Color Urine Clarity Urine pH Ur Specific [place] Urine Protein Urine Glucose (UA) Urine Ketones Urine Blood Urine Nitrate Urine Bilirubin Urine Urobilinogen Ur Leukocyte Esterase Urine WBC (Auto) Urine RBC (Auto) Ur Squamous Epith Cells Attending/Attestation - Attestation I have personally seen and examined this patient.: Yes I have fully participated in the care of the patient.: Yes I have reviewed all pertinent clinical information: Yes Notes (Text): Patient was seen and examined at ER. History taken from the patient's daughter at bedside. 1.Afib with RVR 2.AMS 3.CHF/acute on chronic systolic heart failure 4.RA 5.Leg wound 6.Transaminitis patient was brought due to AMS. No sings of acute infection,AMS likely due to Afib with low HR Vs RVR Hr was 130 to 140. D/W Dr Navarro who recommend to start on Esmolol. ICU consulted D/W Transmission Supervisor at ICU. Patient's heart rate was improving may not need Esmolol Planning to observe at ICU
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
[2018-03-29] MEDS ORDERED: Dextrose 50% SYRINGE Inj (50 ml) IV PRN (16:40)
[2018-03-29] MEDS ORDERED: Glucagon Recombinant 1 mg Inj IM PRN (16:40)
[2018-03-29] MEDS: (Novolin R) Insulin Human Regular 100 units/ml vial SC SCH ×2 (17:58→23:12)
[2018-03-29] MEDS ORDERED: Tramadol 25 mg PO SCH (18:00)
--- NOTE | 2018-03-29 21:24 | CP.PCM.CON ---
History of Present Illness - History of Present Illness History of Present Illness: 73 year old female with a history of DM, RA, AFib, Hypercholesterolenemia presented to ER with Altered Mental Status. Patients daughter states that the pt was at her normal baseline level at 8PM yesterday at her rehab facility. The pt was previously admitted from March 19 to March 23 for Chest Pain and SOB. The daughter states that the pt has had multiple episodes of diarrhea since her discharge 03/23/18, which improved 2 days ago.Patient is awake and answers questions now.C/o feeling hungry but denies chest pain,palpitations,difficulty breathing fever, Nausea,vomiting. In ER patient was in atrial fibrillation with rapid ventricular rate.ICU transfer requested for esmolol drip recommended by Police Detention Attendant.Patient is in A fibrillation with an average heart rate in the s Review of Systems - Constitutional Constitutional: absent: Anorexia, Headache - EENT Eyes: absent: Change in Vision, Pain Ears: absent: Ear Pain, Dizziness Nose/Mouth/Throat: absent: Sore Throat - Cardiovascular Cardiovascular: absent: Chest Pain, Leg Edema, Rapid Heart Rate - Respiratory Respiratory: absent: Cough, Dyspnea - Gastrointestinal Gastrointestinal: absent: Abdominal Pain, Nausea, Vomiting - Genitourinary Genitourinary: absent: Dysuria - Integumentary Integumentary: Sores. absent: Rash - Neurological Neurological: absent: Headaches - Hematologic/Lymphatic Hematologic: absent: Easy Bleeding Past Patient History - Past Medical History & Family History Past Medical History?: Yes - Past Social History Smoking Status: Former Smoker - CARDIAC Hx Hypertension: Yes - PULMONARY Hx Pneumonia: Yes - ENDOCRINE/METABOLIC Hx Diabetes Mellitus Type 2: Yes - MUSCULOSKELETAL/RHEUMATOLOGICAL Hx Arthritis: Yes ( PER DAUGHTER SINGH BARROSO) Hx Rheumatoid Arthritis: Yes - PSYCHIATRIC Hx Substance Use: No - SURGICAL HISTORY Hx Surgeries: No ( PER DAUGHTER SINGH BARROSO) - ANESTHESIA Hx Anesthesia: No Meds Allergies/Adverse Reactions: Allergies Allergy/AdvReac Type Severity Reaction Status Date / Time No Known Allergies Allergy Verified 03/29/18 11:29 - Medications Medications: Current Medications Apixaban (Eliquis) 5 mg PO BID [facility] Last Admin: 03/29/18 18:36 Dose: 5 mg Aspirin (Aspirin Chewable) 81 mg PO DAILY [facility] Last Admin: 03/29/18 17:06 Dose: 81 mg Dextrose (Dextrose 50% Inj) 0 ml IV STAT PRN; Protocol PRN Reason: Hypoglycemia Protocol Dextrose (Glutose 15) 0 gm PO ONCE PRN; Protocol PRN Reason: Hypoglycemia Protocol Furosemide (Lasix) 20 mg IVP BID [facility] Last Admin: 03/29/18 18:22 Dose: 20 mg Glucagon (Glucagen Diagnostic Kit) 0 mg IM STAT PRN; Protocol PRN Reason: Hypoglycemia Protocol Dextrose (Dextrose 5% In Water 1000 Ml) 1,000 mls @ 0 mls/hr IV .Q0M PRN; Protocol; Per Protocol PRN Reason: Hypoglycemia Protocol Insulin Glargine (Lantus) 9 unit SC HS [facility] Insulin Human Regular (Novolin R) 3 unit SC ACTID [facility] Last Admin: 03/29/18 17:58 Dose: Not Given Insulin Human Regular (Novolin R) 0 unit SC ACHS [facility] PRN Reason: Protocol Lisinopril (Zestril) 5 mg PO DAILY [facility] Metoprolol Tartrate (Lopressor) 25 mg PO BID [facility] Last Admin: 03/29/18 17:20 Dose: 25 mg Pantoprazole Sodium (Protonix Ec Tab) 40 mg PO DAILY [facility] Pregabalin (Lyrica) 100 mg PO Q12 [facility] Spironolactone (Aldactone) 25 mg PO DAILY [facility] Tramadol HCl (Ultram) 25 mg PO TID PRN PRN Reason: Pain, moderate (4-7) Physical Exam - Constitutional Appears: Non-toxic, No Acute Distress, Chronically Ill - Head Exam Head Exam: ATRAUMATIC, NORMAL INSPECTION, NORMOCEPHALIC - Eye Exam Eye Exam: EOMI, PERRL Pupil Exam: NORMAL ACCOMODATION - ENT Exam ENT Exam: Normal Exam - Neck Exam Neck exam: Positive for: Full Rom, Normal Inspection - Respiratory Exam Respiratory Exam: NORMAL BREATHING PATTERN Additional comments: bilateral; basal rales - Cardiovascular Exam Cardiovascular Exam: Irregular Rhythm, Systolic Murmur. absent: JVD - GI/Abdominal Exam GI & Abdominal Exam: Normal Bowel Sounds, Soft. absent: Distended, Tenderness - Extremities Exam Extremities exam: Negative for: pedal edema Additional comments: cool feet with ulceration left leg Results - Vital Signs Recent Vital Signs: Last Vital Signs Temp 98.2 F 03/29/18 16:30 Pulse 100 H 03/29/18 20:15 Resp 16 03/29/18 20:15 BP 128/55 L 03/29/18 20:15 Pulse Ox 98 03/29/18 20:15 - Labs Result Diagrams: 03/29/18 12:49 03/29/18 12:49 Labs: Laboratory Results - last 24 hr 03/29/18 03/29/18 03/29/18 11:32 12:49 12:49 WBC 9.8 RBC 4.75 Hgb 15.0 Hct 44.4 MCV 93.5 MCH 31.6 H MCHC 33.8 RDW 15.7 H Plt Count 154 MPV 7.8 Neut % (Auto) 76.5 H Lymph % (Auto) 9.1 L [place] % (Auto) 13.3 H Eos % (Auto) 0.6 Baso % (Auto) 0.5 Neut # (Auto) 7.5 H Lymph # (Auto) 0.9 L [place] # (Auto) 1.3 H Eos # (Auto) 0.1 Baso # (Auto) 0.0 Neutrophils % (Manual) 80 H Lymphocytes % (Manual) 8 L Monocytes % (Manual) 12 H Platelet Estimate Normal PT 25.3 H INR 2.3 APTT 34 pO2 VBG pH VBG pCO2 VBG HCO3 VBG Total CO2 VBG O2 Sat (Calc) VBG Base Excess VBG Potassium Glucose Lactate Sodium Potassium Chloride Carbon Dioxide Anion Gap BUN Creatinine Est GFR ( Amer) Est GFR (Non-Af Amer) POC Glucose (mg/dL) 125 H Random Glucose Calcium Total Bilirubin AST ALT Alkaline Phosphatase Troponin I NT-Pro-B Natriuret Pep Total Protein Albumin Globulin Albumin/Globulin Ratio Procalcitonin Venous Blood Potassium Urine Color Urine Clarity Urine pH Ur Specific [place] Urine Protein Urine Glucose (UA) Urine Ketones Urine Blood Urine Nitrate Urine Bilirubin Urine Urobilinogen Ur Leukocyte Esterase Urine WBC (Auto) Urine RBC (Auto) Ur Squamous Epith Cells 03/29/18 03/29/18 03/29/18 12:49 12:59 13:29 WBC RBC Hgb Hct MCV MCH MCHC RDW Plt Count MPV Neut % (Auto) Lymph % (Auto) [place] % (Auto) Eos % (Auto) Baso % (Auto) Neut # (Auto) Lymph # (Auto) [place] # (Auto) Eos # (Auto) Baso # (Auto) Neutrophils % (Manual) Lymphocytes % (Manual) Monocytes % (Manual) Platelet Estimate PT INR APTT pO2 33 VBG pH 7.37 VBG pCO2 51 VBG HCO3 26.4 VBG Total CO2 31.1 H VBG O2 Sat (Calc) 58.4 VBG Base Excess 3.1 H VBG Potassium 4.3 Glucose 120 H Lactate 1.9 Sodium 132 133.0 Potassium 4.4 Chloride 99 98.0 Carbon Dioxide 21 L Anion Gap 17 BUN 30 H Creatinine 0.7 Est GFR ( Amer) > 60 Est GFR (Non-Af Amer) > 60 POC Glucose (mg/dL) Random Glucose 104 Calcium 8.5 L Total Bilirubin 1.4 H AST 51 H D ALT 28 Alkaline Phosphatase 167 H Troponin I 0.0410 NT-Pro-B Natriuret Pep Total Protein 5.8 L Albumin 3.0 L Globulin 2.8 Albumin/Globulin Ratio 1.0 Procalcitonin Venous Blood Potassium 4.3 Urine Color Yellow Urine Clarity Clear Urine pH 5.0 Ur Specific [place] 1.015 Urine Protein Negative Urine Glucose (UA) Normal Urine Ketones Negative Urine Blood Negative Urine Nitrate Negative Urine Bilirubin Negative Urine Urobilinogen Normal Ur Leukocyte Esterase Neg Urine WBC (Auto) 2 Urine RBC (Auto) 1 Ur Squamous Epith Cells < 1 03/29/18 03/29/18 03/29/18 17:03 17:16 17:57 WBC RBC Hgb Hct MCV MCH MCHC RDW Plt Count MPV Neut % (Auto) Lymph % (Auto) [place] % (Auto) Eos % (Auto) Baso % (Auto) Neut # (Auto) Lymph # (Auto) [place] # (Auto) Eos # (Auto) Baso # (Auto) Neutrophils % (Manual) Lymphocytes % (Manual) Monocytes % (Manual) Platelet Estimate PT INR APTT pO2 VBG pH VBG pCO2 VBG HCO3 VBG Total CO2 VBG O2 Sat (Calc) VBG Base Excess VBG Potassium Glucose Lactate Sodium Potassium Chloride Carbon Dioxide Anion Gap BUN Creatinine Est GFR ( Amer) Est GFR (Non-Af Amer) POC Glucose (mg/dL) 105 Random Glucose Calcium Total Bilirubin AST ALT Alkaline Phosphatase Troponin I NT-Pro-B Natriuret Pep 24344 H Total Protein Albumin Globulin Albumin/Globulin Ratio Procalcitonin 0.19 Venous Blood Potassium Urine Color Urine Clarity Urine pH Ur Specific [place] Urine Protein Urine Glucose (UA) Urine Ketones Urine Blood Urine Nitrate Urine Bilirubin Urine Urobilinogen Ur Leukocyte Esterase Urine WBC (Auto) Urine RBC (Auto) Ur Squamous Epith Cells - EKG Data EKG Interpreted by: Myself Assessment & Plan - Assessment and Plan (Free Text) Assessment: Assessment: 1.Atrial Fibrillation with RVR/ Acute on Chronic Systolic CHF troponin I .0410,elevated BNP Echo(03/16): LVEF 30-35% heart rate controlled at present time,will not start esmolol drip Eliquis ,ASA,Lisinopril ,Metoprolol ,lasix 2.Altered Mental Status resolving Head CT: no acute findings f/u clinically 3.Cyanotic Feet f/u venous and arterial dopplers Surgery consulted patient had abdominal angiogram on 03/21/18 3.DM continue insulin accuchecks HgA1C 4.Elevated LFT f/u repeat labs 5.h/o Rheumatoid arthritis
[2018-03-29 22:20] LABS: CK-MB 1.19 ng/mL (0.0-3.38); TROPONIN I 0.051 ng/mL (0.00-0.120)
[2018-03-29] MEDS: (Lantus) Insulin Glargine, Recombinant SC SCH (23:12)
[2018-03-30 06:15] LABS: BASO # 0.1 K/uL (0.0-0.2); BASO % 0.5 % (0.0-2.0); EOS # 0.1 K/uL (0.0-0.7); EOS % 0.5 % (0.0-4.0); HEMOGLOBIN 13.4 g/dL (11.0-16.0); LYMPH # 0.6 K/uL (1.0-4.3); MEAN CELL VOLUME 93.3 fL (81.0-99.0); MEAN CORPUSCULAR HEMOGLOBIN 30.9 pg (27.0-31.0); MEAN CORPUSCULAR HGB CONC 33.1 g/dL (33.0-37.0); MEAN PLATELET VOLUME 8.2 fL (7.2-11.7); MONO # 0.8 K/uL (0.0-0.8); MONO % 7.1 % (0.0-10.0); NEUT # 9.7 K/uL (1.8-7.0); NEUT % 86.9 % (50.0-75.0); NRBC % 0.1 % (0.0-2.0); PLATELET COUNT 123 K/uL (130-400); RBC 4.33 Mil/uL (3.80-5.20); RED CELL DISTRIBUTION WIDTH 15.6 % (11.5-14.5); WHITE BLOOD COUNT 11.2 K/uL (4.8-10.8)
[2018-03-30 06:35] LABS: ALB/GLOB RATIO 1.1 (1.0-2.1); ALBUMIN 2.7 g/dL (3.5-5.0); ALT/SGPT 34 U/L (9-52); AST/SGOT 37 U/L (14-36); BLOOD UREA NITROGEN 30 mg/dL (7-17); GFR AFRICAN-AMERICAN > 60; GFR NON-AFRICAN AMERICAN > 60
[2018-03-30] MEDS ORDERED: Magnesium Sulfate 1 gm in D5W 1 GM/100 ML BAG IVPB ONE ×2 (07:45→09:09)
--- NOTE | 2018-03-30 07:50 | CP.PCM.PN ---
Subjective - Date & Time of Evaluation Date of Evaluation: 03/30/18 Time of Evaluation: 07:50 - Subjective Subjective: Seen and examined,patient is comfortable,alert and oriented at her base line mental status. No complain d/w Electrolytic Etcher worked last night. Her HR was in 80ies last night,not started on Esmolol Before she was brought in to ICU her HR went up to 60ies Objective - Vital Signs/Intake and Output Vital Signs (last 24 hours): Temp Pulse Resp BP Pulse Ox 98 F 87 11 L 123/63 99 03/29/18 20:25 03/30/18 06:00 03/30/18 06:00 03/30/18 05:55 03/30/18 06:00 Intake and Output: 03/30/18 03/30/18 06:59 18:59 Intake Total 240 Output Total 200 Balance 40 - Medications Medications: Current Medications Apixaban (Eliquis) 5 mg PO BID [facility] Last Admin: 03/29/18 18:36 Dose: 5 mg Aspirin (Aspirin Chewable) 81 mg PO DAILY [facility] Last Admin: 03/29/18 17:06 Dose: 81 mg Dextrose (Dextrose 50% Inj) 0 ml IV STAT PRN; Protocol PRN Reason: Hypoglycemia Protocol Dextrose (Glutose 15) 0 gm PO ONCE PRN; Protocol PRN Reason: Hypoglycemia Protocol Furosemide (Lasix) 20 mg IVP BID [facility] Last Admin: 03/29/18 18:22 Dose: 20 mg Glucagon (Glucagen Diagnostic Kit) 0 mg IM STAT PRN; Protocol PRN Reason: Hypoglycemia Protocol Dextrose (Dextrose 5% In Water 1000 Ml) 1,000 mls @ 0 mls/hr IV .Q0M PRN; Protocol; Per Protocol PRN Reason: Hypoglycemia Protocol Magnesium Sulfate/Dextrose (Magnesium Sulfate 1 Gm/100 Ml D5w) 1 gm in 100 mls @ 100 mls/hr IVPB ONCE ONE Stop: 03/30/18 08:44 Insulin Glargine (Lantus) 9 unit SC HS [facility] Last Admin: 03/29/18 23:12 Dose: Not Given Insulin Human Regular (Novolin R) 3 unit SC ACTID [facility] Last Admin: 03/29/18 17:58 Dose: Not Given Insulin Human Regular (Novolin R) 0 unit SC ACHS [facility] PRN Reason: Protocol Last Admin: 03/29/18 23:12 Dose: Not Given Lisinopril (Zestril) 5 mg PO DAILY [facility] Metoprolol Tartrate (Lopressor) 25 mg PO BID [facility] Last Admin: 03/29/18 17:20 Dose: 25 mg Pantoprazole Sodium (Protonix Ec Tab) 40 mg PO DAILY [facility] Pregabalin (Lyrica) 100 mg PO Q12 [facility] Last Admin: 03/29/18 22:24 Dose: 100 mg Spironolactone (Aldactone) 25 mg PO DAILY [facility] Tramadol HCl (Ultram) 25 mg PO TID PRN PRN Reason: Pain, moderate (4-7) - Labs Labs: 03/30/18 06:10 03/30/18 06:11 PT 25.3 SECONDS (9.7-12.2) H 03/29/18 12:49 INR 2.3 03/29/18 12:49 APTT 34 SECONDS (21-34) 03/29/18 12:49 - Constitutional Appears: Non-toxic - Head Exam Head Exam: NORMAL INSPECTION - Eye Exam Eye Exam: Normal appearance - ENT Exam ENT Exam: Mucous Membranes Moist - Neck Exam Neck Exam: Full ROM - Respiratory Exam Respiratory Exam: Rales, NORMAL BREATHING PATTERN. absent: Accessory Muscle Use - Cardiovascular Exam Cardiovascular Exam: REGULAR RHYTHM - GI/Abdominal Exam GI & Abdominal Exam: Soft, Normal Bowel Sounds. absent: Tenderness - Extremities Exam Extremities Exam: Joint Swelling (left hand joint swelling noted), Pedal Edema. absent: Calf Tenderness - Back Exam Back Exam: NORMAL INSPECTION - Neurological Exam Neurological Exam: Awake, Oriented x3 - Psychiatric Exam Psychiatric exam: Normal Mood - Skin Skin Exam: Dry Assessment and Plan - Assessment and Plan (Free Text) Plan: 1Altered mental status-Improved likely due to Afib with bradycardia Head CT: no acute findings no white count UA negative f/u blood cultures and urine culture 2.Acute on Chronic Systolic CHF cxray: pulm vascular congestion/ edema and probable small bilateral pleural effusions Echo(03/16): LVEF 30-35% Lasix 20mg iv BID,Aldactone 25mg po TID,Lisinopril 5mg po daily,Metoprolol Tartrate 25mg po BID ASA 81mg po daily 3. Afib with RVR continue current meds and eliquis d/w Dr Navarro.He will talk to her family regarding the possibility of cardioversion we will follow with him after discussion with family Patient is stable for tele d/w Electrolytic Etcher 4.peipheral cyanosis / Feet difficult to feel peripheral pulses. patient had abdominal angiogram on 03/21/18: no significant peripheral disease. three vessel runoff in both right and left lower extremities Dr Knox's consult appreciated 5.Low magnesium replace Mg 6. DM continue home insulin 7.Prophylaxis DVT: no scds until results of dopplers negative Eliquis 5mg po BID
[2018-03-30] MEDS: (Novolin R) Insulin Human Regular 100 units/ml vial SC SCH ×7 (07:58→21:26)
--- NOTE | 2018-03-30 08:24 | RAD ---
Chest x-ray single frontal view History: Congestive heart failure. Comparison: 03/29/2018 Findings: Moderate to severe venous congestion with associated prominent airspace opacities within the mid to lower lung with a moderate right and small to moderate left pleural effusion. Linear consolidative and or atelectatic changes in the left mid to lower zone. Enlarged ectatic aorta with calcification at the aortic knob. Cardiomegaly. Degenerative changes in the spine and shoulders. Biapical pleural thickening with upper lobe granulomatous changes. Impression: Moderate to severe venous congestion with associated prominent airspace opacities within the mid to lower lung with a moderate right and small to moderate left pleural effusion. Linear consolidative and or atelectatic changes in the left mid to lower zone. Enlarged ectatic aorta with calcification at the aortic knob. Cardiomegaly.
[2018-03-30 08:30] LABS: ANISOCYTOSIS SLIGHT; BANDS 1 % (0-2); EOSINOPHIL 1 % (0-4); LYMPHOCYTE 6 % (20-40); MONOCYTE 4 % (0-10); NEUTROPHIL 88 % (50-75); PLATELET ESTIMATE SLIGHTLY DECREASED (NORMAL); TOTAL CELLS COUNTED 100
--- NOTE | 2018-03-30 08:52 | CP.PCM.PN ---
Subjective - Date & Time of Evaluation Date of Evaluation: 03/30/18 Time of Evaluation: 08:49 - Subjective Subjective: Surgery: Dr. Lynn Patient was transferred to ICU overnight for Afib with RVR. This am, patient conversant and states she feels well. She states she knows she is in hospital. She denies any complaints at this time. Objective - Vital Signs/Intake and Output Vital Signs (last 24 hours): Temp Pulse Resp BP Pulse Ox 98 F 87 11 L 123/63 99 03/29/18 20:25 03/30/18 06:00 03/30/18 06:00 03/30/18 05:55 03/30/18 06:00 Intake and Output: 03/30/18 03/30/18 06:59 18:59 Intake Total 240 0 Output Total 200 Balance 40 0 - Medications Medications: Current Medications Apixaban (Eliquis) 5 mg PO BID [facility] Last Admin: 03/29/18 18:36 Dose: 5 mg Aspirin (Aspirin Chewable) 81 mg PO DAILY [facility] Last Admin: 03/29/18 17:06 Dose: 81 mg Dextrose (Dextrose 50% Inj) 0 ml IV STAT PRN; Protocol PRN Reason: Hypoglycemia Protocol Dextrose (Glutose 15) 0 gm PO ONCE PRN; Protocol PRN Reason: Hypoglycemia Protocol Furosemide (Lasix) 20 mg IVP BID [facility] Last Admin: 03/29/18 18:22 Dose: 20 mg Glucagon (Glucagen Diagnostic Kit) 0 mg IM STAT PRN; Protocol PRN Reason: Hypoglycemia Protocol Dextrose (Dextrose 5% In Water 1000 Ml) 1,000 mls @ 0 mls/hr IV .Q0M PRN; Protocol; Per Protocol PRN Reason: Hypoglycemia Protocol Insulin Glargine (Lantus) 9 unit SC HS [facility] Last Admin: 03/29/18 23:12 Dose: Not Given Insulin Human Regular (Novolin R) 3 unit SC ACTID [facility] Last Admin: 03/30/18 07:58 Dose: 3 unit Insulin Human Regular (Novolin R) 0 unit SC ACHS [facility] PRN Reason: Protocol Last Admin: 03/30/18 07:59 Dose: 1 unit Lisinopril (Zestril) 5 mg PO DAILY [facility] Metoprolol Tartrate (Lopressor) 25 mg PO BID [facility] Last Admin: 03/29/18 17:20 Dose: 25 mg Pantoprazole Sodium (Protonix Ec Tab) 40 mg PO DAILY [facility] Pregabalin (Lyrica) 100 mg PO Q12 [facility] Last Admin: 03/29/18 22:24 Dose: 100 mg Spironolactone (Aldactone) 25 mg PO DAILY [facility] Tramadol HCl (Ultram) 25 mg PO TID PRN PRN Reason: Pain, moderate (4-7) - Labs Labs: 03/30/18 06:10 03/30/18 06:11 PT 25.3 SECONDS (9.7-12.2) H 03/29/18 12:49 INR 2.3 03/29/18 12:49 APTT 34 SECONDS (21-34) 03/29/18 12:49 - Constitutional Appears: Non-toxic, No Acute Distress, Chronically Ill - Head Exam Head Exam: ATRAUMATIC, NORMOCEPHALIC - Eye Exam Eye Exam: EOMI, Normal appearance - ENT Exam ENT Exam: Mucous Membranes Moist - Respiratory Exam Respiratory Exam: NORMAL BREATHING PATTERN. absent: Respiratory Distress - Cardiovascular Exam Cardiovascular Exam: REGULAR RHYTHM. absent: Tachycardia - Extremities Exam Extremities Exam: absent: Calf Tenderness Additional comments: skin with healing blistering from prior moderate edema edema completely resolved. pulses dopplerable bilateral LE bilateral LE are cool, not cold with brisk capillary refill - Neurological Exam Neurological Exam: Alert, Awake - Psychiatric Exam Psychiatric exam: Normal Affect, Normal Mood - Skin Skin Exam: Dry, Warm Assessment and Plan - Assessment and Plan (Free Text) Assessment: 73 y/o female consulted from cool LE without evidence of significant PVD Plan: -CTA 03/21 showed patent vessels throughout -repeat imaging showed no significant PVD -f/u final readings -maintain leg elevation while in bed to prevent LE edema -local wound care for healing blisters prn -no surgical intervention at this time -further recs per Dr. Clara Carranza PGY3
[2018-03-30 09:05] LABS: CK-MB 1.2 ng/mL (0.0-3.38); TROPONIN I 0.034 ng/mL (0.00-0.120)
[2018-03-30] MEDS: Pantoprazole 40 mg EC Tab PO SCH (09:23)
--- NOTE | 2018-03-30 09:40 | CP.PCM.CON ---
History of Present Illness - History of Present Illness History of Present Illness: The pt is a 73 year old woman with RA, cardiomyopathy, DM and episodic atrial fibrillation. The patient has been seen for many years in the office. in 2016, she had a normal LV EF on echo and a non ischemic nuclear stress test. Due to increasing debilitation, she stopped coming to the office and stopped CV meds. last month, she came to the ER in mild change and trial flutter. She converted to NSR with IV esmolol, and echo done before and after conversion demonstrated markedly to moderately (post conversion) LV dysfunction. There was a trivial TNI elevation. Pt also initially had elevated LFTs, which resolved. Pt went to rehab/NH with eliquis. Pt now returns with change in mental status. Pt today is alert, can't recall why she she is here , and denies chest steph, dizziness or dyspea. She was in rapid atrial fib, and cxr showed florid chf. TNi are negative. LFTS were slightly high, now upper normal CR normal. As outpatient, pt was on metoprolol, lisinopril, aldactone, eliquis and asa. She has only been on eliquis for several weeks. Pt has arthritis, and limited ability to ambulate, basically goes from the bed to the chair. Review of Systems - Review of Systems All systems: reviewed and no additional remarkable complaints except (as above) Past Patient History - Past Medical History & Family History Past Medical History?: Yes - Past Social History Smoking Status: Former Smoker - CARDIAC Hx Hypertension: Yes - PULMONARY Hx Pneumonia: Yes - ENDOCRINE/METABOLIC Hx Diabetes Mellitus Type 2: Yes - MUSCULOSKELETAL/RHEUMATOLOGICAL Hx Arthritis: Yes ( PER DAUGHTER SINGH BARROSO) Hx Rheumatoid Arthritis: Yes - PSYCHIATRIC Hx Substance Use: No - SURGICAL HISTORY Hx Surgeries: No ( PER DAUGHTER SINGH BARROSO) - ANESTHESIA Hx Anesthesia: No Meds Allergies/Adverse Reactions: Allergies Allergy/AdvReac Type Severity Reaction Status Date / Time No Known Allergies Allergy Verified 03/29/18 11:29 - Medications Medications: Current Medications Apixaban (Eliquis) 5 mg PO BID [facility] Last Admin: 03/30/18 09:23 Dose: 5 mg Aspirin (Aspirin Chewable) 81 mg PO DAILY [facility] Last Admin: 03/30/18 09:25 Dose: 81 mg Dextrose (Dextrose 50% Inj) 0 ml IV STAT PRN; Protocol PRN Reason: Hypoglycemia Protocol Dextrose (Glutose 15) 0 gm PO ONCE PRN; Protocol PRN Reason: Hypoglycemia Protocol Furosemide (Lasix) 20 mg IVP BID [facility] Last Admin: 03/30/18 09:22 Dose: 20 mg Glucagon (Glucagen Diagnostic Kit) 0 mg IM STAT PRN; Protocol PRN Reason: Hypoglycemia Protocol Dextrose (Dextrose 5% In Water 1000 Ml) 1,000 mls @ 0 mls/hr IV .Q0M PRN; Protocol; Per Protocol PRN Reason: Hypoglycemia Protocol Magnesium Sulfate/Dextrose (Magnesium Sulfate 1 Gm/100 Ml D5w) 1 gm in 100 mls @ 100 mls/hr IVPB ONCE ONE Stop: 03/30/18 10:08 Last Admin: 03/30/18 09:24 Dose: 100 mls/hr Insulin Glargine (Lantus) 9 unit SC HS [facility] Last Admin: 03/29/18 23:12 Dose: Not Given Insulin Human Regular (Novolin R) 3 unit SC ACTID [facility] Last Admin: 03/30/18 07:58 Dose: 3 unit Insulin Human Regular (Novolin R) 0 unit SC ACHS [facility] PRN Reason: Protocol Last Admin: 03/30/18 07:59 Dose: 1 unit Lisinopril (Zestril) 5 mg PO DAILY [facility] Metoprolol Tartrate (Lopressor) 25 mg PO BID [facility] Last Admin: 03/30/18 09:25 Dose: 25 mg Pantoprazole Sodium (Protonix Ec Tab) 40 mg PO DAILY [facility] Last Admin: 03/30/18 09:23 Dose: 40 mg Pregabalin (Lyrica) 100 mg PO Q12 [facility] Last Admin: 03/30/18 09:24 Dose: 100 mg Spironolactone (Aldactone) 25 mg PO DAILY [facility] Last Admin: 03/30/18 09:25 Dose: 25 mg Tramadol HCl (Ultram) 25 mg PO TID PRN PRN Reason: Pain, moderate (4-7) Physical Exam - Constitutional Appears: Chronically Ill - Head Exam Head Exam: ATRAUMATIC - Eye Exam Eye Exam: EOMI - ENT Exam ENT Exam: Mucous Membranes Dry - Neck Exam Neck exam: Positive for: Full Rom - Respiratory Exam Respiratory Exam: Rales - Cardiovascular Exam Cardiovascular Exam: Irregular Rhythm - GI/Abdominal Exam GI & Abdominal Exam: Normal Bowel Sounds - Exam External exam: Erythema, Lesions - Back Exam Back exam: NORMAL INSPECTION - Neurological Exam Neurological exam: Alert, CN II-XII Intact, Oriented x3 - Psychiatric Exam Psychiatric exam: Normal Affect, Normal Mood Results - Vital Signs Recent Vital Signs: Last Vital Signs Temp 98 F 03/29/18 20:25 Pulse 83 03/30/18 08:00 Resp 8 L 03/30/18 08:00 BP 99/60 L 03/30/18 09:25 Pulse Ox 98 03/30/18 08:00 - Labs Result Diagrams: 03/30/18 06:10 03/30/18 06:11 Labs: Laboratory Results - last 24 hr 03/29/18 03/29/18 03/29/18 11:32 12:49 12:49 WBC 9.8 RBC 4.75 Hgb 15.0 Hct 44.4 MCV 93.5 MCH 31.6 H MCHC 33.8 RDW 15.7 H Plt Count 154 MPV 7.8 Neut % (Auto) 76.5 H Lymph % (Auto) 9.1 L [place] % (Auto) 13.3 H Eos % (Auto) 0.6 Baso % (Auto) 0.5 Neut # (Auto) 7.5 H Lymph # (Auto) 0.9 L [place] # (Auto) 1.3 H Eos # (Auto) 0.1 Baso # (Auto) 0.0 Neutrophils % (Manual) 80 H Band Neutrophils % Lymphocytes % (Manual) 8 L Monocytes % (Manual) 12 H Eosinophils % (Manual) Platelet Estimate Normal Anisocytosis (manual) PT 25.3 H INR 2.3 APTT 34 pO2 VBG pH VBG pCO2 VBG HCO3 VBG Total CO2 VBG O2 Sat (Calc) VBG Base Excess VBG Potassium Glucose Lactate Sodium Potassium Chloride Carbon Dioxide Anion Gap BUN Creatinine Est GFR ( Amer) Est GFR (Non-Af Amer) POC Glucose (mg/dL) 125 H Random Glucose Calcium Phosphorus Magnesium Total Bilirubin AST ALT Alkaline Phosphatase Total Creatine Kinase CK-MB (Mass) Troponin I NT-Pro-B Natriuret Pep Total Protein Albumin Globulin Albumin/Globulin Ratio Procalcitonin Venous Blood Potassium Urine Color Urine Clarity Urine pH Ur Specific [place] Urine Protein Urine Glucose (UA) Urine Ketones Urine Blood Urine Nitrate Urine Bilirubin Urine Urobilinogen Ur Leukocyte Esterase Urine WBC (Auto) Urine RBC (Auto) Ur Squamous Epith Cells 03/29/18 03/29/18 03/29/18 12:49 12:59 13:29 WBC RBC Hgb Hct MCV MCH MCHC RDW Plt Count MPV Neut % (Auto) Lymph % (Auto) [place] % (Auto) Eos % (Auto) Baso % (Auto) Neut # (Auto) Lymph # (Auto) [place] # (Auto) Eos # (Auto) Baso # (Auto) Neutrophils % (Manual) Band Neutrophils % Lymphocytes % (Manual) Monocytes % (Manual) Eosinophils % (Manual) Platelet Estimate Anisocytosis (manual) PT INR APTT pO2 33 VBG pH 7.37 VBG pCO2 51 VBG HCO3 26.4 VBG Total CO2 31.1 H VBG O2 Sat (Calc) 58.4 VBG Base Excess 3.1 H VBG Potassium 4.3 Glucose 120 H Lactate 1.9 Sodium 132 133.0 Potassium 4.4 Chloride 99 98.0 Carbon Dioxide 21 L Anion Gap 17 BUN 30 H Creatinine 0.7 Est GFR ( Amer) > 60 Est GFR (Non-Af Amer) > 60 POC Glucose (mg/dL) Random Glucose 104 Calcium 8.5 L Phosphorus Magnesium Total Bilirubin 1.4 H AST 51 H D ALT 28 Alkaline Phosphatase 167 H Total Creatine Kinase CK-MB (Mass) Troponin I 0.0410 NT-Pro-B Natriuret Pep Total Protein 5.8 L Albumin 3.0 L Globulin 2.8 Albumin/Globulin Ratio 1.0 Procalcitonin Venous Blood Potassium 4.3 Urine Color Yellow Urine Clarity Clear Urine pH 5.0 Ur Specific [place] 1.015 Urine Protein Negative Urine Glucose (UA) Normal Urine Ketones Negative Urine Blood Negative Urine Nitrate Negative Urine Bilirubin Negative Urine Urobilinogen Normal Ur Leukocyte Esterase Neg Urine WBC (Auto) 2 Urine RBC (Auto) 1 Ur Squamous Epith Cells < 1 03/29/18 03/29/18 03/29/18 17:03 17:16 17:57 WBC RBC Hgb Hct MCV MCH MCHC RDW Plt Count MPV Neut % (Auto) Lymph % (Auto) [place] % (Auto) Eos % (Auto) Baso % (Auto) Neut # (Auto) Lymph # (Auto) [place] # (Auto) Eos # (Auto) Baso # (Auto) Neutrophils % (Manual) Band Neutrophils % Lymphocytes % (Manual) Monocytes % (Manual) Eosinophils % (Manual) Platelet Estimate Anisocytosis (manual) PT INR APTT pO2 VBG pH VBG pCO2 VBG HCO3 VBG Total CO2 VBG O2 Sat (Calc) VBG Base Excess VBG Potassium Glucose Lactate Sodium Potassium Chloride Carbon Dioxide Anion Gap BUN Creatinine Est GFR ( Amer) Est GFR (Non-Af Amer) POC Glucose (mg/dL) 105 Random Glucose Calcium Phosphorus Magnesium Total Bilirubin AST ALT Alkaline Phosphatase Total Creatine Kinase CK-MB (Mass) Troponin I NT-Pro-B Natriuret Pep 05600 H Total Protein Albumin Globulin Albumin/Globulin Ratio Procalcitonin 0.19 Venous Blood Potassium Urine Color Urine Clarity Urine pH Ur Specific [place] Urine Protein Urine Glucose (UA) Urine Ketones Urine Blood Urine Nitrate Urine Bilirubin Urine Urobilinogen Ur Leukocyte Esterase Urine WBC (Auto) Urine RBC (Auto) Ur Squamous Epith Cells 03/29/18 03/29/18 03/30/18 21:51 22:48 01:30 WBC RBC Hgb Hct MCV MCH MCHC RDW Plt Count MPV Neut % (Auto) Lymph % (Auto) [place] % (Auto) Eos % (Auto) Baso % (Auto) Neut # (Auto) Lymph # (Auto) [place] # (Auto) Eos # (Auto) Baso # (Auto) Neutrophils % (Manual) Band Neutrophils % Lymphocytes % (Manual) Monocytes % (Manual) Eosinophils % (Manual) Platelet Estimate Anisocytosis (manual) PT INR APTT pO2 VBG pH VBG pCO2 VBG HCO3 VBG Total CO2 VBG O2 Sat (Calc) VBG Base Excess VBG Potassium Glucose Lactate Sodium Potassium Chloride Carbon Dioxide Anion Gap BUN Creatinine Est GFR ( Amer) Est GFR (Non-Af Amer) POC Glucose (mg/dL) 150 H Random Glucose Calcium Phosphorus Magnesium Total Bilirubin AST ALT Alkaline Phosphatase Total Creatine Kinase 49 < 20 L CK-MB (Mass) 1.19 1.30 Troponin I 0.0510 0.0370 NT-Pro-B Natriuret Pep Total Protein Albumin Globulin Albumin/Globulin Ratio Procalcitonin Venous Blood Potassium Urine Color Urine Clarity Urine pH Ur Specific [place] Urine Protein Urine Glucose (UA) Urine Ketones Urine Blood Urine Nitrate Urine Bilirubin Urine Urobilinogen Ur Leukocyte Esterase Urine WBC (Auto) Urine RBC (Auto) Ur Squamous Epith Cells 03/30/18 03/30/18 03/30/18 06:10 06:11 07:34 WBC 11.2 H RBC 4.33 Hgb 13.4 Hct 40.5 MCV 93.3 MCH 30.9 MCHC 33.1 RDW 15.6 H Plt Count 123 L D MPV 8.2 Neut % (Auto) 86.9 H Lymph % (Auto) 5.0 L [place] % (Auto) 7.1 Eos % (Auto) 0.5 Baso % (Auto) 0.5 Neut # (Auto) 9.7 H Lymph # (Auto) 0.6 L [place] # (Auto) 0.8 Eos # (Auto) 0.1 Baso # (Auto) 0.1 Neutrophils % (Manual) 88 H Band Neutrophils % 1 Lymphocytes % (Manual) 6 L Monocytes % (Manual) 4 Eosinophils % (Manual) 1 Platelet Estimate Slightly decreased L Anisocytosis (manual) Slight PT INR APTT pO2 VBG pH VBG pCO2 VBG HCO3 VBG Total CO2 VBG O2 Sat (Calc) VBG Base Excess VBG Potassium Glucose Lactate Sodium 133 Potassium 3.8 Chloride 98 Carbon Dioxide 26 Anion Gap 13 BUN 30 H Creatinine 0.7 Est GFR ( Amer) > 60 Est GFR (Non-Af Amer) > 60 POC Glucose (mg/dL) 179 H Random Glucose 180 H Calcium 8.0 L Phosphorus 3.6 Magnesium 1.3 L Total Bilirubin 1.3 AST 37 H D ALT 34 Alkaline Phosphatase 159 H Total Creatine Kinase CK-MB (Mass) Troponin I NT-Pro-B Natriuret Pep Total Protein 5.3 L Albumin 2.7 L Globulin 2.6 Albumin/Globulin Ratio 1.1 Procalcitonin Venous Blood Potassium Urine Color Urine Clarity Urine pH Ur Specific [place] Urine Protein Urine Glucose (UA) Urine Ketones Urine Blood Urine Nitrate Urine Bilirubin Urine Urobilinogen Ur Leukocyte Esterase Urine WBC (Auto) Urine RBC (Auto) Ur Squamous Epith Cells 03/30/18 08:27 WBC RBC Hgb Hct MCV MCH MCHC RDW Plt Count MPV Neut % (Auto) Lymph % (Auto) [place] % (Auto) Eos % (Auto) Baso % (Auto) Neut # (Auto) Lymph # (Auto) [place] # (Auto) Eos # (Auto) Baso # (Auto) Neutrophils % (Manual) Band Neutrophils % Lymphocytes % (Manual) Monocytes % (Manual) Eosinophils % (Manual) Platelet Estimate Anisocytosis (manual) PT INR APTT pO2 VBG pH VBG pCO2 VBG HCO3 VBG Total CO2 VBG O2 Sat (Calc) VBG Base Excess VBG Potassium Glucose Lactate Sodium Potassium Chloride Carbon Dioxide Anion Gap BUN Creatinine Est GFR ( Amer) Est GFR (Non-Af Amer) POC Glucose (mg/dL) Random Glucose Calcium Phosphorus Magnesium Total Bilirubin AST ALT Alkaline Phosphatase Total Creatine Kinase 22 L CK-MB (Mass) 1.20 Troponin I 0.0340 NT-Pro-B Natriuret Pep Total Protein Albumin Globulin Albumin/Globulin Ratio Procalcitonin Venous Blood Potassium Urine Color Urine Clarity Urine pH Ur Specific [place] Urine Protein Urine Glucose (UA) Urine Ketones Urine Blood Urine Nitrate Urine Bilirubin Urine Urobilinogen Ur Leukocyte Esterase Urine WBC (Auto) Urine RBC (Auto) Ur Squamous Epith Cells - EKG Data EKG Interpreted by: Myself (artial fib. non specific block, low voltage) Assessment & Plan - Assessment and Plan (Free Text) Assessment: 1. Pt tolerates atrial fibrillation poorly, and is in florid CHF. IV esmolol not started now as HR was controlled. Pt will benefit greatly from normal sinus. Magnesium need to be aggressively replaced. IV fluids should be limited. If pt does not convert then cardioversion should be entertained. Pt has not been on eliquis long enough to assure that there is no LA thrombus and AINSLEY would be needed first. One there is assurance there is not thrombus, and pt is is in nsr,amiodarone is advised as long as lfts colsely watched. Will need to discuss options with family. Continue diuresis. Eventual nuclear stress to assess again for ischemia.
[2018-03-30] MEDS ORDERED: Magnesium Sulfate 2 GM in Dextrose 5% In Water 100 ML IV ONE (10:30)
--- NOTE | 2018-03-30 11:04 | VASCLAB ---
PROCEDURE: Lower Extremity Venous Duplex Exam. HISTORY: cyanotic feet PRIORS: None. TECHNIQUE: Bilateral common femoral, femoral, popliteal and posterior tibial, peroneal and great saphenous veins were evaluated. Flow was assessed with color Doppler, compressibility, assessment of phasic flow and augmentation response. Report prepared by Antonio Khan, MELITA, RVT FINDINGS: RIGHT: 1. Common Femoral Vein: 1.1. Compressibility - Fully compressible: Thrombus - None : Flow - Phasic: Augmentation -Normal: Reflux - None. 2. Femoral Vein: 2.1. Compressibility - Fully compressible: Thrombus - None : Flow - Phasic: Augmentation -Normal: Reflux - None. 3. Popliteal Vein: 3.1. Compressibility - Fully compressible: Thrombus - None : Flow - Phasic: Augmentation -Normal: Reflux - None. 4. Posterior Tibial Vein: 4.1. Compressibility - Fully compressible: Thrombus - None: Flow - Phasic: Augmentation -Normal: Reflux - None. 5. Peroneal Vein: 5.1. Compressibility - Fully compressible: Thrombus - None: Flow - Phasic: Augmentation -Normal: Reflux - None. 6. Great Saphenous Vein: 6.1. Compressibility - : Thrombus - : Flow - : Augmentation - : Reflux - . LEFT: 1. Common Femoral Vein: 1.1. Compressibility - Fully compressible: Thrombus - None: Flow - Phasic: Augmentation -Normal: Reflux - None. 2. Femoral Vein: 2.1. Compressibility - Fully compressible: Thrombus - None: Flow - Phasic: Augmentation -Normal: Reflux - None. 3. Popliteal Vein: 3.1. Compressibility - Fully compressible: Thrombus - None : Flow - Phasic: Augmentation -Normal: Reflux - None. 4. Posterior Tibial Vein: 4.1. Compressibility - Fully compressible: Thrombus - None: Flow - Phasic: Augmentation -Normal: Reflux - None. 5. Peroneal Vein: 5.1. Compressibility - Fully compressible: Thrombus - None: Flow - Phasic: Augmentation -Normal: Reflux - None. 6. Great Saphenous Vein: 6.1. Compressibility - Fully compressible: Thrombus - None: Flow - Phasic: Augmentation - Normal: Reflux - None. OTHER FINDINGS: Right: None significant. Left: None significant. IMPRESSION: Right: No evidence of deep or superficial vein thrombosis of the right lower extremity. Normal valve function noted of the right side. Left: No evidence of deep or superficial vein thrombosis of the left lower extremity. Normal valve function noted of the left side.
--- NOTE | 2018-03-30 11:12 | VASCLAB ---
STUDY DESCRIPTION: HISTORY: cyanotic feet; peripheral vascular disease PRIORS: None. TECHNIQUE: Pulse volume recording waveforms and segmental pressures of bilateral lower extremities at multiple levels were obtained. Ankle Brachial Indices (ABIs) were calculated. Report prepared by MELITA Chung, RVT RIGHT LOWER EXTREMITY: * Brachial artery: Pressure - 132 mmHg. * High thigh: Pressure - mmHg: Ratio - : PVR waveform - Pulsatile * Low thigh: Pressure - mmHg: Ratio - PVR waveform: Pulsatile * Calf: Pressure - 168 mmHg: Ratio - 1.27 PVR waveform: Pulsatile * Posterior tibial Artery: Pressure - 155 mmHg: Ratio - 1.17 PVR waveform: Pulsatile * Dorsalis pedis Artery: Pressure - 116 mmHg: Ratio - 0.88 PVR waveform: Pulsatile * Great toe: Pressure - mmHg: Ratio - PVR waveform: Ankle brachial index (CHAPARRITA): 1.17 LEFT LOWER EXTREMITY: * Brachial artery: Pressure - mmHg. * High thigh: Pressure - mmHg: Ratio - : PVR waveform - Pulsatile * Low thigh: Pressure - mmHg: Ratio - PVR waveform: Pulsatile * Calf: Pressure - 169 mmHg: Ratio - 1.28 PVR waveform: Pulsatile * Posterior tibial Artery: Pressure - 157 mmHg: Ratio - 1.19 PVR waveform: Pulsatile * Dorsalis pedis Artery: Pressure - 127 mmHg: Ratio - 0.96 PVR waveform: Pulsatile * Great toe: Pressure - mmHg: Ratio - PVR waveform: Ankle brachial index (CHAPARRITA): 1.19 OTHER FINDINGS: Right: Left: IMPRESSION: Right: Normal ankle-brachial index. Abnormal waveform at the level of the metatarsals. Left: Normal ankle-brachial index. Abnormal waveform at the level of the metatarsals.
[2018-03-30] MEDS: guaiFENesin 100 mg/5 ml Syrup UD PO PRN (20:15)
[2018-03-30] MEDS: Tramadol 25 mg PO PRN (20:15)
[2018-03-30] MEDS: (Lantus) Insulin Glargine, Recombinant SC SCH (21:19)
--- NOTE | 2018-03-30 22:11 | CARD ---
APPROVED REPORT EKG Measurement Heart [id number] ID [id number] <Conclusion> Sinus bradycardia with blocked premature atrial complexes Left axis deviation Left bundle branch block Abnormal ECG
--- NOTE | 2018-03-30 22:16 | CARD ---
APPROVED REPORT EKG Measurement Heart [id number] <Conclusion> Atrial fibrillation with rapid ventricular response Left axis deviation Left bundle branch block Abnormal ECG
--- NOTE | 2018-03-30 22:20 | CARD ---
APPROVED REPORT EKG Measurement Heart [id number] <Conclusion> Atrial fibrillation with rapid ventricular response Left axis deviation Left bundle branch block Abnormal ECG
[2018-03-31 06:22] LABS: BASO % 0.6 % (0.0-2.0); EOS # 0.1 K/uL (0.0-0.7); EOS % 1.4 % (0.0-4.0); HEMOGLOBIN 13.8 g/dL (11.0-16.0); LYMPH # 0.9 K/uL (1.0-4.3); LYMPH % 10.8 % (20.0-40.0); MEAN CELL VOLUME 92.7 fL (81.0-99.0); MEAN CORPUSCULAR HGB CONC 33.4 g/dL (33.0-37.0); MEAN PLATELET VOLUME 8.2 fL (7.2-11.7); MONO # 1.1 K/uL (0.0-0.8); MONO % 13.7 % (0.0-10.0); NEUT # 5.9 K/uL (1.8-7.0); NEUT % 73.5 % (50.0-75.0); RBC 4.46 Mil/uL (3.80-5.20); RED CELL DISTRIBUTION WIDTH 15.8 % (11.5-14.5)
[2018-03-31 06:49] LABS: ALB/GLOB RATIO 1.1 (1.0-2.1); ALBUMIN 2.9 g/dL (3.5-5.0); ALT/SGPT 47 U/L (9-52); AST/SGOT 29 U/L (14-36); BLOOD UREA NITROGEN 32 mg/dL (7-17); CALCIUM 8.5 mg/dl (8.6-10.4); GFR AFRICAN-AMERICAN > 60; GFR NON-AFRICAN AMERICAN > 60
[2018-03-31] MEDS: (Novolin R) Insulin Human Regular 100 units/ml vial SC SCH ×7 (08:21→22:46)
--- NOTE | 2018-03-31 08:45 | CP.PCM.PN ---
Subjective - Date & Time of Evaluation Date of Evaluation: 03/31/18 Time of Evaluation: 08:41 - Subjective Subjective: Pt feels better. Still in atrial fib. Mag is 2.1 BP is better. HR about 100-105 bpm Objective - Vital Signs/Intake and Output Vital Signs (last 24 hours): Temp Pulse Resp BP Pulse Ox 97.3 F L 85 14 131/64 99 03/31/18 08:00 03/31/18 08:00 03/31/18 08:00 03/31/18 08:00 03/31/18 08:00 Intake and Output: 03/31/18 03/31/18 06:59 18:59 Intake Total 270 Output Total 200 Balance 70 - Medications Medications: Current Medications Apixaban (Eliquis) 5 mg PO BID [facility] Last Admin: 03/30/18 17:06 Dose: 5 mg Aspirin (Aspirin Chewable) 81 mg PO DAILY [facility] Last Admin: 03/30/18 09:25 Dose: 81 mg Dextrose (Dextrose 50% Inj) 0 ml IV STAT PRN; Protocol PRN Reason: Hypoglycemia Protocol Dextrose (Glutose 15) 0 gm PO ONCE PRN; Protocol PRN Reason: Hypoglycemia Protocol Furosemide (Lasix) 20 mg IVP BID [facility] Last Admin: 03/30/18 17:00 Dose: 20 mg Glucagon (Glucagen Diagnostic Kit) 0 mg IM STAT PRN; Protocol PRN Reason: Hypoglycemia Protocol Guaifenesin (Robitussin) 100 mg PO Q6H PRN PRN Reason: Cough Last Admin: 03/30/18 20:15 Dose: 100 mg Dextrose (Dextrose 5% In Water 1000 Ml) 1,000 mls @ 0 mls/hr IV .Q0M PRN; Protocol; Per Protocol PRN Reason: Hypoglycemia Protocol Insulin Glargine (Lantus) 9 unit SC HS [facility] Last Admin: 03/30/18 21:19 Dose: 9 units Insulin Human Regular (Novolin R) 3 unit SC ACTID [facility] Last Admin: 03/31/18 08:21 Dose: 3 unit Insulin Human Regular (Novolin R) 0 unit SC ACHS [facility] PRN Reason: Protocol Last Admin: 03/31/18 08:22 Dose: 1 unit Lisinopril (Zestril) 5 mg PO DAILY [facility] Last Admin: 03/30/18 09:26 Dose: 5 mg Metoprolol Tartrate (Lopressor) 25 mg PO BID [facility] Last Admin: 03/30/18 17:01 Dose: 25 mg Pantoprazole Sodium (Protonix Ec Tab) 40 mg PO DAILY [facility] Last Admin: 03/30/18 09:23 Dose: 40 mg Pregabalin (Lyrica) 100 mg PO Q12 [facility] Last Admin: 03/30/18 22:53 Dose: 100 mg Spironolactone (Aldactone) 25 mg PO DAILY [facility] Last Admin: 03/30/18 09:25 Dose: 25 mg Tramadol HCl (Ultram) 25 mg PO TID PRN PRN Reason: Pain, moderate (4-7) Last Admin: 03/30/18 20:15 Dose: 25 mg - Labs Labs: 03/31/18 06:16 03/31/18 06:17 PT 25.3 SECONDS (9.7-12.2) H 03/29/18 12:49 INR 2.3 03/29/18 12:49 APTT 34 SECONDS (21-34) 03/29/18 12:49 - Constitutional Appears: Chronically Ill - Eye Exam Eye Exam: EOMI - ENT Exam ENT Exam: Mucous Membranes Dry - Respiratory Exam Respiratory Exam: Decreased Breath Sounds, Rales - Cardiovascular Exam Cardiovascular Exam: Irregular Rhythm - GI/Abdominal Exam GI & Abdominal Exam: Normal Bowel Sounds - Exam Speculum exam: Erythema - Extremities Exam Extremities Exam: Full ROM, Pedal Edema - Back Exam Back Exam: NORMAL INSPECTION - Neurological Exam Neurological Exam: Alert, Awake, Oriented x3 - Psychiatric Exam Psychiatric exam: Flat Affect - Skin Skin Exam: Normal Color Assessment and Plan - Assessment and Plan (Free Text) Assessment: 1. Pt is still in atrial fibrillation. She still has rales, but better. 2. I discussed cardioversion with daughter yesterday, no decision was made. I also discussed cardioversion with patient. She cannot decide either. 3. Will advance meds for HR. Increase IV lasix. Repeat cxr. Follow lytes. 4. Marc are normal.
--- NOTE | 2018-03-31 09:43 | RAD ---
PROCEDURE: CHEST RADIOGRAPH, 1 VIEW HISTORY: chf COMPARISON: 03/30/2018 at 7:08 a.m. FINDINGS: LUNGS: Extensive opacity at right base. This may be due to dependent pleural effusion cannot rule out superimposed alveolar opacity. No significant change. PLEURA: Right pleural effusion. No pneumothorax. Possible very small left pleural effusion. CARDIOVASCULAR: Congestive change. OSSEOUS STRUCTURES: No significant abnormalities. VISUALIZED UPPER ABDOMEN: Normal. OTHER FINDINGS: None. IMPRESSION: Probable pulmonary edema. Right pleural effusion. Congestive change. No significant change from prior examination.
[2018-03-31] MEDS: Pantoprazole 40 mg EC Tab PO SCH (09:53)
--- NOTE | 2018-03-31 15:02 | CP.PCM.PN ---
Subjective - Date & Time of Evaluation Date of Evaluation: 03/31/18 Time of Evaluation: 13:00 - Subjective Subjective: Patient is looking tired and less energy. awake and oriented,denies pain,not eating due to poor appetite. Spoke to her daughter at bedside Objective - Vital Signs/Intake and Output Vital Signs (last 24 hours): Temp Pulse Resp BP Pulse Ox 97.3 F L 85 14 85/46 L 99 03/31/18 08:00 03/31/18 08:00 03/31/18 08:00 03/31/18 13:01 03/31/18 08:00 Intake and Output: 03/31/18 03/31/18 06:59 18:59 Intake Total 270 Output Total 200 Balance 70 - Medications Medications: Current Medications Apixaban (Eliquis) 5 mg PO BID [facility] Last Admin: 03/31/18 09:52 Dose: 5 mg Aspirin (Aspirin Chewable) 81 mg PO DAILY [facility] Last Admin: 03/31/18 09:52 Dose: 81 mg Dextrose (Dextrose 50% Inj) 0 ml IV STAT PRN; Protocol PRN Reason: Hypoglycemia Protocol Dextrose (Glutose 15) 0 gm PO ONCE PRN; Protocol PRN Reason: Hypoglycemia Protocol Furosemide (Lasix) 20 mg IVP TID [facility] Last Admin: 03/31/18 13:01 Dose: Not Given Glucagon (Glucagen Diagnostic Kit) 0 mg IM STAT PRN; Protocol PRN Reason: Hypoglycemia Protocol Guaifenesin (Robitussin) 100 mg PO Q6H PRN PRN Reason: Cough Last Admin: 03/30/18 20:15 Dose: 100 mg Dextrose (Dextrose 5% In Water 1000 Ml) 1,000 mls @ 0 mls/hr IV .Q0M PRN; Protocol; Per Protocol PRN Reason: Hypoglycemia Protocol Insulin Glargine (Lantus) 9 unit SC HS [facility] Last Admin: 03/30/18 21:19 Dose: 9 units Insulin Human Regular (Novolin R) 3 unit SC ACTID [facility] Last Admin: 03/31/18 13:00 Dose: 3 unit Insulin Human Regular (Novolin R) 0 unit SC ACHS [facility] PRN Reason: Protocol Last Admin: 03/31/18 13:00 Dose: 2 unit Lisinopril (Zestril) 5 mg PO DAILY [facility] Last Admin: 05/11/18 09:53 Dose: 5 mg Metoprolol Tartrate (Lopressor) 50 mg PO BID [facility] Last Admin: 03/31/18 09:53 Dose: 50 mg Pantoprazole Sodium (Protonix Ec Tab) 40 mg PO DAILY [facility] Last Admin: 03/31/18 09:53 Dose: 40 mg Pregabalin (Lyrica) 100 mg PO Q12 [facility] Last Admin: 03/31/18 09:53 Dose: 100 mg Spironolactone (Aldactone) 25 mg PO DAILY [facility] Last Admin: 03/31/18 09:52 Dose: 25 mg Tramadol HCl (Ultram) 25 mg PO TID PRN PRN Reason: Pain, moderate (4-7) Last Admin: 03/30/18 20:15 Dose: 25 mg - Labs Labs: 03/31/18 06:16 03/31/18 06:17 PT 25.3 SECONDS (9.7-12.2) H 03/29/18 12:49 INR 2.3 03/29/18 12:49 APTT 34 SECONDS (21-34) 03/29/18 12:49 - Constitutional Appears: No Acute Distress, Chronically Ill - Head Exam Head Exam: NORMAL INSPECTION - Eye Exam Eye Exam: Normal appearance - ENT Exam ENT Exam: Mucous Membranes Moist - Neck Exam Neck Exam: Full ROM - Respiratory Exam Respiratory Exam: NORMAL BREATHING PATTERN - Cardiovascular Exam Cardiovascular Exam: Irregular Rhythm - GI/Abdominal Exam GI & Abdominal Exam: Soft, Normal Bowel Sounds - Back Exam Back Exam: NORMAL INSPECTION - Neurological Exam Neurological Exam: Awake - Psychiatric Exam Psychiatric exam: Normal Mood - Skin Skin Exam: Dry, Normal Color Assessment and Plan - Assessment and Plan (Free Text) Plan: 1.Altered mental status-Improved likely due to Afib with bradycardia Head CT: no acute findings f/u blood cultures and urine culture 2.Acute on Chronic Systolic CHF cxray: pulm vascular congestion/ edema and probable small bilateral pleural effusions Echo(03/16): LVEF 30-35% Lasix 20mg iv BID,Aldactone 25mg po TID,Lisinopril 5mg po daily,Metoprolol Tartrate increase to 50mg po BID ASA 81mg po daily 3. Afib with RVR continue current meds and eliquis d/w Dr Navarro.He was planning to talk to her family regarding the possibility of cardioversion d/w daughter. She may go for cardioversion and [facility] on Tuesday/Tuesday 4.Peipheral cyanosis / Feet-Improved difficult to feel peripheral pulses. patient had abdominal angiogram on 03/21/18: no significant peripheral disease. three vessel runoff in both right and left lower extremities Dr Knox's consult appreciated 5.Low magnesium-resolved 6. DM continue home insulin 7.Prophylaxis DVT: no scds until results of dopplers negative Eliquis 5mg po BID 8.Poor appetite-Glucerna added
[2018-03-31] MEDS ORDERED: Magnesium Sulfate 2 GM in Sodium Chloride 0.9% 100 ML IVPB ONE (18:00)
--- NOTE | 2018-03-31 19:18 | CARD ---
APPROVED REPORT EKG Measurement Heart [id number] <Conclusion> Atrial fibrillation Left axis deviation Left bundle branch block Abnormal ECG
--- NOTE | 2018-03-31 19:18 | CARD ---
APPROVED REPORT EKG Measurement Heart [id number] <Conclusion> Sinus tachycardia with 1st degree AV block Left axis deviation Nonspecific intraventricular block Abnormal ECG
[2018-03-31] MEDS: (Lantus) Insulin Glargine, Recombinant SC SCH (22:53)
[2018-04-01 06:14] LABS: BASO % 0.6 % (0.0-2.0); EOS # 0.1 K/uL (0.0-0.7); HEMOGLOBIN 14.1 g/dL (11.0-16.0); LYMPH # 1.1 K/uL (1.0-4.3); LYMPH % 14.3 % (20.0-40.0); MEAN CELL VOLUME 92.6 fL (81.0-99.0); MEAN CORPUSCULAR HEMOGLOBIN 31.1 pg (27.0-31.0); MEAN CORPUSCULAR HGB CONC 33.6 g/dL (33.0-37.0); MEAN PLATELET VOLUME 8.4 fL (7.2-11.7); MONO # 1.1 K/uL (0.0-0.8); MONO % 13.9 % (0.0-10.0); NEUT # 5.5 K/uL (1.8-7.0); NEUT % 70.2 % (50.0-75.0); NRBC % 0.1 % (0.0-2.0); RBC 4.54 Mil/uL (3.80-5.20); RED CELL DISTRIBUTION WIDTH 15.8 % (11.5-14.5); WHITE BLOOD COUNT 7.8 K/uL (4.8-10.8)
[2018-04-01 06:41] LABS: ALT/SGPT 19 U/L (9-52); AST/SGOT 105 U/L (14-36); BLOOD UREA NITROGEN 32 mg/dL (7-17); CALCIUM 6.8 mg/dl (8.6-10.4); GFR AFRICAN-AMERICAN > 60; GFR NON-AFRICAN AMERICAN > 60
[2018-04-01] MEDS: (Novolin R) Insulin Human Regular 100 units/ml vial SC SCH ×7 (08:10→21:09)
[2018-04-01 08:24] LABS: ALB/GLOB RATIO 1.1 (1.0-2.1); ALBUMIN 2.9 g/dL (3.5-5.0); ALT/SGPT 37 U/L (9-52); AST/SGOT 29 U/L (14-36); BLOOD UREA NITROGEN 34 mg/dL (7-17); CALCIUM 8.6 mg/dl (8.6-10.4); GFR AFRICAN-AMERICAN > 60; GFR NON-AFRICAN AMERICAN > 60
[2018-04-01] MEDS: Pantoprazole 40 mg EC Tab PO SCH (09:58)
--- NOTE | 2018-04-01 11:44 | CP.PCM.PN ---
<Flavio Willis - Last Filed: 04/01/18 11:49> Subjective - Date & Time of Evaluation Date of Evaluation: 04/01/18 Time of Evaluation: 11:40 - Subjective Subjective: Progress note. Attending: Dr. Epperson Pt seen and examined at bedside. No acute distress. No events overnight. No fevers, chills, vomiting, diarrhea. Objective - Vital Signs/Intake and Output Vital Signs (last 24 hours): Temp Pulse Resp BP Pulse Ox 97.4 F L 98 H 13 116/65 96 04/01/18 08:00 04/01/18 10:00 04/01/18 10:00 04/01/18 09:57 04/01/18 08:00 Intake and Output: 04/01/18 04/01/18 06:59 18:59 Intake Total 0 Output Total 200 Balance -200 0 - Medications Medications: Current Medications Apixaban (Eliquis) 5 mg PO BID [facility] Last Admin: 04/01/18 09:57 Dose: 5 mg Aspirin (Aspirin Chewable) 81 mg PO DAILY [facility] Last Admin: 04/01/18 09:57 Dose: 81 mg Dextrose (Dextrose 50% Inj) 0 ml IV STAT PRN; Protocol PRN Reason: Hypoglycemia Protocol Dextrose (Glutose 15) 0 gm PO ONCE PRN; Protocol PRN Reason: Hypoglycemia Protocol Furosemide (Lasix) 20 mg IVP TID [facility] Last Admin: 04/01/18 09:57 Dose: 20 mg Glucagon (Glucagen Diagnostic Kit) 0 mg IM STAT PRN; Protocol PRN Reason: Hypoglycemia Protocol Guaifenesin (Robitussin) 100 mg PO Q6H PRN PRN Reason: Cough Last Admin: 03/30/18 20:15 Dose: 100 mg Dextrose (Dextrose 5% In Water 1000 Ml) 1,000 mls @ 0 mls/hr IV .Q0M PRN; Protocol; Per Protocol PRN Reason: Hypoglycemia Protocol Insulin Glargine (Lantus) 9 unit SC HS [facility] Last Admin: 03/31/18 22:53 Dose: 9 units Insulin Human Regular (Novolin R) 3 unit SC ACTID [facility] Last Admin: 04/01/18 08:10 Dose: Not Given Insulin Human Regular (Novolin R) 0 unit SC ACHS [facility] PRN Reason: Protocol Last Admin: 05/12/18 08:10 Dose: Not Given Lisinopril (Zestril) 5 mg PO DAILY [facility] Last Admin: 04/01/18 09:57 Dose: 5 mg Metoprolol Tartrate (Lopressor) 50 mg PO BID [facility] Last Admin: 04/01/18 09:58 Dose: 50 mg Pantoprazole Sodium (Protonix Ec Tab) 40 mg PO DAILY [facility] Last Admin: 04/01/18 09:58 Dose: 40 mg Pregabalin (Lyrica) 100 mg PO Q12 [facility] Last Admin: 04/01/18 09:57 Dose: 100 mg Spironolactone (Aldactone) 25 mg PO DAILY [facility] Last Admin: 04/01/18 09:58 Dose: 25 mg Tramadol HCl (Ultram) 25 mg PO TID PRN PRN Reason: Pain, moderate (4-7) Last Admin: 03/30/18 20:15 Dose: 25 mg - Labs Labs: 04/01/18 06:08 04/01/18 08:05 PT 25.3 SECONDS (9.7-12.2) H 03/29/18 12:49 INR 2.3 03/29/18 12:49 APTT 34 SECONDS (21-34) 03/29/18 12:49 - Constitutional Appears: No Acute Distress, Chronically Ill - Head Exam Head Exam: ATRAUMATIC, NORMAL INSPECTION, NORMOCEPHALIC - Eye Exam Eye Exam: EOMI - ENT Exam ENT Exam: Mucous Membranes Moist - Neck Exam Neck Exam: Full ROM - Respiratory Exam Respiratory Exam: NORMAL BREATHING PATTERN. absent: Respiratory Distress - Cardiovascular Exam Cardiovascular Exam: Irregular Rhythm - GI/Abdominal Exam GI & Abdominal Exam: Soft, Normal Bowel Sounds. absent: Tenderness - Extremities Exam Extremities Exam: Full ROM, Normal Inspection - Neurological Exam Neurological Exam: Awake, CN II-XII Intact - Psychiatric Exam Psychiatric exam: Flat Affect - Skin Skin Exam: Dry, Intact, Normal Color, Warm Assessment and Plan - Assessment and Plan (Free Text) Assessment: 1.Altered mental status -improved -head ct negative -urine and wound culture negative -may be secondary to a fib with rvr 2.Acute on Chronic Systolic CHF -cxray: pulm vascular congestion/ edema and probable small bilateral pleural effusions -Echo(03/16): LVEF 30-35% -continue lasix 20 IV TID -continue spironolactone 25 daily -continue metoprolol 50 BID -continue lisinopril 5 mg daily 3. Afib with RVR -possible cardioversion on tuesday/tuesday -continue eliquis 4.Peipheral cyanosis -vascular sx consult. Dr. Lynn. recs appreciated. 5.Low magnesium -continue to monitor 6. DM continue home insulin 7. GI/DVT ppx -protonix 40 daily 8.Poor appetite -continue glucerna <Patrica Epperson - Last Filed: 04/03/18 12:12> Objective - Vital Signs/Intake and Output Vital Signs (last 24 hours): Temp Pulse Resp BP Pulse Ox 97.3 F L 77 20 125/85 96 04/02/18 15:53 04/02/18 16:00 04/02/18 15:53 04/02/18 17:46 04/02/18 15:53 - Medications Medications: Current Medications Apixaban (Eliquis) 5 mg PO BID [facility] Last Admin: 04/02/18 17:45 Dose: 5 mg Aspirin (Aspirin Chewable) 81 mg PO DAILY [facility] Last Admin: 04/02/18 09:32 Dose: 81 mg Dextrose (Dextrose 50% Inj) 0 ml IV STAT PRN; Protocol PRN Reason: Hypoglycemia Protocol Dextrose (Glutose 15) 0 gm PO ONCE PRN; Protocol PRN Reason: Hypoglycemia Protocol Furosemide (Lasix) 20 mg IVP TID [facility] Last Admin: 04/02/18 17:46 Dose: 20 mg Glucagon (Glucagen Diagnostic Kit) 0 mg IM STAT PRN; Protocol PRN Reason: Hypoglycemia Protocol Guaifenesin (Robitussin) 100 mg PO Q6H PRN PRN Reason: Cough Last Admin: 03/30/18 20:15 Dose: 100 mg Dextrose (Dextrose 5% In Water 1000 Ml) 1,000 mls @ 0 mls/hr IV .Q0M PRN; Protocol; Per Protocol PRN Reason: Hypoglycemia Protocol Insulin Glargine (Lantus) 9 unit SC HS [facility] Last Admin: 04/01/18 21:08 Dose: 9 units Insulin Human Regular (Novolin R) 3 unit SC ACTID [facility] Last Admin: 04/02/18 17:46 Dose: 3 unit Insulin Human Regular (Novolin R) 0 unit SC ACHS [facility] PRN Reason: Protocol Last Admin: 04/02/18 17:46 Dose: 2 unit Lisinopril (Zestril) 5 mg PO DAILY [facility] Last Admin: 04/02/18 10:55 Dose: 5 mg Metoprolol Tartrate (Lopressor) 50 mg PO BID [facility] Last Admin: 04/02/18 17:45 Dose: 50 mg Pantoprazole Sodium (Protonix Ec Tab) 40 mg PO DAILY [facility] Last Admin: 04/02/18 09:32 Dose: 40 mg Potassium Chloride (K-Dur 20 Meq Er Tab) 40 meq PO BRK [facility] Stop: 04/03/18 13:00 Last Admin: 04/02/18 12:22 Dose: 40 meq Pregabalin (Lyrica) 100 mg PO Q12 [facility] Last Admin: 04/02/18 09:32 Dose: 100 mg Spironolactone (Aldactone) 25 mg PO DAILY [facility] Last Admin: 04/02/18 10:55 Dose: 25 mg Sulfasalazine (Azulfidine) 500 mg PO BID [facility] PRN Reason: Protocol Last Admin: 04/02/18 17:45 Dose: 500 mg Tramadol HCl (Ultram) 25 mg PO TID PRN PRN Reason: Pain, moderate (4-7) Last Admin: 03/30/18 20:15 Dose: 25 mg - Labs Labs: 04/02/18 07:27 04/02/18 07:27 PT 25.3 SECONDS (9.7-12.2) H 03/29/18 12:49 INR 2.3 03/29/18 12:49 APTT 34 SECONDS (21-34) 03/29/18 12:49 Attending/Attestation - Attestation I have personally seen and examined this patient.: Yes I have fully participated in the care of the patient.: Yes I have reviewed all pertinent clinical information, including history, physical exam and plan: Yes Notes (Text): No complain,poor intake,Complaining of poor appetite No sob,lying comfortable,has bilateral rales continue current meds,monitor heart rate and BP follow Dr Navarro. Planning for cardioversion I agree with the resident's documentation of the assessment and the plan
--- NOTE | 2018-04-01 13:03 | CP.PCM.PN ---
Subjective - Date & Time of Evaluation Date of Evaluation: 04/01/18 Time of Evaluation: 13:01 - Subjective Subjective: Pt is alert, but lethargic, sleepy. K was high: repeated and normal. Prerenal. CXR is unchanged. Still in afib, but rate is slower. Objective - Vital Signs/Intake and Output Vital Signs (last 24 hours): Temp Pulse Resp BP Pulse Ox 97.4 F L 98 H 13 116/65 96 04/01/18 08:00 04/01/18 10:00 04/01/18 10:00 04/01/18 09:57 04/01/18 08:00 Intake and Output: 04/01/18 04/01/18 06:59 18:59 Intake Total 0 Output Total 200 Balance -200 0 - Medications Medications: Current Medications Apixaban (Eliquis) 5 mg PO BID [facility] Last Admin: 04/01/18 09:57 Dose: 5 mg Aspirin (Aspirin Chewable) 81 mg PO DAILY [facility] Last Admin: 04/01/18 09:57 Dose: 81 mg Dextrose (Dextrose 50% Inj) 0 ml IV STAT PRN; Protocol PRN Reason: Hypoglycemia Protocol Dextrose (Glutose 15) 0 gm PO ONCE PRN; Protocol PRN Reason: Hypoglycemia Protocol Furosemide (Lasix) 20 mg IVP TID [facility] Last Admin: 04/01/18 09:57 Dose: 20 mg Glucagon (Glucagen Diagnostic Kit) 0 mg IM STAT PRN; Protocol PRN Reason: Hypoglycemia Protocol Guaifenesin (Robitussin) 100 mg PO Q6H PRN PRN Reason: Cough Last Admin: 03/30/18 20:15 Dose: 100 mg Dextrose (Dextrose 5% In Water 1000 Ml) 1,000 mls @ 0 mls/hr IV .Q0M PRN; Protocol; Per Protocol PRN Reason: Hypoglycemia Protocol Insulin Glargine (Lantus) 9 unit SC HS [facility] Last Admin: 03/31/18 22:53 Dose: 9 units Insulin Human Regular (Novolin R) 3 unit SC ACTID [facility] Last Admin: 04/01/18 12:35 Dose: 3 unit Insulin Human Regular (Novolin R) 0 unit SC ACHS [facility] PRN Reason: Protocol Last Admin: 04/01/18 12:35 Dose: 2 unit Lisinopril (Zestril) 5 mg PO DAILY [facility] Last Admin: 04/01/18 09:57 Dose: 5 mg Metoprolol Tartrate (Lopressor) 50 mg PO BID [facility] Last Admin: 04/01/18 09:58 Dose: 50 mg Pantoprazole Sodium (Protonix Ec Tab) 40 mg PO DAILY [facility] Last Admin: 04/01/18 09:58 Dose: 40 mg Pregabalin (Lyrica) 100 mg PO Q12 [facility] Last Admin: 04/01/18 09:57 Dose: 100 mg Spironolactone (Aldactone) 25 mg PO DAILY [facility] Last Admin: 04/01/18 09:58 Dose: 25 mg Sulfasalazine (Azulfidine) 500 mg PO BID [facility] PRN Reason: Protocol Tramadol HCl (Ultram) 25 mg PO TID PRN PRN Reason: Pain, moderate (4-7) Last Admin: 03/30/18 20:15 Dose: 25 mg - Labs Labs: 04/01/18 06:08 04/01/18 08:05 PT 25.3 SECONDS (9.7-12.2) H 03/29/18 12:49 INR 2.3 03/29/18 12:49 APTT 34 SECONDS (21-34) 03/29/18 12:49 - Constitutional Appears: Chronically Ill - Head Exam Head Exam: ATRAUMATIC - Eye Exam Eye Exam: EOMI - ENT Exam ENT Exam: Mucous Membranes Dry - Respiratory Exam Respiratory Exam: Decreased Breath Sounds, Rales - Cardiovascular Exam Cardiovascular Exam: Irregular Rhythm - GI/Abdominal Exam GI & Abdominal Exam: Normal Bowel Sounds - Exam External exam: Swelling - Extremities Exam Extremities Exam: Pedal Edema - Neurological Exam Neurological Exam: Awake, Oriented x3 - Psychiatric Exam Psychiatric exam: Flat Affect - Skin Skin Exam: Normal Color Assessment and Plan - Assessment and Plan (Free Text) Assessment: 1. Pt has refractory CHF: patient's family has agree to cardioversion, and I will arrange. Tuesday may be difficult to schedule as lab is closed on the weekend. Will try. I discussed risks and benefits with the family and they agree to proceed with CV.
[2018-04-01] MEDS: (Lantus) Insulin Glargine, Recombinant SC SCH (21:08)
--- NOTE | 2018-04-02 05:56 | CP.PCM.PN ---
Addendum entered and electronically signed by Flavio Willis DO 04/02/18 17: 28: Home meds verified with pharmacy. Original Note: <PrestonColleen - Last Filed: 04/02/18 05:58> Subjective - Date & Time of Evaluation Date of Evaluation: 04/02/18 Time of Evaluation: 05:53 - Subjective Subjective: Progress Note Patient seen and examined at bedside. No acute events overnight. Patient is aware she may have cardioversion earlier this week 04/03, 04/04. Patient was noted to have an episode of incontinence. Patient transfered from telemetry ICU to telemetry on the floor overnight. Objective - Vital Signs/Intake and Output Vital Signs (last 24 hours): Temp Pulse Resp BP Pulse Ox 98.0 F 83 20 126/82 98 04/02/18 00:00 04/02/18 00:00 04/02/18 00:00 04/02/18 00:00 04/02/18 00:00 Intake and Output: 04/01/18 04/02/18 18:59 06:59 Intake Total 500 150 Output Total 750 700 Balance -250 -550 - Medications Medications: Current Medications Apixaban (Eliquis) 5 mg PO BID [facility] Last Admin: 04/01/18 17:51 Dose: 5 mg Aspirin (Aspirin Chewable) 81 mg PO DAILY [facility] Last Admin: 04/01/18 09:57 Dose: 81 mg Dextrose (Dextrose 50% Inj) 0 ml IV STAT PRN; Protocol PRN Reason: Hypoglycemia Protocol Dextrose (Glutose 15) 0 gm PO ONCE PRN; Protocol PRN Reason: Hypoglycemia Protocol Furosemide (Lasix) 20 mg IVP TID [facility] Last Admin: 04/01/18 17:50 Dose: 20 mg Glucagon (Glucagen Diagnostic Kit) 0 mg IM STAT PRN; Protocol PRN Reason: Hypoglycemia Protocol Guaifenesin (Robitussin) 100 mg PO Q6H PRN PRN Reason: Cough Last Admin: 03/30/18 20:15 Dose: 100 mg Dextrose (Dextrose 5% In Water 1000 Ml) 1,000 mls @ 0 mls/hr IV .Q0M PRN; Protocol; Per Protocol PRN Reason: Hypoglycemia Protocol Insulin Glargine (Lantus) 9 unit SC HS [facility] Last Admin: 04/01/18 21:08 Dose: 9 units Insulin Human Regular (Novolin R) 3 unit SC ACTID [facility] Last Admin: 04/01/18 16:20 Dose: 3 unit Insulin Human Regular (Novolin R) 0 unit SC ACHS [facility] PRN Reason: Protocol Last Admin: 04/01/18 21:09 Dose: Not Given Lisinopril (Zestril) 5 mg PO DAILY [facility] Last Admin: 04/01/18 09:57 Dose: 5 mg Metoprolol Tartrate (Lopressor) 50 mg PO BID [facility] Last Admin: 04/01/18 17:51 Dose: 50 mg Pantoprazole Sodium (Protonix Ec Tab) 40 mg PO DAILY [facility] Last Admin: 04/01/18 09:58 Dose: 40 mg Pregabalin (Lyrica) 100 mg PO Q12 [facility] Last Admin: 04/01/18 21:09 Dose: 100 mg Spironolactone (Aldactone) 25 mg PO DAILY [facility] Last Admin: 04/01/18 09:58 Dose: 25 mg Sulfasalazine (Azulfidine) 500 mg PO BID [facility] PRN Reason: Protocol Last Admin: 04/01/18 17:51 Dose: 500 mg Tramadol HCl (Ultram) 25 mg PO TID PRN PRN Reason: Pain, moderate (4-7) Last Admin: 03/30/18 20:15 Dose: 25 mg - Labs Labs: 04/01/18 06:08 04/01/18 08:05 PT 25.3 SECONDS (9.7-12.2) H 03/29/18 12:49 INR 2.3 03/29/18 12:49 APTT 34 SECONDS (21-34) 03/29/18 12:49 - Additional Findings Additional findings: - Constitutional Appears: No Acute Distress, Chronically Ill - Head Exam Head Exam: ATRAUMATIC, NORMAL INSPECTION, NORMOCEPHALIC - Eye Exam Eye Exam: EOMI - ENT Exam ENT Exam: Mucous Membranes Moist - Neck Exam Neck Exam: Full ROM - Respiratory Exam Respiratory Exam: NORMAL BREATHING PATTERN. absent: Respiratory Distress - Cardiovascular Exam Cardiovascular Exam: Irregular Rhythm - GI/Abdominal Exam GI & Abdominal Exam: Soft, Normal Bowel Sounds. absent: Tenderness - Extremities Exam Extremities Exam: Full ROM left foot/leg dressing dry and intact, distal pulses present by doppler - Neurological Exam Neurological Exam: Awake, CN II-XII Intact - Psychiatric Exam Psychiatric exam: Flat Affect - Skin Skin Exam: Dry, Intact, Normal Color, Warm Assessment and Plan - Assessment and Plan (Free Text) Assessment: 1.Altered mental status, improved -CT Head negative -urine and wound culture negative -may be secondary to a fib with rvr 2.Acute on Chronic Systolic CHF -cxray: pulm vascular congestion/ edema and probable small bilateral pleural effusions -Echo(03/16): LVEF 30-35% -continue lasix 20 IV TID -continue spironolactone 25 daily -continue metoprolol 50 BID -continue lisinopril 5 mg daily 3. Atrial fibrillation with RVR -possible cardioversion on tuesday/tuesday -continue eliquis 4.Peripheral cyanosis -vascular sx consult. Dr. Lynn. recs appreciated. 5.Low magnesium -continue to monitor 6. DM continue home insulin 7. GI/DVT ppx -protonix 40 daily 8.Poor appetite -continue glucerna Dr. Zhou Johnston, DO PGY1 <Patrica Epperson - Last Filed: 04/03/18 12:08> Objective - Vital Signs/Intake and Output Vital Signs (last 24 hours): Temp Pulse Resp BP Pulse Ox 98.8 F 78 20 102/61 100 04/03/18 07:55 04/03/18 08:00 04/03/18 07:55 04/03/18 10:31 04/03/18 07:55 Intake and Output: 04/03/18 04/03/18 06:59 18:59 Intake Total 0 Output Total 1025 Balance -1025 - Medications Medications: Current Medications Apixaban (Eliquis) 5 mg PO BID [facility] Last Admin: 04/03/18 10:31 Dose: 5 mg Aspirin (Aspirin Chewable) 81 mg PO DAILY [facility] Last Admin: 04/03/18 10:30 Dose: 81 mg Dextrose (Dextrose 50% Inj) 0 ml IV STAT PRN; Protocol PRN Reason: Hypoglycemia Protocol Dextrose (Glutose 15) 0 gm PO ONCE PRN; Protocol PRN Reason: Hypoglycemia Protocol Furosemide (Lasix) 20 mg IVP TID [facility] Last Admin: 04/03/18 10:31 Dose: 20 mg Glucagon (Glucagen Diagnostic Kit) 0 mg IM STAT PRN; Protocol PRN Reason: Hypoglycemia Protocol Guaifenesin (Robitussin) 100 mg PO Q6H PRN PRN Reason: Cough Last Admin: 03/30/18 20:15 Dose: 100 mg Dextrose (Dextrose 5% In Water 1000 Ml) 1,000 mls @ 0 mls/hr IV .Q0M PRN; Protocol; Per Protocol PRN Reason: Hypoglycemia Protocol Magnesium Sulfate 2 gm/ Sodium (Chloride) 104 mls @ 104 mls/hr IV Q1H [facility] Stop: 04/03/18 12:59 Insulin Glargine (Lantus) 9 unit SC HS [facility] Last Admin: 04/02/18 21:18 Dose: Not Given Insulin Human Regular (Novolin R) 3 unit SC ACTID [facility] Last Admin: 04/03/18 08:08 Dose: 3 unit Insulin Human Regular (Novolin R) 0 unit SC ACHS [facility] PRN Reason: Protocol Last Admin: 04/03/18 07:58 Dose: Not Given Lisinopril (Zestril) 5 mg PO DAILY [facility] Last Admin: 04/03/18 10:30 Dose: Not Given Metoprolol Tartrate (Lopressor) 50 mg PO BID [facility] Last Admin: 04/03/18 10:30 Dose: Not Given Pantoprazole Sodium (Protonix Ec Tab) 40 mg PO DAILY [facility] Last Admin: 04/03/18 10:31 Dose: 40 mg Pregabalin (Lyrica) 100 mg PO Q12 [facility] Last Admin: 04/03/18 10:31 Dose: 100 mg Spironolactone (Aldactone) 25 mg PO DAILY [facility] Last Admin: 04/03/18 10:30 Dose: 25 mg Sulfasalazine (Azulfidine) 500 mg PO BID [facility] PRN Reason: Protocol Last Admin: 04/03/18 10:31 Dose: 500 mg Tramadol HCl (Ultram) 25 mg PO TID PRN PRN Reason: Pain, moderate (4-7) Last Admin: 03/30/18 20:15 Dose: 25 mg - Labs Labs: 04/03/18 07:22 04/03/18 07:22 PT 25.3 SECONDS (9.7-12.2) H 03/29/18 12:49 INR 2.3 03/29/18 12:49 APTT 34 SECONDS (21-34) 03/29/18 12:49 Attending/Attestation - Attestation I have personally seen and examined this patient.: Yes I have fully participated in the care of the patient.: Yes I have reviewed all pertinent clinical information, including history, physical exam and plan: Yes Notes (Text): Seen and examined by me. Lying comfortable.No complain, Mild baseline shortness of breath.On examination she has bilateral rales Continue current meds including lasix 20 mg IV TID Follow up with Dr Navarro I agree with the resident's assessment and the plan
[2018-04-02 07:37] LABS: BASO % 0.5 % (0.0-2.0); EOS # 0.1 K/uL (0.0-0.7); EOS % 1.6 % (0.0-4.0); LYMPH % 15.2 % (20.0-40.0); MEAN CELL VOLUME 92.4 fL (81.0-99.0); MEAN CORPUSCULAR HEMOGLOBIN 30.9 pg (27.0-31.0); MEAN CORPUSCULAR HGB CONC 33.5 g/dL (33.0-37.0); MEAN PLATELET VOLUME 8.2 fL (7.2-11.7); MONO % 15.3 % (0.0-10.0); NEUT # 4.4 K/uL (1.8-7.0); NEUT % 67.4 % (50.0-75.0); RBC 4.53 Mil/uL (3.80-5.20); RED CELL DISTRIBUTION WIDTH 15.5 % (11.5-14.5); WHITE BLOOD COUNT 6.6 K/uL (4.8-10.8)
[2018-04-02] MEDS: (Novolin R) Insulin Human Regular 100 units/ml vial SC SCH ×7 (08:40→21:17)
[2018-04-02 09:28] LABS: ALBUMIN 2.7 g/dL (3.5-5.0); ALT/SGPT 43 U/L (9-52); AST/SGOT 30 U/L (14-36); BLOOD UREA NITROGEN 39 mg/dL (7-17); CALCIUM 8.9 mg/dl (8.6-10.4); GFR AFRICAN-AMERICAN > 60; GFR NON-AFRICAN AMERICAN > 60
[2018-04-02] MEDS: Pantoprazole 40 mg EC Tab PO SCH (09:32)
[2018-04-02] MEDS: Potassium Chloride 20 mEq ER Tab PO SCH (12:22)
[2018-04-02] MEDS ORDERED: SODIUM CHLORIDE 0.45% IV ONE (13:00)
[2018-04-02] MEDS ORDERED: MAGNESIUM SULFATE IV ONE (13:00)
[2018-04-02] MEDS: (Lantus) Insulin Glargine, Recombinant SC SCH (21:18)
[2018-04-03 07:40] LABS: BASO % 0.5 % (0.0-2.0); EOS # 0.1 K/uL (0.0-0.7); EOS % 1.9 % (0.0-4.0); HEMOGLOBIN 14.2 g/dL (11.0-16.0); LYMPH # 1.3 K/uL (1.0-4.3); LYMPH % 19.6 % (20.0-40.0); MEAN CORPUSCULAR HGB CONC 33.3 g/dL (33.0-37.0); MEAN PLATELET VOLUME 8.4 fL (7.2-11.7); MONO # 0.9 K/uL (0.0-0.8); MONO % 14.7 % (0.0-10.0); NEUT # 4.1 K/uL (1.8-7.0); NEUT % 63.3 % (50.0-75.0); NRBC % 0.1 % (0.0-2.0); RBC 4.57 Mil/uL (3.80-5.20); RED CELL DISTRIBUTION WIDTH 15.7 % (11.5-14.5); WHITE BLOOD COUNT 6.4 K/uL (4.8-10.8)
[2018-04-03] MEDS: (Novolin R) Insulin Human Regular 100 units/ml vial SC SCH ×7 (07:58→21:30)
[2018-04-03] MEDS: Potassium Chloride 20 mEq ER Tab PO SCH (08:08)
[2018-04-03 08:15] LABS: ALBUMIN 2.7 g/dL (3.5-5.0); ALT/SGPT 38 U/L (9-52); AST/SGOT 25 U/L (14-36); BLOOD UREA NITROGEN 38 mg/dL (7-17); CALCIUM 8.7 mg/dl (8.6-10.4); GFR AFRICAN-AMERICAN > 60; GFR NON-AFRICAN AMERICAN > 60
--- NOTE | 2018-04-03 08:22 | RAD ---
PROCEDURE: CHEST RADIOGRAPH, 1 VIEW HISTORY: CHF/pleural effusion COMPARISON: 03/31/2018 FINDINGS: LUNGS: Extensive bilateral diffuse opacities. Possible pneumonia versus pulmonary edema versus inflammatory etiology. No significant change from prior. PLEURA: Bilateral pleural effusion, right greater than left. CARDIOVASCULAR: Normal heart size. Congestive change. OSSEOUS STRUCTURES: No significant abnormalities. VISUALIZED UPPER ABDOMEN: Normal. OTHER FINDINGS: None. IMPRESSION: Bilateral pulmonary opacities with small left and moderate right pleural effusion. Congestive change. Possible pulmonary edema. No significant change from prior.
[2018-04-03] MEDS: Pantoprazole 40 mg EC Tab PO SCH (10:31)
--- NOTE | 2018-04-03 10:44 | CP.PCM.PN ---
<Vale Garcia - Last Filed: 04/03/18 14:42> Subjective - Date & Time of Evaluation Date of Evaluation: 04/03/18 Time of Evaluation: 07:00 - Subjective Subjective: PGY1- Progress Note Patient seen and examined at bedside and in no acute distress. Patient says she has some mild shortness of breath. Patient denies any chest pain or abdominal pain. Patient does admit to palpitations. Patient denies any nausea, vomiting, constipation, or diarrhea. Objective - Vital Signs/Intake and Output Vital Signs (last 24 hours): Temp Pulse Resp BP Pulse Ox 98.8 F 78 20 102/61 100 04/03/18 07:55 04/03/18 08:00 04/03/18 07:55 04/03/18 10:31 04/03/18 07:55 Intake and Output: 04/03/18 04/03/18 06:59 18:59 Intake Total 0 Output Total 1025 Balance -1025 - Medications Medications: Current Medications Apixaban (Eliquis) 5 mg PO BID [facility] Last Admin: 04/03/18 10:31 Dose: 5 mg Aspirin (Aspirin Chewable) 81 mg PO DAILY [facility] Last Admin: 04/03/18 10:30 Dose: 81 mg Dextrose (Dextrose 50% Inj) 0 ml IV STAT PRN; Protocol PRN Reason: Hypoglycemia Protocol Dextrose (Glutose 15) 0 gm PO ONCE PRN; Protocol PRN Reason: Hypoglycemia Protocol Furosemide (Lasix) 20 mg IVP TID [facility] Last Admin: 04/03/18 10:31 Dose: 20 mg Glucagon (Glucagen Diagnostic Kit) 0 mg IM STAT PRN; Protocol PRN Reason: Hypoglycemia Protocol Guaifenesin (Robitussin) 100 mg PO Q6H PRN PRN Reason: Cough Last Admin: 03/30/18 20:15 Dose: 100 mg Dextrose (Dextrose 5% In Water 1000 Ml) 1,000 mls @ 0 mls/hr IV .Q0M PRN; Protocol; Per Protocol PRN Reason: Hypoglycemia Protocol Magnesium Sulfate 2 gm/ Sodium (Chloride) 104 mls @ 104 mls/hr IV Q1H [facility] Stop: 04/03/18 12:59 Insulin Glargine (Lantus) 9 unit SC HS [facility] Last Admin: 04/02/18 21:18 Dose: Not Given Insulin Human Regular (Novolin R) 3 unit SC ACTID [facility] Last Admin: 04/03/18 08:08 Dose: 3 unit Insulin Human Regular (Novolin R) 0 unit SC ACHS [facility] PRN Reason: Protocol Last Admin: 04/03/18 07:58 Dose: Not Given Lisinopril (Zestril) 5 mg PO DAILY [facility] Last Admin: 04/03/18 10:30 Dose: Not Given Metoprolol Tartrate (Lopressor) 50 mg PO BID [facility] Last Admin: 04/03/18 10:30 Dose: Not Given Pantoprazole Sodium (Protonix Ec Tab) 40 mg PO DAILY [facility] Last Admin: 04/03/18 10:31 Dose: 40 mg Potassium Chloride (K-Dur 20 Meq Er Tab) 40 meq PO BRK [facility] Stop: 04/03/18 11:46 Pregabalin (Lyrica) 100 mg PO Q12 [facility] Last Admin: 04/03/18 10:31 Dose: 100 mg Spironolactone (Aldactone) 25 mg PO DAILY [facility] Last Admin: 04/03/18 10:30 Dose: 25 mg Sulfasalazine (Azulfidine) 500 mg PO BID [facility] PRN Reason: Protocol Last Admin: 04/03/18 10:31 Dose: 500 mg Tramadol HCl (Ultram) 25 mg PO TID PRN PRN Reason: Pain, moderate (4-7) Last Admin: 03/30/18 20:15 Dose: 25 mg - Labs Labs: 04/03/18 07:22 04/03/18 07:22 PT 25.3 SECONDS (9.7-12.2) H 03/29/18 12:49 INR 2.3 03/29/18 12:49 APTT 34 SECONDS (21-34) 03/29/18 12:49 - Additional Findings Additional findings: - Constitutional Appears: No Acute Distress, Chronically Ill - Head Exam Head Exam: ATRAUMATIC, NORMAL INSPECTION, NORMOCEPHALIC - Eye Exam Eye Exam: EOMI - ENT Exam ENT Exam: Mucous Membranes Moist - Neck Exam Neck Exam: Full ROM - Respiratory Exam Respiratory Exam: NORMAL BREATHING PATTERN. absent: Respiratory Distress - Cardiovascular Exam Cardiovascular Exam: Irregular Rhythm - GI/Abdominal Exam GI & Abdominal Exam: Soft, Normal Bowel Sounds. absent: Tenderness - Extremities Exam Extremities Exam: Full ROM left foot/leg dressing dry and intact, distal pulses present by doppler, offloading boots in place - Neurological Exam Neurological Exam: Awake, CN II-XII Intact - Psychiatric Exam Psychiatric exam: Flat Affect - Skin Skin Exam: Dry, Intact, Normal Color, Warm Assessment and Plan - Assessment and Plan (Free Text) Assessment: Atrial fibrillation with RVR -possible cardioversion tuesday, npo after midnight -continue eliquis 5mg po BID Acute on Chronic Systolic CHF -cxray 04/03: bilateral pulm opacities with small left and moderate right pleural effusion, congestive change, possible pulmonary edema -f/u xray 04/04 -Echo(03/16): LVEF 30-35% -continue lasix 20 IVP TID -continue spironolactone 25 daily -continue metoprolol 50 BID -continue lisinopril 5 mg daily Altered mental status, improved -CT Head negative -urine and wound culture negative -may be secondary to a fib with rvr Peripheral cyanosis -vascular sx consult. Dr. Lynn. recs appreciated. -abdominal angiogram on 03/21/18: no significant peripheral disease. three vessel runoff in both right and left lower extremities -offloading boots Low magnesium -repleted -continue to monitor Rheumatoid Arthritis Sulfasalazine 500mg po BID DM continue home insulin accuchecks hypoglycemic protocol GI/DVT ppx -Eliquis 5mg po BID -protonix 40 daily -glucerna <Aubrey Spence H - Last Filed: 04/03/18 16:22> Objective - Vital Signs/Intake and Output Vital Signs (last 24 hours): Temp Pulse Resp BP Pulse Ox 98.5 F 94 H 20 115/75 98 04/03/18 15:58 04/03/18 15:58 04/03/18 15:58 04/03/18 15:58 04/03/18 15:58 Intake and Output: 04/03/18 04/03/18 06:59 18:59 Intake Total 0 500 Output Total 1025 350 Balance -1025 150 - Medications Medications: Current Medications Apixaban (Eliquis) 5 mg PO BID [facility] Last Admin: 04/03/18 10:31 Dose: 5 mg Aspirin (Aspirin Chewable) 81 mg PO DAILY [facility] Last Admin: 04/03/18 10:30 Dose: 81 mg Dextrose (Dextrose 50% Inj) 0 ml IV STAT PRN; Protocol PRN Reason: Hypoglycemia Protocol Dextrose (Glutose 15) 0 gm PO ONCE PRN; Protocol PRN Reason: Hypoglycemia Protocol Furosemide (Lasix) 20 mg IVP TID [facility] Last Admin: 04/03/18 15:06 Dose: 20 mg Glucagon (Glucagen Diagnostic Kit) 0 mg IM STAT PRN; Protocol PRN Reason: Hypoglycemia Protocol Guaifenesin (Robitussin) 100 mg PO Q6H PRN PRN Reason: Cough Last Admin: 03/30/18 20:15 Dose: 100 mg Dextrose (Dextrose 5% In Water 1000 Ml) 1,000 mls @ 0 mls/hr IV .Q0M PRN; Protocol; Per Protocol PRN Reason: Hypoglycemia Protocol Insulin Glargine (Lantus) 9 unit SC HS [facility] Last Admin: 04/02/18 21:18 Dose: Not Given Insulin Human Regular (Novolin R) 3 unit SC ACTID [facility] Last Admin: 04/03/18 12:02 Dose: 3 unit Insulin Human Regular (Novolin R) 0 unit SC ACHS [facility] PRN Reason: Protocol Last Admin: 04/03/18 14:08 Dose: 2 unit Lisinopril (Zestril) 5 mg PO DAILY [facility] Last Admin: 04/03/18 10:30 Dose: Not Given Metoprolol Tartrate (Lopressor) 50 mg PO BID [facility] Last Admin: 04/03/18 10:30 Dose: Not Given Pantoprazole Sodium (Protonix Ec Tab) 40 mg PO DAILY [facility] Last Admin: 04/03/18 10:31 Dose: 40 mg Pregabalin (Lyrica) 100 mg PO Q12 [facility] Last Admin: 04/03/18 10:31 Dose: 100 mg Spironolactone (Aldactone) 25 mg PO DAILY [facility] Last Admin: 04/03/18 10:30 Dose: 25 mg Sulfasalazine (Azulfidine) 500 mg PO BID [facility] PRN Reason: Protocol Last Admin: 04/03/18 10:31 Dose: 500 mg Tramadol HCl (Ultram) 25 mg PO TID PRN PRN Reason: Pain, moderate (4-7) Last Admin: 03/30/18 20:15 Dose: 25 mg - Labs Labs: 04/03/18 07:22 04/03/18 07:22 PT 25.3 SECONDS (9.7-12.2) H 03/29/18 12:49 INR 2.3 03/29/18 12:49 APTT 34 SECONDS (21-34) 03/29/18 12:49 Attending/Attestation - Attestation I have personally seen and examined this patient.: Yes I have fully participated in the care of the patient.: Yes I have reviewed all pertinent clinical information, including history, physical exam and plan: Yes Notes (Text): 04/03/18 16:22 Medical attending: Patient was seen and examined by me, agrees the above note by medical office specialist. Family member was present at bedside, the patient was okay with this. The family member participated with the discussion and planning As reported in previous notes the patient has a history of atrial fibrillation as well as RVR and is pending a possible cardioversion some time either tomorrow or the next day she remains on by mouth liquids twice a day at this moment. With regards to her history of CHF, recurrent repeat a chest x-ray tomorrow. She remains on IV Lasix, Aldactone, beta marlena, MOISE inhibitor Thank you very much, Aubrey Spence
--- NOTE | 2018-04-03 11:06 | CP.PCM.PN ---
Subjective - Date & Time of Evaluation Date of Evaluation: 04/03/18 Time of Evaluation: 11:04 - Subjective Subjective: Pt remains the same, Yanez. CV could not be done today. No available anesthesia Objective - Vital Signs/Intake and Output Vital Signs (last 24 hours): Temp Pulse Resp BP Pulse Ox 98.8 F 78 20 102/61 100 04/03/18 07:55 04/03/18 08:00 04/03/18 07:55 04/03/18 10:31 04/03/18 07:55 Intake and Output: 04/03/18 04/03/18 06:59 18:59 Intake Total 0 Output Total 1025 Balance -1025 - Medications Medications: Current Medications Apixaban (Eliquis) 5 mg PO BID [facility] Last Admin: 04/03/18 10:31 Dose: 5 mg Aspirin (Aspirin Chewable) 81 mg PO DAILY [facility] Last Admin: 04/03/18 10:30 Dose: 81 mg Dextrose (Dextrose 50% Inj) 0 ml IV STAT PRN; Protocol PRN Reason: Hypoglycemia Protocol Dextrose (Glutose 15) 0 gm PO ONCE PRN; Protocol PRN Reason: Hypoglycemia Protocol Furosemide (Lasix) 20 mg IVP TID [facility] Last Admin: 04/03/18 10:31 Dose: 20 mg Glucagon (Glucagen Diagnostic Kit) 0 mg IM STAT PRN; Protocol PRN Reason: Hypoglycemia Protocol Guaifenesin (Robitussin) 100 mg PO Q6H PRN PRN Reason: Cough Last Admin: 03/30/18 20:15 Dose: 100 mg Dextrose (Dextrose 5% In Water 1000 Ml) 1,000 mls @ 0 mls/hr IV .Q0M PRN; Protocol; Per Protocol PRN Reason: Hypoglycemia Protocol Magnesium Sulfate 2 gm/ Sodium (Chloride) 104 mls @ 104 mls/hr IV Q1H [facility] Stop: 04/03/18 12:59 Insulin Glargine (Lantus) 9 unit SC HS [facility] Last Admin: 04/02/18 21:18 Dose: Not Given Insulin Human Regular (Novolin R) 3 unit SC ACTID [facility] Last Admin: 04/03/18 08:08 Dose: 3 unit Insulin Human Regular (Novolin R) 0 unit SC ACHS [facility] PRN Reason: Protocol Last Admin: 04/03/18 07:58 Dose: Not Given Lisinopril (Zestril) 5 mg PO DAILY [facility] Last Admin: 04/03/18 10:30 Dose: Not Given Metoprolol Tartrate (Lopressor) 50 mg PO BID [facility] Last Admin: 04/03/18 10:30 Dose: Not Given Pantoprazole Sodium (Protonix Ec Tab) 40 mg PO DAILY [facility] Last Admin: 04/03/18 10:31 Dose: 40 mg Potassium Chloride (K-Dur 20 Meq Er Tab) 40 meq PO BRK [facility] Stop: 04/03/18 11:46 Pregabalin (Lyrica) 100 mg PO Q12 [facility] Last Admin: 04/03/18 10:31 Dose: 100 mg Spironolactone (Aldactone) 25 mg PO DAILY [facility] Last Admin: 04/03/18 10:30 Dose: 25 mg Sulfasalazine (Azulfidine) 500 mg PO BID [facility] PRN Reason: Protocol Last Admin: 04/03/18 10:31 Dose: 500 mg Tramadol HCl (Ultram) 25 mg PO TID PRN PRN Reason: Pain, moderate (4-7) Last Admin: 03/30/18 20:15 Dose: 25 mg - Labs Labs: 04/03/18 07:22 04/03/18 07:22 PT 25.3 SECONDS (9.7-12.2) H 03/29/18 12:49 INR 2.3 03/29/18 12:49 APTT 34 SECONDS (21-34) 03/29/18 12:49 - Constitutional Appears: Well - Head Exam Head Exam: ATRAUMATIC - Respiratory Exam Respiratory Exam: Rales - Cardiovascular Exam Cardiovascular Exam: Irregular Rhythm - Exam External exam: NORMAL EXTERNAL EXAM - Extremities Exam Extremities Exam: Normal Inspection - Back Exam Back Exam: NORMAL INSPECTION - Neurological Exam Neurological Exam: Alert, Awake - Psychiatric Exam Psychiatric exam: Normal Affect - Skin Skin Exam: Normal Color Assessment and Plan - Assessment and Plan (Free Text) Assessment: Pt remains in afib, controlled rate, and rales on exam. Will repeat cxr. Will again replace lytes, more aggressively for mag. AINSLEY cv tomorrow when anesthesia can be booked.
[2018-04-03] MEDS ORDERED: Potassium Chloride 20 mEq ER Tab PO SCH (11:45)
[2018-04-03] MEDS: Magnesium Sulfate 2 GM in Sodium Chloride 0.9% 100 ML IV SCH ×2 (12:06→13:41)
--- NOTE | 2018-04-03 15:02 | RAD ---
HISTORY: chf COMPARISON: Chest radiograph performed approximately 7 hours prior. TECHNIQUE: Chest PA and lateral FINDINGS: LUNGS: Pulmonary vascular congestion. Bibasilar atelectasis. Questionable superimposed lingular infiltrate. PLEURA: Small bilateral pleural effusions. No pneumothorax apparent. CARDIOVASCULAR: Atherosclerotic aortic calcifications. Cardiomediastinal silhouette stably enlarged. OSSEOUS STRUCTURES: Unchanged. VISUALIZED UPPER ABDOMEN: Normal. OTHER FINDINGS: None. IMPRESSION: Grossly similar pulmonary vascular congestion and small bilateral pleural effusions. Questionable superimposed lingular infiltrate.
[2018-04-03] MEDS: (Lantus) Insulin Glargine, Recombinant SC SCH (21:30)
[2018-04-04 07:41] LABS: BASO % 0.5 % (0.0-2.0); EOS # 0.1 K/uL (0.0-0.7); EOS % 1.1 % (0.0-4.0); HEMOGLOBIN 15.2 g/dL (11.0-16.0); LYMPH # 1.2 K/uL (1.0-4.3); LYMPH % 17.1 % (20.0-40.0); MEAN CELL VOLUME 92.4 fL (81.0-99.0); MEAN CORPUSCULAR HGB CONC 33.5 g/dL (33.0-37.0); MEAN PLATELET VOLUME 8.4 fL (7.2-11.7); MONO % 13.5 % (0.0-10.0); NEUT # 4.9 K/uL (1.8-7.0); NEUT % 67.8 % (50.0-75.0); NRBC % 0.1 % (0.0-2.0); RBC 4.89 Mil/uL (3.80-5.20); RED CELL DISTRIBUTION WIDTH 15.3 % (11.5-14.5); WHITE BLOOD COUNT 7.2 K/uL (4.8-10.8)
[2018-04-04 07:51] LABS: BLOOD UREA NITROGEN 36 mg/dL (7-17); CALCIUM 8.3 mg/dl (8.6-10.4); GFR AFRICAN-AMERICAN > 60; GFR NON-AFRICAN AMERICAN > 60
[2018-04-04] MEDS: (Novolin R) Insulin Human Regular 100 units/ml vial SC SCH ×7 (08:08→22:00)
--- NOTE | 2018-04-04 08:58 | RAD ---
HISTORY: CHF, SOB COMPARISON: 04/03/2018 FINDINGS: LUNGS: Extensive right-sided pulmonary opacity, diffuse. No significant change. No definite left-sided opacity. Linear scar/atelectasis mid left lung. PLEURA: Small to moderate right pleural effusion. No evidence of left pleural effusion. No pneumothorax. CARDIOVASCULAR: Normal heart size. Mild congestive change. OSSEOUS STRUCTURES: No significant abnormalities. VISUALIZED UPPER ABDOMEN: Normal. OTHER FINDINGS: None. IMPRESSION: Extensive right-sided pulmonary opacity with moderate right pleural effusion. Mild congestive change. Possible pulmonary edema.
--- NOTE | 2018-04-04 09:47 | CP.PCM.PN ---
<Vale Garcia - Last Filed: 04/04/18 14:10> Subjective - Date & Time of Evaluation Date of Evaluation: 04/04/18 Time of Evaluation: 07:00 - Subjective Subjective: PGY1- Progress Note Patient seen and examined at bedside resting comfortably. Patient says she has a mild right sided frontal headache. Patient admits to shortness of breath. Patient denies any nausea, vomiting, abdominal pain, constipation, or diarrhea. Objective - Vital Signs/Intake and Output Vital Signs (last 24 hours): Temp Pulse Resp BP Pulse Ox 97.0 F L 72 18 122/77 97 04/04/18 07:05 04/04/18 08:00 04/04/18 07:05 04/04/18 07:05 04/04/18 07:05 Intake and Output: 04/04/18 04/04/18 06:59 18:59 Intake Total 0 Output Total 1250 Balance -1250 - Medications Medications: Current Medications Apixaban (Eliquis) 5 mg PO BID [facility] Last Admin: 04/03/18 18:09 Dose: 5 mg Aspirin (Aspirin Chewable) 81 mg PO DAILY [facility] Last Admin: 04/03/18 10:30 Dose: 81 mg Dextrose (Dextrose 50% Inj) 0 ml IV STAT PRN; Protocol PRN Reason: Hypoglycemia Protocol Dextrose (Glutose 15) 0 gm PO ONCE PRN; Protocol PRN Reason: Hypoglycemia Protocol Furosemide (Lasix) 20 mg IVP TID [facility] Last Admin: 04/03/18 18:10 Dose: 20 mg Glucagon (Glucagen Diagnostic Kit) 0 mg IM STAT PRN; Protocol PRN Reason: Hypoglycemia Protocol Guaifenesin (Robitussin) 100 mg PO Q6H PRN PRN Reason: Cough Last Admin: 03/30/18 20:15 Dose: 100 mg Insulin Glargine (Lantus) 9 unit SC HS [facility] Last Admin: 04/03/18 21:30 Dose: Not Given Insulin Human Regular (Novolin R) 3 unit SC ACTID [facility] Last Admin: 04/04/18 08:08 Dose: Not Given Insulin Human Regular (Novolin R) 0 unit SC ACHS [facility] PRN Reason: Protocol Last Admin: 04/04/18 08:08 Dose: Not Given Lisinopril (Zestril) 5 mg PO DAILY [facility] Last Admin: 04/03/18 10:30 Dose: Not Given Metoprolol Tartrate (Lopressor) 50 mg PO BID [facility] Last Admin: 04/03/18 18:09 Dose: 50 mg Pantoprazole Sodium (Protonix Ec Tab) 40 mg PO DAILY [facility] Last Admin: 04/03/18 10:31 Dose: 40 mg Pregabalin (Lyrica) 100 mg PO Q12 [facility] Last Admin: 04/03/18 21:59 Dose: 100 mg Spironolactone (Aldactone) 25 mg PO DAILY [facility] Last Admin: 04/03/18 10:30 Dose: 25 mg Sulfasalazine (Azulfidine) 500 mg PO BID [facility] PRN Reason: Protocol Last Admin: 04/03/18 18:09 Dose: 500 mg Tramadol HCl (Ultram) 25 mg PO TID PRN PRN Reason: Pain, moderate (4-7) Last Admin: 03/30/18 20:15 Dose: 25 mg - Labs Labs: 04/04/18 07:29 04/04/18 07:29 PT 25.3 SECONDS (9.7-12.2) H 03/29/18 12:49 INR 2.3 03/29/18 12:49 APTT 34 SECONDS (21-34) 03/29/18 12:49 - Additional Findings Additional findings: - Constitutional Appears: No Acute Distress, Chronically Ill - Head Exam Head Exam: ATRAUMATIC, NORMAL INSPECTION, NORMOCEPHALIC - Eye Exam Eye Exam: EOMI - ENT Exam ENT Exam: Mucous Membranes Moist - Neck Exam Neck Exam: Full ROM - Respiratory Exam Respiratory Exam: NORMAL BREATHING PATTERN. absent: Respiratory Distress - Cardiovascular Exam Cardiovascular Exam: Irregular Rhythm - GI/Abdominal Exam GI & Abdominal Exam: Soft, Normal Bowel Sounds. absent: Tenderness - Extremities Exam Extremities Exam: Full ROM left foot/leg dressing dry and intact, distal pulses present by doppler, offloading boots in place - Neurological Exam Neurological Exam: Awake, CN II-XII Intact - Psychiatric Exam Psychiatric exam: Flat Affect - Skin Skin Exam: Dry, Intact, Normal Color, Warm Assessment and Plan - Assessment and Plan (Free Text) Assessment: Atrial fibrillation with RVR -AINSLEY with possible cardioversion today -continue eliquis 5mg po BID Acute on Chronic Systolic CHF -cxray 04/03: bilateral pulm opacities with small left and moderate right pleural effusion, congestive change, possible pulmonary edema -f/u xray 04/04 -Echo(03/16): LVEF 30-35% -continue lasix 20 IVP TID -continue spironolactone 25 daily -continue metoprolol 50 BID -continue lisinopril 5 mg daily Right Pleural Effusion probably 2/2 chronic CHF worsening on cxray 04/04cxray: extensive right sided pulmonary opacity with moderate right pleural effusion. mild congestive change. possible pulmonary edema. Pulmonology consulted, Dr. Moon, help appreciated Altered mental status, improved -CT Head negative -urine and wound culture negative -may be secondary to a fib with rvr Peripheral cyanosis -vascular sx consult. Dr. Lynn. recs appreciated. -abdominal angiogram on 03/21/18: no significant peripheral disease. three vessel runoff in both right and left lower extremities -offloading boots Hypomagnesium -resolved -continue to monitor Rheumatoid Arthritis -Sulfasalazine 500mg po BID DM -continue home insulin -accuchecks -hypoglycemic protocol GI/DVT ppx -Eliquis 5mg po BID -protonix 40 daily -glucerna <Spence,Peter H - Last Filed: 04/04/18 14:23> Objective - Vital Signs/Intake and Output Vital Signs (last 24 hours): Temp Pulse Resp BP Pulse Ox 97.0 F L 101 H 16 133/88 3 L 04/04/18 07:05 04/04/18 12:58 04/04/18 11:30 04/04/18 11:30 04/04/18 11:30 Intake and Output: 04/04/18 04/04/18 06:59 18:59 Intake Total 0 Output Total 1250 Balance -1250 - Medications Medications: Current Medications Apixaban (Eliquis) 5 mg PO BID [facility] Last Admin: 04/04/18 10:06 Dose: Not Given Aspirin (Aspirin Chewable) 81 mg PO DAILY [facility] Last Admin: 04/04/18 10:06 Dose: Not Given Dextrose (Dextrose 50% Inj) 0 ml IV STAT PRN; Protocol PRN Reason: Hypoglycemia Protocol Dextrose (Glutose 15) 0 gm PO ONCE PRN; Protocol PRN Reason: Hypoglycemia Protocol Furosemide (Lasix) 20 mg IVP TID [facility] Last Admin: 04/04/18 10:16 Dose: 20 mg Glucagon (Glucagen Diagnostic Kit) 0 mg IM STAT PRN; Protocol PRN Reason: Hypoglycemia Protocol Guaifenesin (Robitussin) 100 mg PO Q6H PRN PRN Reason: Cough Last Admin: 03/30/18 20:15 Dose: 100 mg Insulin Glargine (Lantus) 9 unit SC HS [facility] Last Admin: 04/03/18 21:30 Dose: Not Given Insulin Human Regular (Novolin R) 3 unit SC ACTID [facility] Last Admin: 04/04/18 12:01 Dose: Not Given Insulin Human Regular (Novolin R) 0 unit SC ACHS [facility] PRN Reason: Protocol Last Admin: 04/04/18 12:02 Dose: Not Given Lisinopril (Zestril) 5 mg PO DAILY [facility] Last Admin: 04/04/18 10:16 Dose: 5 mg Metoprolol Tartrate (Lopressor) 50 mg PO BID [facility] Last Admin: 04/04/18 10:16 Dose: 50 mg Pantoprazole Sodium (Protonix Ec Tab) 40 mg PO DAILY [facility] Last Admin: 04/04/18 10:07 Dose: Not Given Pregabalin (Lyrica) 100 mg PO Q12 [facility] Last Admin: 04/04/18 10:07 Dose: Not Given Spironolactone (Aldactone) 25 mg PO DAILY [facility] Last Admin: 04/04/18 10:06 Dose: Not Given Sulfasalazine (Azulfidine) 500 mg PO BID [facility] PRN Reason: Protocol Last Admin: 04/04/18 10:06 Dose: Not Given Tramadol HCl (Ultram) 25 mg PO TID PRN PRN Reason: Pain, moderate (4-7) Last Admin: 03/30/18 20:15 Dose: 25 mg - Labs Labs: 04/04/18 07:29 04/04/18 07:29 PT 25.3 SECONDS (9.7-12.2) H 03/29/18 12:49 INR 2.3 03/29/18 12:49 APTT 34 SECONDS (21-34) 03/29/18 12:49 Attending/Attestation - Attestation I have personally seen and examined this patient.: Yes I have fully participated in the care of the patient.: Yes I have reviewed all pertinent clinical information, including history, physical exam and plan: Yes Notes (Text): Medical attending: Patient was seen and examined by me, agree with the above note by the medical practice administrator. Patient's family members her daughter and her son were present at bedside today. The patient was okay with this and a lot of our discussion was with the family members at bedside. Later on today the patient is pending undergoing cardioversion later this afternoon. Chest x-ray shows that there is there is a growing right-sided pleural effusion that does appear to be somewhat larger than previous. She may need CT scan and later a thoarcenteis if the pleural effusion does not resolve. She does have decreased breath sounds on the right lung mckinney. thank you Aubrey Spence
[2018-04-04] MEDS: Pantoprazole 40 mg EC Tab PO SCH (10:07)
[2018-04-04] MEDS ORDERED: Lidocaine 4% (Laryng-O-Jet) Kit MM ONE ×2 (13:35→13:36)
[2018-04-04] MEDS ORDERED: Etomidate 20 mg/10ml Inj IV ONE (13:58)
[2018-04-04] MEDS ORDERED: Phenylephrine 10 mg/ml Inj ONE (13:58)
--- NOTE | 2018-04-04 14:28 | CP.PCM.PN ---
Subjective - Date & Time of Evaluation Date of Evaluation: 04/04/18 Time of Evaluation: 14:22 - Subjective Subjective: Pt is alert, cxr appears worsePt had AINSLEY. Pt has mrkedly reduced LV EF,moderate MR, mild AI, severe TR, and pulm HTN. Pt has a and asd with bidrectional flow. No cardioversion was performed. Lytes good today Objective - Vital Signs/Intake and Output Vital Signs (last 24 hours): Temp Pulse Resp BP Pulse Ox 97.0 F L 101 H 16 133/88 3 L 04/04/18 07:05 04/04/18 12:58 04/04/18 11:30 04/04/18 11:30 04/04/18 11:30 Intake and Output: 04/04/18 04/04/18 06:59 18:59 Intake Total 0 Output Total 1250 Balance -1250 - Medications Medications: Current Medications Apixaban (Eliquis) 5 mg PO BID [facility] Last Admin: 04/04/18 10:06 Dose: Not Given Aspirin (Aspirin Chewable) 81 mg PO DAILY [facility] Last Admin: 04/04/18 10:06 Dose: Not Given Dextrose (Dextrose 50% Inj) 0 ml IV STAT PRN; Protocol PRN Reason: Hypoglycemia Protocol Dextrose (Glutose 15) 0 gm PO ONCE PRN; Protocol PRN Reason: Hypoglycemia Protocol Furosemide (Lasix) 20 mg IVP TID [facility] Last Admin: 04/04/18 10:16 Dose: 20 mg Glucagon (Glucagen Diagnostic Kit) 0 mg IM STAT PRN; Protocol PRN Reason: Hypoglycemia Protocol Guaifenesin (Robitussin) 100 mg PO Q6H PRN PRN Reason: Cough Last Admin: 03/30/18 20:15 Dose: 100 mg Insulin Glargine (Lantus) 9 unit SC HS [facility] Last Admin: 04/03/18 21:30 Dose: Not Given Insulin Human Regular (Novolin R) 3 unit SC ACTID [facility] Last Admin: 04/04/18 12:01 Dose: Not Given Insulin Human Regular (Novolin R) 0 unit SC ACHS [facility] PRN Reason: Protocol Last Admin: 04/04/18 12:02 Dose: Not Given Lisinopril (Zestril) 5 mg PO DAILY [facility] Last Admin: 04/04/18 10:16 Dose: 5 mg Metoprolol Tartrate (Lopressor) 50 mg PO BID [facility] Last Admin: 04/04/18 10:16 Dose: 50 mg Pantoprazole Sodium (Protonix Ec Tab) 40 mg PO DAILY [facility] Last Admin: 04/04/18 10:07 Dose: Not Given Pregabalin (Lyrica) 100 mg PO Q12 [facility] Last Admin: 04/04/18 10:07 Dose: Not Given Spironolactone (Aldactone) 25 mg PO DAILY [facility] Last Admin: 04/04/18 10:06 Dose: Not Given Sulfasalazine (Azulfidine) 500 mg PO BID [facility] PRN Reason: Protocol Last Admin: 04/04/18 10:06 Dose: Not Given Tramadol HCl (Ultram) 25 mg PO TID PRN PRN Reason: Pain, moderate (4-7) Last Admin: 03/30/18 20:15 Dose: 25 mg - Labs Labs: 04/04/18 07:29 04/04/18 07:29 PT 25.3 SECONDS (9.7-12.2) H 03/29/18 12:49 INR 2.3 03/29/18 12:49 APTT 34 SECONDS (21-34) 03/29/18 12:49 - Constitutional Appears: Older Than Stated Age - ENT Exam ENT Exam: Mucous Membranes Moist - Respiratory Exam Respiratory Exam: Decreased Breath Sounds, Rales - Cardiovascular Exam Cardiovascular Exam: Tachycardia - GI/Abdominal Exam GI & Abdominal Exam: Normal Bowel Sounds - Exam External exam: NORMAL EXTERNAL EXAM - Extremities Exam Extremities Exam: Normal Inspection - Back Exam Back Exam: NORMAL INSPECTION - Neurological Exam Neurological Exam: Alert, Awake - Psychiatric Exam Psychiatric exam: Normal Affect - Skin Skin Exam: Dry Assessment and Plan - Assessment and Plan (Free Text) Assessment: 1. In view of patients; asd and pulmonary HTN, a shock , even if sucessful, woul have a low likelihood of maintaining the rhythm in nsr. Now that we know that there is no LA thrombus, will give IV amio. If pt does not convert after slowing with Amio on board, will consider cardioversion. Pt will deed to have the asd evaluated for possible repair or closure, a risky thing with pulmonary HTN.
[2018-04-04] MEDS ORDERED: ePHEDrine 50 mg/ml Inj ONE (14:41)
--- NOTE | 2018-04-04 16:29 | CP.PCM.PN ---
Subjective - Date & Time of Evaluation Date of Evaluation: 04/04/18 Time of Evaluation: 03:30 - Subjective Subjective: post procedure in cardiac label printing machinist; patient exibited hypotension 75/40 HR 120's Brim Shaper at bedside ordered amniodorone drip. informed of hypotension. placed in trendelenberg. neosephrine boluses required. Asked to start Levophed drip at this time. Updated MDA Beka. Transfered to ICU Bed 4 with O2 100% spont ventilation and full monitors. report to Dr Payne, oracle technical developer at bedside. Objective - Vital Signs/Intake and Output Vital Signs (last 24 hours): Temp Pulse Resp BP Pulse Ox 97.0 F L 113 H 17 104/56 L 99 04/04/18 07:05 04/04/18 16:07 04/04/18 16:07 04/04/18 16:07 04/04/18 16:07 Intake and Output: 04/04/18 04/04/18 06:59 18:59 Intake Total 0 Output Total 1250 400 Balance -1250 -400 - Medications Medications: Current Medications Apixaban (Eliquis) 5 mg PO BID [facility] Last Admin: 04/04/18 10:06 Dose: Not Given Aspirin (Aspirin Chewable) 81 mg PO DAILY [facility] Last Admin: 04/04/18 10:06 Dose: Not Given Dextrose (Dextrose 50% Inj) 0 ml IV STAT PRN; Protocol PRN Reason: Hypoglycemia Protocol Dextrose (Glutose 15) 0 gm PO ONCE PRN; Protocol PRN Reason: Hypoglycemia Protocol Furosemide (Lasix) 20 mg IVP TID [facility] Last Admin: 04/04/18 10:16 Dose: 20 mg Glucagon (Glucagen Diagnostic Kit) 0 mg IM STAT PRN; Protocol PRN Reason: Hypoglycemia Protocol Guaifenesin (Robitussin) 100 mg PO Q6H PRN PRN Reason: Cough Last Admin: 03/30/18 20:15 Dose: 100 mg Amiodarone HCl 900 mg/ (Dextrose) 500 mls @ 33.33 mls/hr IV .Q15H1M ONE; 1 MG/ MIN PRN Reason: Protocol Stop: 04/05/18 05:28 Last Admin: 04/04/18 16:05 Dose: 33.33 mls/hr Norepinephrine Bitartrate 4 mg (/ Sodium Chloride) 254 mls @ 15.24 mls/hr IV .[id number] PRN; Protocol; 4 MCG/MIN PRN Reason: TITRATE PER MD ORDER Last Admin: 04/04/18 16:07 Dose: 4 mcg/min, 15.24 mls/hr Insulin Glargine (Lantus) 9 unit SC HS [facility] Last Admin: 04/03/18 21:30 Dose: Not Given Insulin Human Regular (Novolin R) 3 unit SC ACTID [facility] Last Admin: 04/04/18 12:01 Dose: Not Given Insulin Human Regular (Novolin R) 0 unit SC ACHS [facility] PRN Reason: Protocol Last Admin: 04/04/18 12:02 Dose: Not Given Lisinopril (Zestril) 5 mg PO DAILY [facility] Last Admin: 04/04/18 10:16 Dose: 5 mg Metoprolol Tartrate (Lopressor) 50 mg PO BID [facility] Last Admin: 04/04/18 10:16 Dose: 50 mg Pantoprazole Sodium (Protonix Ec Tab) 40 mg PO DAILY [facility] Last Admin: 04/04/18 10:07 Dose: Not Given Pregabalin (Lyrica) 100 mg PO Q12 [facility] Last Admin: 04/04/18 10:07 Dose: Not Given Spironolactone (Aldactone) 25 mg PO DAILY [facility] Last Admin: 04/04/18 10:06 Dose: Not Given Sulfasalazine (Azulfidine) 500 mg PO BID [facility] PRN Reason: Protocol Last Admin: 04/04/18 10:06 Dose: Not Given Tramadol HCl (Ultram) 25 mg PO TID PRN PRN Reason: Pain, moderate (4-7) Last Admin: 03/30/18 20:15 Dose: 25 mg - Labs Labs: 04/04/18 07:29 04/04/18 07:29 PT 25.3 SECONDS (9.7-12.2) H 03/29/18 12:49 INR 2.3 03/29/18 12:49 APTT 34 SECONDS (21-34) 03/29/18 12:49
--- NOTE | 2018-04-04 18:15 | PCM.PROC ---
Procedures Attestation:: I certify that I have explained the specified Operation(s) or Procedure(s), risks, benefits and reasonable alternatives to the Patient and/or other person responsible. The opportunity was given to ask questions and all questions answered - Central Line Placement Internal Jugular Triple Lumen Catheter Aseptic technique was employed throughout the procedure: Hand Hygiene done prior to procedure, Full sterile barriers (mask, hair cover, sterile gown, sterile gloves), Chloraprep Antiseptic: 30 second prep for IJ or SC sites CVP Time Out Performed: Yes Pt. Placed on Pulse Ox Monitor: Yes Central Line Prep: Chlorhexidine-Alcohol Combination Local Anesthesia Used: Lidocaine 1% Ultrasound Used for Placement: Yes Central Line Lumen Inserted: triple Post Procedure: Sutured in Place, Good Blood Return, All Ports Aspirated, Flushed, Capped, Sterile Dressing Applied Post Procedure X-Ray: Yes Patient Tolerated Procedure: Well
--- NOTE | 2018-04-04 18:26 | CP.PCM.CON ---
<tSefani Sandoval - Last Filed: 04/04/18 20:50> History of Present Illness - History of Present Illness History of Present Illness: This patient is a 73 year old female with PMHx of DM, RA, AFib, Hypercholesterolenemia, and Pneumonia who presented due to AMS. Post procedure in cardiac lab engineer; patient exhibited hypotension 75/40, HR 120's Senior Cognos Developer at bedside and ordered amiodarone drip, placed in trendelenberg and started on Levophed drip. ICU consulted on this patient for a-fib and hypotension requiring pressors. ROS POSITVES: Generalized Weakness, Dyspnea, Lethargy NEGATIVES: Headache, Fever, chills, abdominal pain, palpitations, nausea, vomiting, changes in bowel habits, urinary symptoms. PMHx: DM, RA, AFib, Hypercholesterolenemia, Pneumonia PSHx: Bilateral Humerus Internal Fixation, Rib Internal Fixation FAMILY HX: Mother Stroke (40s) , Sister Stroke (60s), Brother Stroke (63) ALLERGIES: NKDA MEDICATIONS: Reviewed Review of Systems - Review of Systems All systems: reviewed and no additional remarkable complaints except Review of Systems: As per HPI Past Patient History - Past Medical History & Family History Past Medical History?: Yes - Past Social History Smoking Status: Former Smoker - CARDIAC Hx Cardiac Disorders: Yes - PULMONARY Hx Pneumonia: Yes - ENDOCRINE/METABOLIC Hx Diabetes Mellitus Type 2: Yes - MUSCULOSKELETAL/RHEUMATOLOGICAL Hx Arthritis: Yes Hx Rheumatoid Arthritis: Yes - PSYCHIATRIC Hx Substance Use: No - SURGICAL HISTORY Hx Surgeries: No ( PER DAUGHTER SINGH BARROSO) - ANESTHESIA Hx Anesthesia: No Meds Allergies/Adverse Reactions: Allergies Allergy/AdvReac Type Severity Reaction Status Date / Time No Known Allergies Allergy Verified 03/29/18 11:29 - Medications Medications: Current Medications Apixaban (Eliquis) 5 mg PO BID [facility] Last Admin: 04/04/18 10:06 Dose: Not Given Aspirin (Aspirin Chewable) 81 mg PO DAILY [facility] Last Admin: 04/04/18 10:06 Dose: Not Given Dextrose (Dextrose 50% Inj) 0 ml IV STAT PRN; Protocol PRN Reason: Hypoglycemia Protocol Dextrose (Glutose 15) 0 gm PO ONCE PRN; Protocol PRN Reason: Hypoglycemia Protocol Furosemide (Lasix) 20 mg IVP TID [facility] Last Admin: 04/04/18 10:16 Dose: 20 mg Glucagon (Glucagen Diagnostic Kit) 0 mg IM STAT PRN; Protocol PRN Reason: Hypoglycemia Protocol Guaifenesin (Robitussin) 100 mg PO Q6H PRN PRN Reason: Cough Last Admin: 03/30/18 20:15 Dose: 100 mg Amiodarone HCl 900 mg/ (Dextrose) 500 mls @ 33.33 mls/hr IV .Q15H1M ONE; 1 MG/ MIN PRN Reason: Protocol Stop: 04/05/18 05:28 Last Admin: 04/04/18 16:05 Dose: 33.33 mls/hr Norepinephrine Bitartrate 4 mg (/ Sodium Chloride) 254 mls @ 15.24 mls/hr IV .[id number] PRN; Protocol; 4 MCG/MIN PRN Reason: TITRATE PER MD ORDER Last Admin: 04/04/18 16:07 Dose: 4 mcg/min, 15.24 mls/hr Insulin Glargine (Lantus) 9 unit SC HS [facility] Last Admin: 04/03/18 21:30 Dose: Not Given Insulin Human Regular (Novolin R) 3 unit SC ACTID [facility] Last Admin: 04/04/18 12:01 Dose: Not Given Insulin Human Regular (Novolin R) 0 unit SC ACHS [facility] PRN Reason: Protocol Last Admin: 04/04/18 12:02 Dose: Not Given Lisinopril (Zestril) 5 mg PO DAILY [facility] Last Admin: 04/04/18 10:16 Dose: 5 mg Metoprolol Tartrate (Lopressor) 50 mg PO BID [facility] Last Admin: 04/04/18 10:16 Dose: 50 mg Pantoprazole Sodium (Protonix Ec Tab) 40 mg PO DAILY [facility] Last Admin: 04/04/18 10:07 Dose: Not Given Pregabalin (Lyrica) 100 mg PO Q12 [facility] Last Admin: 04/04/18 10:07 Dose: Not Given Spironolactone (Aldactone) 25 mg PO DAILY [facility] Last Admin: 04/04/18 10:06 Dose: Not Given Sulfasalazine (Azulfidine) 500 mg PO BID [facility] PRN Reason: Protocol Last Admin: 04/04/18 10:06 Dose: Not Given Tramadol HCl (Ultram) 25 mg PO TID PRN PRN Reason: Pain, moderate (4-7) Last Admin: 03/30/18 20:15 Dose: 25 mg Physical Exam - Constitutional Appears: In Acute Distress, Chronically Ill - Head Exam Head Exam: ATRAUMATIC, NORMAL INSPECTION, NORMOCEPHALIC - Eye Exam Eye Exam: EOMI - ENT Exam ENT Exam: Mucous Membranes Moist - Neck Exam Neck exam: Positive for: Normal Inspection - Respiratory Exam Respiratory Exam: Accessory Muscle Use, Decreased Breath Sounds (Lower Lung Bases B/L. ), Rales. absent: Clear to Auscultation Bilateral - Cardiovascular Exam Cardiovascular Exam: Diastolic murmur, RRR, +S1, +S2. absent: +S4 - GI/Abdominal Exam GI & Abdominal Exam: Normal Bowel Sounds, Soft. absent: Tenderness - Extremities Exam Extremities exam: Positive for: pedal edema Additional comments: +1 Edema in Upper and Lower Extremeties B/L. Cool Distal Upper and Lower Extremeties B/L. Left Distal lower extremity Wound x 2. Dressing is clean dry and intact. No erythema or drainage noted. - Neurological Exam Neurological exam: Alert, Oriented x3 - Skin Skin Exam: Dry, Intact, Normal Color, Warm Results - Vital Signs Recent Vital Signs: Last Vital Signs Temp 97.0 F L 04/04/18 07:05 Pulse 113 H 04/04/18 16:07 Resp 17 04/04/18 16:07 BP 104/56 L 04/04/18 16:07 Pulse Ox 99 04/04/18 16:07 - Labs Result Diagrams: 04/04/18 07:29 04/04/18 07:29 Labs: Laboratory Results - last 24 hr 04/03/18 04/04/18 04/04/18 21:15 06:26 07:29 WBC RBC Hgb Hct MCV MCH MCHC RDW Plt Count MPV Neut % (Auto) Lymph % (Auto) Daniels % (Auto) Eos % (Auto) Baso % (Auto) Neut # (Auto) Lymph # (Auto) Daniels # (Auto) Eos # (Auto) Baso # (Auto) Sodium 138 Potassium 4.2 Chloride 96 L Carbon Dioxide 30 Anion Gap 17 BUN 36 H Creatinine 0.7 Est GFR ( Amer) > 60 Est GFR (Non-Af Amer) > 60 POC Glucose (mg/dL) 180 H 100 Random Glucose 96 Calcium 8.3 L Magnesium 1.8 04/04/18 04/04/1804/04/18 07:29 11:00 16:51 WBC 7.2 RBC 4.89 Hgb 15.2 Hct 45.2 MCV 92.4 MCH 31.0 MCHC 33.5 RDW 15.3 H Plt Count 179 MPV 8.4 Neut % (Auto) 67.8 Lymph % (Auto) 17.1 L Daniels % (Auto) 13.5 H Eos % (Auto) 1.1 Baso % (Auto) 0.5 Neut # (Auto) 4.9 Lymph # (Auto) 1.2 Daniels # (Auto) 1.0 H Eos # (Auto) 0.1 Baso # (Auto) 0.0 Sodium Potassium Chloride Carbon Dioxide Anion Gap BUN Creatinine Est GFR ( Amer) Est GFR (Non-Af Amer) POC Glucose (mg/dL) 111 H 104 Random Glucose Calcium Magnesium Assessment & Plan - Assessment and Plan (Free Text) Assessment: This patient is a 73 year old female with PMHx of DM, RA, AFib, Hypercholesterolenemia, and Pneumonia who presented due to AMS. Post procedure in cardiac lab engineer; patient exhibited hypotension 75/40, HR 120's Senior Cognos Developer at bedside and ordered amiodarone drip, placed in trendelenberg and started on Levophed drip. ICU consulted on this patient for a-fib and hypotension requiring pressors. Plan: Neuro GCS: 15 Sedation: None Negative Head CT on Admission Cardio A: Atrial Fib w/ RVR, Acute on Chronic Systolic CHF, Hypotensionm Peripheral Cyanosis AINSLEY showed markedly reduced LV EF,moderate MR, mild AI, severe TR, and pulm HTN. Pt has a and asd with bidrectional flow per Cardio Cont. Amiodarone Drip. Plan to Cardiovert if she escapes sinus rhythym Cont. Levophed Drip Cont. Home Lisinopril, Metoprolol, Aldactone Cont. Lasix 20mg IVP TID Vascular Surgery Consulted. Continue Off loading Boots, Pulm A: Right Sided Pleural Effusion CXR (04/04 @ 17:40 ) Prelim Read shows Right Sided pleural effusion, right sided opacity, developing left sided effusion, and pulm congestion. PENDING Official Read Endo A: Rheumatoid Arthritis, DM Cont. Sulfasalazine 500mg BID Regular ISS Renal Negative Urine Culture GI Daily Protonix ID/Integumentary A: Lower Extremity Wound Wound Culture - NEGATIVE Proph Eliquis 5 Po BID Protonix 40 Daily Patient seen and examined with ICU Attending Stefani Sandoval, PGY-1 <Hoang Moon - Last Filed: 04/05/18 16:16> Meds - Medications Medications: Current Medications Apixaban (Eliquis) 5 mg PO BID [facility] Last Admin: 04/05/18 10:17 Dose: 5 mg Aspirin (Aspirin Chewable) 81 mg PO DAILY [facility] Last Admin: 04/05/18 10:17 Dose: 81 mg Dextrose (Dextrose 50% Inj) 0 ml IV STAT PRN; Protocol PRN Reason: Hypoglycemia Protocol Last Admin: 04/04/18 23:27 Dose: 50 ml Dextrose (Glutose 15) 0 gm PO ONCE PRN; Protocol PRN Reason: Hypoglycemia Protocol Furosemide (Lasix) 20 mg IVP TID [facility] Last Admin: 04/05/18 09:28 Dose: Not Given Glucagon (Glucagen Diagnostic Kit) 0 mg IM STAT PRN; Protocol PRN Reason: Hypoglycemia Protocol Guaifenesin (Robitussin) 100 mg PO Q6H PRN PRN Reason: Cough Last Admin: 03/30/18 20:15 Dose: 100 mg Norepinephrine Bitartrate 4 mg (/ Sodium Chloride) 254 mls @ 15.24 mls/hr IV .[id number] PRN; Protocol; 4 MCG/MIN PRN Reason: TITRATE PER MD ORDER Last Titration: 04/05/18 10:00 Dose: 2 mcg/min, 7.62 mls/hr Insulin Glargine (Lantus) 9 unit SC HS [facility] Last Admin: 04/04/18 22:00 Dose: Not Given Insulin Human Regular (Novolin R) 0 unit SC ACHS [facility] PRN Reason: Protocol Last Admin: 04/05/18 12:57 Dose: 1 unit Lisinopril (Zestril) 5 mg PO DAILY [facility] Last Admin: 04/05/18 09:29 Dose: Not Given Pantoprazole Sodium (Protonix Ec Tab) 40 mg PO DAILY [facility] Last Admin: 04/05/18 10:18 Dose: 40 mg Pregabalin (Lyrica) 100 mg PO Q12 [facility] Last Admin: 04/05/18 10:17 Dose: 100 mg Spironolactone (Aldactone) 25 mg PO DAILY [facility] Last Admin: 04/05/18 09:28 Dose: Not Given Sulfasalazine (Azulfidine) 500 mg PO BID [facility] PRN Reason: Protocol Last Admin: 04/05/18 10:17 Dose: 500 mg Tramadol HCl (Ultram) 25 mg PO TID PRN PRN Reason: Pain, moderate (4-7) Last Admin: 03/30/18 20:15 Dose: 25 mg Results - Vital Signs Recent Vital Signs: Last Vital Signs Temp 97.7 F 04/05/18 12:00 Pulse 58 L 04/05/18 15:03 Resp 12 04/05/18 15:03 BP 106/61 04/05/18 15:03 Pulse Ox 99 04/05/18 13:30 - Labs Result Diagrams: 04/05/18 06:13 04/05/18 06:15 Labs: Laboratory Results - last 24 hr 04/04/18 04/04/18 04/04/18 16:51 23:20 23:22 WBC RBC Hgb Hct MCV MCH MCHC RDW Plt Count MPV Neut % (Auto) Lymph % (Auto) Daniels % (Auto) Eos % (Auto) Baso % (Auto) Neut # (Auto) Lymph # (Auto) Daniels # (Auto) Eos # (Auto) Baso # (Auto) Neutrophils % (Manual) Band Neutrophils % Lymphocytes % (Manual) Monocytes % (Manual) Metamyelocytes % Nucleated RBC % Platelet Estimate Plt Clumps, EDTA Large Platelets Giant Platelets Anisocytosis (manual) Puncture Site pCO2 pO2 HCO3 ABG pH ABG Total CO2 ABG O2 Saturation ABG Base Excess ABG Hemoglobin ABG Carboxyhemoglobin POC ABG HHb (Measured) ABG Methemoglobin Miguel Angel Test A-a O2 Difference Respiratory Index Hgb O2 Saturation Vent Mode FiO2 Inspiratory BiPAP Expiratory BiPAP Sodium Potassium Chloride Carbon Dioxide Anion Gap BUN Creatinine Est GFR ( Amer) Est GFR (Non-Af Amer) POC Glucose (mg/dL) 104 20 L* 29 L* Random Glucose Calcium Phosphorus Magnesium Total Bilirubin AST ALT Alkaline Phosphatase Total Protein Albumin Globulin Albumin/Globulin Ratio 04/04/18 04/05/18 04/05/18 23:56 00:35 06:13 WBC 10.7 RBC 5.12 Hgb 15.9 Hct 48.3 H MCV 94.5 D MCH 31.1 H MCHC 33.0 RDW 15.8 H Plt Count 178 MPV 9.0 Neut % (Auto) 83.9 H Lymph % (Auto) 7.5 L Daniels % (Auto) 8.4 Eos % (Auto) 0.1 Baso % (Auto) 0.1 Neut # (Auto) 9.0 H Lymph # (Auto) 0.8 L Daniels # (Auto) 0.9 H Eos # (Auto) 0.0 Baso # (Auto) 0.0 Neutrophils % (Manual) 79 H Band Neutrophils % 6 H Lymphocytes % (Manual) 6 L Monocytes % (Manual) 8 Metamyelocytes % 1 H Nucleated RBC % 2 H Platelet Estimate Normal Plt Clumps, EDTA Anatomy Teacher Large Platelets Present Giant Platelets Present Anisocytosis (manual) Slight Puncture Site Rb pCO2 31 L pO2 330 H HCO3 19.3 L ABG pH 7.35 ABG Total CO2 18.1 L ABG O2 Saturation 100.5 H ABG Base Excess -7.2 L ABG Hemoglobin 16.1 ABG Carboxyhemoglobin 1.3 POC ABG HHb (Measured) -0.5 L ABG Methemoglobin 0.9 Miguel Angel Test Na A-a O2 Difference 344.0 Respiratory Index 1.0 Hgb O2 Saturation 98.2 H Vent Mode Bipap FiO2 100.0 Inspiratory BiPAP 12 Expiratory BiPAP 6 Sodium Potassium Chloride Carbon Dioxide Anion Gap BUN Creatinine Est GFR ( Amer) Est GFR (Non-Af Amer) POC Glucose (mg/dL) 86 Random Glucose Calcium Phosphorus Magnesium Total Bilirubin AST ALT Alkaline Phosphatase Total Protein Albumin Globulin Albumin/Globulin Ratio 04/05/18 04/05/18 04/05/18 06:15 07:16 11:11 WBC RBC Hgb Hct MCV MCH MCHC RDW Plt Count MPV Neut % (Auto) Lymph % (Auto) Daniels % (Auto) Eos % (Auto) Baso % (Auto) Neut # (Auto) Lymph # (Auto) Daniels # (Auto) Eos # (Auto) Baso # (Auto) Neutrophils % (Manual) Band Neutrophils % Lymphocytes % (Manual) Monocytes % (Manual) Metamyelocytes % Nucleated RBC % Platelet Estimate Plt Clumps, EDTA Large Platelets Giant Platelets Anisocytosis (manual) Puncture Site pCO2 pO2 HCO3 ABG pH ABG Total CO2 ABG O2 Saturation ABG Base Excess ABG Hemoglobin ABG Carboxyhemoglobin POC ABG HHb (Measured) ABG Methemoglobin Miguel Angel Test A-a O2 Difference Respiratory Index Hgb O2 Saturation Vent Mode FiO2 Inspiratory BiPAP Expiratory BiPAP Sodium 138 Potassium 5.2 Chloride 94 L Carbon Dioxide 19 L Anion Gap 30 H BUN 42 H Creatinine 1.4 H Est GFR ( Amer) 44 Est GFR (Non-Af Amer) 37 POC Glucose (mg/dL) 124 H 189 H Random Glucose 97 Calcium 9.0 Phosphorus 7.6 H Magnesium 1.8 Total Bilirubin 3.5 H AST 2165 H ALT 1218 H Alkaline Phosphatase 282 H D Total Protein 5.9 L Albumin 3.1 L Globulin 2.8 Albumin/Globulin Ratio 1.1 Attending/Attestation - Attestation I have personally seen and examined this patient.: Yes I have fully participated in the care of the patient.: Yes I have reviewed all pertinent clinical information: Yes Notes (Text): 04/05/18 16:14 patient seen and examined Transferred to ICU from lab engineer status post AINSLEY Patient has severely reduced LV function Started on amiodarone drip On Levophed for hypotension Continue ICU observation BiPAP for shortness of breath
[2018-04-04] MEDS: (Lantus) Insulin Glargine, Recombinant SC SCH (22:00)
[2018-04-05 00:42] LABS: ARTERIAL BLOOD GAS HCO3 19.3 mmol/L (21-28); ARTERIAL BLOOD GAS HEMOGLOBIN 16.1 g/dL (11.7-17.4); ARTERIAL BLOOD GAS O2 SAT 100.5 % (95-98); ARTERIAL BLOOD GAS PCO2 31 mm/Hg (35-45); ARTERIAL BLOOD GAS PH 7.35 (7.35-7.45); ARTERIAL BLOOD GAS PO2 330 mm/Hg (80-100); ARTERIAL BLOOD GAS TCO2 18.1 mmol/L (22-28)
[2018-04-05 06:22] LABS: BASO % 0.1 % (0.0-2.0); EOS % 0.1 % (0.0-4.0); HEMOGLOBIN 15.9 g/dL (11.0-16.0); LYMPH # 0.8 K/uL (1.0-4.3); LYMPH % 7.5 % (20.0-40.0); MEAN CELL VOLUME 94.5 fL (81.0-99.0); MEAN CORPUSCULAR HEMOGLOBIN 31.1 pg (27.0-31.0); MONO # 0.9 K/uL (0.0-0.8); MONO % 8.4 % (0.0-10.0); NEUT % 83.9 % (50.0-75.0); NRBC % 0.3 % (0.0-2.0); PLATELET COUNT 178 K/uL (130-400); RBC 5.12 Mil/uL (3.80-5.20); RED CELL DISTRIBUTION WIDTH 15.8 % (11.5-14.5); WHITE BLOOD COUNT 10.7 K/uL (4.8-10.8)
[2018-04-05 06:43] LABS: ALB/GLOB RATIO 1.1 (1.0-2.1); ALBUMIN 3.1 g/dL (3.5-5.0)
[2018-04-05] MEDS: (Novolin R) Insulin Human Regular 100 units/ml vial SC SCH ×6 (08:19→21:32)
[2018-04-05 08:24] LABS: ANISOCYTOSIS SLIGHT; BANDS 6 % (0-2); GIANT PLATELETS PRESENT; LARGE PLATELETS PRESENT; LYMPHOCYTE 6 % (20-40); METAMYELOCYTE 1 % (0-0); MONOCYTE 8 % (0-10); NEUTROPHIL 79 % (50-75); NUCLEATED RED BLOOD CELL 2 % (0-0); PLATELET ESTIMATE NORMAL (NORMAL); TOTAL CELLS COUNTED 100
--- NOTE | 2018-04-05 08:36 | RAD ---
HISTORY: TLC PLACEMENT COMPARISON: Chest radiograph performed approximately 13 hours prior FINDINGS: LUNGS: Pulmonary vascular congestion/edema. Bibasilar atelectasis. PLEURA: Small bilateral pleural effusions, right larger than left. No pneumothorax apparent. CARDIOVASCULAR: Atherosclerotic aortic calcifications. Cardiomediastinal silhouette stably enlarged. OSSEOUS STRUCTURES: Unchanged. VISUALIZED UPPER ABDOMEN: Normal. OTHER FINDINGS: New left internal jugular access central venous catheter with tip at the junction of the innominate vein and SVC. Overlying pacer pads. IMPRESSION: New left internal jugular access central venous catheter in satisfactory position. No appreciable pneumothorax. No other significant interval change.
[2018-04-05] MEDS: Pantoprazole 40 mg EC Tab PO SCH (10:18)
--- NOTE | 2018-04-05 10:53 | CP.PCM.PN ---
Subjective - Date & Time of Evaluation Date of Evaluation: 04/05/18 Time of Evaluation: 10:48 - Subjective Subjective: Pt is awake, feels, ok, breathing better. Daughter at bedside Objective - Vital Signs/Intake and Output Vital Signs (last 24 hours): Temp Pulse Resp BP Pulse Ox 97.7 F 57 L 14 131/43 L 99 04/05/18 10:00 04/05/18 10:00 04/05/18 10:00 04/05/18 09:30 04/05/18 10:00 Intake and Output: 04/05/18 04/05/18 06:59 18:59 Intake Total 897.5 370.7 Output Total 0 Balance 897.5 370.7 - Medications Medications: Current Medications Apixaban (Eliquis) 5 mg PO BID [facility] Last Admin: 04/05/18 10:17 Dose: 5 mg Aspirin (Aspirin Chewable) 81 mg PO DAILY [facility] Last Admin: 04/05/18 10:17 Dose: 81 mg Dextrose (Dextrose 50% Inj) 0 ml IV STAT PRN; Protocol PRN Reason: Hypoglycemia Protocol Last Admin: 04/04/18 23:27 Dose: 50 ml Dextrose (Glutose 15) 0 gm PO ONCE PRN; Protocol PRN Reason: Hypoglycemia Protocol Furosemide (Lasix) 20 mg IVP TID [facility] Last Admin: 04/05/18 09:28 Dose: Not Given Glucagon (Glucagen Diagnostic Kit) 0 mg IM STAT PRN; Protocol PRN Reason: Hypoglycemia Protocol Guaifenesin (Robitussin) 100 mg PO Q6H PRN PRN Reason: Cough Last Admin: 03/30/18 20:15 Dose: 100 mg Norepinephrine Bitartrate 4 mg (/ Sodium Chloride) 254 mls @ 15.24 mls/hr IV .[id number] PRN; Protocol; 4 MCG/MIN PRN Reason: TITRATE PER MD ORDER Last Titration: 04/05/18 10:00 Dose: 2 mcg/min, 7.62 mls/hr Insulin Glargine (Lantus) 9 unit SC HS [facility] Last Admin: 04/04/18 22:00 Dose: Not Given Insulin Human Regular (Novolin R) 3 unit SC ACTID [facility] Last Admin: 04/05/18 09:29 Dose: Not Given Insulin Human Regular (Novolin R) 0 unit SC ACHS [facility] PRN Reason: Protocol Last Admin: 04/05/18 08:19 Dose: Not Given Lisinopril (Zestril) 5 mg PO DAILY [facility] Last Admin: 04/05/18 09:29 Dose: Not Given Metoprolol Tartrate (Lopressor) 50 mg PO BID [facility] Last Admin: 04/05/18 09:29 Dose: Not Given Pantoprazole Sodium (Protonix Ec Tab) 40 mg PO DAILY [facility] Last Admin: 04/05/18 10:18 Dose: 40 mg Pregabalin (Lyrica) 100 mg PO Q12 [facility] Last Admin: 04/05/18 10:17 Dose: 100 mg Spironolactone (Aldactone) 25 mg PO DAILY [facility] Last Admin: 04/05/18 09:28 Dose: Not Given Sulfasalazine (Azulfidine) 500 mg PO BID [facility] PRN Reason: Protocol Last Admin: 04/05/18 10:17 Dose: 500 mg Tramadol HCl (Ultram) 25 mg PO TID PRN PRN Reason: Pain, moderate (4-7) Last Admin: 03/30/18 20:15 Dose: 25 mg - Labs Labs: 04/05/18 06:13 04/05/18 06:15 PT 25.3 SECONDS (9.7-12.2) H 03/29/18 12:49 INR 2.3 03/29/18 12:49 APTT 34 SECONDS (21-34) 03/29/18 12:49 - Constitutional Appears: Older Than Stated Age - Head Exam Head Exam: ATRAUMATIC - Eye Exam Eye Exam: EOMI - ENT Exam ENT Exam: Mucous Membranes Dry - Respiratory Exam Respiratory Exam: Rales - Cardiovascular Exam Cardiovascular Exam: REGULAR RHYTHM - Extremities Exam Extremities Exam: Normal Inspection - Back Exam Back Exam: NORMAL INSPECTION - Neurological Exam Neurological Exam: Alert, Awake, Oriented x3 - Psychiatric Exam Psychiatric exam: Normal Affect - Skin Skin Exam: Normal Color Assessment and Plan - Assessment and Plan (Free Text) Assessment: Pressors almost off. LFTs are very high. Pt is in NSR. 1. Pt has elevated lfts. Will d/c amiodarone. Will start betapace if qtc is ok. Hold for HR less than 55 bpm 2. Lungs sound better today 3. Hold diuresis, arb today due to relative hypotension. 4. Pt has asd: [facility] images sent to [facility]. 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 A review of the TTE from last month did not show the defect and nor flow across the septum.
--- NOTE | 2018-04-05 13:39 | CP.CCUPN ---
<Stefani Sandoval - Last Filed: 04/05/18 13:36> CCU Subjective - Physician Review Subjective (Free Text): Patient seen and examined with daughter at bedside. No overnight events reported. Patient denies any chest pain, SOB, or palpitations. She does complain of throat pain. CCU Objective - Vital Signs / Intake & Output Vital Signs (Last 4 hours): Vital Signs Temp Pulse Resp BP Pulse Ox 04/05/18 13:00 48 L 12 99 04/05/18 12:30 64 17 110/34 L 100 04/05/18 12:25 63 13 100 04/05/18 12:00 97.7 F 04/05/18 11:30 48 L 15 107/35 L 100 04/05/18 11:00 47 L 16 100 04/05/18 10:31 48 L 11 L 95/57 L 100 04/05/18 10:00 97.7 F 57 L 14 99 Intake and Output (Last 8hrs): Intake & Output 04/04/18 04/05/18 04/05/18 22:59 06:59 14:59 Intake Total 376.0 706.4 1152.4 Output Total 0 Balance 376.0 706.4 1152.4 Weight 154 lb 0.16 oz Intake: IV 9 260 164 Intake, IV Amount 367.0 446.4 288.4 Left Hand 66.6 Left Medial Port Internal 121.6 279.5 105.0 Jugular Left Proximal Port 133.2 166.9 33.4 Internal Jugular Right Distal Port 150 Internal Jugular Right Wrist 45.6 Oral 700 Output: Emesis 0 Other: # Voids Urine, Voided 1 # Bowel Movements 0 - Physical Exam Head: Positive for: Atraumatic, Normocephalic Extroacular Muscles: Positive for: EOMI Conjunctiva: Positive for: Normal Cardiovascular: Positive for: Normal S1, S2, Irregular Rhythm Abdomen: Positive for: Normal Bowel Sounds. Negative for: Tenderness Upper Extremity: Positive for: Edema Lower Extremity: Positive for: Normal Inspection, Edema Neurological: Positive for: GCS=15 Psychiatric: Positive for: Alert, Oriented x 3 Other physical findings (Free Text): Left Distal lower extremity Wound x 2. Dressing is clean dry and intact. No erythema or drainage noted. - Medications Active Medications: Active Medications Generic Name Dose Route Start Last Admin Trade Name Freq PRN Reason Stop Dose Admin Apixaban 5 mg 03/29/18 18:00 04/05/18 10:17 Eliquis PO 5 mg BID FRANCOIS Administration Aspirin 81 mg 03/29/18 15:45 04/05/18 10:17 Aspirin Chewable PO 81 mg DAILY FRANCOIS Administration Dextrose 0 ml 03/29/18 16:40 04/04/18 23:27 Dextrose 50% Inj IV 50 ml STAT PRN Administration Hypoglycemia Protocol Protocol Dextrose 0 gm 03/29/18 16:40 Glutose 15 PO ONCE PRN Hypoglycemia Protocol Protocol Furosemide 20 mg 03/31/18 10:00 04/05/18 09:28 Lasix IVP Not Given TID FRANCOIS Glucagon 0 mg 03/29/18 16:40 Glucagen Diagnostic Kit IM STAT PRN Hypoglycemia Protocol Protocol Guaifenesin 100 mg 03/30/18 20:07 03/30/18 20:15 Robitussin PO 100 mg Q6H PRN Administration Cough Norepinephrine Bitartrate 4 mg 254 mls @ 15.24 mls/hr 04/04/18 14:39 10:00 / Sodium Chloride IV 2 mcg/min .[id number] PRN 7.62 mls/hr TITRATE PER MD ORDER Titration Protocol 4 MCG/MIN Insulin Glargine 9 unit 03/29/18 22:00 04/04/18 22:00 Lantus SC Not Given HS [facility] Insulin Human Regular 0 unit 03/29/18 22:00 04/05/18 12:57 Novolin R SC 1 unit ACHS FRANCOIS Administration Protocol Lisinopril 5 mg 03/30/18 10:00 04/05/18 09:29 Zestril PO Not Given DAILY FRANCOIS Pantoprazole Sodium 40 mg 03/30/18 10:00 04/05/18 10:18 Protonix Ec Tab PO 40 mg DAILY FRANCOIS Administration Pregabalin 100 mg 03/29/18 22:00 04/05/18 10:17 Lyrica PO 100 mg Q12 FRANCOIS Administration Spironolactone 25 mg 03/30/18 10:00 04/05/18 09:28 Aldactone PO Not Given DAILY FRANCOIS Sulfasalazine 500 mg 04/01/18 18:00 04/05/18 10:17 Azulfidine PO 500 mg BID FRANCOIS Administration Protocol Tramadol HCl 25 mg 03/29/18 16:38 03/30/18 20:15 Ultram PO 25 mg TID PRN Administration Pain, moderate (4-7) - Patient Studies Lab Studies: Lab Studies 04/05/18 04/05/18 04/05/18 Range/Units 11:11 07:16 06:15 WBC (4.8-10.8) K/uL RBC (3.80-5.20) Mil/uL Hgb (11.0-16.0) g/dL Hct (34.0-47.0) % MCV (81.0-99.0) fL MCH (27.0-31.0) pg MCHC (33.0-37.0) g/dL RDW (11.5-14.5) % Plt Count (130-400) K/uL MPV (7.2-11.7) fL Neut % (Auto) (50.0-75.0) % Lymph % (Auto) (20.0-40.0) % Cannon % (Auto) (0.0-10.0) % Eos % (Auto) (0.0-4.0) % Baso % (Auto) (0.0-2.0) % Neut # (Auto) (1.8-7.0) K/uL Lymph # (Auto) (1.0-4.3) K/uL Cannon # (Auto) (0.0-0.8) K/uL Eos # (Auto) (0.0-0.7) K/uL Baso # (Auto) (0.0-0.2) K/uL Neutrophils % (Manual) (50-75) % Band Neutrophils % (0-2) % Lymphocytes % (Manual) (20-40) % Monocytes % (Manual) (0-10) % Metamyelocytes % (0-0) % Nucleated RBC % (0-0) % Platelet Estimate (NORMAL) Plt Clumps, EDTA Large Platelets Giant Platelets Anisocytosis (manual) Puncture Site pCO2 (35-45) mm/Hg pO2 (80-100) mm/Hg HCO3 (21-28) mmol/L ABG pH (7.35-7.45) ABG Total CO2 (22-28) mmol/L ABG O2 Saturation (95-98) % ABG Base Excess (-2.0-3.0) mmol/L ABG Hemoglobin (11.7-17.4) g/dL ABG Carboxyhemoglobin (0.5-1.5) % POC ABG HHb (Measured) (0.0-5.0) % ABG Methemoglobin (0.0-3.0) % Miguel Angel Test A-a O2 Difference mm/Hg Respiratory Index Hgb O2 Saturation (95.0-98.0) % Vent Mode FiO2 % Inspiratory BiPAP Expiratory BiPAP Sodium 138 (132-148) mmol/L Potassium 5.2 (3.6-5.2) mmol/L Chloride 94 L (98-107) mmol/L Carbon Dioxide 19 L (22-30) mmol/L Anion Gap 30 H (10-20) BUN 42 H (7-17) mg/dL Creatinine 1.4 H (0.7-1.2) mg/dL Est GFR ( Amer) 44 Est GFR (Non-Af Amer) 37 POC Glucose (mg/dL) 189 H 124 H (65-110) mg/dL Random Glucose 97 (65-105) mg/dL Calcium 9.0 (8.6-10.4) mg/dl Phosphorus 7.6 H (2.5-4.5) mg/dL Magnesium 1.8 (1.6-2.3) mg/dL Total Bilirubin 3.5 H (0.2-1.3) mg/dL AST 2165 H (14-36) U/L ALT 1218 H (9-52) U/L Alkaline Phosphatase 282 H D (38-126) U/L Total Protein 5.9 L (6.3-8.3) g/dL Albumin 3.1 L (3.5-5.0) g/dL Globulin 2.8 (2.2-3.9) gm/dL Albumin/Globulin Ratio 1.1 (1.0-2.1) 04/05/18 04/05/18 04/04/18 Range/Units 06:13 00:35 23:56 WBC 10.7 (4.8-10.8) K/uL RBC 5.12 (3.80-5.20) Mil/uL Hgb 15.9 (11.0-16.0) g/dL Hct 48.3 H (34.0-47.0) % MCV 94.5 D (81.0-99.0) fL MCH 31.1 H (27.0-31.0) pg MCHC 33.0 (33.0-37.0) g/dL RDW 15.8 H (11.5-14.5) % Plt Count 178 (130-400) K/uL MPV 9.0 (7.2-11.7) fL Neut % (Auto) 83.9 H (50.0-75.0) % Lymph % (Auto) 7.5 L (20.0-40.0) % Cannon % (Auto) 8.4 (0.0-10.0) % Eos % (Auto) 0.1 (0.0-4.0) % Baso % (Auto) 0.1 (0.0-2.0) % Neut # (Auto) 9.0 H (1.8-7.0) K/uL Lymph # (Auto) 0.8 L (1.0-4.3) K/uL Cannon # (Auto) 0.9 H (0.0-0.8) K/uL Eos # (Auto) 0.0 (0.0-0.7) K/uL Baso # (Auto) 0.0 (0.0-0.2) K/uL Neutrophils % (Manual) 79 H (50-75) % Band Neutrophils % 6 H (0-2) % Lymphocytes % (Manual) 6 L (20-40) % Monocytes % (Manual) 8 (0-10) % Metamyelocytes % 1 H (0-0) % Nucleated RBC % 2 H (0-0) % Platelet Estimate Normal (NORMAL) Plt Clumps, EDTA Fish Fryer Large Platelets Present Giant Platelets Present Anisocytosis (manual) Slight Puncture Site Rb pCO2 31 L (35-45) mm/Hg pO2 330 H (80-100) mm/Hg HCO3 19.3 L (21-28) mmol/L ABG pH 7.35 (7.35-7.45) ABG Total CO2 18.1 L (22-28) mmol/L ABG O2 Saturation 100.5 H (95-98) % ABG Base Excess -7.2 L (-2.0-3.0) mmol/L ABG Hemoglobin 16.1 (11.7-17.4) g/dL ABG Carboxyhemoglobin 1.3 (0.5-1.5) % POC ABG HHb (Measured) -0.5 L (0.0-5.0) % ABG Methemoglobin 0.9 (0.0-3.0) % Miguel Angel Test Na A-a O2 Difference 344.0 mm/Hg Respiratory Index 1.0 Hgb O2 Saturation 98.2 H (95.0-98.0) % Vent Mode Bipap FiO2 100.0 % Inspiratory BiPAP 12 Expiratory BiPAP 6 Sodium (132-148) mmol/L Potassium (3.6-5.2) mmol/L Chloride (98-107) mmol/L Carbon Dioxide (22-30) mmol/L Anion Gap (10-20) BUN (7-17) mg/dL Creatinine (0.7-1.2) mg/dL Est GFR ( Amer) Est GFR (Non-Af Amer) POC Glucose (mg/dL) 86 (65-110) mg/dL Random Glucose (65-105) mg/dL Calcium (8.6-10.4) mg/dl Phosphorus (2.5-4.5) mg/dL Magnesium (1.6-2.3) mg/dL Total Bilirubin (0.2-1.3) mg/dL AST (14-36) U/L ALT (9-52) U/L Alkaline Phosphatase (38-126) U/L Total Protein (6.3-8.3) g/dL Albumin (3.5-5.0) g/dL Globulin (2.2-3.9) gm/dL Albumin/Globulin Ratio (1.0-2.1) 04/04/18 04/04/18 04/04/18 Range/Units 23:22 23:20 16:51 WBC (4.8-10.8) K/uL RBC (3.80-5.20) Mil/uL Hgb (11.0-16.0) g/dL Hct (34.0-47.0) % MCV (81.0-99.0) fL MCH (27.0-31.0) pg MCHC (33.0-37.0) g/dL RDW (11.5-14.5) % Plt Count (130-400) K/uL MPV (7.2-11.7) fL Neut % (Auto) (50.0-75.0) % Lymph % (Auto) (20.0-40.0) % Cannon % (Auto) (0.0-10.0) % Eos % (Auto) (0.0-4.0) % Baso % (Auto) (0.0-2.0) % Neut # (Auto) (1.8-7.0) K/uL Lymph # (Auto) (1.0-4.3) K/uL Cannon # (Auto) (0.0-0.8) K/uL Eos # (Auto) (0.0-0.7) K/uL Baso # (Auto) (0.0-0.2) K/uL Neutrophils % (Manual) (50-75) % Band Neutrophils % (0-2) % Lymphocytes % (Manual) (20-40) % Monocytes % (Manual) (0-10) % Metamyelocytes % (0-0) % Nucleated RBC % (0-0) % Platelet Estimate (NORMAL) Plt Clumps, EDTA Large Platelets Giant Platelets Anisocytosis (manual) Puncture Site pCO2 (35-45) mm/Hg pO2 (80-100) mm/Hg HCO3 (21-28) mmol/L ABG pH (7.35-7.45) ABG Total CO2 (22-28) mmol/L ABG O2 Saturation (95-98) % ABG Base Excess (-2.0-3.0) mmol/L ABG Hemoglobin (11.7-17.4) g/dL ABG Carboxyhemoglobin (0.5-1.5) % POC ABG HHb (Measured) (0.0-5.0) % ABG Methemoglobin (0.0-3.0) % Miguel Angel Test A-a O2 Difference mm/Hg Respiratory Index Hgb O2 Saturation (95.0-98.0) % Vent Mode FiO2 % Inspiratory BiPAP Expiratory BiPAP Sodium (132-148) mmol/L Potassium (3.6-5.2) mmol/L Chloride (98-107) mmol/L Carbon Dioxide (22-30) mmol/L Anion Gap (10-20) BUN (7-17) mg/dL Creatinine (0.7-1.2) mg/dL Est GFR ( Amer) Est GFR (Non-Af Amer) POC Glucose (mg/dL) 29 L* 20 L* 104 (65-110) mg/dL Random Glucose (65-105) mg/dL Calcium (8.6-10.4) mg/dl Phosphorus (2.5-4.5) mg/dL Magnesium (1.6-2.3) mg/dL Total Bilirubin (0.2-1.3) mg/dL AST (14-36) U/L ALT (9-52) U/L Alkaline Phosphatase (38-126) U/L Total Protein (6.3-8.3) g/dL Albumin (3.5-5.0) g/dL Globulin (2.2-3.9) gm/dL Albumin/Globulin Ratio (1.0-2.1) Laboratory Results - last 24 hr 04/04/18 04/04/18 04/04/18 16:51 23:20 23:22 WBC RBC Hgb Hct MCV MCH MCHC RDW Plt Count MPV Neut % (Auto) Lymph % (Auto) Cannon % (Auto) Eos % (Auto) Baso % (Auto) Neut # (Auto) Lymph # (Auto) Cannon # (Auto) Eos # (Auto) Baso # (Auto) Neutrophils % (Manual) Band Neutrophils % Lymphocytes % (Manual) Monocytes % (Manual) Metamyelocytes % Nucleated RBC % Platelet Estimate Plt Clumps, EDTA Large Platelets Giant Platelets Anisocytosis (manual) Puncture Site pCO2 pO2 HCO3 ABG pH ABG Total CO2 ABG O2 Saturation ABG Base Excess ABG Hemoglobin ABG Carboxyhemoglobin POC ABG HHb (Measured) ABG Methemoglobin Miguel Angel Test A-a O2 Difference Respiratory Index Hgb O2 Saturation Vent Mode FiO2 Inspiratory BiPAP Expiratory BiPAP Sodium Potassium Chloride Carbon Dioxide Anion Gap BUN Creatinine Est GFR ( Amer) Est GFR (Non-Af Amer) POC Glucose (mg/dL) 104 20 L* 29 L* Random Glucose Calcium Phosphorus Magnesium Total Bilirubin AST ALT Alkaline Phosphatase Total Protein Albumin Globulin Albumin/Globulin Ratio 04/04/18 04/05/18 04/05/18 23:56 00:35 06:13 WBC 10.7 RBC 5.12 Hgb 15.9 Hct 48.3 H MCV 94.5 D MCH 31.1 H MCHC 33.0 RDW 15.8 H Plt Count 178 MPV 9.0 Neut % (Auto) 83.9 H Lymph % (Auto) 7.5 L Cannon % (Auto) 8.4 Eos % (Auto) 0.1 Baso % (Auto) 0.1 Neut # (Auto) 9.0 H Lymph # (Auto) 0.8 L Cannon # (Auto) 0.9 H Eos # (Auto) 0.0 Baso # (Auto) 0.0 Neutrophils % (Manual) 79 H Band Neutrophils % 6 H Lymphocytes % (Manual) 6 L Monocytes % (Manual) 8 Metamyelocytes % 1 H Nucleated RBC % 2 H Platelet Estimate Normal Plt Clumps, EDTA Fish Fryer Large Platelets Present Giant Platelets Present Anisocytosis (manual) Slight Puncture Site Rb pCO2 31 L pO2 330 H HCO3 19.3 L ABG pH 7.35 ABG Total CO2 18.1 L ABG O2 Saturation 100.5 H ABG Base Excess -7.2 L ABG Hemoglobin 16.1 ABG Carboxyhemoglobin 1.3 POC ABG HHb (Measured) -0.5 L ABG Methemoglobin 0.9 Miguel Angel Test Na A-a O2 Difference 344.0 Respiratory Index 1.0 Hgb O2 Saturation 98.2 H Vent Mode Bipap FiO2 100.0 Inspiratory BiPAP 12 Expiratory BiPAP 6 Sodium Potassium Chloride Carbon Dioxide Anion Gap BUN Creatinine Est GFR ( Amer) Est GFR (Non-Af Amer) POC Glucose (mg/dL) 86 Random Glucose Calcium Phosphorus Magnesium Total Bilirubin AST ALT Alkaline Phosphatase Total Protein Albumin Globulin Albumin/Globulin Ratio 04/05/18 04/05/18 04/05/18 06:15 07:16 11:11 WBC RBC Hgb Hct MCV MCH MCHC RDW Plt Count MPV Neut % (Auto) Lymph % (Auto) Cannon % (Auto) Eos % (Auto) Baso % (Auto) Neut # (Auto) Lymph # (Auto) Cannon # (Auto) Eos # (Auto) Baso # (Auto) Neutrophils % (Manual) Band Neutrophils % Lymphocytes % (Manual) Monocytes % (Manual) Metamyelocytes % Nucleated RBC % Platelet Estimate Plt Clumps, EDTA Large Platelets Giant Platelets Anisocytosis (manual) Puncture Site pCO2 pO2 HCO3 ABG pH ABG Total CO2 ABG O2 Saturation ABG Base Excess ABG Hemoglobin ABG Carboxyhemoglobin POC ABG HHb (Measured) ABG Methemoglobin Miguel Angel Test A-a O2 Difference Respiratory Index Hgb O2 Saturation Vent Mode FiO2 Inspiratory BiPAP Expiratory BiPAP Sodium 138 Potassium 5.2 Chloride 94 L Carbon Dioxide 19 L Anion Gap 30 H BUN 42 H Creatinine 1.4 H Est GFR ( Amer) 44 Est GFR (Non-Af Amer) 37 POC Glucose (mg/dL) 124 H 189 H Random Glucose 97 Calcium 9.0 Phosphorus 7.6 H Magnesium 1.8 Total Bilirubin 3.5 H AST 2165 H ALT 1218 H Alkaline Phosphatase 282 H D Total Protein 5.9 L Albumin 3.1 L Globulin 2.8 Albumin/Globulin Ratio 1.1 EKG/Cardiology Studies: Cardiology / EKG Studies 04/04/18 15:59 EKG [ELECTROCARDIOGRAM] Routine Comment: Mode Of Transportation: Reason For Exam: abnormal rhythm 04/05/18 10:56 ELECTROCARDIOGRAM Stat Comment: Mode Of Transportation: BED Reason For Exam: post cardioversion Fingerstick Blood Sugar Results: 189 Review of Systems - EENT Additional comments: sore throat. Critical Care Progress Note - Nutrition Nutrition: Nutrition Category Date Time Status Heart Healthy Diet [DIET] Diets 04/04/18 Dinner Active Assessment/Plan - Assessment and Plan (Free Text) Assessment: This patient is a 73 year old female with PMHx of DM, RA, AFib, Hypercholesterolenemia, and Pneumonia who presented due to AMS. 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 ICU consulted on this patient for a-fib and hypotension requiring pressors. Plan: Neuro GCS: 15 Sedation: None Negative Head CT on Admission Cardio A: Atrial Fib w/ RVR, Acute on Chronic Systolic CHF, Hypotensionm Peripheral Cyanosis AINSLEY showed markedly reduced LV EF,moderate MR, mild AI, severe TR, and pulm HTN. Pt has a and asd with bidrectional flow per Cardio (Cardio) [place] images sent to [place]. Pt hopefully have amplatz closure for large asd with pulmonary htn and bidirectional flow Cont. Amiodarone Drip. Plan to Cardiovert if she escapes sinus rhythym Levophed Drip Home Lisinopril (HELD), Metoprolol, Aldactone (HELD) Lasix 20mg IVP TID (HELD) Betapace to be started per Cardio if Qtc is okay Vascular Surgery Consulted. Continue Off loading Boots, Pulm A: Right Sided Pleural Effusion, Cough CXR (04/04 @ 17:40 ) Prelim Read shows Right Sided pleural effusion, right sided opacity, developing left sided effusion, and pulm congestion. PENDING Official Read Robitussin PRN Endo A: Rheumatoid Arthritis, DM Cont. Sulfasalazine 500mg BID Regular ISS Renal A: BRITTANY Negative Urine Culture GI A: Elevated LFTs, Increased T. Sacha - Likely due to Shock liver. Hepatitis Panel (03/31) - NEGATIVE Daily Protonix ID/Integumentary A: Lower Extremity Wound Wound Culture - NEGATIVE MSK A: Diabetic neuropathy Lyrica 100mg PO Q12H Proph Eliquis 5 Po BID Protonix 40 Daily Patient seen and examined with ICU Attending Stefani Sandoval, PGY-1 <Hoang Moon - Last Filed: 04/05/18 16:14> CCU Objective - Vital Signs / Intake & Output Vital Signs (Last 4 hours): Vital Signs Pulse Resp BP Pulse Ox 04/05/18 15:03 58 L 12 106/61 04/05/18 15:01 48 L 12 04/05/18 14:30 63 17 110/53 L 04/05/18 14:00 58 L 17 04/05/18 13:30 61 16 116/44 L 99 04/05/18 13:00 48 L 12 99 04/05/18 12:30 64 17 110/34 L 100 04/05/18 12:25 63 13 100 Intake and Output (Last 8hrs): Intake & Output 04/05/18 04/05/18 04/05/18 06:59 14:59 22:59 Intake Total 706.4 1391.2 3.8 Output Total 0 0 Balance 706.4 1391.2 3.8 Weight 154 lb 0.16 oz Intake: IV 260 164 Intake, IV Amount 446.4 292.2 3.8 Left Medial Port Internal 279.5 108.8 3.8 Jugular Left Proximal Port 166.9 33.4 0 Internal Jugular Right Distal Port 150 Internal Jugular Oral 935 0 Output: Emesis 0 0 Other: # Bowel Movements 1 0 - Medications Active Medications: Active Medications Generic Name Dose Route Start Last Admin Trade Name Freq PRN Reason Stop Dose Admin Apixaban 5 mg 03/29/18 18:00 04/05/18 10:17 Eliquis PO 5 mg BID FRANCOIS Administration Aspirin 81 mg 03/29/18 15:45 04/05/18 10:17 Aspirin Chewable PO 81 mg DAILY FRANCOIS Administration Dextrose 0 ml 03/29/18 16:40 04/04/18 23:27 Dextrose 50% Inj IV 50 ml STAT PRN Administration Hypoglycemia Protocol Protocol Dextrose 0 gm 03/29/18 16:40 Glutose 15 PO ONCE PRN Hypoglycemia Protocol Protocol Furosemide 20 mg 03/31/18 10:00 04/05/18 09:28 Lasix IVP Not Given TID FRANCOIS Glucagon 0 mg 03/29/18 16:40 Glucagen Diagnostic Kit IM STAT PRN Hypoglycemia Protocol Protocol Guaifenesin 100 mg 03/30/18 20:07 03/30/18 20:15 Robitussin PO 100 mg Q6H PRN Administration Cough Norepinephrine Bitartrate 4 mg 254 mls @ 15.24 mls/hr 04/04/18 14:39 10:00 / Sodium Chloride IV 2 mcg/min .[id number] PRN 7.62 mls/hr TITRATE PER MD ORDER Titration Protocol 4 MCG/MIN Insulin Glargine 9 unit 03/29/18 22:00 04/04/18 22:00 Lantus SC Not Given [facility] Insulin Human Regular 0 unit 03/29/18 22:00 04/05/18 12:57 Novolin R SC 1 unit ACHS FRANCOIS Administration Protocol Lisinopril 5 mg 03/30/18 10:00 04/05/18 09:29 Zestril PO Not Given DAILY FRANCOIS Pantoprazole Sodium 40 mg 03/30/18 10:00 04/05/18 10:18 Protonix Ec Tab PO 40 mg DAILY FRANCOIS Administration Pregabalin 100 mg 03/29/18 22:00 04/05/18 10:17 Lyrica PO 100 mg Q12 FRANCOIS Administration Spironolactone 25 mg 03/30/18 10:00 04/05/18 09:28 Aldactone PO Not Given DAILY FRANCOIS Sulfasalazine 500 mg 04/01/18 18:00 04/05/18 10:17 Azulfidine PO 500 mg BID FRANCOIS Administration Protocol Tramadol HCl 25 mg 03/29/18 16:38 03/30/18 20:15 Ultram PO 25 mg TID PRN Administration Pain, moderate (4-7) - Patient Studies Lab Studies: Lab Studies 04/05/18 04/05/18 04/05/18 Range/Units 11:11 07:16 06:15 WBC (4.8-10.8) K/uL RBC (3.80-5.20) Mil/uL Hgb (11.0-16.0) g/dL Hct (34.0-47.0) % MCV (81.0-99.0) fL MCH (27.0-31.0) pg MCHC (33.0-37.0) g/dL RDW (11.5-14.5) % Plt Count (130-400) K/uL MPV (7.2-11.7) fL Neut % (Auto) (50.0-75.0) % Lymph % (Auto) (20.0-40.0) % Cannon % (Auto) (0.0-10.0) % Eos % (Auto) (0.0-4.0) % Baso % (Auto) (0.0-2.0) % Neut # (Auto) (1.8-7.0) K/uL Lymph # (Auto) (1.0-4.3) K/uL Cannon # (Auto) (0.0-0.8) K/uL Eos # (Auto) (0.0-0.7) K/uL Baso # (Auto) (0.0-0.2) K/uL Neutrophils % (Manual) (50-75) % Band Neutrophils % (0-2) % Lymphocytes % (Manual) (20-40) % Monocytes % (Manual) (0-10) % Metamyelocytes % (0-0) % Nucleated RBC % (0-0) % Platelet Estimate (NORMAL) Plt Clumps, EDTA Large Platelets Giant Platelets Anisocytosis (manual) Puncture Site pCO2 (35-45) mm/Hg pO2 (80-100) mm/Hg HCO3 (21-28) mmol/L ABG pH (7.35-7.45) ABG Total CO2 (22-28) mmol/L ABG O2 Saturation (95-98) % ABG Base Excess (-2.0-3.0) mmol/L ABG Hemoglobin (11.7-17.4) g/dL ABG Carboxyhemoglobin (0.5-1.5) % POC ABG HHb (Measured) (0.0-5.0) % ABG Methemoglobin (0.0-3.0) % Miguel Angel Test A-a O2 Difference mm/Hg Respiratory Index Hgb O2 Saturation (95.0-98.0) % Vent Mode FiO2 % Inspiratory BiPAP Expiratory BiPAP Sodium 138 (132-148) mmol/L Potassium 5.2 (3.6-5.2) mmol/L Chloride 94 L (98-107) mmol/L Carbon Dioxide 19 L (22-30) mmol/L Anion Gap 30 H (10-20) BUN 42 H (7-17) mg/dL Creatinine 1.4 H (0.7-1.2) mg/dL Est GFR ( Amer) 44 Est GFR (Non-Af Amer) 37 POC Glucose (mg/dL) 189 H 124 H (65-110) mg/dL Random Glucose 97 (65-105) mg/dL Calcium 9.0 (8.6-10.4) mg/dl Phosphorus 7.6 H (2.5-4.5) mg/dL Magnesium 1.8 (1.6-2.3) mg/dL Total Bilirubin 3.5 H (0.2-1.3) mg/dL AST 2165 H (14-36) U/L ALT 1218 H (9-52) U/L Alkaline Phosphatase 282 H D (38-126) U/L Total Protein 5.9 L (6.3-8.3) g/dL Albumin 3.1 L (3.5-5.0) g/dL Globulin 2.8 (2.2-3.9) gm/dL Albumin/Globulin Ratio 1.1 (1.0-2.1) 04/05/18 04/05/18 04/04/18 Range/Units 06:13 00:35 23:56 WBC 10.7 (4.8-10.8) K/uL RBC 5.12 (3.80-5.20) Mil/uL Hgb 15.9 (11.0-16.0) g/dL Hct 48.3 H (34.0-47.0) % MCV 94.5 D (81.0-99.0) fL MCH 31.1 H (27.0-31.0) pg MCHC 33.0 (33.0-37.0) g/dL RDW 15.8 H (11.5-14.5) % Plt Count 178 (130-400) K/uL MPV 9.0 (7.2-11.7) fL Neut % (Auto) 83.9 H (50.0-75.0) % Lymph % (Auto) 7.5 L (20.0-40.0) % Cannon % (Auto) 8.4 (0.0-10.0) % Eos % (Auto) 0.1 (0.0-4.0) % Baso % (Auto) 0.1 (0.0-2.0) % Neut # (Auto) 9.0 H (1.8-7.0) K/uL Lymph # (Auto) 0.8 L (1.0-4.3) K/uL Cannon # (Auto) 0.9 H (0.0-0.8) K/uL Eos # (Auto) 0.0 (0.0-0.7) K/uL Baso # (Auto) 0.0 (0.0-0.2) K/uL Neutrophils % (Manual) 79 H (50-75) % Band Neutrophils % 6 H (0-2) % Lymphocytes % (Manual) 6 L (20-40) % Monocytes % (Manual) 8 (0-10) % Metamyelocytes % 1 H (0-0) % Nucleated RBC % 2 H (0-0) % Platelet Estimate Normal (NORMAL) Plt Clumps, EDTA Fish [employer]er Large Platelets Present Giant Platelets Present Anisocytosis (manual) Slight Puncture Site Rb pCO2 31 L (35-45) mm/Hg pO2 330 H (80-100) mm/Hg HCO3 19.3 L (21-28) mmol/L ABG pH 7.35 (7.35-7.45) ABG Total CO2 18.1 L (22-28) mmol/L ABG O2 Saturation 100.5 H (95-98) % ABG Base Excess -7.2 L (-2.0-3.0) mmol/L ABG Hemoglobin 16.1 (11.7-17.4) g/dL ABG Carboxyhemoglobin 1.3 (0.5-1.5) % POC ABG HHb (Measured) -0.5 L (0.0-5.0) % ABG Methemoglobin 0.9 (0.0-3.0) % Miguel Angel Test Na A-a O2 Difference 344.0 mm/Hg Respiratory Index 1.0 Hgb O2 Saturation 98.2 H (95.0-98.0) % Vent Mode Bipap FiO2 100.0 % Inspiratory BiPAP 12 Expiratory BiPAP 6 Sodium (132-148) mmol/L Potassium (3.6-5.2) mmol/L Chloride (98-107) mmol/L Carbon Dioxide (22-30) mmol/L Anion Gap (10-20) BUN (7-17) mg/dL Creatinine (0.7-1.2) mg/dL Est GFR ( Amer) Est GFR (Non-Af Amer) POC Glucose (mg/dL) 86 (65-110) mg/dL Random Glucose (65-105) mg/dL Calcium (8.6-10.4) mg/dl Phosphorus (2.5-4.5) mg/dL Magnesium (1.6-2.3) mg/dL Total Bilirubin (0.2-1.3) mg/dL AST (14-36) U/L ALT (9-52) U/L Alkaline Phosphatase (38-126) U/L Total Protein (6.3-8.3) g/dL Albumin (3.5-5.0) g/dL Globulin (2.2-3.9) gm/dL Albumin/Globulin Ratio (1.0-2.1) 04/04/18 04/04/18 04/04/18 Range/Units 23:22 23:20 16:51 WBC (4.8-10.8) K/uL RBC (3.80-5.20) Mil/uL Hgb (11.0-16.0) g/dL Hct (34.0-47.0) % MCV (81.0-99.0) fL MCH (27.0-31.0) pg MCHC (33.0-37.0) g/dL RDW (11.5-14.5) % Plt Count (130-400) K/uL MPV (7.2-11.7) fL Neut % (Auto) (50.0-75.0) % Lymph % (Auto) (20.0-40.0) % Cannon % (Auto) (0.0-10.0) % Eos % (Auto) (0.0-4.0) % Baso % (Auto) (0.0-2.0) % Neut # (Auto) (1.8-7.0) K/uL Lymph # (Auto) (1.0-4.3) K/uL Cannon # (Auto) (0.0-0.8) K/uL Eos # (Auto) (0.0-0.7) K/uL Baso # (Auto) (0.0-0.2) K/uL Neutrophils % (Manual) (50-75) % Band Neutrophils % (0-2) % Lymphocytes % (Manual) (20-40) % Monocytes % (Manual) (0-10) % Metamyelocytes % (0-0) % Nucleated RBC % (0-0) % Platelet Estimate (NORMAL) Plt Clumps, EDTA Large Platelets Giant Platelets Anisocytosis (manual) Puncture Site pCO2 (35-45) mm/Hg pO2 (80-100) mm/Hg HCO3 (21-28) mmol/L ABG pH (7.35-7.45) ABG Total CO2 (22-28) mmol/L ABG O2 Saturation (95-98) % ABG Base Excess (-2.0-3.0) mmol/L ABG Hemoglobin (11.7-17.4) g/dL ABG Carboxyhemoglobin (0.5-1.5) % POC ABG HHb (Measured) (0.0-5.0) % ABG Methemoglobin (0.0-3.0) % Miguel Angel Test A-a O2 Difference mm/Hg Respiratory Index Hgb O2 Saturation (95.0-98.0) % Vent Mode FiO2 % Inspiratory BiPAP Expiratory BiPAP Sodium (132-148) mmol/L Potassium (3.6-5.2) mmol/L Chloride (98-107) mmol/L Carbon Dioxide (22-30) mmol/L Anion Gap (10-20) BUN (7-17) mg/dL Creatinine (0.7-1.2) mg/dL Est GFR ( Amer) Est GFR (Non-Af Amer) POC Glucose (mg/dL) 29 L* 20 L* 104 (65-110) mg/dL Random Glucose (65-105) mg/dL Calcium (8.6-10.4) mg/dl Phosphorus (2.5-4.5) mg/dL Magnesium (1.6-2.3) mg/dL Total Bilirubin (0.2-1.3) mg/dL AST (14-36) U/L ALT (9-52) U/L Alkaline Phosphatase (38-126) U/L Total Protein (6.3-8.3) g/dL Albumin (3.5-5.0) g/dL Globulin (2.2-3.9) gm/dL Albumin/Globulin Ratio (1.0-2.1) Laboratory Results - last 24 hr 04/04/18 04/04/18 04/04/18 16:51 23:20 23:22 WBC RBC Hgb Hct MCV MCH MCHC RDW Plt Count MPV Neut % (Auto) Lymph % (Auto) Cannon % (Auto) Eos % (Auto) Baso % (Auto) Neut # (Auto) Lymph # (Auto) Cannon # (Auto) Eos # (Auto) Baso # (Auto) Neutrophils % (Manual) Band Neutrophils % Lymphocytes % (Manual) Monocytes % (Manual) Metamyelocytes % Nucleated RBC % Platelet Estimate Plt Clumps, EDTA Large Platelets Giant Platelets Anisocytosis (manual) Puncture Site pCO2 pO2 HCO3 ABG pH ABG Total CO2 ABG O2 Saturation ABG Base Excess ABG Hemoglobin ABG Carboxyhemoglobin POC ABG HHb (Measured) ABG Methemoglobin Miguel Angel Test A-a O2 Difference Respiratory Index Hgb O2 Saturation Vent Mode FiO2 Inspiratory BiPAP Expiratory BiPAP Sodium Potassium Chloride Carbon Dioxide Anion Gap BUN Creatinine Est GFR ( Amer) Est GFR (Non-Af Amer) POC Glucose (mg/dL) 104 20 L* 29 L* Random Glucose Calcium Phosphorus Magnesium Total Bilirubin AST ALT Alkaline Phosphatase Total Protein Albumin Globulin Albumin/Globulin Ratio 04/04/18 04/05/18 04/05/18 23:56 00:35 06:13 WBC 10.7 RBC 5.12 Hgb 15.9 Hct 48.3 H MCV 94.5 D MCH 31.1 H MCHC 33.0 RDW 15.8 H Plt Count 178 MPV 9.0 Neut % (Auto) 83.9 H Lymph % (Auto) 7.5 L Cannon % (Auto) 8.4 Eos % (Auto) 0.1 Baso % (Auto) 0.1 Neut # (Auto) 9.0 H Lymph # (Auto) 0.8 L Cannon # (Auto) 0.9 H Eos # (Auto) 0.0 Baso # (Auto) 0.0 Neutrophils % (Manual) 79 H Band Neutrophils % 6 H Lymphocytes % (Manual) 6 L Monocytes % (Manual) 8 Metamyelocytes % 1 H Nucleated RBC % 2 H Platelet Estimate Normal Plt Clumps, EDTA Fish Fryer Large Platelets Present Giant Platelets Present Anisocytosis (manual) Slight Puncture Site Rb pCO2 31 L pO2 330 H HCO3 19.3 L ABG pH 7.35 ABG Total CO2 18.1 L ABG O2 Saturation 100.5 H ABG Base Excess -7.2 L ABG Hemoglobin 16.1 ABG Carboxyhemoglobin 1.3 POC ABG HHb (Measured) -0.5 L ABG Methemoglobin 0.9 Miguel Angel Test Na A-a O2 Difference 344.0 Respiratory Index 1.0 Hgb O2 Saturation 98.2 H Vent Mode Bipap FiO2 100.0 Inspiratory BiPAP 12 Expiratory BiPAP 6 Sodium Potassium Chloride Carbon Dioxide Anion Gap BUN Creatinine Est GFR ( Amer) Est GFR (Non-Af Amer) POC Glucose (mg/dL) 86 Random Glucose Calcium Phosphorus Magnesium Total Bilirubin AST ALT Alkaline Phosphatase Total Protein Albumin Globulin Albumin/Globulin Ratio 04/05/18 04/05/18 04/05/18 06:15 07:16 11:11 WBC RBC Hgb Hct MCV MCH MCHC RDW Plt Count MPV Neut % (Auto) Lymph % (Auto) Cannon % (Auto) Eos % (Auto) Baso % (Auto) Neut # (Auto) Lymph # (Auto) Cannon # (Auto) Eos # (Auto) Baso # (Auto) Neutrophils % (Manual) Band Neutrophils % Lymphocytes % (Manual) Monocytes % (Manual) Metamyelocytes % Nucleated RBC % Platelet Estimate Plt Clumps, EDTA Large Platelets Giant Platelets Anisocytosis (manual) Puncture Site pCO2 pO2 HCO3 ABG pH ABG Total CO2 ABG O2 Saturation ABG Base Excess ABG Hemoglobin ABG Carboxyhemoglobin POC ABG HHb (Measured) ABG Methemoglobin Miguel Angel Test A-a O2 Difference Respiratory Index Hgb O2 Saturation Vent Mode FiO2 Inspiratory BiPAP Expiratory BiPAP Sodium 138 Potassium 5.2 Chloride 94 L Carbon Dioxide 19 L Anion Gap 30 H BUN 42 H Creatinine 1.4 H Est GFR ( Amer) 44 Est GFR (Non-Af Amer) 37 POC Glucose (mg/dL) 124 H 189 H Random Glucose 97 Calcium 9.0 Phosphorus 7.6 H Magnesium 1.8 Total Bilirubin 3.5 H AST 2165 H ALT 1218 H Alkaline Phosphatase 282 H D Total Protein 5.9 L Albumin 3.1 L Globulin 2.8 Albumin/Globulin Ratio 1.1 EKG/Cardiology Studies: Cardiology / EKG Studies 04/04/18 15:59 EKG [ELECTROCARDIOGRAM] Routine Comment: Mode Of Transportation: Reason For Exam: abnormal rhythm 04/05/18 10:56 ELECTROCARDIOGRAM Stat Comment: Mode Of Transportation: BED Reason For Exam: post cardioversion Critical Care Progress Note - Nutrition Nutrition: Nutrition Category Date Time Status Heart Healthy Diet [DIET] Diets 04/04/18 Dinner Active Attending/Attestation - Attestation I have personally seen and examined this patient.: Yes I have fully participated in the care of the patient.: Yes I have reviewed all pertinent clinical information: Yes Notes (Text): 04/05/18 16:11 patient seen and examined in the intensive care unit. Patient is off amiodarone drip Elevated liver enzymes most likely secondary to amiodarone heart rate controlled and in normal sinus rhythm Patient is off BiPAP and no shortness of breath Afebrile Thoracentesis by IR Continue present treatment for now taper off pressors
--- NOTE | 2018-04-05 13:57 | CP.PCM.PN ---
Subjective - Date & Time of Evaluation Date of Evaluation: 04/05/18 Time of Evaluation: 13:00 - Subjective Subjective: Patient was seen and examined, she explained she did not have chest pain but did report some shortness of breath Family member her daughter was at bedside and we discussed. She is currently on a low dose of norephineprhine. Yesterday patient had AINSLEY, per cardiology there is findings of an ASD She was Afib with RVR yesterday and overnight was on a amiodarone drip. She is now on just PO amiodarone. Her HR is currently 50s to 60s on telemetry Objective - Vital Signs/Intake and Output Vital Signs (last 24 hours): Temp Pulse Resp BP Pulse Ox 97.7 F 48 L 12 110/34 L 99 04/05/18 12:00 04/05/18 13:00 04/05/18 13:00 04/05/18 12:30 04/05/18 13:00 Intake and Output: 04/05/18 04/05/18 06:59 18:59 Intake Total 897.5 1152.4 Output Total 0 Balance 897.5 1152.4 - Medications Medications: Current Medications Apixaban (Eliquis) 5 mg PO BID [facility] Last Admin: 04/05/18 10:17 Dose: 5 mg Aspirin (Aspirin Chewable) 81 mg PO DAILY [facility] Last Admin: 04/05/18 10:17 Dose: 81 mg Dextrose (Dextrose 50% Inj) 0 ml IV STAT PRN; Protocol PRN Reason: Hypoglycemia Protocol Last Admin: 04/04/18 23:27 Dose: 50 ml Dextrose (Glutose 15) 0 gm PO ONCE PRN; Protocol PRN Reason: Hypoglycemia Protocol Furosemide (Lasix) 20 mg IVP TID [facility] Last Admin: 04/05/18 09:28 Dose: Not Given Glucagon (Glucagen Diagnostic Kit) 0 mg IM STAT PRN; Protocol PRN Reason: Hypoglycemia Protocol Guaifenesin (Robitussin) 100 mg PO Q6H PRN PRN Reason: Cough Last Admin: 03/30/18 20:15 Dose: 100 mg Norepinephrine Bitartrate 4 mg (/ Sodium Chloride) 254 mls @ 15.24 mls/hr IV .[id number] PRN; Protocol; 4 MCG/MIN PRN Reason: TITRATE PER MD ORDER Last Titration: 04/05/18 10:00 Dose: 2 mcg/min, 7.62 mls/hr Insulin Glargine (Lantus) 9 unit SC HS [facility] Last Admin: 04/04/18 22:00 Dose: Not Given Insulin Human Regular (Novolin R) 0 unit SC ACHS [facility] PRN Reason: Protocol Last Admin: 04/05/18 12:57 Dose: 1 unit Lisinopril (Zestril) 5 mg PO DAILY [facility] Last Admin: 04/05/18 09:29 Dose: Not Given Pantoprazole Sodium (Protonix Ec Tab) 40 mg PO DAILY [facility] Last Admin: 04/05/18 10:18 Dose: 40 mg Pregabalin (Lyrica) 100 mg PO Q12 [facility] Last Admin: 04/05/18 10:17 Dose: 100 mg Spironolactone (Aldactone) 25 mg PO DAILY [facility] Last Admin: 04/05/18 09:28 Dose: Not Given Sulfasalazine (Azulfidine) 500 mg PO BID [facility] PRN Reason: Protocol Last Admin: 04/05/18 10:17 Dose: 500 mg Tramadol HCl (Ultram) 25 mg PO TID PRN PRN Reason: Pain, moderate (4-7) Last Admin: 03/30/18 20:15 Dose: 25 mg - Labs Labs: 04/05/18 06:13 04/05/18 06:15 PT 25.3 SECONDS (9.7-12.2) H 03/29/18 12:49 INR 2.3 03/29/18 12:49 APTT 34 SECONDS (21-34) 03/29/18 12:49 - Constitutional Appears: Cachectic, Chronically Ill - Head Exam Head Exam: NORMAL INSPECTION - Eye Exam Eye Exam: EOMI, Normal appearance - ENT Exam ENT Exam: Mucous Membranes Moist - Respiratory Exam Respiratory Exam: Clear to Ausculation Bilateral, NORMAL BREATHING PATTERN - Cardiovascular Exam Cardiovascular Exam: Bradycardia, REGULAR RHYTHM - GI/Abdominal Exam GI & Abdominal Exam: Soft, Normal Bowel Sounds. absent: Distended, Firm, Guarding, Rigid, Tenderness - Neurological Exam Neurological Exam: Alert, Awake, Oriented x3 Neuro motor strength exam: Left Upper Extremity: 5, Right Upper Extremity: 5 - Psychiatric Exam Psychiatric exam: Depressed, Flat Affect - Skin Skin Exam: Pallor, Warm Assessment and Plan - Assessment and Plan (Free Text) Assessment: Atrial fibrillation with RVR 04/05: Patient overnight was on amiodraone drip, now off of drip. On PO HR in the 50s and 60s She remains on anticogulation with Eliquis BID Right Pleural Effusion 04/05: CT scan without contrast of chest. Maybe will need thoracentesis. 04/04: extensive right sided pulmonary opacity with moderate right pleural effusion. mild congestive change. possible pulmonary edema. Pulmonology consulted, Dr. Moon, help appreciated Acute on Chronic Systolic CHF with Atrial Septal Defect 04/05: Currently on low dose pressor medications. BP medications on hold at this time. The AINSLEY showed an ASD. Cxray 04/03: bilateral pulm opacities with small left and moderate right pleural effusion, congestive change, possible pulmonary edema Echo(03/16): LVEF 30-35% Altered mental status, improved -CT Head negative -urine and wound culture negative -may be secondary to a fib with rvr Peripheral cyanosis Abdominal angiogram on 03/21/18: no significant peripheral disease. three vessel runoff in both right and left lower extremities Offloading boots Rheumatoid Arthritis -Sulfasalazine 500mg po BID DM -continue home insulin -accuchecks -hypoglycemic protocol
--- NOTE | 2018-04-05 15:34 | CT ---
PROCEDURE: CT Chest without contrast HISTORY: shortness of breath, pleural effusion COMPARISON: CT angiography of the pulmonary arteries performed 03/15/2018. TECHNIQUE: Contiguous axial images were obtained through the chest without intravenous contrast enhancement. Sagittal and coronal reconstructions were performed. Radiation dose (DLP): 618.9 mGy-cm. This CT exam was performed using one or more of the following dose reduction techniques: Automated exposure control, adjustment of the mA and/or kV according to patient size, and/or use of iterative reconstruction technique. FINDINGS: LUNGS: Ground-glass attenuation in the right lower lobe. Right lower lobe subsegmental atelectasis. Posterior lingula and left lower lobe atelectasis. Visualized airway clear. MEDIASTINUM: Unremarkable thoracic aorta. No aneurysm. Cardiomegaly. Coronary arterial and valvular calcification. Main pulmonary artery unremarkable. No lymphadenopathy. PLEURA: Very small right and trace left pleural effusions. No pneumothorax. BONES: No fracture. No destructive lesion. UPPER ABDOMEN: Grossly unremarkable. OTHER FINDINGS: Left internal jugular access central venous catheter with tip in the SVC. IMPRESSION: Pulmonary vascular congestion. Very small right and trace left pleural effusions. No focal consolidation.
[2018-04-05] MEDS: (Lantus) Insulin Glargine, Recombinant SC SCH (21:42)
[2018-04-06 06:37] LABS: BASO % 0.1 % (0.0-2.0); EOS % 0.5 % (0.0-4.0); HEMOGLOBIN 13.7 g/dL (11.0-16.0); LYMPH # 0.7 K/uL (1.0-4.3); MEAN CELL VOLUME 91.6 fL (81.0-99.0); MEAN CORPUSCULAR HEMOGLOBIN 31.1 pg (27.0-31.0); MEAN CORPUSCULAR HGB CONC 33.9 g/dL (33.0-37.0); MEAN PLATELET VOLUME 8.7 fL (7.2-11.7); MONO # 0.5 K/uL (0.0-0.8); MONO % 6.2 % (0.0-10.0); NEUT # 7.3 K/uL (1.8-7.0); NEUT % 85.2 % (50.0-75.0); NRBC % 0.1 % (0.0-2.0); PLATELET COUNT 143 K/uL (130-400); RBC 4.41 Mil/uL (3.80-5.20); RED CELL DISTRIBUTION WIDTH 15.5 % (11.5-14.5); WHITE BLOOD COUNT 8.5 K/uL (4.8-10.8)
[2018-04-06 07:12] LABS: ALBUMIN 2.3 g/dL (3.5-5.0); CALCIUM 8.1 mg/dl (8.6-10.4)
[2018-04-06] MEDS: (Novolin R) Insulin Human Regular 100 units/ml vial SC SCH (08:01)
[2018-04-06 08:39] LABS: BANDS 4 % (0-2); EOSINOPHIL 1 % (0-4); LYMPHOCYTE 9 % (20-40); MONOCYTE 7 % (0-10); NEUTROPHIL 79 % (50-75); PLATELET ESTIMATE NORMAL (NORMAL); TOTAL CELLS COUNTED 100
[2018-04-06 08:40] LABS: ANISOCYTOSIS SLIGHT; BURR CELLS SLIGHT
[2018-04-06] MEDS: Pantoprazole 40 mg EC Tab PO SCH (09:49)
--- NOTE | 2018-04-06 10:02 | CP.PCM.PN ---
Subjective - Date & Time of Evaluation Date of Evaluation: 04/06/18 Time of Evaluation: 09:58 - Subjective Subjective: Pt is asleep, mildly tachypneic QTS is prolonged , sinus dre. Off pressors. CT showed chf, not unexpected. K 5.2 mag 1.8 LFTS are elevated, but coming down. Objective - Vital Signs/Intake and Output Vital Signs (last 24 hours): Temp Pulse Resp BP Pulse Ox 97.4 F L 52 L 6 L 111/61 100 04/06/18 04:00 04/06/18 08:00 04/06/18 08:00 04/06/18 09:49 04/06/18 08:00 Intake and Output: 04/06/18 04/06/18 06:59 18:59 Intake Total 450 Output Total 200 Balance 250 - Medications Medications: Current Medications Apixaban (Eliquis) 5 mg PO BID [facility] Last Admin: 04/06/18 09:49 Dose: 5 mg Aspirin (Aspirin Chewable) 81 mg PO DAILY [facility] Last Admin: 04/06/18 09:48 Dose: 81 mg Dextrose (Dextrose 50% Inj) 0 ml IV STAT PRN; Protocol PRN Reason: Hypoglycemia Protocol Last Admin: 04/04/18 23:27 Dose: 50 ml Dextrose (Glutose 15) 0 gm PO ONCE PRN; Protocol PRN Reason: Hypoglycemia Protocol Furosemide (Lasix) 20 mg IVP TID [facility] Last Admin: 04/06/18 09:49 Dose: 20 mg Glucagon (Glucagen Diagnostic Kit) 0 mg IM STAT PRN; Protocol PRN Reason: Hypoglycemia Protocol Guaifenesin (Robitussin) 100 mg PO Q6H PRN PRN Reason: Cough Last Admin: 03/30/18 20:15 Dose: 100 mg Insulin Aspart (Novolog) 0 unit SC ACHS [facility] PRN Reason: Protocol Insulin Glargine (Lantus) 12 unit SC HS [facility] Lisinopril (Zestril) 5 mg PO DAILY [facility] Last Admin: 04/05/18 09:29 Dose: Not Given Pantoprazole Sodium (Protonix Ec Tab) 40 mg PO DAILY [facility] Last Admin: 04/06/18 09:49 Dose: 40 mg Pregabalin (Lyrica) 100 mg PO Q12 [facility] Last Admin: 04/05/18 21:42 Dose: 100 mg Spironolactone (Aldactone) 25 mg PO DAILY [facility] Last Admin: 04/05/18 09:28 Dose: Not Given Sulfasalazine (Azulfidine) 500 mg PO BID [facility] PRN Reason: Protocol Last Admin: 04/06/18 09:48 Dose: 500 mg Tramadol HCl (Ultram) 25 mg PO TID PRN PRN Reason: Pain, moderate (4-7) Last Admin: 03/30/18 20:15 Dose: 25 mg - Labs Labs: 04/06/18 06:29 04/06/18 06:31 PT 25.3 SECONDS (9.7-12.2) H 03/29/18 12:49 INR 2.3 03/29/18 12:49 APTT 34 SECONDS (21-34) 03/29/18 12:49 - Constitutional Appears: Older Than Stated Age - Head Exam Head Exam: ATRAUMATIC - Eye Exam Eye Exam: EOMI - ENT Exam ENT Exam: Mucous Membranes Dry - Neck Exam Neck Exam: Full ROM - Respiratory Exam Respiratory Exam: Rales - Cardiovascular Exam Cardiovascular Exam: REGULAR RHYTHM - Extremities Exam Extremities Exam: Normal Inspection - Skin Skin Exam: Normal Color Assessment and Plan - Assessment and Plan (Free Text) Assessment: 1. Will resume beta marlena if HR allows. No betapace as qt is prolonged 2. Follow lfts daily, likely from hepatic congestion and amio 3. follow lytes closely ,daily including mag. 4. Hold aldactone for now due to elevated k 5. Await review of janeth by team at [facility] for asd closure.
[2018-04-06 10:37] LABS: CK-MB 1.65 ng/mL (0.0-3.38)
[2018-04-06 11:20] LABS: TROPONIN I 0.048 ng/mL (0.00-0.120)
[2018-04-06] MEDS: (Novolog) Insulin Aspart, Recombinant 100 u/ml 10 ml vial SC SCH ×3 (11:57→21:44)
--- NOTE | 2018-04-06 13:39 | CP.PCM.PN ---
Subjective - Date & Time of Evaluation Date of Evaluation: 04/06/18 Time of Evaluation: 13:00 - Subjective Subjective: Patient was seen and examined by me. She appeared tired, however not in any acute distress at the moment. HR was in the mid 50s to 60s. She is off pressor medications. CT scan yesterday shows only a small pleural effusion. Cardiology is waiting on further information of the AINSLEY with reguards to ASD Objective - Vital Signs/Intake and Output Vital Signs (last 24 hours): Temp Pulse Resp BP Pulse Ox 97.4 F L 60 10 L 104/54 L 100 04/06/18 04:00 04/06/18 12:00 04/06/18 12:00 04/06/18 11:57 04/06/18 12:00 Intake and Output: 04/06/18 04/06/18 06:59 18:59 Intake Total 450 300 Output Total 200 0 Balance 250 300 - Medications Medications: Current Medications Apixaban (Eliquis) 5 mg PO BID [facility] Last Admin: 04/06/18 09:49 Dose: 5 mg Aspirin (Aspirin Chewable) 81 mg PO DAILY [facility] Last Admin: 04/06/18 09:48 Dose: 81 mg Dextrose (Dextrose 50% Inj) 0 ml IV STAT PRN; Protocol PRN Reason: Hypoglycemia Protocol Last Admin: 04/04/18 23:27 Dose: 50 ml Dextrose (Glutose 15) 0 gm PO ONCE PRN; Protocol PRN Reason: Hypoglycemia Protocol Furosemide (Lasix) 20 mg IVP TID [facility] Last Admin: 04/06/18 09:49 Dose: 20 mg Glucagon (Glucagen Diagnostic Kit) 0 mg IM STAT PRN; Protocol PRN Reason: Hypoglycemia Protocol Guaifenesin (Robitussin) 100 mg PO Q6H PRN PRN Reason: Cough Last Admin: 03/30/18 20:15 Dose: 100 mg Insulin Aspart (Novolog) 0 unit SC ACHS [facility] PRN Reason: Protocol Last Admin: 04/06/18 11:57 Dose: 6 unit Insulin Glargine (Lantus) 12 unit SC HS [facility] Lisinopril (Zestril) 5 mg PO DAILY [facility] Last Admin: 04/05/18 09:29 Dose: Not Given Pantoprazole Sodium (Protonix Ec Tab) 40 mg PO DAILY [facility] Last Admin: 04/06/18 09:49 Dose: 40 mg Pregabalin (Lyrica) 100 mg PO Q12 [facility] Last Admin: 04/06/18 10:08 Dose: 100 mg Spironolactone (Aldactone) 25 mg PO DAILY [facility] Last Admin: 04/05/18 09:28 Dose: Not Given Sulfasalazine (Azulfidine) 500 mg PO BID [facility] PRN Reason: Protocol Last Admin: 04/06/18 09:48 Dose: 500 mg Tramadol HCl (Ultram) 25 mg PO TID PRN PRN Reason: Pain, moderate (4-7) Last Admin: 03/30/18 20:15 Dose: 25 mg - Labs Labs: 04/06/18 06:29 04/06/18 06:31 PT 25.3 SECONDS (9.7-12.2) H 03/29/18 12:49 INR 2.3 03/29/18 12:49 APTT 34 SECONDS (21-34) 03/29/18 12:49 - Constitutional Appears: Cachectic, Chronically Ill - Head Exam Head Exam: NORMAL INSPECTION - Eye Exam Eye Exam: EOMI, Normal appearance - Respiratory Exam Respiratory Exam: Clear to Ausculation Bilateral, NORMAL BREATHING PATTERN - Cardiovascular Exam Cardiovascular Exam: Bradycardia - GI/Abdominal Exam GI & Abdominal Exam: absent: Guarding, Rigid, Soft, Tenderness - Neurological Exam Neurological Exam: Alert, Awake, Oriented x3 Neuro motor strength exam: Left Upper Extremity: 4, Right Upper Extremity: 4 - Skin Skin Exam: Pallor, Pallor, Warm Assessment and Plan - Assessment and Plan (Free Text) Assessment: Atrial fibrillation with RVR 04/06: Sinus bradycardia at this moment. Now off of Amiodarone. 04/05: Patient overnight was on amiodraone drip, now off of drip. On PO HR in the 50s and 60s She remains on anticogulation with Eliquis BID Right Pleural Effusion 04/06: Right pleural effusion is small on CT 04/05: CT scan without contrast of chest. Maybe will need thoracentesis. 04/04: extensive right sided pulmonary opacity with moderate right pleural effusion. mild congestive change. possible pulmonary edema. Pulmonology consulted, Dr. Moon, help appreciated Acute on Chronic Systolic CHF with Atrial Septal Defect 04/06: Now off of IV pressor medications. Systolic BP 104/54 04/05: Currently on low dose pressor medications. BP medications on hold at this time. The AINSLEY showed an ASD. Cxray 04/03: bilateral pulm opacities with small left and moderate right pleural effusion, congestive change, possible pulmonary edema Echo(03/16): LVEF 30-35% Altered mental status, improved -CT Head negative -urine and wound culture negative -may be secondary to a fib with rvr Peripheral cyanosis Abdominal angiogram on 03/21/18: no significant peripheral disease. three vessel runoff in both right and left lower extremities Offloading boots Rheumatoid Arthritis -Sulfasalazine 500mg po BID DM -continue home insulin -accuchecks -hypoglycemic protocol
[2018-04-06] MEDS: (Lantus) Insulin Glargine, Recombinant SC SCH (22:17)
[2018-04-06] MEDS ORDERED: Magnesium Sulfate 1 gm in D5W 1 GM/100 ML BAG IVPB ONE (22:20)
--- NOTE | 2018-04-06 22:30 | CARD ---
APPROVED REPORT EKG Measurement Heart [id number] <Conclusion> Sinus bradycardia with premature atrial complexes Nonspecific intraventricular block Abnormal ECG
[2018-04-07 06:12] LABS: BASO % 0.2 % (0.0-2.0); EOS # 0.2 K/uL (0.0-0.7); EOS % 2.3 % (0.0-4.0); HEMOGLOBIN 13.8 g/dL (11.0-16.0); LYMPH # 0.6 K/uL (1.0-4.3); LYMPH % 9.2 % (20.0-40.0); MEAN CELL VOLUME 91.5 fL (81.0-99.0); MEAN CORPUSCULAR HEMOGLOBIN 30.6 pg (27.0-31.0); MEAN CORPUSCULAR HGB CONC 33.5 g/dL (33.0-37.0); MEAN PLATELET VOLUME 8.7 fL (7.2-11.7); MONO # 0.4 K/uL (0.0-0.8); MONO % 6.1 % (0.0-10.0); NEUT # 5.5 K/uL (1.8-7.0); NEUT % 82.2 % (50.0-75.0); PLATELET COUNT 121 K/uL (130-400); RBC 4.51 Mil/uL (3.80-5.20); RED CELL DISTRIBUTION WIDTH 15.5 % (11.5-14.5); WHITE BLOOD COUNT 6.7 K/uL (4.8-10.8)
[2018-04-07 06:37] LABS: ALBUMIN 2.4 g/dL (3.5-5.0); ALT/SGPT 762 U/L (9-52); AST/SGOT 675 U/L (14-36); BLOOD UREA NITROGEN 41 mg/dL (7-17); CALCIUM 8.1 mg/dl (8.6-10.4); GFR AFRICAN-AMERICAN > 60; GFR NON-AFRICAN AMERICAN > 60
[2018-04-07] MEDS: (Novolog) Insulin Aspart, Recombinant 100 u/ml 10 ml vial SC SCH ×4 (08:36→21:38)
[2018-04-07 09:19] LABS: ANISOCYTOSIS SLIGHT; LYMPHOCYTE 7 % (20-40); MONOCYTE 5 % (0-10); NEUTROPHIL 88 % (50-75); PLATELET ESTIMATE SLIGHTLY DECREASED (NORMAL); TOTAL CELLS COUNTED 100
[2018-04-07 09:20] LABS: HYPOCHROMIC SLIGHT; LARGE PLATELETS PRESENT; POLYCHROMIC SLIGHT; TOXIC GRANULATION PRESENT
--- NOTE | 2018-04-07 09:20 | CARD ---
APPROVED REPORT EXAM: Transesophageal echocardiogram with color flow Doppler. INDICATION Atrial Fibrillation Echo Enhancing Agent Indication: Rule Out Septal Defect Agent/Amount Used: Agitated Saline Mitral Valve E/A ratio0.0 TDI E/Lateral E'0.0E/Medial E'0.0 Tricuspid Valve TR Peak [id number]/sTR Peak Gr.25mmHg LEFT VENTRICLE The left ventricle is normal size. There is normal left ventricular wall thickness. The left ventricular function is seerely reduced, with paradoxical septal motion. The left ventricular ejection fraction is about 20% No left ventricle thrombus noted on this study. There is no ventricular septal defect visualized. There is no left ventricular aneurysm. There is no mass noted in the left ventricle. RIGHT VENTRICLE The right ventricle is severely dilated. There is normal right ventricular wall thickness. The right ventricular systolic function is severely reduced ATRIA The left atrium size is dilated No thrombus in the appendage, with igh appendage emptying velocities. The right atrium size is markedluy [id number]. A large 1.6 cm diamter secundum atrial septal defectg is noted, with bidirectional flow. AORTIC VALVE The aortic valve is normal in structure and function. Mild aortic regurgitation is present. There is no aortic valvular stenosis. There is no aortic valvular vegetation. MITRAL VALVE The mitral valve is normal in structure and function. There is no evidence of mitral valve prolapse. There is no mitral valve stenosis. There is moderate to severe mitral valve regurgitation noted. TRICUSPID VALVE The tricuspid valve is normal in structure and function. There is mild tricuspid valve regurgitation noted. Gradient is 26 mm Hg, and estiamted PA ystolic pressure is 46 mm Hg. There is no tricuspid valve prolapse or vegetation. There is no tricuspid valve stenosis. PULMONIC VALVE The pulmonary valve is normal in structure and function. There is no pulmonic valvular regurgitation. There is no pulmonic valvular stenosis. GREAT VESSELS The aortic root is normal in size. There is severe grade 5 plaq noted in the desceindg thoracic aorta and aortic arch. The ascending aorta is normal in size. The pulmonary artery is normal. PERICARDIAL EFFUSION The pericardium appears normal. There are pleural effusions. <Conclusion> A large 1.6 cm diameter secundum atrial septal defectg is noted, with bidirectional flow. The left atrium size is dilated No thrombus in the appendage, withh igh appendage emptying velocities. The right atrium size is markedluy dilated. The right ventricular systolic function is severely reduced The right ventricle is severely dilated. The left ventricular function is seerely reduced, with paradoxical septal motion. The left ventricular ejection fraction is about 20% There is moderate to severe mitral valve regurgitation noted. There is mild tricuspid valve regurgitation noted. Gradient is 26 mm Hg, and estiamted PA ystolic pressure is 46 mm Hg. The aortic root is normal in size. There is severe grade 5 plaqe noted in the desceindg thoracic aorta and aortic arch.
[2018-04-07 09:21] LABS: BURR CELLS SLIGHT; POIKILOCYTOSIS SLIGHT
[2018-04-07 09:22] LABS: GIANT PLATELETS PRESENT
[2018-04-07] MEDS: Pantoprazole 40 mg EC Tab PO SCH (09:28)
--- NOTE | 2018-04-07 10:09 | CP.PCM.PN ---
Subjective - Date & Time of Evaluation Date of Evaluation: 04/07/18 Time of Evaluation: 10:07 - Subjective Subjective: Pt is asleep. Back in atrial flutter LFTs are coming down K and mag are low. No final word from [place] yet. Objective - Vital Signs/Intake and Output Vital Signs (last 24 hours): Temp Pulse Resp BP Pulse Ox 97.5 F L 92 H 18 107/44 L 100 04/07/18 08:00 04/07/18 04:00 04/07/18 04:00 04/07/18 09:28 04/07/18 04:00 Intake and Output: 04/07/18 04/07/18 06:59 18:59 Intake Total 700 Output Total 2000 Balance -1300 - Medications Medications: Current Medications Apixaban (Eliquis) 5 mg PO BID [facility] Last Admin: 04/07/18 09:28 Dose: 5 mg Aspirin (Aspirin Chewable) 81 mg PO DAILY [facility] Last Admin: 04/07/18 09:26 Dose: 81 mg Dextrose (Dextrose 50% Inj) 0 ml IV STAT PRN; Protocol PRN Reason: Hypoglycemia Protocol Last Admin: 04/04/18 23:27 Dose: 50 ml Dextrose (Glutose 15) 0 gm PO ONCE PRN; Protocol PRN Reason: Hypoglycemia Protocol Furosemide (Lasix) 20 mg IVP TID [facility] Last Admin: 04/07/18 09:28 Dose: 20 mg Glucagon (Glucagen Diagnostic Kit) 0 mg IM STAT PRN; Protocol PRN Reason: Hypoglycemia Protocol Guaifenesin (Robitussin) 100 mg PO Q6H PRN PRN Reason: Cough Last Admin: 03/30/18 20:15 Dose: 100 mg Insulin Aspart (Novolog) 0 unit SC ACHS [facility] PRN Reason: Protocol Last Admin: 04/07/18 08:36 Dose: 2 unit Insulin Glargine (Lantus) 12 unit SC HS [facility] Last Admin: 04/06/18 22:17 Dose: 12 u Lisinopril (Zestril) 5 mg PO DAILY [facility] Last Admin: 04/05/18 09:29 Dose: Not Given Pantoprazole Sodium (Protonix Ec Tab) 40 mg PO DAILY [facility] Last Admin: 04/07/18 09:28 Dose: 40 mg Pregabalin (Lyrica) 100 mg PO Q12 [facility] Last Admin: 04/07/18 09:28 Dose: 100 mg Spironolactone (Aldactone) 25 mg PO DAILY [facility] Last Admin: 04/05/18 09:28 Dose: Not Given Sulfasalazine (Azulfidine) 500 mg PO BID [facility] PRN Reason: Protocol Last Admin: 04/06/18 17:42 Dose: 500 mg Tramadol HCl (Ultram) 25 mg PO TID PRN PRN Reason: Pain, moderate (4-7) Last Admin: 03/30/18 20:15 Dose: 25 mg - Labs Labs: 04/07/18 05:59 04/07/18 06:02 PT 25.3 SECONDS (9.7-12.2) H 03/29/18 12:49 INR 2.3 03/29/18 12:49 APTT 34 SECONDS (21-34) 03/29/18 12:49 - Constitutional Appears: Older Than Stated Age - Head Exam Head Exam: ATRAUMATIC, NORMAL INSPECTION - ENT Exam ENT Exam: Mucous Membranes Dry - Neck Exam Neck Exam: Full ROM - Respiratory Exam Respiratory Exam: Decreased Breath Sounds, Rales - Cardiovascular Exam Cardiovascular Exam: Tachycardia, Irregular Rhythm - GI/Abdominal Exam GI & Abdominal Exam: Normal Bowel Sounds - Exam External exam: NORMAL EXTERNAL EXAM - Extremities Exam Extremities Exam: Pedal Edema - Psychiatric Exam Psychiatric exam: Flat Affect - Skin Skin Exam: Normal Color Assessment and Plan - Assessment and Plan (Free Text) Assessment: 1. Will replace mag and k 2. CXR f/u 3. Po betapace 4. Eventual asd repair. Possible mitraclip and ablation as well.
[2018-04-07] MEDS ORDERED: Sotalol 40 mg Tab PO SCH (10:15)
[2018-04-07] MEDS: Potassium Chloride 10 mEq ER Tab PO SCH (11:41)
[2018-04-07] MEDS: Magnesium Sulfate 2 GM in Sodium Chloride 0.9% 100 ML IV SCH ×2 (11:41→12:48)
--- NOTE | 2018-04-07 12:12 | RAD ---
HISTORY: Congestive heart failure. COMPARISON: Multiple serial examinations preceding the most recent study: 04/04/2018. FINDINGS: LUNGS: Interval improvement in pulmonary vascular congestion. PLEURA: Stable pleural effusions. CARDIOVASCULAR: Cardiomegaly, improving CHF. Venous access catheter in stable, satisfactory position. OSSEOUS STRUCTURES: No significant abnormalities. VISUALIZED UPPER ABDOMEN: Normal. OTHER FINDINGS: None. IMPRESSION: Improving congestive heart failure/ pulmonary edema.
--- NOTE | 2018-04-07 13:38 | CP.PCM.PN ---
<Vale Garcia - Last Filed: 04/07/18 13:35> Subjective - Date & Time of Evaluation Date of Evaluation: 04/07/18 Time of Evaluation: 07:00 - Subjective Subjective: PGY1- Progress Note Patient seen and examined at bedside resting comfortably. Patient denies any complaints, but is very lethargic. Cardiology awaiting further information from [place] about patient's ASD. Objective - Vital Signs/Intake and Output Vital Signs (last 24 hours): Temp Pulse Resp BP Pulse Ox 97.5 F L 111 H 18 113/55 L 98 04/07/18 12:00 04/07/18 12:00 04/07/18 12:00 04/07/18 12:00 04/07/18 12:00 Intake and Output: 04/07/18 04/07/18 06:59 18:59 Intake Total 700 Output Total 2000 Balance -1300 - Medications Medications: Current Medications Apixaban (Eliquis) 5 mg PO BID [facility] Last Admin: 04/07/18 09:28 Dose: 5 mg Aspirin (Aspirin Chewable) 81 mg PO DAILY [facility] Last Admin: 04/07/18 09:26 Dose: 81 mg Dextrose (Dextrose 50% Inj) 0 ml IV STAT PRN; Protocol PRN Reason: Hypoglycemia Protocol Last Admin: 04/04/18 23:27 Dose: 50 ml Dextrose (Glutose 15) 0 gm PO ONCE PRN; Protocol PRN Reason: Hypoglycemia Protocol Furosemide (Lasix) 20 mg IVP Q12H [facility] Last Admin: 04/07/18 11:17 Dose: Not Given Glucagon (Glucagen Diagnostic Kit) 0 mg IM STAT PRN; Protocol PRN Reason: Hypoglycemia Protocol Guaifenesin (Robitussin) 100 mg PO Q6H PRN PRN Reason: Cough Last Admin: 03/30/18 20:15 Dose: 100 mg Magnesium Sulfate 2 gm/ Sodium (Chloride) 104 mls @ 104 mls/hr IV Q1H [facility] Stop: 04/07/18 13:59 Last Admin: 04/07/18 12:48 Dose: 104 mls/hr Insulin Aspart (Novolog) 0 unit SC ACHS [facility] PRN Reason: Protocol Last Admin: 04/07/18 12:07 Dose: 4 unit Insulin Glargine (Lantus) 12 unit SC HS [facility] Last Admin: 04/06/18 22:17 Dose: 12 u Lisinopril (Zestril) 5 mg PO DAILY [facility] Last Admin: 04/05/18 09:29 Dose: Not Given Pantoprazole Sodium (Protonix Ec Tab) 40 mg PO DAILY [facility] Last Admin: 04/07/18 09:28 Dose: 40 mg Potassium Chloride (Klor-Con 10) 20 meq PO BRK [facility] Last Admin: 04/07/18 11:41 Dose: 20 meq Pregabalin (Lyrica) 100 mg PO Q12 [facility] Last Admin: 04/07/18 09:28 Dose: 100 mg Sotalol HCl (Betapace) 80 mg PO BID [facility] Spironolactone (Aldactone) 25 mg PO DAILY [facility] Last Admin: 04/05/18 09:28 Dose: Not Given Sulfasalazine (Azulfidine) 500 mg PO BID [facility] PRN Reason: Protocol Last Admin: 04/07/18 10:09 Dose: 500 mg Tramadol HCl (Ultram) 25 mg PO TID PRN PRN Reason: Pain, moderate (4-7) Last Admin: 03/30/18 20:15 Dose: 25 mg - Labs Labs: 04/07/18 05:59 04/07/18 06:02 PT 25.3 SECONDS (9.7-12.2) H 03/29/18 12:49 INR 2.3 03/29/18 12:49 APTT 34 SECONDS (21-34) 03/29/18 12:49 - Constitutional Appears: Older Than Stated Age, Chronically Ill - Head Exam Head Exam: ATRAUMATIC, NORMAL INSPECTION, NORMOCEPHALIC - Eye Exam Eye Exam: EOMI, Normal appearance, PERRL - ENT Exam ENT Exam: Mucous Membranes Moist - Respiratory Exam Respiratory Exam: Clear to Ausculation Bilateral, NORMAL BREATHING PATTERN - Cardiovascular Exam Cardiovascular Exam: Tachycardia, Irregular Rhythm, +S1, +S2 - GI/Abdominal Exam GI & Abdominal Exam: Soft, Normal Bowel Sounds. absent: Tenderness - Extremities Exam Extremities Exam: absent: Pedal Edema Additional comments: offloading boots b/l - Neurological Exam Neurological Exam: Alert, Awake, Oriented x3 - Psychiatric Exam Psychiatric exam: Normal Affect, Normal Mood - Skin Skin Exam: Intact, Pallor, Warm Assessment and Plan - Assessment and Plan (Free Text) Assessment: Atrial fibrillation with RVR 04/07 HR >100s Sotalol 80 mg po BID added on 04/07/18 anticogulation with Eliquis 5mg po BID Right Pleural Effusion 04/06: Right pleural effusion is small on CT 04/05: CT scan without contrast of chest. Maybe will need thoracentesis. 04/04: extensive right sided pulmonary opacity with moderate right pleural effusion. mild congestive change. possible pulmonary edema. Pulmonology consulted, Dr. Moon, help appreciated Lasix 20mg ivp q12h (decreased from TID on 04/07) Acute on Chronic Systolic CHF with Atrial Septal Defect awaiting information from [place], patient will need ASD repair 04/06: Now off of IV pressor medications. 04/05: Currently on low dose pressor medications. BP medications on hold at this time. The [facility] showed an ASD. Cxray 04/03: bilateral pulm opacities with small left and moderate right pleural effusion, congestive change, possible pulmonary edema Echo(03/16): LVEF 30-35% Transaminitis 2/2 shock liver LFTs decreasing Electrolyte Imbalance Mag and K+ repleted continue to monitor Altered mental status, improved -CT Head negative -urine and wound culture negative -may be secondary to a fib with rvr Peripheral cyanosis Abdominal angiogram on 03/21/18: no significant peripheral disease. three vessel runoff in both right and left lower extremities Offloading boots Rheumatoid Arthritis -Sulfasalazine 500mg po BID DM -continue home insulin -accuchecks -hypoglycemic protocol Prophylaxis -Eliquis 5mg po BID -offloading boots -Protonix 40 mg po daily <Aubrey Spence H - Last Filed: 04/07/18 13:56> Objective - Vital Signs/Intake and Output Vital Signs (last 24 hours): Temp Pulse Resp BP Pulse Ox 97.5 F L 111 H 18 113/55 L 98 04/07/18 12:00 04/07/18 12:00 04/07/18 12:00 04/07/18 12:00 04/07/18 12:00 Intake and Output: 04/07/18 04/07/18 06:59 18:59 Intake Total 700 Output Total 2000 Balance -1300 - Medications Medications: Current Medications Apixaban (Eliquis) 5 mg PO BID [facility] Last Admin: 04/07/18 09:28 Dose: 5 mg Aspirin (Aspirin Chewable) 81 mg PO DAILY [facility] Last Admin: 04/07/18 09:26 Dose: 81 mg Dextrose (Dextrose 50% Inj) 0 ml IV STAT PRN; Protocol PRN Reason: Hypoglycemia Protocol Last Admin: 04/04/18 23:27 Dose: 50 ml Dextrose (Glutose 15) 0 gm PO ONCE PRN; Protocol PRN Reason: Hypoglycemia Protocol Furosemide (Lasix) 20 mg IVP Q12H [facility] Last Admin: 04/07/18 11:17 Dose: Not Given Glucagon (Glucagen Diagnostic Kit) 0 mg IM STAT PRN; Protocol PRN Reason: Hypoglycemia Protocol Guaifenesin (Robitussin) 100 mg PO Q6H PRN PRN Reason: Cough Last Admin: 03/30/18 20:15 Dose: 100 mg Magnesium Sulfate 2 gm/ Sodium (Chloride) 104 mls @ 104 mls/hr IV Q1H [facility] Stop: 04/07/18 13:59 Last Admin: 04/07/18 12:48 Dose: 104 mls/hr Insulin Aspart (Novolog) 0 unit SC ACHS [facility] PRN Reason: Protocol Last Admin: 04/07/18 12:07 Dose: 4 unit Insulin Glargine (Lantus) 12 unit SC HS [facility] Last Admin: 04/06/18 22:17 Dose: 12 u Lisinopril (Zestril) 5 mg PO DAILY [facility] Last Admin: 04/05/18 09:29 Dose: Not Given Pantoprazole Sodium (Protonix Ec Tab) 40 mg PO DAILY [facility] Last Admin: 04/07/18 09:28 Dose: 40 mg Potassium Chloride (Klor-Con 10) 20 meq PO BRK [facility] Last Admin: 04/07/18 11:41 Dose: 20 meq Pregabalin (Lyrica) 100 mg PO Q12 [facility] Last Admin: 04/07/18 09:28 Dose: 100 mg Sotalol HCl (Betapace) 80 mg PO BID [facility] Last Admin: 04/07/18 13:38 Dose: 80 mg Spironolactone (Aldactone) 25 mg PO DAILY [facility] Last Admin: 04/05/18 09:28 Dose: Not Given Sulfasalazine (Azulfidine) 500 mg PO BID [facility] PRN Reason: Protocol Last Admin: 04/07/18 10:09 Dose: 500 mg Tramadol HCl (Ultram) 25 mg PO TID PRN PRN Reason: Pain, moderate (4-7) Last Admin: 03/30/18 20:15 Dose: 25 mg - Labs Labs: 04/07/18 05:59 04/07/18 06:02 PT 25.3 SECONDS (9.7-12.2) H 03/29/18 12:49 INR 2.3 03/29/18 12:49 APTT 34 SECONDS (21-34) 03/29/18 12:49 Attending/Attestation - Attestation I have personally seen and examined this patient.: Yes I have fully participated in the care of the patient.: Yes I have reviewed all pertinent clinical information, including history, physical exam and plan: Yes Notes (Text): 04/07/18 13:52 Medical attending: Patient was seen and examined by me. Agree with the above note by the resident The patient was not in any acute distress when we saw her. On telemetry HR was irregular in the 110s. Cardiology is planning on starting Betapace relatively soon Also pending further information with reguards to her ASD Aubrey Spence
--- NOTE | 2018-04-07 17:07 | CARD ---
APPROVED REPORT EKG Measurement Heart [id number] [id number] <Conclusion> Sinus tachycardia Nonspecific intraventricular block Abnormal ECG
[2018-04-07] MEDS: (Lantus) Insulin Glargine, Recombinant SC SCH (21:37)
[2018-04-08 07:25] LABS: ALBUMIN 2.6 g/dL (3.5-5.0); ALT/SGPT 569 U/L (9-52); AST/SGOT 324 U/L (14-36); BLOOD UREA NITROGEN 32 mg/dL (7-17); CALCIUM 8.3 mg/dl (8.6-10.4); GFR AFRICAN-AMERICAN > 60; GFR NON-AFRICAN AMERICAN > 60
[2018-04-08] MEDS: Potassium Chloride 10 mEq ER Tab PO SCH (07:45)
[2018-04-08] MEDS: (Novolog) Insulin Aspart, Recombinant 100 u/ml 10 ml vial SC SCH ×4 (08:14→21:51)
[2018-04-08] MEDS: Pantoprazole 40 mg EC Tab PO SCH (10:18)
[2018-04-08] MEDS ORDERED: Digoxin 500 mcg/2ml (0.5 mg/2ml) Inj IVP STA (12:00)
[2018-04-08 12:26] VITALS: PULSE 126
--- NOTE | 2018-04-08 12:50 | CP.PCM.PN ---
<Sukumar Taylor - Last Filed: 04/08/18 14:58> Subjective - Date & Time of Evaluation Date of Evaluation: 04/08/18 Time of Evaluation: 12:49 - Subjective Subjective: PGY2 Progress Note for Dr. Spence's service: Patient seen and examined at bedside resting comfortably. Nursing reports this morning HR increased up to 130-140s. Was given Digoxin which controlled rate. No acute complaints this AM. Objective - Vital Signs/Intake and Output Vital Signs (last 24 hours): Temp Pulse Resp BP Pulse Ox 97.6 F 128 H 18 103/64 97 04/08/18 08:00 04/08/18 08:00 04/08/18 08:00 04/08/18 10:17 04/08/18 08:00 - Medications Medications: Current Medications Apixaban (Eliquis) 5 mg PO BID [facility] Last Admin: 04/08/18 10:17 Dose: 5 mg Aspirin (Aspirin Chewable) 81 mg PO DAILY [facility] Last Admin: 04/08/18 10:16 Dose: 81 mg Dextrose (Dextrose 50% Inj) 0 ml IV STAT PRN; Protocol PRN Reason: Hypoglycemia Protocol Last Admin: 04/04/18 23:27 Dose: 50 ml Dextrose (Glutose 15) 0 gm PO ONCE PRN; Protocol PRN Reason: Hypoglycemia Protocol Furosemide (Lasix) 20 mg IVP Q12H [facility] Last Admin: 04/08/18 10:17 Dose: 20 mg Glucagon (Glucagen Diagnostic Kit) 0 mg IM STAT PRN; Protocol PRN Reason: Hypoglycemia Protocol Guaifenesin (Robitussin) 100 mg PO Q6H PRN PRN Reason: Cough Last Admin: 03/30/18 20:15 Dose: 100 mg Insulin Aspart (Novolog) 0 unit SC [facility] PRN Reason: Protocol Last Admin: 04/08/18 11:46 Dose: 4 unit Insulin Glargine (Lantus) 12 unit SC HS [facility] Last Admin: 04/07/18 21:37 Dose: 12 u Lisinopril (Zestril) 5 mg PO DAILY [facility] Last Admin: 04/05/18 09:29 Dose: Not Given Metoprolol Tartrate (Lopressor) 50 mg PO BID [facility] Last Admin: 04/08/18 10:17 Dose: 50 mg Pantoprazole Sodium (Protonix Ec Tab) 40 mg PO DAILY [facility] Last Admin: 04/08/18 10:18 Dose: 40 mg Potassium Chloride (Klor-Con 10) 20 meq PO BRK [facility] Last Admin: 04/08/18 07:45 Dose: 20 meq Pregabalin (Lyrica) 100 mg PO Q12 [facility] Last Admin: 04/08/18 10:17 Dose: 100 mg Spironolactone (Aldactone) 25 mg PO DAILY [facility] Last Admin: 04/05/18 09:28 Dose: Not Given Sulfasalazine (Azulfidine) 500 mg PO BID [facility] PRN Reason: Protocol Last Admin: 04/08/18 10:17 Dose: 500 mg Tramadol HCl (Ultram) 25 mg PO TID PRN PRN Reason: Pain, moderate (4-7) Last Admin: 03/30/18 20:15 Dose: 25 mg - Labs Labs: 04/07/18 05:59 04/08/18 07:01 PT 25.3 SECONDS (9.7-12.2) H 03/29/18 12:49 INR 2.3 03/29/18 12:49 APTT 34 SECONDS (21-34) 03/29/18 12:49 - Additional Findings Additional findings: - Constitutional Appears: Older Than Stated Age, Chronically Ill - Head Exam Head Exam: ATRAUMATIC, NORMAL INSPECTION, NORMOCEPHALIC - Eye Exam Eye Exam: EOMI, Normal appearance, PERRL - ENT Exam ENT Exam: Mucous Membranes Moist - Respiratory Exam Respiratory Exam: Clear to Ausculation Bilateral, NORMAL BREATHING PATTERN - Cardiovascular Exam Cardiovascular Exam: Tachycardia, Irregular Rhythm, +S1, +S2 - GI/Abdominal Exam GI & Abdominal Exam: Soft, Normal Bowel Sounds. absent: Tenderness - Extremities Exam Extremities Exam: absent: Pedal Edema Additional comments: offloading boots b/l - Neurological Exam Neurological Exam: Alert, Awake, Oriented x3 - Psychiatric Exam Psychiatric exam: Normal Affect, Normal Mood - Skin Skin Exam: Intact, Pallor, Warm Assessment and Plan - Assessment and Plan (Free Text) Plan: Atrial fibrillation with RVR 04/07 HR >100s Sotalol Discontinued Digoxin 0.25mg IV once anticogulation with Eliquis 5mg po BID Right Pleural Effusion 04/06: Right pleural effusion is small on CT 04/05: CT scan without contrast of chest. Maybe will need thoracentesis. 04/04: extensive right sided pulmonary opacity with moderate right pleural effusion. mild congestive change. possible pulmonary edema. Pulmonology consulted, Dr. Moon, help appreciated Lasix 20mg ivp q12h (decreased from TID on 04/07) Acute on Chronic Systolic CHF with Atrial Septal Defect awaiting information from [place], patient will need ASD repair 04/06: Now off of IV pressor medications. 04/05: Currently on low dose pressor medications. BP medications on hold at this time. The [facility] showed an ASD. Cxray 04/03: bilateral pulm opacities with small left and moderate right pleural effusion, congestive change, possible pulmonary edema Echo(03/16): LVEF 30-35% Transaminitis 2/2 shock liver LFTs decreasing Electrolyte Imbalance Mag and K+ repleted continue to monitor Altered mental status, improved -CT Head negative -urine and wound culture negative -may be secondary to a fib with rvr Peripheral cyanosis Abdominal angiogram on 03/21/18: no significant peripheral disease. three vessel runoff in both right and left lower extremities Offloading boots Rheumatoid Arthritis -Sulfasalazine 500mg po BID DM -continue home insulin -accuchecks -hypoglycemic protocol Prophylaxis -Eliquis 5mg po BID -offloading boots -Protonix 40 mg po daily Sukumar Taylor PGY-2 D/w Dr. Spence <Aubrey Spence - Last Filed: 04/08/18 18:30> Objective - Vital Signs/Intake and Output Vital Signs (last 24 hours): Temp Pulse Resp BP Pulse Ox 97.4 F L 71 18 98/40 L 99 04/08/18 12:00 04/08/18 15:00 04/08/18 12:00 04/08/18 15:00 04/08/18 12:00 - Medications Medications: Current Medications Apixaban (Eliquis) 5 mg PO BID [facility] Last Admin: 04/08/18 17:55 Dose: 5 mg Aspirin (Aspirin Chewable) 81 mg PO DAILY [facility] Last Admin: 04/08/18 10:16 Dose: 81 mg Dextrose (Dextrose 50% Inj) 0 ml IV STAT PRN; Protocol PRN Reason: Hypoglycemia Protocol Last Admin: 04/04/18 23:27 Dose: 50 ml Dextrose (Glutose 15) 0 gm PO ONCE PRN; Protocol PRN Reason: Hypoglycemia Protocol Furosemide (Lasix) 20 mg IVP Q12H [facility] Last Admin: 04/08/18 10:17 Dose: 20 mg Glucagon (Glucagen Diagnostic Kit) 0 mg IM STAT PRN; Protocol PRN Reason: Hypoglycemia Protocol Guaifenesin (Robitussin) 100 mg PO Q6H PRN PRN Reason: Cough Last Admin: 03/30/18 20:15 Dose: 100 mg Insulin Aspart (Novolog) 0 unit SC ACHS [facility] PRN Reason: Protocol Last Admin: 04/08/18 17:30 Dose: 6 unit Insulin Glargine (Lantus) 12 unit SC HS [facility] Last Admin: 04/07/18 21:37 Dose: 12 u Lisinopril (Zestril) 5 mg PO DAILY [facility] Last Admin: 04/08/18 12:00 Dose: Not Given Metoprolol Tartrate (Lopressor) 50 mg PO BID [facility] Last Admin: 04/08/18 17:54 Dose: 50 mg Pantoprazole Sodium (Protonix Ec Tab) 40 mg PO DAILY [facility] Last Admin: 04/08/18 10:18 Dose: 40 mg Potassium Chloride (Klor-Con 10) 20 meq PO BRK [facility] Last Admin: 04/08/18 07:45 Dose: 20 meq Pregabalin (Lyrica) 100 mg PO Q12 [facility] Last Admin: 04/08/18 10:17 Dose: 100 mg Spironolactone (Aldactone) 25 mg PO DAILY [facility] Last Admin: 04/05/18 09:28 Dose: Not Given Sulfasalazine (Azulfidine) 500 mg PO BID [facility] PRN Reason: Protocol Last Admin: 04/08/18 17:54 Dose: 500 mg Tramadol HCl (Ultram) 25 mg PO TID PRN PRN Reason: Pain, moderate (4-7) Last Admin: 03/30/18 20:15 Dose: 25 mg - Labs Labs: 04/07/18 05:59 04/08/18 07:01 PT 25.3 SECONDS (9.7-12.2) H 03/29/18 12:49 INR 2.3 03/29/18 12:49 APTT 34 SECONDS (21-34) 03/29/18 12:49 Attending/Attestation - Attestation I have personally seen and examined this patient.: Yes I have fully participated in the care of the patient.: Yes I have reviewed all pertinent clinical information, including history, physical exam and plan: Yes Notes (Text): 04/08/18 18:26 Medical attending: Patient was seen and examined by me. Agree with the above note by the resident The patient earlier in the day was in rapid atrial fib again with rates in the 140s. Digoxin 0.25 x 1 was given and half an hour later rates were 70s to 80s. She reported no chest pain or shortness of breath, also denied palpitations Currently pending on further [facility] information [facility] reguards to the ASD. thank you Aubrey Spence
[2018-04-08] MEDS: (Lantus) Insulin Glargine, Recombinant SC SCH (22:09)
[2018-04-09 07:34] LABS: BASO % 0.6 % (0.0-2.0); EOS # 0.2 K/uL (0.0-0.7); EOS % 4.1 % (0.0-4.0); HEMOGLOBIN 14.5 g/dL (11.0-16.0); LYMPH # 1.2 K/uL (1.0-4.3); LYMPH % 21.3 % (20.0-40.0); MEAN CELL VOLUME 91.3 fL (81.0-99.0); MEAN CORPUSCULAR HEMOGLOBIN 30.7 pg (27.0-31.0); MEAN CORPUSCULAR HGB CONC 33.6 g/dL (33.0-37.0); MEAN PLATELET VOLUME 8.6 fL (7.2-11.7); MONO # 0.7 K/uL (0.0-0.8); MONO % 12.8 % (0.0-10.0); NEUT # 3.4 K/uL (1.8-7.0); NEUT % 61.2 % (50.0-75.0); NRBC % 0.1 % (0.0-2.0); RBC 4.72 Mil/uL (3.80-5.20); RED CELL DISTRIBUTION WIDTH 15.4 % (11.5-14.5); WHITE BLOOD COUNT 5.5 K/uL (4.8-10.8)
[2018-04-09 07:43] LABS: VENOUS BLOOD GAS BASE EXCESS 7.4 mmol/L (0.0-2.0); VENOUS BLOOD GAS PCO2 44 mmHg (40-60); VENOUS BLOOD GAS PO2 38 mm/Hg (30-55); VENOUS BLOOD PH 7.47 (7.32-7.43)
[2018-04-09] MEDS: Potassium Chloride 10 mEq ER Tab PO SCH (07:57)
[2018-04-09] MEDS: (Novolog) Insulin Aspart, Recombinant 100 u/ml 10 ml vial SC SCH ×4 (07:57→22:07)
[2018-04-09 08:09] LABS: ALBUMIN 2.7 g/dL (3.5-5.0); ALT/SGPT 416 U/L (9-52); AST/SGOT 183 U/L (14-36); BLOOD UREA NITROGEN 27 mg/dL (7-17); CALCIUM 8.3 mg/dl (8.6-10.4); GFR AFRICAN-AMERICAN > 60; GFR NON-AFRICAN AMERICAN > 60
[2018-04-09] MEDS: Pantoprazole 40 mg EC Tab PO SCH (09:21)
[2018-04-09] MEDS: Magnesium Sulfate 1 gm in D5W 1 GM/100 ML BAG IVPB SCH ×2 (09:21→10:55)
--- NOTE | 2018-04-09 10:14 | CP.PCM.PN ---
Subjective - Date & Time of Evaluation Date of Evaluation: 04/09/18 Time of Evaluation: 10:00 - Subjective Subjective: Currently HR is 60s to 70s NSR on the telemetry. Overnight she seems to go in and out of atrial fib and NSR. She was not in any acute distress this morning. Denied chest pain. Repeating CXRAY Currently pending further information reguarding the AINSLEY which showed an ASD, she maybe a candidate for closure of the ASD Objective - Vital Signs/Intake and Output Vital Signs (last 24 hours): Temp Pulse Resp BP Pulse Ox 97.4 F L 57 L 20 116/66 97 04/09/18 06:35 04/09/18 08:00 04/09/18 06:35 04/09/18 09:20 04/09/18 06:35 Intake and Output: 04/09/18 04/09/18 06:59 18:59 Intake Total 390 Output Total 1885 Balance -1495 - Medications Medications: Current Medications Apixaban (Eliquis) 5 mg PO BID [facility] Last Admin: 04/09/18 09:21 Dose: 5 mg Aspirin (Aspirin Chewable) 81 mg PO DAILY [facility] Last Admin: 04/09/18 09:21 Dose: 81 mg Dextrose (Dextrose 50% Inj) 0 ml IV STAT PRN; Protocol PRN Reason: Hypoglycemia Protocol Last Admin: 04/04/18 23:27 Dose: 50 ml Dextrose (Glutose 15) 0 gm PO ONCE PRN; Protocol PRN Reason: Hypoglycemia Protocol Furosemide (Lasix) 20 mg IVP Q12H [facility] Last Admin: 04/09/18 09:20 Dose: 20 mg Glucagon (Glucagen Diagnostic Kit) 0 mg IM STAT PRN; Protocol PRN Reason: Hypoglycemia Protocol Guaifenesin (Robitussin) 100 mg PO Q6H PRN PRN Reason: Cough Last Admin: 03/30/18 20:15 Dose: 100 mg Magnesium Sulfate/Dextrose (Magnesium Sulfate 1 Gm/100 Ml D5w) 1 gm in 100 mls @ 100 mls/hr IVPB Q1H [facility] Stop: 04/09/18 10:59 Last Admin: 04/09/18 09:21 Dose: 100 mls/hr Insulin Aspart (Novolog) 0 unit SC ACHS [facility] PRN Reason: Protocol Last Admin: 04/09/18 07:57 Dose: 2 unit Insulin Glargine (Lantus) 12 unit SC HS [facility] Last Admin: 04/08/18 22:09 Dose: 12 u Lisinopril (Zestril) 5 mg PO DAILY [facility] Last Admin: 04/09/18 09:21 Dose: 5 mg Metoprolol Tartrate (Lopressor) 25 mg PO TID [facility] Pantoprazole Sodium (Protonix Ec Tab) 40 mg PO DAILY [facility] Last Admin: 04/09/18 09:21 Dose: 40 mg Potassium Chloride (Klor-Con 10) 20 meq PO BRK [facility] Last Admin: 04/09/18 07:57 Dose: 20 meq Pregabalin (Lyrica) 100 mg PO Q12 [facility] Last Admin: 04/09/18 09:21 Dose: 100 mg Spironolactone (Aldactone) 25 mg PO DAILY [facility] Last Admin: 04/05/18 09:28 Dose: Not Given Sulfasalazine (Azulfidine) 500 mg PO BID [facility] PRN Reason: Protocol Last Admin: 04/09/18 09:22 Dose: 500 mg Tramadol HCl (Ultram) 25 mg PO TID PRN PRN Reason: Pain, moderate (4-7) Last Admin: 03/30/18 20:15 Dose: 25 mg - Labs Labs: 04/09/18 07:25 04/09/18 07:25 PT 25.3 SECONDS (9.7-12.2) H 03/29/18 12:49 INR 2.3 03/29/18 12:49 APTT 34 SECONDS (21-34) 03/29/18 12:49 - Constitutional Appears: Unkempt, Cachectic, Chronically Ill - Head Exam Head Exam: NORMAL INSPECTION - Eye Exam Eye Exam: EOMI, Normal appearance - ENT Exam ENT Exam: Mucous Membranes Moist - Respiratory Exam Respiratory Exam: Rales, Rhonchi, NORMAL BREATHING PATTERN - Cardiovascular Exam Cardiovascular Exam: REGULAR RHYTHM - GI/Abdominal Exam GI & Abdominal Exam: Soft, Normal Bowel Sounds. absent: Distended, Guarding, Rigid, Tenderness - Neurological Exam Neurological Exam: Alert, Awake, Oriented x3 Neuro motor strength exam: Left Upper Extremity: 4, Right Upper Extremity: 4 - Psychiatric Exam Psychiatric exam: Depressed, Flat Affect - Skin Skin Exam: Pallor, Pallor, Warm Assessment and Plan - Assessment and Plan (Free Text) Assessment: Atrial fibrillation with RVR 04/09: currently doing well. HR in the 70s. On Metorpol 25 TID and yesterday had digoxin 0.25 x 1 dose. She is on anticougution with Eliquis. 04/07 HR >100s, Digoxin 0.25mg IV once Right Pleural Effusion 04/09: The repeat CXRAY appears somewhat improved. Continue with Lasix 20 mg, now twice a day. 04/06: Right pleural effusion is small on CT 04/05: CT scan without contrast of chest. Maybe will need thoracentesis. 04/04: extensive right sided pulmonary opacity with moderate right pleural effusion. mild congestive change. possible pulmonary edema. Pulmonology consulted, Dr. Moon, help appreciated Lasix 20mg ivp q12h (decreased from TID on 04/07) Acute on Chronic Systolic CHF with Atrial Septal Defect Awaiting information from [place], patient will need ASD repair 04/06: Now off of IV pressor medications. 04/05: Currently on low dose pressor medications. BP medications on hold at this time. The AINSLEY showed an ASD. Cxray 04/03: bilateral pulm opacities with small left and moderate right pleural effusion, congestive change, possible pulmonary edema Echo(03/16): LVEF 30-35% Transaminitis 04/09: Both LFTs decreasing. Probably from amiodorone. 2/2 shock liver LFTs decreasing Electrolyte Imbalance 04/09: Replace Mg today. K is ok Mag and K+ repleted Altered mental status, improved -CT Head negative -urine and wound culture negative -may be secondary to a fib with rvr Peripheral cyanosis Abdominal angiogram on 03/21/18: no significant peripheral disease. three vessel runoff in both right and left lower extremities Offloading boots Rheumatoid Arthritis -Sulfasalazine 500mg po BID DM -continue home insulin -accuchecks -hypoglycemic protocol Prophylaxis -Eliquis 5mg po BID -offloading boots -Protonix 40 mg po daily
[2018-04-09] MEDS ORDERED: Magnesium Sulfate 1 gm in D5W 1 GM/100 ML BAG IVPB ONE (10:25)
--- NOTE | 2018-04-09 13:21 | RAD ---
HISTORY: chf COMPARISON: 04/07/2018 FINDINGS: LUNGS: Stable pulmonary vascular congestion. PLEURA: Stable pleural effusions. CARDIOVASCULAR: Persisting cardiomegaly. Removal of support apparatus since the prior study: Left IJ catheter OSSEOUS STRUCTURES: No significant abnormalities. VISUALIZED UPPER ABDOMEN: Normal. OTHER FINDINGS: None. IMPRESSION: Stable pulmonary vascular congestion and cardiomegaly. No new findings.
[2018-04-09] MEDS: (Lantus) Insulin Glargine, Recombinant SC SCH (22:08)
[2018-04-10 06:32] LABS: BASO % 0.7 % (0.0-2.0); EOS # 0.2 K/uL (0.0-0.7); EOS % 3.1 % (0.0-4.0); HEMOGLOBIN 14.3 g/dL (11.0-16.0); LYMPH # 1.3 K/uL (1.0-4.3); MEAN CELL VOLUME 90.5 fL (81.0-99.0); MEAN CORPUSCULAR HEMOGLOBIN 30.9 pg (27.0-31.0); MEAN CORPUSCULAR HGB CONC 34.1 g/dL (33.0-37.0); MEAN PLATELET VOLUME 8.7 fL (7.2-11.7); MONO # 0.8 K/uL (0.0-0.8); NEUT # 3.7 K/uL (1.8-7.0); NEUT % 61.2 % (50.0-75.0); NRBC % 0.2 % (0.0-2.0); RBC 4.63 Mil/uL (3.80-5.20); RED CELL DISTRIBUTION WIDTH 15.7 % (11.5-14.5); WHITE BLOOD COUNT 6.1 K/uL (4.8-10.8)
[2018-04-10 06:36] LABS: ALB/GLOB RATIO 1.1 (1.0-2.1); ALBUMIN 3.1 g/dL (3.5-5.0); ALT/SGPT 313 U/L (9-52); AST/SGOT 106 U/L (14-36); BLOOD UREA NITROGEN 21 mg/dL (7-17); CALCIUM 8.5 mg/dl (8.6-10.4); GFR AFRICAN-AMERICAN > 60; GFR NON-AFRICAN AMERICAN > 60
[2018-04-10] MEDS: (Novolog) Insulin Aspart, Recombinant 100 u/ml 10 ml vial SC SCH ×5 (08:01→21:37)
[2018-04-10] MEDS: Potassium Chloride 10 mEq ER Tab PO SCH (08:53)
--- NOTE | 2018-04-10 10:01 | CP.PCM.PN ---
Subjective - Date & Time of Evaluation Date of Evaluation: 04/10/18 Time of Evaluation: 10:00 - Subjective Subjective: Pt appears comfortable, tired. No new events over the weekende. BP low today. K 3.4, mag 1.5 Objective - Vital Signs/Intake and Output Vital Signs (last 24 hours): Temp Pulse Resp BP Pulse Ox 98.5 F 68 20 97/49 L 98 04/10/18 07:46 04/10/18 09:40 04/10/18 07:46 04/10/18 09:40 04/10/18 07:46 Intake and Output: 04/10/18 04/10/18 06:59 18:59 Intake Total 480 Output Total 1450 Balance -970 - Medications Medications: Current Medications Apixaban (Eliquis) 5 mg PO BID [facility] Last Admin: 04/09/18 16:59 Dose: 5 mg Aspirin (Aspirin Chewable) 81 mg PO DAILY [facility] Last Admin: 04/09/18 09:21 Dose: 81 mg Dextrose (Dextrose 50% Inj) 0 ml IV STAT PRN; Protocol PRN Reason: Hypoglycemia Protocol Last Admin: 04/04/18 23:27 Dose: 50 ml Dextrose (Glutose 15) 0 gm PO ONCE PRN; Protocol PRN Reason: Hypoglycemia Protocol Furosemide (Lasix) 20 mg IVP Q12H [facility] Last Admin: 04/09/18 21:39 Dose: 20 mg Glucagon (Glucagen Diagnostic Kit) 0 mg IM STAT PRN; Protocol PRN Reason: Hypoglycemia Protocol Guaifenesin (Robitussin) 100 mg PO Q6H PRN PRN Reason: Cough Last Admin: 03/30/18 20:15 Dose: 100 mg Insulin Aspart (Novolog) 0 unit SC [facility] PRN Reason: Protocol Last Admin: 04/10/18 08:01 Dose: Not Given Insulin Glargine (Lantus) 12 unit SC HS [facility] Last Admin: 04/09/18 22:08 Dose: 12 u Lisinopril (Zestril) 5 mg PO DAILY [facility] Last Admin: 04/09/18 09:21 Dose: 5 mg Metoprolol Tartrate (Lopressor) 25 mg PO TID [facility] Last Admin: 04/09/18 16:59 Dose: 25 mg Pantoprazole Sodium (Protonix Ec Tab) 40 mg PO DAILY [facility] Last Admin: 04/09/18 09:21 Dose: 40 mg Potassium Chloride (Klor-Con 10) 20 meq PO BRK [facility] Last Admin: 04/10/18 08:53 Dose: 20 meq Pregabalin (Lyrica) 100 mg PO Q12 [facility] Last Admin: 04/09/18 21:38 Dose: 100 mg Spironolactone (Aldactone) 25 mg PO DAILY [facility] Last Admin: 04/05/18 09:28 Dose: Not Given Sulfasalazine (Azulfidine) 500 mg PO BID [facility] PRN Reason: Protocol Last Admin: 04/09/18 16:59 Dose: 500 mg Tramadol HCl (Ultram) 25 mg PO TID PRN PRN Reason: Pain, moderate (4-7) Last Admin: 03/30/18 20:15 Dose: 25 mg - Labs Labs: 04/10/18 06:09 04/10/18 06:09 PT 25.3 SECONDS (9.7-12.2) H 03/29/18 12:49 INR 2.3 03/29/18 12:49 APTT 34 SECONDS (21-34) 03/29/18 12:49 - Constitutional Appears: Chronically Ill - Head Exam Head Exam: ATRAUMATIC - Eye Exam Eye Exam: Normal appearance - Respiratory Exam Respiratory Exam: Decreased Breath Sounds - Cardiovascular Exam Cardiovascular Exam: Irregular Rhythm - Extremities Exam Extremities Exam: Normal Inspection - Neurological Exam Neurological Exam: Alert, Awake, Oriented x3 - Psychiatric Exam Psychiatric exam: Flat Affect - Skin Skin Exam: Dry Assessment and Plan - Assessment and Plan (Free Text) Assessment: 1. Will hold meds today for HTN 2. Replace lytes aggressively 3. Pt is mostly in NSR today with frequent short runs of flutter. Will repeat limited echo to assess MR severity in flutter. 4. [facility] has tentatively accepted the pt , but they are dragging their feet. Will call today.
[2018-04-10] MEDS: Pantoprazole 40 mg EC Tab PO SCH (10:09)
[2018-04-10] MEDS ORDERED: Potassium Chloride 20 mEq/15 ml LIQ UD PO ONE (10:15)
--- NOTE | 2018-04-10 12:09 | CARD ---
APPROVED REPORT EKG Measurement Heart [id number] [place] [id number] <Conclusion> Sinus bradycardia with blocked premature atrial complexes Left axis deviation Left bundle branch block Abnormal ECG
[2018-04-10] MEDS ORDERED: Potassium Chloride 20 mEq ER Tab PO SCH (13:30)
--- NOTE | 2018-04-10 14:51 | CP.PCM.PN ---
<Doreen Medrano - Last Filed: 04/10/18 18:19> Subjective - Date & Time of Evaluation Date of Evaluation: 04/10/18 Time of Evaluation: 09:00 - Subjective Subjective: Medicine progress note for Dr. Epperson's service Patient was seen and examined at bedside in no acute distress. Patient appears lethargic and complains of feeling tired. She denies chest pain, abdominal pain , dyspnea, fevers, headaches, nausea, vomiting. Objective - Vital Signs/Intake and Output Vital Signs (last 24 hours): Temp Pulse Resp BP Pulse Ox 98.5 F 66 14 138/66 98 04/10/18 07:46 04/10/18 11:55 04/10/18 11:55 04/10/18 14:16 04/10/18 07:46 Intake and Output: 04/10/18 04/10/18 06:59 18:59 Intake Total 480 Output Total 1450 Balance -970 - Medications Medications: Current Medications Apixaban (Eliquis) 5 mg PO BID [facility] Last Admin: 04/10/18 10:09 Dose: 5 mg Aspirin (Aspirin Chewable) 81 mg PO DAILY [facility] Last Admin: 04/10/18 10:09 Dose: 81 mg Dextrose (Dextrose 50% Inj) 0 ml IV STAT PRN; Protocol PRN Reason: Hypoglycemia Protocol Last Admin: 04/04/18 23:27 Dose: 50 ml Dextrose (Glutose 15) 0 gm PO ONCE PRN; Protocol PRN Reason: Hypoglycemia Protocol Furosemide (Lasix) 20 mg IVP Q12H [facility] Last Admin: 04/10/18 11:12 Dose: Not Given Glucagon (Glucagen Diagnostic Kit) 0 mg IM STAT PRN; Protocol PRN Reason: Hypoglycemia Protocol Guaifenesin (Robitussin) 100 mg PO Q6H PRN PRN Reason: Cough Last Admin: 03/30/18 20:15 Dose: 100 mg Insulin Aspart (Novolog) 0 unit SC [facility] PRN Reason: Protocol Last Admin: 04/10/18 13:19 Dose: 2 unit Insulin Glargine (Lantus) 12 unit SC HS [facility] Last Admin: 04/09/18 22:08 Dose: 12 u Lisinopril (Zestril) 5 mg PO DAILY [facility] Last Admin: 04/10/18 11:13 Dose: Not Given Metoprolol Tartrate (Lopressor) 25 mg PO BID [facility] Pantoprazole Sodium (Protonix Ec Tab) 40 mg PO DAILY [facility] Last Admin: 04/10/18 10:09 Dose: 40 mg Potassium Chloride (Klor-Con 10) 20 meq PO BRK [facility] Last Admin: 04/10/18 08:53 Dose: 20 meq Potassium Chloride (K-Dur 20 Meq Er Tab) 40 meq PO DAILY [facility] Last Admin: 04/10/18 14:20 Dose: 40 meq Pregabalin (Lyrica) 100 mg PO Q12 [facility] Last Admin: 04/10/18 10:10 Dose: 100 mg Spironolactone (Aldactone) 25 mg PO DAILY [facility] Last Admin: 04/05/18 09:28 Dose: Not Given Sulfasalazine (Azulfidine) 500 mg PO BID [facility] PRN Reason: Protocol Last Admin: 04/10/18 10:10 Dose: 500 mg Tramadol HCl (Ultram) 25 mg PO TID PRN PRN Reason: Pain, moderate (4-7) Last Admin: 03/30/18 20:15 Dose: 25 mg - Labs Labs: 04/10/18 06:09 04/10/18 06:09 PT 25.3 SECONDS (9.7-12.2) H 03/29/18 12:49 INR 2.3 03/29/18 12:49 APTT 34 SECONDS (21-34) 03/29/18 12:49 - Constitutional Appears: No Acute Distress, Chronically Ill - Head Exam Head Exam: ATRAUMATIC, NORMAL INSPECTION - Eye Exam Eye Exam: EOMI, Normal appearance - ENT Exam ENT Exam: Mucous Membranes Moist - Respiratory Exam Respiratory Exam: NORMAL BREATHING PATTERN. absent: Rales, Rhonchi, Wheezes - Cardiovascular Exam Cardiovascular Exam: REGULAR RHYTHM, +S1, +S2 - GI/Abdominal Exam GI & Abdominal Exam: Soft, Normal Bowel Sounds. absent: Distended, Tenderness - Extremities Exam Extremities Exam: Normal Inspection - Neurological Exam Neurological Exam: Awake - Psychiatric Exam Psychiatric exam: Flat Affect - Skin Skin Exam: Dry, Intact, Warm Assessment and Plan - Assessment and Plan (Free Text) Plan: Atrial fibrillation with RVR Metoprolol held by Dr. Navarro; Continue to monitor 04/09: currently doing well. HR in the 70s. On Metorpol 25 TID and yesterday had digoxin 0.25 x 1 dose. She is on anticougution with Eliquis. 04/07 HR >100s, Digoxin 0.25mg IV once Right Pleural Effusion 04/09: The repeat CXRAY appears somewhat improved. Continue with Lasix 20 mg, now twice a day. 04/06: Right pleural effusion is small on CT 04/05: CT scan without contrast of chest. Maybe will need thoracentesis. 04/04: extensive right sided pulmonary opacity with moderate right pleural effusion. mild congestive change. possible pulmonary edema. Pulmonology consulted, Dr. Moon, help appreciated Lasix 20mg ivp q12h (decreased from TID on 04/07) Acute on Chronic Systolic CHF with Atrial Septal Defect [place] accepted patient- will need ASD repair; pending transfer planning 04/06: off IV pressor medications. 04/05: Currently on low dose pressor medications. BP medications on hold at this time. AINSLEY showed an ASD. Cxray 04/03: bilateral pulm opacities with small left and moderate right pleural effusion, congestive change, possible pulmonary edema Echo(03/16): LVEF 30-35% Transaminitis 04/09: Both LFTs decreasing. Probably from amiodorone. /2 shock liver LFTs decreasing Electrolyte Imbalance Mag and K+ repleted continue to monitor Altered mental status, improved -CT Head negative -urine and wound culture negative -may be secondary to a fib with rvr Peripheral cyanosis Abdominal angiogram on 03/21/18: no significant peripheral disease. three vessel runoff in both right and left lower extremities Offloading boots Rheumatoid Arthritis -Sulfasalazine 500mg po BID DM -continue home insulin -accuchecks -hypoglycemic protocol Prophylaxis -Eliquis 5mg po BID -offloading boots -Protonix 40 mg po daily <Patrica Epperson - Last Filed: 04/10/18 18:37> Objective - Vital Signs/Intake and Output Vital Signs (last 24 hours): Temp Pulse Resp BP Pulse Ox 97.9 F 68 20 122/56 L 98 04/10/18 15:00 04/10/18 16:00 04/10/18 15:00 04/10/18 15:00 04/10/18 15:00 Intake and Output: 04/10/18 04/10/18 06:59 18:59 Intake Total 480 Output Total 1450 Balance -970 - Medications Medications: Current Medications Apixaban (Eliquis) 5 mg PO BID [facility] Last Admin: 04/10/18 17:44 Dose: 5 mg Aspirin (Aspirin Chewable) 81 mg PO DAILY [facility] Last Admin: 04/10/18 10:09 Dose: 81 mg Dextrose (Dextrose 50% Inj) 0 ml IV STAT PRN; Protocol PRN Reason: Hypoglycemia Protocol Last Admin: 04/04/18 23:27 Dose: 50 ml Dextrose (Glutose 15) 0 gm PO ONCE PRN; Protocol PRN Reason: Hypoglycemia Protocol Furosemide (Lasix) 20 mg IVP Q12H [facility] Last Admin: 04/10/18 11:12 Dose: Not Given Glucagon (Glucagen Diagnostic Kit) 0 mg IM STAT PRN; Protocol PRN Reason: Hypoglycemia Protocol Guaifenesin (Robitussin) 100 mg PO Q6H PRN PRN Reason: Cough Last Admin: 03/30/18 20:15 Dose: 100 mg Insulin Aspart (Novolog) 0 unit SC ACHS [facility] PRN Reason: Protocol Last Admin: 04/10/18 16:29 Dose: Not Given Insulin Glargine (Lantus) 12 unit SC HS [facility] Last Admin: 04/09/18 22:08 Dose: 12 u Lisinopril (Zestril) 5 mg PO DAILY [facility] Last Admin: 04/10/18 11:13 Dose: Not Given Metoprolol Tartrate (Lopressor) 25 mg PO BID [facility] Pantoprazole Sodium (Protonix Ec Tab) 40 mg PO DAILY [facility] Last Admin: 04/10/18 10:09 Dose: 40 mg Potassium Chloride (Klor-Con 10) 20 meq PO BRK [facility] Last Admin: 04/10/18 08:53 Dose: 20 meq Potassium Chloride (K-Dur 20 Meq Er Tab) 40 meq PO DAILY [facility] Last Admin: 04/10/18 14:20 Dose: 40 meq Pregabalin (Lyrica) 100 mg PO Q12 [facility] Last Admin: 04/10/18 10:10 Dose: 100 mg Spironolactone (Aldactone) 25 mg PO DAILY [facility] Last Admin: 04/05/18 09:28 Dose: Not Given Sulfasalazine (Azulfidine) 500 mg PO BID [facility] PRN Reason: Protocol Last Admin: 04/10/18 17:44 Dose: 500 mg Tramadol HCl (Ultram) 25 mg PO TID PRN PRN Reason: Pain, moderate (4-7) Last Admin: 03/30/18 20:15 Dose: 25 mg - Labs Labs: 04/10/18 06:09 04/10/18 06:09 PT 25.3 SECONDS (9.7-12.2) H 03/29/18 12:49 INR 2.3 03/29/18 12:49 APTT 34 SECONDS (21-34) 03/29/18 12:49 Attending/Attestation - Attestation I have personally seen and examined this patient.: Yes I have fully participated in the care of the patient.: Yes I have reviewed all pertinent clinical information, including history, physical exam and plan: Yes Notes (Text): Seen and examined. Today she was looking tired/lethargic than usual. she was arousable and answers questions. Patient's Hr was down to 42 and BP was 97/49 this morning. Her meds metoprolol,Lasix and lisinopril was held. As per Dr Navarro ,he is working on to get her transfer to [place] for ASD repair d/w resident and the RN We will monitor at tele and follow up with DR Navarro I agree with the resident' sdocumentation of the assessment and the plan
[2018-04-10] MEDS: (Lantus) Insulin Glargine, Recombinant SC SCH (21:47)
--- NOTE | 2018-04-11 07:00 | CP.PCM.PN ---
<Doreen Medrano - Last Filed: 04/12/18 15:02> Subjective - Date & Time of Evaluation Date of Evaluation: 04/11/18 Time of Evaluation: 06:59 - Subjective Subjective: Medicine progress note for Dr. Epperson's service Patient was seen and examined at bedside in no acute distress, sleeping comfortably in bed. Patient appears lethargic and complains of feeling tired. She was seen again an hour later, sitting up in bed and eating/drinking coffee. Patient is awake, smiling, and responding appropriately. She currently denies chest pain, abdominal pain, dyspnea, fevers, headaches, nausea, vomiting. Objective - Vital Signs/Intake and Output Vital Signs (last 24 hours): Temp Pulse Resp BP Pulse Ox 98 F 137 H 18 130/61 96 04/10/18 23:15 04/11/18 04:05 04/10/18 23:15 04/10/18 23:15 04/10/18 23:15 Intake and Output: 04/10/18 04/11/18 18:59 06:59 Output Total 1450 Balance -1450 - Medications Medications: Current Medications Apixaban (Eliquis) 5 mg PO BID [facility] Last Admin: 04/10/18 17:44 Dose: 5 mg Aspirin (Aspirin Chewable) 81 mg PO DAILY [facility] Last Admin: 04/10/18 10:09 Dose: 81 mg Dextrose (Dextrose 50% Inj) 0 ml IV STAT PRN; Protocol PRN Reason: Hypoglycemia Protocol Last Admin: 04/04/18 23:27 Dose: 50 ml Dextrose (Glutose 15) 0 gm PO ONCE PRN; Protocol PRN Reason: Hypoglycemia Protocol Furosemide (Lasix) 20 mg IVP Q12H [facility] Last Admin: 04/10/18 21:46 Dose: 20 mg Glucagon (Glucagen Diagnostic Kit) 0 mg IM STAT PRN; Protocol PRN Reason: Hypoglycemia Protocol Guaifenesin (Robitussin) 100 mg PO Q6H PRN PRN Reason: Cough Last Admin: 03/30/18 20:15 Dose: 100 mg Insulin Aspart (Novolog) 0 unit SC ACHS [facility] PRN Reason: Protocol Last Admin: 04/10/18 21:37 Dose: Not Given Insulin Glargine (Lantus) 12 unit SC HS [facility] Last Admin: 04/10/18 21:47 Dose: 12 u Lisinopril (Zestril) 5 mg PO DAILY [facility] Last Admin: 04/10/18 11:13 Dose: Not Given Metoprolol Tartrate (Lopressor) 25 mg PO BID [facility] Pantoprazole Sodium (Protonix Ec Tab) 40 mg PO DAILY [facility] Last Admin: 04/10/18 10:09 Dose: 40 mg Potassium Chloride (Klor-Con 10) 20 meq PO BRK [facility] Last Admin: 04/10/18 08:53 Dose: 20 meq Potassium Chloride (K-Dur 20 Meq Er Tab) 40 meq PO DAILY [facility] Last Admin: 04/10/18 14:20 Dose: 40 meq Pregabalin (Lyrica) 100 mg PO Q12 [facility] Last Admin: 04/10/18 21:46 Dose: 100 mg Spironolactone (Aldactone) 25 mg PO DAILY [facility] Last Admin: 04/05/18 09:28 Dose: Not Given Sulfasalazine (Azulfidine) 500 mg PO BID [facility] PRN Reason: Protocol Last Admin: 04/10/18 17:44 Dose: 500 mg Tramadol HCl (Ultram) 25 mg PO TID PRN PRN Reason: Pain, moderate (4-7) Last Admin: 03/30/18 20:15 Dose: 25 mg - Labs Labs: 04/10/18 06:09 04/10/18 06:09 PT 25.3 SECONDS (9.7-12.2) H 03/29/18 12:49 INR 2.3 03/29/18 12:49 APTT 34 SECONDS (21-34) 03/29/18 12:49 - Additional Findings Additional findings: - Constitutional Appears: No Acute Distress, Chronically Ill - Head Exam Head Exam: ATRAUMATIC, NORMAL INSPECTION - Eye Exam Eye Exam: EOMI, Normal appearance - ENT Exam ENT Exam: Mucous Membranes Moist - Respiratory Exam Respiratory Exam: NORMAL BREATHING PATTERN. absent: Rales, Rhonchi, Wheezes - Cardiovascular Exam Cardiovascular Exam: IRREGULAR RHYTHM, tachycardia, +S1, +S2 - GI/Abdominal Exam GI & Abdominal Exam: Soft, Normal Bowel Sounds. absent: Distended, Tenderness - Extremities Exam Extremities Exam: Normal Inspection - Neurological Exam Neurological Exam: Awake, alert - Psychiatric Exam Psychiatric exam: Normal Affect - Skin Skin Exam: Dry, Intact, Warm Assessment and Plan - Assessment and Plan (Free Text) Plan: Atrial fibrillation with RVR 04/11: Metoprolol 25mg PO TID was restarted due to tachycardia. Lasix and lisinopril were held. Will continue to monitor. 04/10: Metoprolol held by Dr. Navarro; Continue to monitor 04/09: currently doing well. HR in the 70s. On Metorpol 25 TID and yesterday had digoxin 0.25 x 1 dose. She is on anticougution with Eliquis. 04/07 HR >100s, Digoxin 0.25mg IV once Right Pleural Effusion 04/11: Lasix held 04/09: The repeat CXRAY appears somewhat improved. Continue with Lasix 20 mg, now twice a day. 04/06: Right pleural effusion is small on CT 04/05: CT scan without contrast of chest. Maybe will need thoracentesis. 04/04: extensive right sided pulmonary opacity with moderate right pleural effusion. mild congestive change. possible pulmonary edema. Pulmonology consulted, Dr. Moon, help appreciated Lasix 20mg ivp q12h (decreased from TID on 04/07) Acute on Chronic Systolic CHF with Atrial Septal Defect [facility] accepted patient- will need ASD repair; pending transfer planning 04/06: off IV pressor medications. 04/05: Currently on low dose pressor medications. BP medications on hold at this time. AINSLEY showed an ASD. Cxray 04/03: bilateral pulm opacities with small left and moderate right pleural effusion, congestive change, possible pulmonary edema Echo(03/16): LVEF 30-35% Transaminitis Improving, downtrending 04/09: Both LFTs decreasing. Probably from amiodorone. 2/2 shock liver LFTs decreasing Electrolyte Imbalance Resolved Mag and K+ repleted continue to monitor Altered mental status, improved -CT Head negative -urine and wound culture negative -may be secondary to a fib with rvr Peripheral cyanosis Abdominal angiogram on 03/21/18: no significant peripheral disease. three vessel runoff in both right and left lower extremities Offloading boots Rheumatoid Arthritis -Sulfasalazine 500mg po BID DM -continue home insulin -accuchecks -hypoglycemic protocol Prophylaxis -Eliquis 5mg po BID -offloading boots -Protonix 40 mg po daily *Disposition: Patient was accepted by [facility] for ASD repair. Transfer/ tansportation planning in process. Patient waiting for bed. <Patrica Epperson - Last Filed: 04/12/18 16:34> Objective - Vital Signs/Intake and Output Vital Signs (last 24 hours): Temp Pulse Resp BP Pulse Ox 98.5 F 100 H 20 111/75 100 04/12/18 07:00 04/12/18 07:00 04/12/18 07:00 04/12/18 09:35 04/12/18 07:00 Intake and Output: 04/12/18 04/12/18 06:59 18:59 Intake Total 120 Output Total 1000 Balance -880 - Medications Medications: Current Medications Apixaban (Eliquis) 5 mg PO BID [facility] Last Admin: 04/12/18 09:35 Dose: 5 mg Aspirin (Aspirin Chewable) 81 mg PO DAILY [facility] Last Admin: 04/12/18 09:36 Dose: 81 mg Dextrose (Dextrose 50% Inj) 0 ml IV STAT PRN; Protocol PRN Reason: Hypoglycemia Protocol Last Admin: 04/04/18 23:27 Dose: 50 ml Dextrose (Glutose 15) 0 gm PO ONCE PRN; Protocol PRN Reason: Hypoglycemia Protocol Furosemide (Lasix) 20 mg IVP Q12H [facility] Last Admin: 04/12/18 09:35 Dose: 20 mg Glucagon (Glucagen Diagnostic Kit) 0 mg IM STAT PRN; Protocol PRN Reason: Hypoglycemia Protocol Guaifenesin (Robitussin) 100 mg PO Q6H PRN PRN Reason: Cough Last Admin: 04/12/18 03:58 Dose: 100 mg Magnesium Sulfate/Dextrose (Magnesium Sulfate 1 Gm/100 Ml D5w) 1 gm in 100 mls @ 100 mls/hr IVPB Q1H [facility] Stop: 04/12/18 17:44 Last Admin: 04/12/18 16:04 Dose: 100 mls/hr Insulin Aspart (Novolog) 0 unit SC ACHS [facility] PRN Reason: Protocol Last Admin: 04/12/18 12:25 Dose: 3 unit Insulin Glargine (Lantus) 12 unit SC HS [facility] Last Admin: 04/11/18 22:12 Dose: 12 u Lisinopril (Zestril) 5 mg PO DAILY [facility] Last Admin: 04/10/18 11:13 Dose: Not Given Metoprolol Tartrate (Lopressor) 25 mg PO BID [facility] Last Admin: 04/12/18 09:35 Dose: 25 mg Pantoprazole Sodium (Protonix Ec Tab) 40 mg PO DAILY [facility] Last Admin: 04/12/18 09:35 Dose: 40 mg Potassium Chloride (K-Dur 20 Meq Er Tab) 20 meq PO BRK [facility] Pregabalin (Lyrica) 100 mg PO Q12 [facility] Last Admin: 04/12/18 09:41 Dose: 100 mg Spironolactone (Aldactone) 25 mg PO DAILY [facility] Last Admin: 04/12/18 09:36 Dose: 25 mg Tramadol HCl (Ultram) 25 mg PO TID PRN PRN Reason: Pain, moderate (4-7) Last Admin: 04/12/18 03:58 Dose: 25 mg - Labs Labs: 04/12/18 04:55 04/12/18 04:55 PT 25.3 SECONDS (9.7-12.2) H 03/29/18 12:49 INR 2.3 03/29/18 12:49 APTT 34 SECONDS (21-34) 03/29/18 12:49 Attending/Attestation - Attestation I have personally seen and examined this patient.: Yes I have fully participated in the care of the patient.: Yes I have reviewed all pertinent clinical information, including history, physical exam and plan: Yes Notes (Text): Seen and examined by me this morning. Patient is looking good this morning.sitting comfortable. lungs bilateral rales present Patient HR is not controlled,continue metoprolol Dr Navarro follow up appreciated Monitor mag level Patient will be transferred to [facility] for ASD repair once bed is ready I spoke to the patient's daughter about the transfer I agree with the resident's assessment and the plan
[2018-04-11 08:54] LABS: BASO % 0.4 % (0.0-2.0); EOS # 0.1 K/uL (0.0-0.7); HEMOGLOBIN 14.6 g/dL (11.0-16.0); LYMPH # 1.2 K/uL (1.0-4.3); MEAN CELL VOLUME 90.8 fL (81.0-99.0); MEAN PLATELET VOLUME 8.6 fL (7.2-11.7); MONO # 0.8 K/uL (0.0-0.8); MONO % 12.1 % (0.0-10.0); NEUT # 4.2 K/uL (1.8-7.0); NEUT % 66.5 % (50.0-75.0); NRBC % 0.1 % (0.0-2.0); RBC 4.86 Mil/uL (3.80-5.20); RED CELL DISTRIBUTION WIDTH 15.7 % (11.5-14.5); WHITE BLOOD COUNT 6.3 K/uL (4.8-10.8)
[2018-04-11 09:08] LABS: ALB/GLOB RATIO 1.1 (1.0-2.1); ALT/SGPT 246 U/L (9-52); AST/SGOT 80 U/L (14-36); BLOOD UREA NITROGEN 21 mg/dL (7-17); GFR AFRICAN-AMERICAN > 60; GFR NON-AFRICAN AMERICAN > 60
[2018-04-11] MEDS: (Novolog) Insulin Aspart, Recombinant 100 u/ml 10 ml vial SC SCH ×4 (10:02→22:13)
[2018-04-11] MEDS: Potassium Chloride 10 mEq ER Tab PO SCH (10:05)
[2018-04-11] MEDS: Pantoprazole 40 mg EC Tab PO SCH (10:06)
--- NOTE | 2018-04-11 12:44 | CARD ---
APPROVED REPORT EXAM: LIMITED Two-dimensional and M-mode echocardiogram with Doppler and color Doppler. Other Information Quality : GoodRhythm : INDICATION ASSESS MR SEVERITY Aortic Valve AI P 1/2 [id number] Mitral Valve MV E Nkwychzj88.3cm/sMV A Augcuegu81.4cm/sE/A ratio1.3 TDI E/Lateral E'0.0E/Medial E'0.0 Tricuspid Valve TR Peak Wwedbuab911ng/sTR Peak Gr.[id number] LEFT VENTRICLE The left ventricle is normal size. There is normal left ventricular wall thickness. Left ventricle systolic function is moderately impaired. The Ejection Fraction is 30-35%. There is global hypokinesis of the left ventricle. There is a flattened septum consistent with right ventricle volume and pressure overload. No left ventricle thrombus noted on this study. There is no ventricular septal defect visualized. There is no left ventricular aneurysm. There is no mass noted in the left ventricle. RIGHT VENTRICLE The right ventricle is mildly dilated. There is normal right ventricular wall thickness. The right ventricular systolic function is normal. TAPSE not done ATRIA The left atrium is moderately dilated.LA volume is 42 ml/m2 The right atrium is moderately dilated. The interatrial septum is intact with no evidence for an atrial septal defect. AORTIC VALVE The aortic valve is normal in structure and function. There is mild to moderate aortic regurgitation. There is no aortic valvular stenosis. There is no aortic valvular vegetation. MITRAL VALVE The mitral valve is moderately thickened. There is no evidence of mitral valve prolapse. There is no mitral valve stenosis. Mitral regurgitation is mild. ERO AREA IS 0.2 sq cm and RV is 26 ml . consistent as mild TRICUSPID VALVE The tricuspid valve is normal in structure and function. There is moderate tricuspid regurgitation. Right ventricular systolic pressure is estimated at 50-60 mmHg. There is no tricuspid valve prolapse or vegetation. There is no tricuspid valve stenosis. PULMONIC VALVE The pulmonary valve is normal in structure and function. There is no pulmonic valvular regurgitation. There is no pulmonic valvular stenosis. GREAT VESSELS The aortic root is normal in size. The ascending aorta is normal in size. The pulmonary artery is normal. The IVC is normal in size and collapses >50% with inspiration. PERICARDIAL EFFUSION The pericardium appears normal. There is no pleural effusion. <Conclusion> Left ventricle systolic function is moderately impaired. The Ejection Fraction is 30-35%. There is global hypokinesis of the left ventricle. There is a flattened septum consistent with right ventricle volume and pressure overload. There is mild to moderate aortic regurgitation. Mitral regurgitation is mild. ERO AREA IS 0.2 sq cm and RV is 26 ml . consistent as mild The left atrium is moderately dilated.LA volume is 42 ml/m2 The right atrium is moderately dilated. The right ventricle is mildly dilated. There is moderate tricuspid regurgitation. Right ventricular systolic pressure is estimated at 50-60 mmHg.
--- NOTE | 2018-04-11 15:23 | CARD ---
APPROVED REPORT EKG Measurement Heart [id number] [place] 224P [id number] <Conclusion> Sinus tachycardia with 1st degree AV block Left axis deviation Left bundle branch block Abnormal ECG
--- NOTE | 2018-04-11 16:50 | CP.PCM.PN ---
Subjective - Date & Time of Evaluation Date of Evaluation: 04/11/18 Time of Evaluation: 16:49 - Subjective Subjective: Pt is alert, chronically tired. Objective - Vital Signs/Intake and Output Vital Signs (last 24 hours): Temp Pulse Resp BP Pulse Ox 97.7 F 68 20 107/53 L 99 04/11/18 16:00 04/11/18 16:01 04/11/18 16:00 04/11/18 16:00 04/11/18 16:00 Intake and Output: 04/11/18 04/11/18 06:59 18:59 Intake Total 100 Output Total 1450 Balance -1350 - Medications Medications: Current Medications Apixaban (Eliquis) 5 mg PO BID [facility] Last Admin: 04/11/18 10:06 Dose: 5 mg Aspirin (Aspirin Chewable) 81 mg PO DAILY [facility] Last Admin: 04/11/18 10:06 Dose: 81 mg Dextrose (Dextrose 50% Inj) 0 ml IV STAT PRN; Protocol PRN Reason: Hypoglycemia Protocol Last Admin: 04/04/18 23:27 Dose: 50 ml Dextrose (Glutose 15) 0 gm PO ONCE PRN; Protocol PRN Reason: Hypoglycemia Protocol Furosemide (Lasix) 20 mg IVP Q12H [facility] Last Admin: 04/11/18 10:06 Dose: 20 mg Glucagon (Glucagen Diagnostic Kit) 0 mg IM STAT PRN; Protocol PRN Reason: Hypoglycemia Protocol Guaifenesin (Robitussin) 100 mg PO Q6H PRN PRN Reason: Cough Last Admin: 03/30/18 20:15 Dose: 100 mg Insulin Aspart (Novolog) 0 unit SC ACHS [facility] PRN Reason: Protocol Last Admin: 04/11/18 12:25 Dose: 4 unit Insulin Glargine (Lantus) 12 unit SC HS [facility] Last Admin: 04/10/18 21:47 Dose: 12 u Lisinopril (Zestril) 5 mg PO DAILY [facility] Last Admin: 04/10/18 11:13 Dose: Not Given Metoprolol Tartrate (Lopressor) 25 mg PO BID [facility] Last Admin: 04/11/18 10:20 Dose: Not Given Pantoprazole Sodium (Protonix Ec Tab) 40 mg PO DAILY [facility] Last Admin: 04/11/18 10:06 Dose: 40 mg Potassium Chloride (Klor-Con 10) 20 meq PO BRK [facility] Last Admin: 04/11/18 10:05 Dose: 20 meq Pregabalin (Lyrica) 100 mg PO Q12 [facility] Last Admin: 04/11/18 10:05 Dose: 100 mg Spironolactone (Aldactone) 25 mg PO DAILY [facility] Last Admin: 04/11/18 10:05 Dose: 25 mg Sulfasalazine (Azulfidine) 500 mg PO BID [facility] PRN Reason: Protocol Last Admin: 04/11/18 10:05 Dose: 500 mg Tramadol HCl (Ultram) 25 mg PO TID PRN PRN Reason: Pain, moderate (4-7) Last Admin: 03/30/18 20:15 Dose: 25 mg - Labs Labs: 04/11/18 08:48 04/11/18 08:48 PT 25.3 SECONDS (9.7-12.2) H 03/29/18 12:49 INR 2.3 03/29/18 12:49 APTT 34 SECONDS (21-34) 03/29/18 12:49 - Constitutional Appears: Chronically Ill - Head Exam Head Exam: ATRAUMATIC - Eye Exam Eye Exam: EOMI - ENT Exam ENT Exam: Mucous Membranes Dry - Respiratory Exam Respiratory Exam: Decreased Breath Sounds - Cardiovascular Exam Cardiovascular Exam: REGULAR RHYTHM - GI/Abdominal Exam GI & Abdominal Exam: Normal Bowel Sounds - Exam External exam: Swelling - Extremities Exam Extremities Exam: Full ROM - Neurological Exam Neurological Exam: Alert, Awake, Oriented x3 - Psychiatric Exam Psychiatric exam: Flat Affect - Skin Skin Exam: Normal Color Assessment and Plan - Assessment and Plan (Free Text) Assessment: 1. Pt was in rapid atrial flutter this am with hypotension. Beta marlena had been held yesterday for pauses. Telemetry review demonstrates Mobitz II block with pauses up to 2.4 secs. As per my order, pt received iv NS infusion and resumed beta marlena , she is in nsr now. 2. Mag and k levels good today after yesterday's replacement 3. LFTs continue to gradually come down. 4. Repeat echo showed mild not severe MR: by PISA, effective regurgitant area was .20 cm2. LV ef remains poor. 5. Pt has been accepted to [facility], but bed not available yet. 6. Will check ecg tomorrow and if qtc back to normal after amiodarone last week , will consider sotalol. 7. check lytes daily
--- NOTE | 2018-04-11 17:39 | CP.PCM.DIS ---
Provider - Provider Date of Admission: 03/29/18 14:13 Attending physician: Patrica Epperson MD Consults: Cardiology: Dr. Navarro ICU: Dr. Moon Pulmonology: Dr. Moon Surgery: Dr. Lynn Time Spent in preparation of Discharge (in minutes): 45 Hospital Course - Lab Results Lab Results: Micro Results 04/08/18 19:50 Naris MRSA Culture - Final MRSA NOT DETECTED 04/04/18 16:12 Naris MRSA Culture (Admit) - Final MRSA NOT DETECTED 04/01/18 21:30 Naris MRSA Culture - Final MRSA NOT DETECTED 03/29/18 14:27 Foot - Left Gram Stain - Final 03/29/18 14:27 Foot - Left Wound Culture - Final No growth. 03/29/18 21:51 Nose MRSA Culture (Admit) - Final MRSA NOT DETECTED 03/29/18 13:29 Urine,Catheterized Urine Culture - Final No Growth (<1,000 CFU/ML) Most Recent Lab Values WBC 6.3 K/uL (4.8-10.8) 04/11/18 08:48 RBC 4.86 Mil/uL (3.80-5.20) 04/11/18 08:48 Hgb 14.6 g/dL (11.0-16.0) 04/11/18 08:48 Hct 44.1 % (34.0-47.0) 04/11/18 08:48 MCV 90.8 fL (81.0-99.0) 04/11/18 08:48 MCH 30.0 pg (27.0-31.0) 04/11/18 08:48 MCHC 33.0 g/dL (33.0-37.0) 04/11/18 08:48 RDW 15.7 % (11.5-14.5) H 04/11/18 08:48 Plt Count 122 K/uL (130-400) L 04/11/18 08:48 MPV 8.6 fL (7.2-11.7) 04/11/18 08:48 Neut % (Auto) 66.5 % (50.0-75.0) 04/11/18 08:48 Lymph % (Auto) 19.0 % (20.0-40.0) L 04/11/18 08:48 Barber % (Auto) 12.1 % (0.0-10.0) H 04/11/18 08:48 Eos % (Auto) 2.0 % (0.0-4.0) 04/11/18 08:48 Baso % (Auto) 0.4 % (0.0-2.0) 04/11/18 08:48 Neut # (Auto) 4.2 K/uL (1.8-7.0) 04/11/18 08:48 Lymph # (Auto) 1.2 K/uL (1.0-4.3) 04/11/18 08:48 Barber # (Auto) 0.8 K/uL (0.0-0.8) 04/11/18 08:48 Eos # (Auto) 0.1 K/uL (0.0-0.7) 04/11/18 08:48 Baso # (Auto) 0.0 K/uL (0.0-0.2) 04/11/18 08:48 Neutrophils % (Manual) 88 % (50-75) H 04/07/18 05:59 Band Neutrophils % 4 % (0-2) H 04/06/18 06:29 Lymphocytes % (Manual) 7 % (20-40) L 04/07/18 05:59 Monocytes % (Manual) 5 % (0-10) 04/07/18 05:59 Eosinophils % (Manual) 1 % (0-4) 04/06/18 06:29 Metamyelocytes % 1 % (0-0) H 04/05/18 06:13 Nucleated RBC % 2 % (0-0) H 04/05/18 06:13 Toxic Granulation Present 04/07/18 05:59 Platelet Estimate Slightly decreased (NORMAL) L 04/07/18 05:59 Plt Clumps, EDTA Cell Maker 04/05/18 06:13 Large Platelets Present 04/07/18 05:59 Giant Platelets Present 04/07/18 05:59 Polychromasia Slight 04/07/18 05:59 Hypochromasia (manual) Slight 04/07/18 05:59 Poikilocytosis (manual Slight 04/07/18 05:59 Anisocytosis (manual) Slight 04/07/18 05:59 Macrocytosis (manual) Slight 04/07/18 05:59 Center Cells Slight 04/07/18 05:59 PT 25.3 SECONDS (9.7-12.2) H 03/29/18 12:49 INR 2.3 03/29/18 12:49 APTT 34 SECONDS (21-34) 03/29/18 12:49 Puncture Site Rb 04/05/18 00:35 pCO2 31 mm/Hg (35-45) L 04/05/18 00:35 pO2 38 mm/Hg (30-55) 04/09/18 07:37 HCO3 19.3 mmol/L (21-28) L 04/05/18 00:35 ABG pH 7.35 (7.35-7.45) 04/05/18 00:35 ABG Total CO2 18.1 mmol/L (22-28) L 04/05/18 00:35 ABG O2 Saturation 100.5 % (95-98) H 04/05/18 00:35 ABG Base Excess -7.2 mmol/L (-2.0-3.0) L 04/05/18 00:35 ABG Hemoglobin 16.1 g/dL (11.7-17.4) 04/05/18 00:35 ABG Carboxyhemoglobin 1.3 % (0.5-1.5) 04/05/18 00:35 POC ABG HHb (Measured) -0.5 % (0.0-5.0) L 04/05/18 00:35 ABG Methemoglobin 0.9 % (0.0-3.0) 04/05/18 00:35 Miguel Angel Test Na 04/05/18 00:35 VBG pH 7.47 (7.32-7.43) H 04/09/18 07:37 VBG pCO2 44 mmHg (40-60) 04/09/18 07:37 VBG HCO3 30.1 mmol/L 04/09/18 07:37 VBG Total CO2 33.4 mmol/L (22-28) H 04/09/18 07:37 VBG O2 Sat (Calc) 76.9 % (40-65) H 04/09/18 07:37 VBG Base Excess 7.4 mmol/L (0.0-2.0) H 04/09/18 07:37 VBG Potassium 2.6 mmol/L (3.6-5.2) L 04/09/18 07:37 A-a O2 Difference 344.0 mm/Hg 04/05/18 00:35 Respiratory Index 1.0 04/05/18 00:35 Hgb O2 Saturation 98.2 % (95.0-98.0) H 04/05/18 00:35 Sodium 140.0 mmol/l (132-148) 04/09/18 07:37 Chloride 104.0 mmol/L (98-107) 04/09/18 07:37 Glucose 130 mg/dl (65-105) H 04/09/18 07:37 Lactate 1.2 mmol/L (0.7-2.1) 04/09/18 07:37 Vent Mode Bipap 04/05/18 00:35 FiO2 100.0 % 04/05/18 00:35 Inspiratory BiPAP 12 04/05/18 00:35 Expiratory BiPAP 6 04/05/18 00:35 Sodium 134 mmol/L (132-148) 04/11/18 08:48 Potassium 3.9 mmol/L (3.6-5.2) 04/11/18 08:48 Chloride 96 mmol/L (98-107) L 04/11/18 08:48 Carbon Dioxide 33 mmol/L (22-30) H 04/11/18 08:48 Anion Gap 9 (10-20) L 04/11/18 08:48 BUN 21 mg/dL (7-17) H 04/11/18 08:48 Creatinine 0.6 mg/dL (0.7-1.2) L 04/11/18 08:48 Est GFR ( Amer) > 60 04/11/18 08:48 Est GFR (Non-Af Amer) > 60 04/11/18 08:48 POC Glucose (mg/dL) 270 mg/dL (65-110) H 04/11/18 16:36 Random Glucose 111 mg/dL (65-105) H 04/11/18 08:48 Calcium 9.0 mg/dl (8.6-10.4) 04/11/18 08:48 Phosphorus 4.1 mg/dL (2.5-4.5) 04/11/18 08:48 Magnesium 1.8 mg/dL (1.6-2.3) 04/11/18 08:48 Total Bilirubin 1.1 mg/dL (0.2-1.3) 04/11/18 08:48 AST 80 U/L (14-36) H D 04/11/18 08:48 ALT 246 U/L (9-52) H D 04/11/18 08:48 Alkaline Phosphatase 225 U/L (38-126) H 04/11/18 08:48 Total Creatine Kinase 40 U/L (30-135) 04/06/18 10:18 CK-MB (Mass) 1.65 ng/mL (0.0-3.38) 04/06/18 10:18 Troponin I 0.0480 ng/mL (0.00-0.120) 04/06/18 10:18 NT-Pro-B Natriuret Pep 34871 pg/mL (0-900) H 03/29/18 17:16 Total Protein 5.9 g/dL (6.3-8.3) L 04/11/18 08:48 Albumin 3.0 g/dL (3.5-5.0) L 04/11/18 08:48 Globulin 2.9 gm/dL (2.2-3.9) 04/11/18 08:48 Albumin/Globulin Ratio 1.1 (1.0-2.1) 04/11/18 08:48 Procalcitonin 0.19 NG/ML (0.19-0.49) 03/29/18 17:03 Venous Blood Potassium 2.6 mmol/L (3.6-5.2) L 04/09/18 07:37 Urine Color Yellow (YELLOW) 03/29/18 13:29 Urine Clarity Clear (Clear) 03/29/18 13:29 Urine pH 5.0 (5.0-8.0) 03/29/18 13:29 Ur Specific [place] 1.015 (1.003-1.030) 03/29/18 13:29 Urine Protein Negative mg/dL (NEGATIVE) 03/29/18 13:29 Urine Glucose (UA) Normal mg/dL (Normal) 03/29/18 13:29 Urine Ketones Negative mg/dL (NEGATIVE) 03/29/18 13:29 Urine Blood Negative (NEGATIVE) 03/29/18 13:29 Urine Nitrate Negative (NEGATIVE) 03/29/18 13:29 Urine Bilirubin Negative (NEGATIVE) 03/29/18 13:29 Urine Urobilinogen Normal mg/dL (0.2-1.0) 03/29/18 13:29 Ur Leukocyte Esterase Neg Jaylene/uL (Negative) 03/29/18 13:29 Urine WBC (Auto) 2 /hpf (0-5) 03/29/18 13:29 Urine RBC (Auto) 1 /hpf (0-3) 03/29/18 13:29 Ur Squamous Epith Cells < 1 /hpf (0-5) 03/29/18 13:29 C. difficile Ag & Toxin Negative (NEGATIVE) 03/31/18 11:49 - Hospital Course Hospital Course: HPI: Pts daughter is present and aids with history gathering. 73 year old female with a history of DM, RA, AFib, Hypercholesterolenemia who presents with Altered Mental Status. Patient is a poor historian and pts daughter is present and aids with history gathering. Patients daughter states that the pt was at her normal baseline level at 8PM yesterday at her rehab facility. The daughter states that she did not have any symptoms at that time. However this morning the pt daughter stated that she found the pt to not be her usual self. The pt was brought to the ED at 10AM where she was slightly responsive and has been improving since then. The pt was previously admitted from March 19 to March 23 for Chest Pain and SOB. The daughter states that the pt has had multiple episodes of diarrhea since her discharge March 23. On review systems, Pt admits to chills, fatigue, and SOB. Pt denies fever, HARRISON, Chest Pain, Palpitations, N, V, C. Currently patient is very lethargic but is able to answer questions and follow commands. PMHX: DM, RA, AFib, Hypercholesterolenemia, Pneumonia PSH: Bilateral Humerus Internal Fixation, Rib Internal Fixation FAMILY HX: Mother Stroke (40s) , Sister Stroke (60s), Brother Stroke (63) ALLERGIES: NKDA MEDICATIONS: Tramadol HCl 50 mg PO Daily, Acetaminophen 650mg PO Q4, Pantoprazole Sodium 40mg PO Daily,Collagenase, Insulin Human Regular 3 units SC TID, Metoprolol Tartrate 25mg PO BID, Magnesium Hydroxide 30 ml PO Daily, Pregabalin 100mg PO Q12, Lisinopril 5 mg PO Daily,Insulin Glargine 9 unit SC HS, Menthol/Zinc Oxide 71 gm Ointment, Azithromycin 500 mg PO Daily, Apixiban 5 mg PO Daily, Albuterol / Ipratropium 3ml IH Q6, Spironolactone 25 mg PO Daily,Aspirin 81 mg PO Daily, Tramadol 50mg PO Daily,Odansetron 4 mg PO Q6 Social : Denies tobacco, EtOH, Illicit Drug use Hospital Course: Patient was admitted to telemetry on 03/29/18 for altered mental status. In the ED, she was found to have acute on chronic CHF, atrial fibrillation with RVR, and cyanotic feet. Head CT showed no acute findings. Chest xray showed vascular congestion/ edema and probable small bilateral pleural effusions. Echocardiogram showed LVEF 30-35%. Lasix, Aldactone, lisinopril, metoprolol, and aspirin were started. Patient construction project manager, Dr. Navarro, was consulted for atrial fibrillation with RVR. Patient had AINSLEY performed and was found to have an atrial septal defect. During procedure, patient became hypotensive and was transferred to ICU for observation and further management. Pressors were discontinued, patient was stabilized and transferred to telemetry floor three days later. Atrial fibrillation was continuously monitored and managed. Dr. Navarro contacted [facility] regarding repair of ASD. [facility] accepted patient. General surgery, Dr. Lynn, was consulted regarding cyanotic feet. Angiogram showed no significant peripheral disease and three vessel runoff in both right and left lower extremities. Mental status continued to improve throughout course. Patient has a history of arthritis for which sulfasalazine was started. Patient is accepted to [facility] for ASD repair and further management. Patient is to be transferred via [facility]S. This is a brief summary of the hospital course. Please see EMR for more details. Discharge Exam - Head Exam Head Exam: ATRAUMATIC - Additional Findings Additional findings: - Constitutional Appears: No Acute Distress, Chronically Ill - Head Exam Head Exam: ATRAUMATIC, NORMAL INSPECTION - Eye Exam Eye Exam: EOMI, Normal appearance - ENT Exam ENT Exam: Mucous Membranes Moist - Respiratory Exam Respiratory Exam: NORMAL BREATHING PATTERN. absent: Rales, Rhonchi, Wheezes - Cardiovascular Exam Cardiovascular Exam: IRREGULAR RHYTHM, tachycardia, +S1, +S2 - GI/Abdominal Exam GI & Abdominal Exam: Soft, Normal Bowel Sounds. absent: Distended, Tenderness - Extremities Exam Extremities Exam: Normal Inspection - Neurological Exam Neurological Exam: Awake, alert - Psychiatric Exam Psychiatric exam: Normal Affect - Skin Skin Exam: Dry, Intact, Warm Discharge Plan - Follow Up Plan Condition: STABLE Disposition: Trans to Other Acute Care [facility] Additional Instructions: Patient to be transferred to [facility] via [facility] for ASD repair and continued care. Patient must continue medications. Patient must follow up with PMD and construction project manager (Dr. Navarro) upon discharge.
[2018-04-11] MEDS: (Lantus) Insulin Glargine, Recombinant SC SCH (22:12)
[2018-04-12] MEDS: Tramadol 25 mg PO PRN (03:58)
[2018-04-12] MEDS: guaiFENesin 100 mg/5 ml Syrup UD PO PRN (03:58)
[2018-04-12 04:58] LABS: BASO % 0.6 % (0.0-2.0); EOS # 0.1 K/uL (0.0-0.7); EOS % 2.2 % (0.0-4.0); HEMOGLOBIN 13.8 g/dL (11.0-16.0); LYMPH # 1.3 K/uL (1.0-4.3); LYMPH % 20.1 % (20.0-40.0); MEAN CELL VOLUME 90.6 fL (81.0-99.0); MEAN CORPUSCULAR HEMOGLOBIN 30.1 pg (27.0-31.0); MEAN CORPUSCULAR HGB CONC 33.3 g/dL (33.0-37.0); MEAN PLATELET VOLUME 8.5 fL (7.2-11.7); MONO # 0.9 K/uL (0.0-0.8); MONO % 13.3 % (0.0-10.0); NEUT # 4.2 K/uL (1.8-7.0); NEUT % 63.8 % (50.0-75.0); NRBC % 0.1 % (0.0-2.0); RBC 4.6 Mil/uL (3.80-5.20); RED CELL DISTRIBUTION WIDTH 15.6 % (11.5-14.5); WHITE BLOOD COUNT 6.6 K/uL (4.8-10.8)
[2018-04-12 05:17] LABS: ALBUMIN 2.9 g/dL (3.5-5.0); ALT/SGPT 183 U/L (9-52); AST/SGOT 51 U/L (14-36); BLOOD UREA NITROGEN 22 mg/dL (7-17); CALCIUM 8.6 mg/dl (8.6-10.4); GFR AFRICAN-AMERICAN > 60; GFR NON-AFRICAN AMERICAN > 60
[2018-04-12] MEDS: (Novolog) Insulin Aspart, Recombinant 100 u/ml 10 ml vial SC SCH ×3 (07:30→17:53)
[2018-04-12] MEDS: Potassium Chloride 10 mEq ER Tab PO SCH (09:00)
[2018-04-12] MEDS: Pantoprazole 40 mg EC Tab PO SCH (09:35)
--- NOTE | 2018-04-12 11:34 | CP.PCM.PN ---
Subjective - Date & Time of Evaluation Date of Evaluation: 04/12/18 Time of Evaluation: 11:29 - Subjective Subjective: Pt is alert, nad Last night, she had rapid flutter, the hospitalist administered IV cardezem, 2.5 mg. Pt is in nsr today. First degree av block., Beta marlena was resumed. Objective - Vital Signs/Intake and Output Vital Signs (last 24 hours): Temp Pulse Resp BP Pulse Ox 98.5 F 100 H 20 111/75 100 04/12/18 07:00 04/12/18 07:00 04/12/18 07:00 04/12/18 09:35 04/12/18 07:00 Intake and Output: 04/12/18 04/12/18 06:59 18:59 Intake Total 120 Output Total 1000 Balance -880 - Medications Medications: Current Medications Apixaban (Eliquis) 5 mg PO BID [facility] Last Admin: 04/12/18 09:35 Dose: 5 mg Aspirin (Aspirin Chewable) 81 mg PO DAILY [facility] Last Admin: 04/12/18 09:36 Dose: 81 mg Dextrose (Dextrose 50% Inj) 0 ml IV STAT PRN; Protocol PRN Reason: Hypoglycemia Protocol Last Admin: 04/04/18 23:27 Dose: 50 ml Dextrose (Glutose 15) 0 gm PO ONCE PRN; Protocol PRN Reason: Hypoglycemia Protocol Furosemide (Lasix) 20 mg IVP Q12H [facility] Last Admin: 04/12/18 09:35 Dose: 20 mg Glucagon (Glucagen Diagnostic Kit) 0 mg IM STAT PRN; Protocol PRN Reason: Hypoglycemia Protocol Guaifenesin (Robitussin) 100 mg PO Q6H PRN PRN Reason: Cough Last Admin: 04/12/18 03:58 Dose: 100 mg Insulin Aspart (Novolog) 0 unit SC [facility] PRN Reason: Protocol Last Admin: 04/11/18 22:13 Dose: Not Given Insulin Glargine (Lantus) 12 unit SC HS [facility] Last Admin: 04/11/18 22:12 Dose: 12 u Lisinopril (Zestril) 5 mg PO DAILY [facility] Last Admin: 04/10/18 11:13 Dose: Not Given Metoprolol Tartrate (Lopressor) 25 mg PO BID [facility] Last Admin: 04/12/18 09:35 Dose: 25 mg Pantoprazole Sodium (Protonix Ec Tab) 40 mg PO DAILY [facility] Last Admin: 04/12/18 09:35 Dose: 40 mg Potassium Chloride (Klor-Con 10) 20 meq PO BRK [facility] Last Admin: 04/12/18 09:00 Dose: 20 meq Pregabalin (Lyrica) 100 mg PO Q12 [facility] Last Admin: 04/12/18 09:41 Dose: 100 mg Spironolactone (Aldactone) 25 mg PO DAILY [facility] Last Admin: 04/12/18 09:36 Dose: 25 mg Tramadol HCl (Ultram) 25 mg PO TID PRN PRN Reason: Pain, moderate (4-7) Last Admin: 04/12/18 03:58 Dose: 25 mg - Labs Labs: 04/12/18 04:55 04/12/18 04:55 PT 25.3 SECONDS (9.7-12.2) H 03/29/18 12:49 INR 2.3 03/29/18 12:49 APTT 34 SECONDS (21-34) 03/29/18 12:49 - Constitutional Appears: Chronically Ill - Head Exam Head Exam: ATRAUMATIC - Eye Exam Eye Exam: EOMI - ENT Exam ENT Exam: Mucous Membranes Dry - Respiratory Exam Respiratory Exam: Decreased Breath Sounds - Cardiovascular Exam Cardiovascular Exam: REGULAR RHYTHM - Back Exam Back Exam: NORMAL INSPECTION - Neurological Exam Neurological Exam: Alert, Awake, Oriented x3 - Psychiatric Exam Psychiatric exam: Normal Affect - Skin Skin Exam: Normal Color Assessment and Plan - Assessment and Plan (Free Text) Assessment: 1. Will replace mag and k 2. Will call [facility] myself again 3. Pt is stable for the moment, but should not be transferred to rehab, as her condition is too delicate and she will no doubt return within a few days.
[2018-04-12] MEDS ORDERED: Potassium Chloride 20 mEq ER Tab PO SCH (11:39)
[2018-04-12] MEDS: Magnesium Sulfate 1 gm/100 mL D5W IVPB SCH ×2 (12:06→13:02)
--- NOTE | 2018-04-12 13:14 | CARD ---
APPROVED REPORT EKG Measurement Heart [id number] <Conclusion> Sinus rhythm with premature supraventricular complexes Left axis deviation Left bundle branch block Abnormal ECG
[2018-04-12] MEDS: Magnesium Sulfate 1 gm in D5W 1 GM/100 ML BAG IVPB SCH ×2 (16:04→17:09)
[2018-04-12 17:01] VITALS: BP 119/70; PULSE 88; RESP 18; TEMP 97.1; O2SAT 99
--- NOTE | 2018-04-12 22:57 | CARD ---
APPROVED REPORT EKG Measurement Heart [id number] <Conclusion> Sinus rhythm with frequent APCs some are blocked Left axis deviation Left bundle branch block Abnormal ECG
== END 2018-04-12 21:18 | disposition short-term general hospital (02) | DRG 291 ==
LOC: C.ER 11:24 → C.9E 14:13 → OBSVTOIN 14:13 → C.6T 15:42 → C.9E 19:30 → C.9I 19:36 → C.6T 04-01 21:40 → C.9S 04-04 15:04 → C.9I 04-04 15:25 → C.6T 04-08 19:21
PROVIDERS: ADMIT Internal Medicine; ATTEND Internal Medicine
PROC: B246ZZ4 Ultrasonography of Right and Left Heart, Transesophageal (ICD-10-PCS; 2018-04-02)
PROC: 5A2204Z Restoration of Cardiac Rhythm, Single (ICD-10-PCS; principal; 2018-04-04)
PROC: B246ZZ4 Ultrasonography of Right and Left Heart, Transesophageal (ICD-10-PCS; 2018-04-04)
DX: I11.0 Hypertensive heart disease with heart failure (principal); I48.91 Unspecified atrial fibrillation; Q21.1 Atrial septal defect; I50.23 Acute on chronic systolic (congestive) heart failure; I48.92 Unspecified atrial flutter; I27.20 Pulmonary hypertension, unspecified; I42.9 Cardiomyopathy, unspecified; K72.00 Acute and subacute hepatic failure without coma; K21.9 Gastro-esophageal reflux disease without esophagitis; I44.1 Atrioventricular block, second degree; E11.51 Type 2 diabetes mellitus with diabetic peripheral angiopathy without gangrene; K76.1 Chronic passive congestion of liver; I08.3 Combined rheumatic disorders of mitral, aortic and tricuspid valves; E11.40 Type 2 diabetes mellitus with diabetic neuropathy, unspecified; I95.81 Postprocedural hypotension; R41.82 Altered mental status, unspecified; T46.2X5A Adverse effect of other antidysrhythmic drugs, initial encounter; E83.42 Hypomagnesemia; M06.9 Rheumatoid arthritis, unspecified; M19.90 Unspecified osteoarthritis, unspecified site; Z79.4 Long term (current) use of insulin; Z87.01 Personal history of pneumonia (recurrent); Z87.891 Personal history of nicotine dependence; Z79.01 Long term (current) use of anticoagulants; Z79.82 Long term (current) use of aspirin; Z74.01 Bed confinement status